=== PATIENT | male | born 1960 | race Caucasian/White ===

== ENCOUNTER → 2021-07-24 | Outpatient (CLI) | payer MEDICARE ==
[2021-07-24 14:17] LABS: African American GFR (CKD) >90 (>60 ml/min/1.73 sqM); Blood Urea Nitrogen 12 mg/dL (9-20); Non-African American GFR(CKD) 90 (>60 ml/min/1.73 sqM)
--- NOTE | 2021-07-24 16:40 | CT ---
EXAMINATION TYPE: CT ChestAbdPelvis w con DATE OF EXAM: 07/24/2021 INDICATION: weight loss COMPARISON: None CT DLP: 1661.7 mGycm CONTRAST: Performed with Oral Contrast and with IV Contrast, patient injected with 100 mL of Isovue 300. TECHNIQUE: Axial images at 5 mm thick sections. Reconstructed images in the coronal plane. Delayed images through the kidneys. FINDINGS: CT CHEST: Portion of the thyroid visualized is normal. No suspicious lung nodules or focal infiltrates are present. No enlarged mediastinal or hilar adenopathy is evident. The ascending aorta diameter at the level of the main pulmonary artery is 3.0 cm. The main pulmonary artery diameter at the bifurcation is 2.8 cm. Coronary artery calcifications present. CT ABDOMEN: Liver: Normal Spleen: Normal Pancreas: Normal Adrenal glands: The adrenal glands are normal. Gallbladder: Normal Kidneys: No masses are evident. No hydronephrosis is present. No cysts are present. Delayed images were obtained through the kidneys, which remain unremarkable. Aorta: Vascular calcification is within the aorta. Inferior vena cava: Normal. Lymphadenopathy: There are multiple enlarged periaortic and retrocaval lymph nodes which are enlarged by CT criteria. This extends from the level of the renal veins to the bifurcation. Greater canal adenopathy is enlarged. There is marked enlarged adenopathy through the left iliac brandy n to the inguinal region. Multiple scattered enlarged left inguinal lymph nodes are present. CT PELVIS: Loops of bowel within the abdomen and pelvis are normal. There are loops of bowel which are incom pletely distended or lack oral contrast limiting their evaluation. Appendix: Normal as visualized. Urinary bladder: Normal. Genitourinary structures: Osseous structures: No suspicious lytic or sclerotic lesions. Degenerative changes at the lumbar spin e. IMPRESSIONS: 1. Multiple enlarged lymph nodes within the abdomen and pelvis especially on the left side within the left hemipelvis suspicious for lymphoma. Additional workup is recommended.
== END | disposition home or self-care (01) ==
LOC: RADCTMAIN 13:04
PROVIDERS: ATTEND Internal Medicine Hematology & Oncology
DX: R59.0 Localized enlarged lymph nodes (principal)
CPT/HCPCS: 82565; 84520; 71260; 74177; 36415; Q9967

== ENCOUNTER → 2021-08-07 | Outpatient (CLI) | payer MEDICARE ==
--- NOTE | 2021-08-08 05:24 | ECHOF ---
Referral Reason:Z01.818 [employer] exposure MEASUREMENTS -------- HEIGHT: 182.9 cm WEIGHT: 99.3 kg BP: RVIDd: 2.7 cm (< 3.3) IVSd: 1.3 cm (0.6 - 1.1) LVIDd: 4.8 cm (3.9 - 5.3) LVPWd: 1.3 cm (0.6 - 1.1) IVSs: 1.6 cm LVIDs: 3.7 cm LVPWs: 1.4 cm LA Diam: 3.9 cm (2.7 - 3.8) LAESV Index (A-L): 24.01 ml/m Ao Diam: 4.0 cm (2.0 - 3.7) AV Cusp: 1.0 cm (1.5 - 2.6) MV EXCURSION: 21.866 mm (> 18.000) MV EF SLOPE: 85 mm/s (70 - 150) EPSS: 1.2 cm MV E Dave: 0.53 m/s MV DecT: 263 ms MV A Dave: 0.85 m/s MV E/A Ratio: 0.62 AV maxP.47 mmHg AV meanP.91 mmHg RAP: 5.00 mmHg RVSP: 29.19 mmHg FINDINGS -------- Sinus rhythm. This was a technically good study. The left ventricular size is normal. Left ventricular wall thickness is normal. Overall left vent ricular systolic function is low-normal with, an EF between 50 - 55 %. The right ventricle is normal in size. The left atrial size is normal. The right atrial size is normal. 5.0mg OF Lumason UTLIZED: 2 OR MORE WALL SEGMENTS NOT VISUALIZED. Peak/mean gradient across the Aortic Valve is 25.47mmHg / 14.91mmHg. Mild to Moderate Aortic stenos is. Mild mitral annular calcification present. Mild mitral regurgitation is present. Mild tricuspid regurgitation present. Right ventricular systolic pressure is normal at < 35 mmHg. There is no pulmonic regurgitation present. There is no pericardial effusion. CONCLUSIONS -------- 1. The left ventricular size is normal. 2. Left ventricular wall thickness is normal. 3. Overall left ventricular systolic function is low-normal with, an EF between 50 - 55 %. 4. The right ventricle is normal in size. 5. The left atrial size is normal. 6. The right atrial size is normal. 7. 5.0mg OF Lumason UTLIZED: 2 OR MORE WALL SEGMENTS NOT VISUALIZED. 8. Peak/mean gradient across the Aortic Valve is 25.47mmHg / 14.91mmHg. 9. Mild to Moderate Aortic stenosis. 10. Mild mitral annular calcification present. 11. Mild mitral regurgitation is present. 12. Mild tricuspid regurgitation present. 13. There is no pericardial effusion. SOCIAL SCIENCES RESEARCH SCIENTIST: Dai Orteag RDCS
== END | disposition home or self-care (01) ==
LOC: RADECHMAIN 14:42
PROVIDERS: ATTEND Internal Medicine Hematology & Oncology
DX: Z01.818 Encounter for other preprocedural examination (principal); I08.3 Combined rheumatic disorders of mitral, aortic and tricuspid valves
CPT/HCPCS: 93306

== ENCOUNTER 2021-08-24 09:38 | Inpatient (IN) | payer MEDICARE ==
[2021-08-24] MEDS ORDERED: ACETAMINOPHEN TAB 500 MG TAB PO STA (11:09)
[2021-08-24] MEDS ORDERED: PIPERACILLIN-TAZOBACTAM 3.375 GM in SODIUM CHLORIDE 0.9% 100 ML IVPB STA (11:10)
[2021-08-24] MEDS ORDERED: VANCOMYCIN IV PER PHARMACY 1 EACH MISC MISCELLANE PRN (11:10)
[2021-08-24] MEDS ORDERED: VANCOMYCIN 1,500 MG in SODIUM CHLORIDE 0.9% 250 ML IVPB STA (11:13)
[2021-08-24] MEDS: SODIUM CHLORIDE 0.9% 500 ML 500 ML IV SCH ×5 (11:15→13:35)
--- NOTE | 2021-08-24 11:16 | ED ---
General Adult HPI - General Chief complaint: Weakness Stated complaint: low white blood cells, Fever, CA Pt, Weakness Time Seen by Provider: 08/24/21 10:55 Source: patient Mode of arrival: wheelchair Limitations: no limitations - History of Present Illness Initial comments: Dictation was produced using [place] dictation software. please excuse any g rammatical, word or spelling errors. Chief Complaint: Patient is 60-year-old male with recently diagnosed Hodgkin's lymphoma presents to emergency department for pyrexia History of Present Illness: Patient is 60-year-old male who presents to the emergency department for one day of fever. Patient was diagnosed with Hodgkin's lymphoma approximately one month ago. 2 weeks ago he had his first round of chemotherapy. He presents emergency Department with provides history of present illness. She reports that they were instructed to bring patient to the emergency department if he started having elevated temperatures. This morning patient had elevated temperatures and showing signs of weakness. Did appear to be at his somewhat baseline yesterday. Patient is a poor historian at this time. reports that he seems significantly weak. His oncologist is Dr. Crawley. Patient unable to provide history of localizing symptoms. he has past medical history of diabetes and also arthritis. The ROS documented in this emergency department record has been reviewed and confirmed by me. Those systems with pertinent positive or negative responses have been documented in the HPI. All other systems are other negative and/or noncontributory. PHYSICAL EXAM: General Impression: Alert and oriented x2/4, lethargic, pale HEENT: Normocephalic atraumatic, extra-ocular movements intact, pupils equal and reactive to light bilaterally, dry mucous membranes Cardiovascular: Heart regular rate and rhythm Chest: Able to complete full sentences, no retractions, no tachypnea Abdomen: abdomen soft, non-tender, non-distended, no organomegaly Musculoskeletal: Pulses present and equal in all extremities, no peripheral edema Motor: no focal deficits noted Neurological: CN II-XII grossly intact Skin: Intact with no visualized rashes Psych: Normal affect and mood ED course: 60-year-old male with recently diagnosed Hodgkin's lymphoma presents emergency department for one day of fevers. Patient was brought to the ER by his . All signs upon arrival shows temperature 102, heart rate 137, blood pressure 99/48. 95% on room air. has labs recently from oncologist office and his white blood cell count was 0.4. Clinical presentation concerning for neutropenic fever. Given low blood pressure tachycardia is concern for sepsis. Patient given 30 mL per KG bolus based on ideal body weight. Patient still hypotensive. Patient central venous catheter line was placed. Patient started on pressors. Laboratory evaluation obtained. Leukopenia of 0.1. Hemoglobin 7.5. Coag panel is negative. Metabolic panel shows an 1:30. Lactic acidosis of 4.3. 4 panel by PCR is negative. Computed tomography scan of the brain is negative. Chest x-ray shows tiny hyperdensity within the archie . Radiology recommends MRI. Chest x-ray shows chronic disease process. Patient went to CT for further evaluation of infectious process. On the way back patient had what telephone technician and at the bedside reported was tonic-clonic activity. Patient is given 4 mg of Ativan. And started on Keppra. Neurology be consulted for possible seizure evaluation. Patient also was given acyclovir every 8 hours 10 mg/kg IV. Patient started becoming more hypotensive and bradycardic. [id number] bedside ultrasound was performed showing cardiomyopathy with very weak ejection fraction. Patient is intubated. Patient was started on epinephrine, given sodium bicarbonate and placed on vasopressin infusion. Computed tomography scan was concerning for acute cholecystitis. Case is discussed with general surgeon who will be on consult. There are significant ICU holes in the waiting room and throughout the hospital. Patient will be boarding in the emergency room for considerable amount of time. X-ray from central venous catheter line was reviewed. It appears that the catheter tip is malpositioned and traces into the left subclavian, brachial vein. Second central venous catheter line was placed in the right groin. Patient reevaluated 5:07 PM: Patient continues to be hypotensive. We are titrating his infusions. Discussed with that patient is to remain full code for the time being. 6:23 PM: Patient evaluated at bedside by substation operator apprentice. Apparently patient is having a cutaneous IR guided drainage to be performed by our interventional radiologist. Patient is being administered platelets. Patient is thrombocytopenic with platelet counts of 23. Interventional radiologists request the administration before performing percutaneous drain. Patient returned from CT suite. Percutaneous gallbladder drain was placed by interventional radiology. ICU bed available at approximately 8:50 PM patient was moved to intensive care unit. - Related Data Home Medications Medication Instructions Recorded Confirmed Atorvastatin [Lipitor] 10 mg PO DAILY 06/06/21 08/24/21 Levothyroxine Sodium [Synthroid] 175 mcg PO DAILY 06/06/21 08/24/21 metFORMIN HCL [Glucophage] 500 mg PO DAILY 06/06/21 08/24/21 Allopurinol [Zyloprim] 300 mg PO DAILY 08/24/21 08/24/21 Folic Acid 1 mg PO DAILY 08/24/21 08/24/21 Lidocaine-Prilocaine Cream [Emla 1 applic TOPICAL DAILY PRN 08/24/21 08/24/21 Cream 2.5%/2.5%] Omeprazole [PriLOSEC] 40 mg PO BID 08/24/21 08/24/21 Ondansetron Odt [Zofran Odt] 4 mg PO Q4H PRN 08/24/21 08/24/21 oxyCODONE HCL [oxyCODONE HCL (IR)] 20 mg PO Q6H 08/24/21 08/24/21 Allergies Allergy/AdvReac Type Severity Reaction Status Date / Time No Known Allergies Allergy Verified 08/24/21 13:31 Review of Systems ROS Statement: Those systems with pertinent positive or pertinent negative responses have been documented in the HPI. ROS Other: All systems not noted in ROS Statement are negative. Past Medical History Past Medical History: Diabetes Mellitus, Osteoarthritis (OA) Additional Past Medical History / Comment(s): recent constipation, anemia since 12/2020, gout, weak and dizzy, diff urinating. thyroid tx with radioactive iodine, hx of severe injury to left shoulder after mirror dropped on him hemorrhoids, Hodgkins Lymphoma History of Any Multi-Drug Resistant Organisms: None Reported Additional Past Surgical History / Comment(s): surgery on rt index finger from injury, orbital surgery rt eye, Past Anesthesia/Blood Transfusion Reactions: Previous Problems w/ Anesthesia Additional Past Anesthesia/Blood Transfusion Reaction / Comment(s): "oxygen went low after eye surgery and had to stay overnight" Past Psychological History: No Psychological Hx Reported Smoking Status: Current every day smoker Past Alcohol Use History: None Reported Past Drug Use History: None Reported - Past Family History Mother Family Medical History: Cancer Father Family Medical History: Cancer General Exam Limitations: no limitations Course Vital Signs 08/24/21 08/24/21 08/24/21 09:56 11:00 12:00 Temperature 102 F H Pulse Rate 137 H 142 H 138 H Respiratory 20 22 26 H Rate Blood Pressure 99/48 89/45 92/48 O2 Sat by Pulse 95 95 95 Oximetry 08/24/21 08/24/21 08/24/21 13:00 13:17 14:00 Temperature 99.5 F Pulse Rate 130 H 129 H 122 H Respiratory 35 H 22 16 Rate Blood Pressure 66/33 70/36 63/31 O2 Sat by Pulse 92 L 98 98 Oximetry 08/24/21 08/24/21 08/24/21 14:45 15:40 15:54 Temperature Pulse Rate 132 H 38 L 120 H Respiratory 26 H 14 20 Rate Blood Pressure 73/35 48/28 57/27 O2 Sat by Pulse 92 L 91 L 100 Oximetry 08/24/21 08/24/21 08/24/21 16:00 17:00 18:00 Temperature Pulse Rate 123 H 126 H 122 H Respiratory 20 18 20 Rate Blood Pressure 57/32 70/36 76/46 O2 Sat by Pulse 99 99 100 Oximetry 08/24/21 08/24/21 08/24/21 18:31 18:52 19:01 Temperature Pulse Rate 120 H 127 H 132 H Respiratory 18 20 20 Rate Blood Pressure 88/51 84/45 87/46 O2 Sat by Pulse 100 100 100 Oximetry 08/24/21 08/24/21 08/24/21 19:02 19:07 19:23 Temperature Pulse Rate 122 H 120 H 129 H Respiratory 16 16 Rate Blood Pressure 87/46 93/44 87/41 O2 Sat by Pulse 100 100 99 Oximetry 08/24/21 19:33 Temperature Pulse Rate 130 H Respiratory 16 Rate Blood Pressure 91/46 O2 Sat by Pulse 98 Oximetry Procedures - Central Line Placement Left IJ Consent Obtained: verbal consent, emergent situation Patient Placed on Monitor/Pulse Ox: Yes Prep: mask, gown, gloves Central Line Prep: Chlorhexidine scrub Local Anesthesia Used: Lidocaine 1%, with Epi Ultrasound Used for Placement: Yes Central Line Lumen Inserted: triple Central Line Position: good blood return, all ports aspirated, flushed, capped, sutured in place with 3-0 nylon Dressing Applied: Tegaderm Post Procedure X-Ray: other (malpositioned to left upper extremity) Patient Tolerated Procedure: other (see above) Complications: catheter malposition Right Femoral Consent Obtained: verbal consent, emergent situation Patient Placed on Monitor/Pulse Ox: Yes MD Prep: mask, gown, gloves Central Line Prep: Chlorhexidine scrub Ultrasound Used for Placement: Yes Central Line Lumen Inserted: triple Central Line Position: good blood return, all ports aspirated, flushed, capped, sutured in place with 3-0 nylon Dressing Applied: Tegaderm Patient Tolerated Procedure: well Complications: none - Intubation Laryngoscope: Sheldon Size: 3 ET Tube Size: 8 ET Tube Uncuffed: Yes Tube Secured Depth (cm): 24 Tube Secured Location: lips Tube Placement Confirmation: visualized tube passing through cords, equal breath sounds bilaterally, no breath sounds over epigastrium, confirmation by capnometry Patient Tolerated Procedure: well Intubation Complications: none - Sepsis Sepsis Focused Exam #1 Time Sepsis Criteria Met: 12:00 Sepsis Focused Exam Date: 08/24/21 Sepsis Focused Exam Time: 01:00 Sepsis Focused Exam Complete: Yes Vital Signs & RN Notes Reviewed: Yes Capillary Refill: > 2 Seconds: Fingers, Toes Peripheral Pulses: Normal: Radial (R), Radial (L), Posterior Tibialis (R), Posterior Tibialis (L), Dorsalis Pedis (R), Dorsalis Pedis (L) Skin Color: Ashen Respiratory Exam: normal lung sounds Cardiovascular Exam: tachycardia Medical Decision Making - Lab Data Result diagrams: 08/24/21 11:51 08/24/21 11:51 Lab Results 08/24/21 08/24/21 08/24/21 Range/Units 11:51 11:51 11:51 WBC 0.1 L* (3.8-10.6) k/uL RBC 2.35 L (4.30-5.90) m/uL Hgb 7.5 L (13.0-17.5) gm/dL Hct 22.4 L (39.0-53.0) % MCV 95.5 (80.0-100.0) fL MCH 31.9 (25.0-35.0) pg MCHC 33.4 (31.0-37.0) g/dL RDW 15.4 (11.5-15.5) % Plt Count 23 L (150-450) k/uL MPV 9.3 Differential Comment Manual Slide Review Performed RBC Morphology Normal PT 11.3 (9.0-12.0) sec INR 1.1 (<1.2) APTT 27.0 (22.0-30.0) sec Sodium 130 L (137-145) mmol/L Potassium 3.7 (3.5-5.1) mmol/L Chloride 99 (98-107) mmol/L Carbon Dioxide 24 (22-30) mmol/L Anion Gap 7 mmol/L BUN 11 (9-20) mg/dL Creatinine 0.93 (0.66-1.25) mg/dL Est GFR (CKD-EPI)AfAm >90 (>60 ml/min/1.73 sqM) Est GFR (CKD-EPI)NonAf 89 (>60 ml/min/1.73 sqM) Glucose 137 H (74-99) mg/dL Lactic Ac Sepsis Rflx Plasma Lactic Acid Abelardo (0.7-2.0) mmol/L Calcium 9.6 (8.4-10.2) mg/dL Total Bilirubin 1.0 (0.2-1.3) mg/dL AST 39 (17-59) U/L ALT 26 (4-49) U/L Alkaline Phosphatase 358 H (38-126) U/L Total Protein 7.4 (6.3-8.2) g/dL Albumin 2.4 L (3.5-5.0) g/dL Influenza Type A (PCR) (Not Detectd) Influenza Type B (PCR) (Not Detectd) RSV (PCR) (Not Detectd) SARS-CoV-2 (PCR) (Not Detectd) 08/24/21 08/24/21 08/24/21 Range/Units 11:51 12:31 13:03 WBC (3.8-10.6) k/uL RBC (4.30-5.90) m/uL Hgb (13.0-17.5) gm/dL Hct (39.0-53.0) % MCV (80.0-100.0) fL MCH (25.0-35.0) pg MCHC (31.0-37.0) g/dL RDW (11.5-15.5) % Plt Count (150-450) k/uL MPV Differential Comment Manual Slide Review RBC Morphology PT (9.0-12.0) sec INR (<1.2) APTT (22.0-30.0) sec Sodium (137-145) mmol/L Potassium (3.5-5.1) mmol/L Chloride (98-107) mmol/L Carbon Dioxide (22-30) mmol/L Anion Gap mmol/L BUN (9-20) mg/dL Creatinine (0.66-1.25) mg/dL Est GFR (CKD-EPI)AfAm (>60 ml/min/1.73 sqM) Est GFR (CKD-EPI)NonAf (>60 ml/min/1.73 sqM) Glucose (74-99) mg/dL Lactic Ac Sepsis Rflx Y Plasma Lactic Acid Abelardo 4.3 H* (0.7-2.0) mmol/L Calcium (8.4-10.2) mg/dL Total Bilirubin (0.2-1.3) mg/dL AST (17-59) U/L ALT (4-49) U/L Alkaline Phosphatase (38-126) U/L Total Protein (6.3-8.2) g/dL Albumin (3.5-5.0) g/dL Influenza Type A (PCR) Not Detected (Not Detectd) Influenza Type B (PCR) Not Detected (Not Detectd) RSV (PCR) Not Detected (Not Detectd) SARS-CoV-2 (PCR) Not Detected (Not Detectd) Critical Care Time Critical Care Time: Yes Total Critical Care Time: 72 Disposition Clinical Impression: Neutropenic sepsis, Septic shock Disposition: ADMITTED IP TO THIS [facility] Condition: Critical
--- NOTE | 2021-08-24 12:29 | XR ---
EXAMINATION TYPE: XR chest 1V portable DATE OF EXAM: 08/24/2021 COMPARISON: NONE HISTORY: Fever TECHNIQUE: Single frontal view of the chest is obtained. FINDINGS: There is no focal air space opacity, pleural effusion, or pneumothorax seen. The cardiac silhouette size is within normal limits. The osseous structures are intact. Coarsened interstitium with diffuse osteopenia and arthropathy of the shoulders. Mediport catheter seen. Heart size normal. IMPRESSION: 1. COPD correlate for interstitial chronic lung disease such as pulmonary fibrosis. Interstitial pneu monitis not excluded correlate clinically.
--- NOTE | 2021-08-24 12:53 | CT ---
EXAMINATION TYPE: CT brain wo con DATE OF EXAM: 08/24/2021 COMPARISON: None HISTORY: confusion CT DLP: 1096.4 mGycm Automated exposure control for dose reduction was used. FINDINGS: Hyperostosis of the calvarium. Sinuses are clear. Orbits are symmetric. Mild generalized degenerative change. Faint low-attenuation the white matter are nonspecific but most typical remote white matter ischemia. Tiny hyperdensity within the sanya is nonspecific. Craniocervical junction maintained. Sella turcica has a normal appearance. There is no evidence of m ass effect or midline shift. Intracranial atherosclerotic changes noted. IMPRESSION: THERE IS A TINY HYPERDENSITY WITHIN THE SANYA BEST NOTED ON SAGITTAL IMAGE 44 TO SMALL TO CHARACTERIZE . ALTHOUGH THIS COULD BE A CALCIFICATION COULD NOT EXCLUDE A TINY PETECHIAL HEMORRHAGE. RECOMMEND FOL LOW-UP MRI.
[2021-08-24 13:00] LABS: ALT 26 U/L (4-49); AST 39 U/L (17-59); African American GFR (CKD) >90 (>60 ml/min/1.73 sqM); Albumin 2.4 g/dL (3.5-5.0); Alkaline Phosphatase 358 U/L (38-126); Anion Gap 7 mmol/L; Blood Urea Nitrogen 11 mg/dL (9-20); Calcium 9.6 mg/dL (8.4-10.2); Carbon Dioxide 24 mmol/L (22-30); Chloride 99 mmol/L (98-107); Glucose 137 mg/dL (74-99); Non-African American GFR(CKD) 89 (>60 ml/min/1.73 sqM); Potassium 3.7 mmol/L (3.5-5.1); Sodium 130 mmol/L (137-145); Total Protein 7.4 g/dL (6.3-8.2)
[2021-08-24 13:05] LABS: INR 1.1 (<1.2); Prothrombin Time 11.3 sec (9.0-12.0)
[2021-08-24 13:12] LABS: HCT 22.4 % (39.0-53.0); HGB 7.5 gm/dL (13.0-17.5); MCH 31.9 pg (25.0-35.0); MCHC 33.4 g/dL (31.0-37.0); MCV 95.5 fL (80.0-100.0); Mean Platelet Volume 9.3; RBC 2.35 m/uL (4.30-5.90); RDW 15.4 % (11.5-15.5)
[2021-08-24 13:20] LABS: WBC 0.1 k/uL (3.8-10.6)
[2021-08-24] MEDS ORDERED: SODIUM CHLORIDE 0.9% 1,000 ML IV STA (13:40)
[2021-08-24] MEDS ORDERED: SODIUM BICARB 8.4% 50 ML SYR (1 MEQ/ML) IV STA ×4 (13:45→15:45)
[2021-08-24] MEDS ORDERED: NALOXONE 0.4 MG/ML 1 ML VIAL IV PRN (13:54)
[2021-08-24] MEDS ORDERED: ACETAMINOPHEN TAB 325 MG TAB PO PRN (13:54)
[2021-08-24 13:56] LABS: Platelet Count 23 k/uL (150-450)
[2021-08-24] MEDS: NOREPINEPHRINE 32 MG in SODIUM CHLORIDE 0.9% 218 ML IV ONE (14:00)
[2021-08-24] MEDS ORDERED: LORazepam 2 MG/ML INJ IV STA (14:26)
[2021-08-24] MEDS ORDERED: levETIRAcetam IV 1,000 MG in SALINE 1 100ML.BAG IVPB STA (14:40)
--- NOTE | 2021-08-24 14:46 | CT ---
EXAMINATION TYPE: CT abdomen pelvis w con DATE OF EXAM: 08/24/2021 COMPARISON: CT 1 month earlier. HISTORY: weakness, sepsis, fever, lymphoma pt CT DLP: 2387.1 mGycm, Automated Exposure Control for Dose Reduction was Utilized. CONTRAST: CT scan of the abdomen and pelvis is performed without oral but with IV Contrast, patient injected wi th 100 mL of Isovue 300. FINDINGS: LUNG BASES: Tiny bilateral pleural effusions and associated bibasilar atelectasis. Coronary artery ca lcification is redemonstrated. New edematous change in the lateral inferior right breast and/or thora x. LIVER/GB: Gallbladder is dilated with a distended margins. There are intraluminal gallstones. There i s surrounding fluid and fat stranding. CT findings consistent with acute cholecystitis. PANCREAS: No significant abnormality is seen. SPLEEN: Stable splenomegaly of 16.4 cm coronal image 78. Prominent tortuous splenic artery in the inf erior hilum redemonstrated ADRENALS: No significant abnormality is seen. KIDNEYS: No visualized excretion but no visualized hydronephrosis bilaterally. BOWEL: Yyaz-rs-jeluyeue anterior wall thickening in the poorly distended bladder is redemonstrated. PROSTATE/SEMINAL VESICLES: No gross abnormality seen. LYMPH NODES: Persistent abnormal adenopathy. Confluent abnormal left pelvic adenopathy axial image 83 difficult to accurately measure is redemonstrated. Subcentimeter bilateral groin lymph nodes again s een. There are enlarged right-sided common iliac lymph nodes noted axial image 68 redemonstrated. The re are abnormal retroperitoneal lymph nodes along the course of the aorta redemonstrated. One of the largest measures 2.9 x 2.0 cm anterior aortocaval lymph node axial image 57 not significantly changed from prior study axial image 86. Stable left periaortic 2.6 x 2.1 cm lymph node axial image 35. OSSEOUS STRUCTURES: Osseous structures are demineralized moderate axial joint space loss both hips. M oderate multilevel anterior and lateral spurring in the spine. Multilevel facet arthropathy in the mi d to lower lumbar spine. OTHER: [id number] calcified plaque of the distal abdominal aorta extends into iliac branch vess els. IMPRESSION: 1. Stable splenomegaly and abnormal abdominal or pelvic adenopathy. 2. CT findings consistent with new acute cholecystitis now present. A [employer] level critical message alert has been initiated for Carli Garza MD via the [employer] Critical Results System on 08/24/2021 2:43 PM. This message alert has been sent to Carli Garza MD via the preferences provided by the clinician for the receipt of Radiology Critical Findin gs. Message ID [id number].
[2021-08-24 15:00] LABS: Appearance,Urine Cloudy (Clear); Bacteria,Urine Many /hpf; Bilirubin,Urine Negative (Negative); Blood,Urine Moderate (Negative); Color,Urine Yellow; Glucose,Urine (UA) Negative (Negative); Ketones,Urine Negative (Negative); Leukocyte Esterase,Urine Negative (Negative); Mucus,Urine Rare /hpf; Nitrite,Urine Negative (Negative); Protein,Urine 1+ (Negative); RBC,Urine 1 /hpf (0-5); Specific Gravity,Urine 1.016 (1.001-1.035); Squamous Epithelial Cell,Urine 1 /hpf (0-4); WBC,Urine 4 /hpf (0-5)
--- NOTE | 2021-08-24 15:52 | XR ---
EXAMINATION TYPE: XR chest 1V portable DATE OF EXAM: 08/24/2021 COMPARISON: 08/24/2021 HISTORY: Line placement TECHNIQUE: Single frontal view of the chest is obtained. FINDINGS: Right-sided Mediport catheter seen with the tip overlying the SVC. No sizable pneumothorax . Coarsened interstitium. Heart size normal. No pleural effusion. No consolidative pneumonia. Left-si ded central line seen with the tip extending into the left upper extremity. Report called to ER chelly fitzpatrick 3:50 PM 08/24/2021. IMPRESSION: 1. Correlate for chronic interstitial lung disease. 2. No evidence of pneumothorax. 3. There appears to be a catheter extending along the left upper lung extending into the left upper e xtremity. Correlate for malpositioning of left IJ line.
[2021-08-24] MEDS ORDERED: EPINEPHrine 4 MG in DEXTROSE 5% IN WATER 250 ML IV SCH ×2 (16:00)
[2021-08-24] MEDS: ACYCLOVIR SODIUM 950 MG in SODIUM CHLORIDE 0.9% 250 ML IV SCH (16:16)
[2021-08-24] MEDS: EPINEPHrine 4 MG in DEXTROSE 5% IN WATER 250 ML IV SCH ×4 (16:17→22:36)
[2021-08-24] MEDS: SODIUM CHLORIDE 0.9% 50 ML with VASOPRESSIN 20 UNIT IVPB SCH ×4 (16:20→22:37)
[2021-08-24 16:26] LABS: ABG Base Excess -9.2 mmol/L; ABG HCO3 18 mmol/L (21-25); ABG Oxygen Saturation 99.6 % (94-97); ABG PCO2 41 mmHg (35-45); ABG PH 7.26 (7.35-7.45); ABG PO2 190 mmHg (83-108); ABG TCO2 19 mmol/L (19-24); Allen Test Performed? Yes
[2021-08-24] MEDS: DEXTROSE 5% IN WATER 1,000 ML with SODIUM BICARB (1 MEQ/ML) 150 ML IV SCH (16:30)
--- NOTE | 2021-08-24 16:30 | XR ---
EXAMINATION TYPE: XR chest 1V DATE OF EXAM: 08/24/2021 CLINICAL HISTORY: Difficulty breathing had to be intubated. TECHNIQUE: Single AP portable supine view of the chest is obtained. COMPARISON: Chest x-ray from earlier today. FINDINGS: New Endotracheal tube terminates at aortic knob level approximately 4 cm above katlyn. New orogastric tube extends below diaphragm. Stable right subclavian Mediport catheter. Cardiac silhouette size stable and within normal limits. Reticular increased markings bilaterally on low lung volumes redemonstrated. Osseous structures are demineralized. Catheter overlying left upper thorax redemonstrated. Correlate clinically. IMPRESSION: New Satisfactory positioning of endotracheal and orogastric tubes. Other findings stable.
--- NOTE | 2021-08-24 16:51 | P.CNNES ---
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 Patient is at bedside who helps with a history. Knowledge is consulted for seizure. Per the patient's the patient was diagnosed with Hodgkin lymphoma about the a month ago and on 08/15/2021 patient received that chemotherapy. The patient has been the check and his temperature on a regular basis and today he had a temperature of 101.2 early in the morning. Patient has a generalized weakness for months and has been getting worse. Per the patient's the patient does not have any history of seizures or strokes. Per the ED team patient had a CT of the head in the ED and the on the way back patient had a reported tonic-clonic seizure activity as a result the patient was given Ativan 4 mg and was given the loading dose of Keppra 1gm. He is not on any anticoagulation and not any antiplatelet. Some of the workup in the hospital consisted of: Initial vital signs his blood pressure of 99/48, heart rate of 137, respiratory of 20, temperature of 102 Fahrenheit oral and pulse ox of 95% room air. His blood pressure got as low as 48/28. And the heart rate got as high as a 130s. White blood cell is 0.1 thousand which is significantly low. Hemoglobin is 7.5 Sodium is 1:30, creatinine is 0.93, serum glucose 137, plasma lactic acid vein is 4.3, calcium is 9.6, AST of 39 and ALT of 26. Urine analysis is negative for urinary tract infection. SARS2 Covid to PCR was not detected. Influenza A/B PCR was not detected. Give the head is reported as there is a tiny hyper density within the archie best noted on sagittal image 44 to small to characterize. Although this could be a calcification could not do exclude a tiny petechial hemorrhage. Recommend follow-up MRI. I personally reviewed the CT of the head my suspicion of bleed is less likely. Review of Systems Review of system is limited but penitent positive and negative as per HPI. Past Medical History Past Medical History: Diabetes Mellitus, Osteoarthritis (OA) Additional Past Medical History / Comment(s): recent constipation, anemia since 12/2020, gout, weak and dizzy, diff urinating. thyroid tx with radioactive iodine, hx of severe injury to left shoulder after mirror dropped on him hemorrhoids, Hodgkins Lymphoma History of Any Multi-Drug Resistant Organisms: None Reported Additional Past Surgical History / Comment(s): surgery on rt index finger from injury, orbital surgery rt eye, Past Anesthesia/Blood Transfusion Reactions: Previous Problems w/ Anesthesia Additional Past Anesthesia/Blood Transfusion Reaction / Comment(s): "oxygen went low after eye surgery and had to stay overnight" Past Psychological History: No Psychological Hx Reported Smoking Status: Current every day smoker Past Alcohol Use History: None Reported Past Drug Use History: None Reported - Past Family History Mother Family Medical History: Cancer Father Family Medical History: Cancer Medications and Allergies Home Medications Medication Instructions Recorded Confirmed Type Atorvastatin [Lipitor] 10 mg PO DAILY 06/06/21 08/24/21 History Levothyroxine Sodium [Synthroid] 175 mcg PO DAILY 06/06/21 08/24/21 History metFORMIN HCL [Glucophage] 500 mg PO DAILY 06/06/21 08/24/21 History Allopurinol [Zyloprim] 300 mg PO DAILY 08/24/21 08/24/21 History Folic Acid 1 mg PO DAILY 08/24/21 08/24/21 History Lidocaine-Prilocaine Cream [Emla 1 applic TOPICAL DAILY PRN 08/24/21 08/24/21 History Cream 2.5%/2.5%] Omeprazole [PriLOSEC] 40 mg PO BID 08/24/21 08/24/21 History Ondansetron Odt [Zofran Odt] 4 mg PO Q4H PRN 08/24/21 08/24/21 History oxyCODONE HCL [oxyCODONE HCL (IR)] 20 mg PO Q6H 08/24/21 08/24/21 History Allergies Allergy/AdvReac Type Severity Reaction Status Date / Time No Known Allergies Allergy Verified 08/24/21 13:31 Physical Examination - Vital Signs Vital Signs: Vital Signs Temp Pulse Resp BP Pulse Ox 08/24/21 15:54 120 H 20 57/27 100 08/24/21 15:40 38 L 14 48/28 91 L 08/24/21 14:45 132 H 26 H 73/35 92 L 08/24/21 14:00 122 H 16 63/31 98 08/24/21 13:17 99.5 F 129 H 22 70/36 98 08/24/21 13:00 130 H 35 H 66/33 92 L 08/24/21 12:00 138 H 26 H 92/48 95 08/24/21 11:00 142 H 22 89/45 95 08/24/21 09:56 102 F H 137 H 20 99/48 95 Intake and Output 08/24/21 08/24/21 08/24/21 06:59 14:59 22:59 Intake Total 1.671 4.621 Balance 1.671 4.621 Intake: Intake, IV Titration 1.671 4.621 Amount Norepinephrine 32 mg In 1.671 4.621 Sodium Chloride 0.9% 218 ml @ 0.05 MCG/KG/MIN 2. 179 mls/hr IV .Q24H ONE Rx#:[id number] Other: Weight 92.986 kg Exam is limited since patient blood pressure was dropping to systolic of 30-40's and ED and nurse came to evaluate patient. GENERAL: The patient is lying looking diffusely pale. CHEST: Could not asses. LUNG: Taking shallow breath. Not labored breathing. ABDOMEN/GI: Not assessed. NEUROLOGICAL: Limited Higher mental function: The patient is significant drowsy. Cranial nerves: Ptosis of right eye (old per ). Motor: Unable to asses. Cerebellum: Unable to asses. Sensation: Unable to asses. Results - Laboratory Findings CBC and BMP: 08/24/21 11:51 08/24/21 11:51 Abnormal Lab Findings: Abnormal Labs 08/24/21 08/24/21 08/24/21 11:51 11:51 11:51 WBC 0.1 L* RBC 2.35 L Hgb 7.5 L Hct 22.4 L Plt Count 23 L Sodium 130 L Glucose 137 H Plasma Lactic Acid Abelardo 4.3 H* Alkaline Phosphatase 358 H Albumin 2.4 L Urine Protein Urine Blood Urine Bacteria Urine Mucus 08/24/21 14:45 WBC RBC Hgb Hct Plt Count Sodium Glucose Plasma Lactic Acid Abelardo Alkaline Phosphatase Albumin Urine Protein 1+ H Urine Blood Moderate H Urine Bacteria Many H Urine Mucus Rare H Assessment and Plan Assessment: New onset seizure (Per ED team had GTC). Likely provoke due to underlying infection (fever, leukopenia) Altered mental status due to likely septic encephalopathy Hyperintesity small in Archie on CT and could not do exclude a tiny petechial hemorrhage . I feel unlikely bleed Newly diagnosed high to his lymphoma (1 month ago) and is on hemotherapy (08/15/2021), History of Graves' disease status post thyroid surgery with radioactive iodine Chronic anemia History of head concussion Diabetes mellitus Osteoarthritis Plan: I ordered the an urgent EEG. I started the patient on Keppra 500 mg every 12 hours. And if the patient the EEG doesn't show any evidence of seizure or epileptiform discharges and the patient is continues to be doing well we'll titrate the patient antiepileptic and consider stopping it down the line. Ordered MRI of the brain with and without a stat Ordered the every hour neuro checks Ice on seizure precaution and pads. Infection disease specialist is on board Patient oncologist is consulted We'll defer the rest of the medical management to the patient's the primary team as well as ICU team Thank you for the consultation. Williams Drake MD Neuro-Hospitalist Time with Patient: Greater than 30
--- NOTE | 2021-08-24 17:03 | P.GSCN ---
History of Present Illness Consult date: 08/24/21 Reason for Consult: Acute cholecystitis History of present illness: 60-year-old male presents to the ER with weakness. Patient is currently on the ventilator. History obtained from the chart and also his . Patient was diagnosed with Hodgkin's lymphoma earlier this month. Patient had a fever this morning of 101.2. He had increased weakness. Came to the hospital for evaluation. In the ER he was not able to provide a significant history. His blood pressure was low. He was resuscitated. He had a CAT scan abdomen and pelvis demonstrating gallbladder wall thickening with stones and surrounding inflammatory changes consistent with acute cholecystitis. White blood cell count is 0.1, hemoglobin 7.5, platelets 23. Lactic acid is elevated. Remains on high-dose pressors currently. He was intubated after he came back from CAT scan had an episode of seizure-like activity. He was given Ativan and became more somnolent. Apparently he has had some vague complaints of pain. Per the she thinks she has had issues with his gallbladder for years. No significant prior workup. Review of Systems ROS unobtainable: due to endotracheal tube Past Medical History Past Medical History: Diabetes Mellitus, Osteoarthritis (OA) Additional Past Medical History / Comment(s): recent constipation, anemia since 12/2020, gout, weak and dizzy, diff urinating. thyroid tx with radioactive iodine, hx of severe injury to left shoulder after mirror dropped on him hemorrhoids, Hodgkins Lymphoma History of Any Multi-Drug Resistant Organisms: None Reported Additional Past Surgical History / Comment(s): surgery on rt index finger from injury, orbital surgery rt eye, Past Anesthesia/Blood Transfusion Reactions: Previous Problems w/ Anesthesia Additional Past Anesthesia/Blood Transfusion Reaction / Comm: "oxygen went low after eye surgery and had to stay overnight" Past Psychological History: No Psychological Hx Reported Smoking Status: Current every day smoker Past Alcohol Use History: None Reported Past Drug Use History: None Reported - Past Family History Mother Family Medical History: Cancer Father Family Medical History: Cancer Medications and Allergies Home Medications Medication Instructions Recorded Confirmed Type Atorvastatin [Lipitor] 10 mg PO DAILY 06/06/21 08/24/21 History Levothyroxine Sodium [Synthroid] 175 mcg PO DAILY 06/06/21 08/24/21 History metFORMIN HCL [Glucophage] 500 mg PO DAILY 06/06/21 08/24/21 History Allopurinol [Zyloprim] 300 mg PO DAILY 08/24/21 08/24/21 History Folic Acid 1 mg PO DAILY 08/24/21 08/24/21 History Lidocaine-Prilocaine Cream [Emla 1 applic TOPICAL DAILY PRN 08/24/21 08/24/21 History Cream 2.5%/2.5%] Omeprazole [PriLOSEC] 40 mg PO BID 08/24/21 08/24/21 History Ondansetron Odt [Zofran Odt] 4 mg PO Q4H PRN 08/24/21 08/24/21 History oxyCODONE HCL [oxyCODONE HCL (IR)] 20 mg PO Q6H 08/24/21 08/24/21 History Allergies Allergy/AdvReac Type Severity Reaction Status Date / Time No Known Allergies Allergy Verified 08/24/21 13:31 Surgical - Exam Vital Signs Temp Pulse Resp BP Pulse Ox 102 F H 137 H 20 99/48 95 08/24/21 09:56 08/24/21 09:56 08/24/21 09:56 08/24/21 09:56 08/24/21 09:56 Physical exam: General: Intubated on ventilator, appears somewhat malnourished HEENT: Normocephalic, sclerae nonicteric Abdomen: Nontender, nondistended Extremities: Mild bilateral lower extremity edema Neuro: On ventilator Results - Labs 08/24/21 11:51 08/24/21 11:51 Abnormal Lab Results - Last 24 Hours (Table) 08/24/21 08/24/21 08/24/21 Range/Units 11:51 11:51 11:51 WBC 0.1 L* (3.8-10.6) k/uL RBC 2.35 L (4.30-5.90) m/uL Hgb 7.5 L (13.0-17.5) gm/dL Hct 22.4 L (39.0-53.0) % Plt Count 23 L (150-450) k/uL ABG pH (7.35-7.45) ABG pO2 (83-108) mmHg ABG HCO3 (21-25) mmol/L ABG O2 Saturation (94-97) % Sodium 130 L (137-145) mmol/L Glucose 137 H (74-99) mg/dL Plasma Lactic Acid Abelardo 4.3 H* (0.7-2.0) mmol/L Alkaline Phosphatase 358 H (38-126) U/L Albumin 2.4 L (3.5-5.0) g/dL Urine Protein (Negative) Urine Blood (Negative) Urine Bacteria (None) /hpf Urine Mucus (None) /hpf 08/24/21 08/24/21 Range/Units 14:45 16:23 WBC (3.8-10.6) k/uL RBC (4.30-5.90) m/uL Hgb (13.0-17.5) gm/dL Hct (39.0-53.0) % Plt Count (150-450) k/uL ABG pH 7.26 L (7.35-7.45) ABG pO2 190 H (83-108) mmHg ABG HCO3 18 L (21-25) mmol/L ABG O2 Saturation 99.6 H (94-97) % Sodium (137-145) mmol/L Glucose (74-99) mg/dL Plasma Lactic Acid Abelardo (0.7-2.0) mmol/L Alkaline Phosphatase (38-126) U/L Albumin (3.5-5.0) g/dL Urine Protein 1+ H (Negative) Urine Blood Moderate H (Negative) Urine Bacteria Many H (None) /hpf Urine Mucus Rare H (None) /hpf Diabetes panel 08/24/21 Range/Units 11:51 Sodium 130 L (137-145) mmol/L Potassium 3.7 (3.5-5.1) mmol/L Chloride 99 (98-107) mmol/L Carbon Dioxide 24 (22-30) mmol/L BUN 11 (9-20) mg/dL Creatinine 0.93 (0.66-1.25) mg/dL Glucose 137 H (74-99) mg/dL Calcium 9.6 (8.4-10.2) mg/dL AST 39 (17-59) U/L ALT 26 (4-49) U/L Alkaline Phosphatase 358 H (38-126) U/L Total Protein 7.4 (6.3-8.2) g/dL Albumin 2.4 L (3.5-5.0) g/dL Calcium panel 08/24/21 Range/Units 11:51 Calcium 9.6 (8.4-10.2) mg/dL Albumin 2.4 L (3.5-5.0) g/dL Pituitary panel 08/24/21 Range/Units 11:51 Sodium 130 L (137-145) mmol/L Potassium 3.7 (3.5-5.1) mmol/L Chloride 99 (98-107) mmol/L Carbon Dioxide 24 (22-30) mmol/L BUN 11 (9-20) mg/dL Creatinine 0.93 (0.66-1.25) mg/dL Glucose 137 H (74-99) mg/dL Calcium 9.6 (8.4-10.2) mg/dL Adrenal panel 08/24/21 Range/Units 11:51 Sodium 130 L (137-145) mmol/L Potassium 3.7 (3.5-5.1) mmol/L Chloride 99 (98-107) mmol/L Carbon Dioxide 24 (22-30) mmol/L BUN 11 (9-20) mg/dL Creatinine 0.93 (0.66-1.25) mg/dL Glucose 137 H (74-99) mg/dL Calcium 9.6 (8.4-10.2) mg/dL Total Bilirubin 1.0 (0.2-1.3) mg/dL AST 39 (17-59) U/L ALT 26 (4-49) U/L Alkaline Phosphatase 358 H (38-126) U/L Total Protein 7.4 (6.3-8.2) g/dL Albumin 2.4 L (3.5-5.0) g/dL Assessment and Plan (1) Acute cholecystitis Narrative/Plan: 60-year-old male with pancytopenia and neutropenic sepsis. Patient with CAT scan suggesting acute cholecystitis contributing to his septic shock. Continue broad-spectrum antibiotics. Agree with infectious disease and oncology evaluation. If patient is stable and platelet levels are improved we'll consult radiology for percutaneous cholecystostomy tube placement. We'll follow closely with you. Case was reviewed and discussed with the patient's . The severity of the patient's illness was described. All questions answered. Current Visit: Yes Status: Acute Code(s): K81.0 - ACUTE CHOLECYSTITIS SNOMED Code(s): 05703139
[2021-08-24] MEDS ORDERED: SODIUM CHLORIDE 0.9% 1,000 ML IV ONE ×3 (18:02→23:44)
--- NOTE | 2021-08-24 18:54 | P.CNPUL ---
History of Present Illness Consult date: 08/24/21 Chief complaint: neutropenic fever, septic shock, History of present illness: 60-year-old male patient with known history of Hodgkin's lymphoma with received chemotherapy on 08/15/2021. The patient has been diagnosed having Hodgkin's lymphoma approximately a month ago and he was started on systemic chemotherapy and he received his first cycle. The patient was at home and the patient was found to have a temperature of 11.2 early in the morning. He was also having generalized weakness for several months and recently got worse. The was concerned and for that reason he was brought into the hospital for an ongoing fever and generalized weakness. The patient was found to be quite lethargic in the emergency department. The course in the ED included that showed a temperature of 102F with a heart rate of 137. His blood pressure was soft with a systolic blood pressure of 99 and pulse ox was 95% on room air oxygen. His blood work showed evidence of leukopenia with a white cell, 0.1 and as such the patient was diagnosed having a neutropenic fever. Pancytopenic with a hemoglobin of 7.5 and a platelet count of 23. The electrolytes and renal functions were essentially within normal limits. AST and ALP were normal. Alkaline phosphatase was slightly elevated at 358. The patient had undergone further testing including a lactic acid level that came back at 4.3, influenza A and B were negative, RSV was negative,: COVID 19 by PCR was also negative. Chest x- ray showed no focal airspace disease. Cardiac silhouette was within normal limits. The patient had a Mediport catheter in place. The computed tomography scan of the abdomen and pelvis also also done as part of further workup of an elevated alkaline phosphatase. The patient was found to have stable splenomegaly, abnormal abdominal and pelvic lymphadenopathy and the CAT scan was also consistent with an acute cholecystitis. The CAT scan also showed tiny smiley ateral pleural effusions associated with some bibasilar pulmonary atelectatic change. Gallbladder was dilated and Distended margins and there was intraluminal gallstones. There was also surrounding fluid and fat stranding and the CAT scan was consistent with acute cholecystitis. Based on this, surgical consultation was requested. The patient was seen by Dr. Mauricio, and based on the patient's condition, which involve pancytopenia and sepsis, percutaneous drainage with a cholecystostomy tube was recommended. The time of my evaluation, the patient was noted and evaluated in the emergency department. The patient was completely unresponsive. The patient could have been also post ictal knowing that he had about the generalized tonic-clonic seizure activity. The patient was intubated on a mechanical ventilator. Apparently as the patient was being transported for further imaging, the patient had tonic-clonic seizure activity as the patient was being taken to her the CAT scan of the head by the emergency department team. For that reason the patient was given 4 mg of Ativan and he was loaded with 1 g of Keppra. Neurology was consulted. Note that the patient had completed a CAT scan of the brain and a CAT scan showed tiny hyperdensity within the archie and this was too small to characterize. Possibility of a tiny petechial hemorrhage cannot be completely excluded an MRI of the brain was recommended. In any rate, the patient is currently intubated on mechanical ventilator. He is hemodynamically stable. He is in septic shock. He is in severe lactic acidosis. His assist-control mode at the rate of 24, tidal volume of 500, FiO2 of 100% with PEEP of 5. He was on a combination of facet and the patient was taken a combination of norepinephrine infusion is 0 0.35 mg/kg/m, epinephrine at 0.1 mcg/kg per minute and vasopressin infusion at physiologic dose. The abdomen was relatively soft and nondistended. Pulses in the large family were quite diminished. His most recent systolic blood pressures the mid 80s. is at the bedside. Patient is clinically unresponsive. Review of Systems ROS unobtainable: due to endotracheal tube, due to mental status Past Medical History Past Medical History: Diabetes Mellitus, Osteoarthritis (OA) Additional Past Medical History / Comment(s): History of Hodgkin's lymphoma post systemic chemotherapy, history of hyperthyroidism treated with a reactive iodine, diabetes mellitus, osteoarthritis, gout, chronic constipation, history of hemorrhoids, history of left shoulder injury. History of Any Multi-Drug Resistant Organisms: None Reported Additional Past Surgical History / Comment(s): surgery on rt index finger from injury, orbital surgery rt eye, Past Anesthesia/Blood Transfusion Reactions: Previous Problems w/ Anesthesia Additional Past Anesthesia/Blood Transfusion Reaction / Comment(s): "oxygen went low after eye surgery and had to stay overnight" Past Psychological History: No Psychological Hx Reported Smoking Status: Current every day smoker Past Alcohol Use History: None Reported Past Drug Use History: None Reported - Past Family History Mother Family Medical History: Cancer Father Family Medical History: Cancer Medications and Allergies Home Medications Medication Instructions Recorded Confirmed Type Atorvastatin [Lipitor] 10 mg PO DAILY 06/06/21 08/24/21 History Levothyroxine Sodium [Synthroid] 175 mcg PO DAILY 06/06/21 08/24/21 History metFORMIN HCL [Glucophage] 500 mg PO DAILY 06/06/21 08/24/21 History Allopurinol [Zyloprim] 300 mg PO DAILY 08/24/21 08/24/21 History Folic Acid 1 mg PO DAILY 08/24/21 08/24/21 History Lidocaine-Prilocaine Cream [Emla 1 applic TOPICAL DAILY PRN 08/24/21 08/24/21 History Cream 2.5%/2.5%] Omeprazole [PriLOSEC] 40 mg PO BID 08/24/21 08/24/21 History Ondansetron Odt [Zofran Odt] 4 mg PO Q4H PRN 08/24/21 08/24/21 History oxyCODONE HCL [oxyCODONE HCL (IR)] 20 mg PO Q6H 08/24/21 08/24/21 History Allergies Allergy/AdvReac Type Severity Reaction Status Date / Time No Known Allergies Allergy Verified 08/24/21 13:31 Physical Exam Vitals: Vital Signs Temp Pulse Resp BP Pulse Ox 08/24/21 17:00 126 H 18 70/36 99 08/24/21 16:00 123 H 20 57/32 99 08/24/21 15:54 120 H 20 57/27 100 08/24/21 15:40 38 L 14 48/28 91 L 08/24/21 14:45 132 H 26 H 73/35 92 L 08/24/21 14:00 122 H 16 63/31 98 08/24/21 13:17 99.5 F 129 H 22 70/36 98 08/24/21 13:00 130 H 35 H 66/33 92 L 08/24/21 12:00 138 H 26 H 92/48 95 08/24/21 11:00 142 H 22 89/45 95 08/24/21 09:56 102 F H 137 H 20 99/48 95 Intake and Output 08/24/21 08/24/21 08/24/21 06:59 14:59 22:59 Intake Total 1.671 22.260 Balance Intake: Intake, IV Titration Amount Norepinephrine 32 mg In . Sodium Chloride 0.9% 218 ml @ 0.05 MCG/KG/MIN 2. 179 mls/hr IV .Q24H ONE Rx#:[id number] Other: Weight 92.986 kg Unresponsive, intubated, on mechanical ventilator, tachypneic, orogastric and orotracheal tube are both in place. Patient looks quite pale, looks cachectic and emaciated. Head exam was generally normal. There was no scleral icterus or corneal arcus. Mucous membranes were moist. Neck was supple and without jugular venous distension, thyromegaly, or carotid bruits. Carotids were easily palpable bilaterally. There was no adenopathy. Lungs were clear to auscultation and percussion, and with normal diaphragmatic excursion. No wheezes or rales were noted. Cardiac exam revealed the PMI to be normally situated and sized. The rhythm was regular and no extrasystoles were noted during several minutes of auscultation. The first and second heart sounds were normal and physiologic splitting of the second heart sound was noted. There were no murmurs, rubs, clicks, or gallops. Abdominal exam revealed normal bowel sounds. The abdomen was soft, non-tender, and without masses, organomegaly, or appreciable enlargement of the abdominal aorta. No ascites. No direct tenderness. No rebound tenderness. No guarding. Bowel sounds are hypoactive nearly absent. Extremities are cold and clammy and cyanotic and marked diminished pulses in all 4 extremities. Neurologic the patient is unresponsive. No facial asymmetry. No response to any painful stimulation. The patient has not received any sedation. The patient has received Ativan post seizure activity. No jerky body movements. Pupils around 3 mm in size and sluggishly reactive to light. Examination of the skin revealed no evidence of significant rashes, suspicious appearing nevi or other concerning lesions. Results - Laboratory Findings CBC and BMP: 08/24/21 11:51 08/24/21 11:51 ABG ABG pH 7.26 (7.35-7.45) L 08/24/21 16:23 ABG pCO2 41 mmHg (35-45) 08/24/21 16:23 ABG pO2 190 mmHg (83-108) H 08/24/21 16:23 ABG O2 Saturation 99.6 % (94-97) H 08/24/21 16:23 PT/INR, D-dimer PT 11.3 sec (9.0-12.0) 08/24/21 11:51 INR 1.1 (<1.2) 08/24/21 11:51 Abnormal lab findings: Abnormal Labs 08/24/21 08/24/21 08/24/21 11:51 11:51 11:51 WBC 0.1 L* RBC 2.35 L Hgb 7.5 L Hct 22.4 L Plt Count 23 L ABG pH ABG pO2 ABG HCO3 ABG O2 Saturation Sodium 130 L Glucose 137 H Plasma Lactic Acid Abelardo 4.3 H* Alkaline Phosphatase 358 H Albumin 2.4 L Urine Protein Urine Blood Urine Bacteria Urine Mucus 08/24/21 08/24/21 08/24/21 14:45 16:23 16:56 WBC RBC Hgb Hct Plt Count ABG pH 7.26 L ABG pO2 190 H ABG HCO3 18 L ABG O2 Saturation 99.6 H Sodium Glucose Plasma Lactic Acid Abelardo 11.6 H* Alkaline Phosphatase Albumin Urine Protein 1+ H Urine Blood Moderate H Urine Bacteria Many H Urine Mucus Rare H - Diagnostic Findings Chest x-ray: image reviewed Assessment and Plan Plan: 1 septic shock with evidence of multisystem organ failure. Sources most likely being an acute cholecystitis. The patient has typical radiographic findings of an acute cholecystitis on a CAT scan of the abdomen. Alkaline phosphatase is mildly elevated. 2 profound hypotension secondary to septic shock, currently on combination of pressors including epinephrine, norepinephrine and vasopressin 3 pancytopenia. The patient is neutropenic with a white cell count of 0.1. This probably propagated and contributed to his septic shock and multisystem organ failure. Also, the patient is an immigrant normocytic panic 4 neutropenic fever secondary to above 5 history of Hodgkin's lymphoma was supposed systemic chemotherapy 6 severe lactic acidosis, lactic acid level currently is at 11.6 secondary to above 7 severe metabolic acidosis, essentially secondary to lactic acidosis. 8 acute hypoxic respiratory failure with development of limited bibasilar pulmonary infiltrates, consider early ARDS. Currently intubated on mechanical ventilator 9 history of hyperthyroidism treated with radioactive iodine 10 seizures of a new onset, tonic-clonic with questionable hemorrhagic focus in the brain, neurologist on the case 11 diabetes mellitus 12 poor baseline performance and functional status secondary to above-mentioned comorbidities Plan Keep the patient ventilated for now. Blood gases was noted in the chest there was also noted in the necessity ventilator changes were done The patient has see the total of 2 L of IV fluids. The third liter of normal saline was also given and the patient was started on a bicarbonate infusion Continue combination of pressors including epinephrine, norepinephrine and Vasopressin monitor lactic acid level Antibiotic coverage includes IV Zosyn and vancomycin Check baseline serum cortisol level Check baseline TSH level I contacted the general surgeon and also contacted interventional radiology. I will make a later that the patient will receive platelet transfusion and the patient will be proceeding following that with a percutaneous drainage of the gallbladder. Discussed the case with interventional radiology. Obviously the patient is not a surgical case and he may potentially benefit from percutaneous drainage of the gallbladder. Accordingly, platelet transfusion has been arran ged for this patient. The patient also has normal coagulation profile. We'll give the patient dose of Neupogen regarding his leukopenia and we will arrange packed RBC transfusion if needed. The patient will receive Neupogen 480 g 1 Blood cultures Slight scale insulin coverage IV Protonix No sedation for now as the patient is completely unresponsive probably related to his metabolic acidosis. Could be potentially in a postictal stage. Neurology consultation has been appreciated and the patient would ultimately need an MRI of his brain Continue Keppra for now Condition is extremely critical. This patient carries a very high mortality risk based on above-mentioned comorbidities. We'll continue to follow and make further recommendations based on his progress. Case was discussed with em ergency physician, neurosurgery and interventional radiology. Following his percutaneous drainage, and if the patient survives, the patient will be arriving to the ICU. He is currently profoundly hypotensive and there is a chance that he may not even tolerate the percutaneous intervention of the gallbladder drainage. We'll continue to follow. is aware. I had a very long discussion with her at the bedside. She is aware of the sickness and a high mortality risk in this patient. Time with Patient: Greater than 30
[2021-08-24] MEDS: SODIUM CHLORIDE 0.9% 1,000 ML IV SCH (21:00)
[2021-08-24 21:01] LABS: Glucose,Whole Blood 224 mg/dL (75-99)
[2021-08-24] MEDS: PIPERACILLIN-TAZOBACTAM 3.375 GM in SODIUM CHLORIDE 0.9% 100 ML IVPB SCH (21:22)
--- NOTE | 2021-08-24 22:02 | HP ---
HISTORY AND PHYSICAL DATE OF SERVICE: 08/24/2021 CHIEF COMPLAINTS: Weakness and possible neutropenic sepsis. HISTORY OF PRESENT ILLNESS: This 60-year-old gentleman with a past medical history of multiple medical problems, including diabetes mellitus, DJD, history of constipation, history of gout, history of radioactive iodine, history of Hodgkin's lymphoma, being followed by Dr. Boykin in the outpatient setting, was started on systemic chemotherapy by Dr. Crawley. The patient finished the first cycle and the patient was complaining of some weakness and the patient came to the emergency room. The patient had some fever. The patient came back from the CT and collapsed with bradycardia, hypotension. Patient was mechanically intubated and ventilated, and the patient was admitted for further evaluation and treatment. The patient also had a CT scan of the abdomen and pelvis showing gallbladder wall thickening and stone with possible acute cholecystitis that possibly contributed to the septic shock. Patient is being admitted for further evaluation. Patient was started on broad-spectrum IV antibiotics as well as pressors. The patient is unresponsive even despite pain . A detailed history cannot be taken from the patient. Most of the history was taken from my discussion with staff and the ER physician as well as review of the chart at this time. PAST MEDICAL HISTORY: History of diabetes mellitus, history of DJD, history of Hodgkin's lymphoma. MEDICATIONS PRIOR TO ADMISSION: These include Zofran 4 mg q.4 p.r.n., EMLA cream, oxycodone, Prilosec, Glucophage, Synthroid, chemotherapy, Lipitor. Doses are reviewed. ALLERGIES: NONE. Family history, social history and review of systems could not be taken because of the change in mental status. There is family history of cancer per chart. PHYSICAL EXAMINATION: Patient is mechanically ventilated and sedated. Vent settings are noted. Pulse 130, tachycardic, respirations 16, temperature normal, pulse ox 98% on mechanical ventilation. Blood pressure 91/46. HEENT: Conjunctivae normal. Oral mucosa moist. NECK: No jugular venous distention. No carotid bruit. No lymph node enlargement. CARDIOVASCULAR: S1, S2 muffled. No S3. No S4. RESPIRATION: Breath sounds diminished at the bases. No rhonchi. No crackles. ABDOMEN: Soft, obese. LEGS: No edema. No swelling. NERVOUS SYSTEM: Higher functions as mentioned earlier. Otherwise, the patient is mechanically ventilated and sedated. SKIN: No ulcer, rash, bleeding. JOINTS: No active deforming arthropathy. LABS: The pH is 7.26. Lactic acid 11.6. WBC 0.1, hemoglobin 7.5. ASSESSMENT: 1. Acute neutropenic sepsis with hypotension, severe, with sepsis and septic shock. 2. Possible acute cholecystitis. 3. Acute hypoxic respiratory failure, on mechanical ventilation. 4. Acute metabolic acidosis. 5. Hyponatremia. 6. Hodgkin's lymphoma, on chemotherapy. 7. Elevated alkaline phosphatase. 8. Diabetes mellitus, type 2. 9. History of degenerative joint disease. 10.History of constipation. 11.History of gout. 12.History of radiated iodine treatment. 13.Degenerative joint disease. 14.History of nicotine dependence. 15.FULL CODE. RECOMMENDATIONS AND DISCUSSION: In this 60-year-old gentleman who presented with multiple complex medical issues, we will monitor the patient closely, continue the current medications, continue symptomatic treatment. Will initiate broad-spectrum IV antibiotics, including acyclovir and Zosyn. I recommend infectious disease evaluation as well. Dr. Headley is following the patient from the surgical point of view. Neurology and Critical Care are also being consulted as well as Hematology/Oncology. Overall prognosis is guarded because of the multiple complex medical issues. Further recommendations to follow. DVT prophylaxis. Repeat labs. A copy of this dictation is being forwarded to Dr. Boykin, who is the primary physician. BRUNA / SADE: [id number] / MTDD
--- NOTE | 2021-08-24 23:16 | P.CONS ---
History of Present Illness - Reason for Consult Consult date: 08/24/21 sepsis Requesting physician: Malvin Laurent - Chief Complaint weakness and fever x few days - History of Present Illness History of present illness : Patient is 60-year-old male with a past medical history significant for Hodgkin lymphoma for the patient is currently on chemotherapy with last chemo on 08/15/2021 patient has been brought to the ER for evaluation of fever and generalized weakness in this patient symptom has been going on for the last day or 2 patient on presentation to the ER did have a fever of 122.9 the patient was tachypneic and tachycardic patient did have a elevated lactic acid of 11.6 white count of 0.1 kidney function was normal liver enzymes are normal urine was negative pressley PCR was negative patient did have a chest x-ray COPD correlate for interstitial lung disease with pulmonary fibrosis patient did have a CT of abdominal pelvis which showed stable splenomegaly and abnormal abdominal pelvic adenopathy and there was concern for acute cholecystitis patient ended up getting intubated because of worsening respiratory status is hypotensive requiring pressor support patient was started on Zosyn infectious disease was consulted for further management of antibiotic therapy most information has been obtained from review the chart talking nursing staff as the patient is currently intubated on the vent is unable to provide any history Review of system: Positive point has been mentioned in HPI complete review could not be obtained because of underlying mental status Past medical history : Reviewed, documented below Past surgical history : Reviewed, documented below Social history: Reviewed, documented below Medications: Reviewed, as documented below EXAMINATION: Vital sigans= Reviewed and documented below GENERAL DESCRIPTION: Middle-aged male intubated on the vent HEENT: Shows Pallor , no scleral icterus. Oral mucous membrane is dry. NECK: Trachea central, no thyromegaly. LUNGS: Unlabored breathing. Decreased breath sound at the base. No wheeze or crackle. HEART: S1, S2, regular rate and rhythm. ABDOMEN: Soft, no tenderness , guarding or rigidity EXTREMITIES: No edema of feet. SKIN: No rash, no masses palpable. NEUROLOGICAL: The patient is sedated on the vent LABS AND RADIOLOGY: Reviewed results see below Assessment : Patient presented to hospital with sepsis/septic shock in this patient who did have a fever elevated white count significant neutropenia this patient noticed to have abnormal CT abdominal pelvis with evidence of cholecystitis and will need to call for the enteric gram-negative with a likely pathogen, patient is currently considered high risk for any surgical procedure because of significant pancytopenia and low platelet count as per discussion with surgical team Plan: 1-Zosyn 3.375 g every 8 hours will provide adequate antibiotic coverage 2-IV fluids and pressor support We will follow on clinical condition and cultures to further adjust medication if needed Thank you for this consultation we will follow the patient along with you Past Medical History Past Medical History: Diabetes Mellitus, Osteoarthritis (OA) Additional Past Medical History / Comment(s): recent constipation, anemia since 12/2020, gout, weak and dizzy, diff urinating. thyroid tx with radioactive iodine, hx of severe injury to left shoulder after mirror dropped on him hemorrhoids, Hodgkins Lymphoma History of Any Multi-Drug Resistant Organisms: None Reported Additional Past Surgical History / Comment(s): surgery on rt index finger from injury, orbital surgery rt eye, Past Anesthesia/Blood Transfusion Reactions: Previous Problems w/ Anesthesia Additional Past Anesthesia/Blood Transfusion Reaction / Comm: "oxygen went low after eye surgery and had to stay overnight" Past Psychological History: No Psychological Hx Reported Smoking Status: Current every day smoker Past Alcohol Use History: None Reported Past Drug Use History: None Reported - Past Family History Mother Family Medical History: Cancer Father Family Medical History: Cancer Medications and Allergies Home Medications Medication Instructions Recorded Confirmed Type Atorvastatin [Lipitor] 10 mg PO DAILY 06/06/21 08/24/21 History Levothyroxine Sodium [Synthroid] 175 mcg PO DAILY 06/06/21 08/24/21 History metFORMIN HCL [Glucophage] 500 mg PO DAILY 06/06/21 08/24/21 History Allopurinol [Zyloprim] 300 mg PO DAILY 08/24/21 08/24/21 History Folic Acid 1 mg PO DAILY 08/24/21 08/24/21 History Lidocaine-Prilocaine Cream [Emla 1 applic TOPICAL DAILY PRN 08/24/21 08/24/21 History Cream 2.5%/2.5%] Omeprazole [PriLOSEC] 40 mg PO BID 08/24/21 08/24/21 History Ondansetron Odt [Zofran Odt] 4 mg PO Q4H PRN 08/24/21 08/24/21 History oxyCODONE HCL [oxyCODONE HCL (IR)] 20 mg PO Q6H 08/24/21 08/24/21 History Allergies Allergy/AdvReac Type Severity Reaction Status Date / Time No Known Allergies Allergy Verified 08/24/21 13:31 Physical Exam Vitals: Vital Signs Temp Pulse Resp BP Pulse Ox 08/24/21 19:33 130 H 16 91/46 98 08/24/21 19:23 129 H 87/41 99 08/24/21 19:07 120 H 16 93/44 100 08/24/21 19:02 122 H 16 87/46 100 08/24/21 19:01 132 H 20 87/46 100 08/24/21 18:52 127 H 20 84/45 100 08/24/21 18:31 120 H 18 88/51 100 08/24/21 18:00 122 H 20 76/46 100 08/24/21 17:00 126 H 18 70/36 99 08/24/21 16:00 123 H 20 57/32 99 08/24/21 15:54 120 H 20 57/27 100 08/24/21 15:40 38 L 14 48/28 91 L 08/24/21 14:45 132 H 26 H 73/35 92 L 08/24/21 14:00 122 H 16 63/31 98 08/24/21 13:17 99.5 F 129 H 22 70/36 98 08/24/21 13:00 130 H 35 H 66/33 92 L 08/24/21 12:00 138 H 26 H 92/48 95 08/24/21 11:00 142 H 22 89/45 95 08/24/21 09:56 102 F H 137 H 20 99/48 95 Intake and Output 08/24/21 08/24/21 08/24/21 06:59 14:59 22:59 Intake Total 1.671 552.012 Balance 1.671 552.012 Intake: Intake, IV Titration 1.671 172.012 Amount EPINEPHrine 4 mg In 127.914 Dextrose 5% in Water 250 ml @ 0.01 MCG/KG/MIN 3. 487 mls/hr IV .Q24H [facility] Rx#:[id number] Norepinephrine 32 mg In 1.671 44.098 Sodium Chloride 0.9% 218 ml @ 0.05 MCG/KG/MIN 2. 179 mls/hr IV .Q24H [facility] Rx#:[id number] Blood Product 380 Platelet Pheresis Pas 380 Psoralen Unit [id number] Other: Weight 92.986 kg Results CBC & Chem 7: 08/24/21 11:51 08/24/21 11:51 Labs: Abnormal Lab Results - Last 24 Hours (Table) 08/24/21 08/24/21 08/24/21 Range/Units 11:51 11:51 11:51 WBC 0.1 L* (3.8-10.6) k/uL RBC 2.35 L (4.30-5.90) m/uL Hgb 7.5 L (13.0-17.5) gm/dL Hct 22.4 L (39.0-53.0) % Plt Count 23 L (150-450) k/uL ABG pH (7.35-7.45) ABG pO2 (83-108) mmHg ABG HCO3 (21-25) mmol/L ABG O2 Saturation (94-97) % Sodium 130 L (137-145) mmol/L Glucose 137 H (74-99) mg/dL POC Glucose (mg/dL) (75-99) mg/dL Plasma Lactic Acid Abelardo 4.3 H* (0.7-2.0) mmol/L Alkaline Phosphatase 358 H (38-126) U/L Albumin 2.4 L (3.5-5.0) g/dL Urine Protein (Negative) Urine Blood (Negative) Urine Bacteria (None) /hpf Urine Mucus (None) /hpf 08/24/21 08/24/21 08/24/21 Range/Units 14:45 16:23 16:56 WBC (3.8-10.6) k/uL RBC (4.30-5.90) m/uL Hgb (13.0-17.5) gm/dL Hct (39.0-53.0) % Plt Count (150-450) k/uL ABG pH 7.26 L (7.35-7.45) ABG pO2 190 H (83-108) mmHg ABG HCO3 18 L (21-25) mmol/L ABG O2 Saturation 99.6 H (94-97) % Sodium (137-145) mmol/L Glucose (74-99) mg/dL POC Glucose (mg/dL) (75-99) mg/dL Plasma Lactic Acid Abelardo 11.6 H* (0.7-2.0) mmol/L Alkaline Phosphatase (38-126) U/L Albumin (3.5-5.0) g/dL Urine Protein 1+ H (Negative) Urine Blood Moderate H (Negative) Urine Bacteria Many H (None) /hpf Urine Mucus Rare H (None) /hpf 08/24/21 Range/Units 21:00 WBC (3.8-10.6) k/uL RBC (4.30-5.90) m/uL Hgb (13.0-17.5) gm/dL Hct (39.0-53.0) % Plt Count (150-450) k/uL ABG pH (7.35-7.45) ABG pO2 (83-108) mmHg ABG HCO3 (21-25) mmol/L ABG O2 Saturation (94-97) % Sodium (137-145) mmol/L Glucose (74-99) mg/dL POC Glucose (mg/dL) 224 H (75-99) mg/dL Plasma Lactic Acid Abelardo (0.7-2.0) mmol/L Alkaline Phosphatase (38-126) U/L Albumin (3.5-5.0) g/dL Urine Protein (Negative) Urine Blood (Negative) Urine Bacteria (None) /hpf Urine Mucus (None) /hpf
[2021-08-25] MEDS ORDERED: VANCOMYCIN 1,500 MG in SODIUM CHLORIDE 0.9% 250 ML IVPB SCH ×2
[2021-08-25 00:26] LABS: Glucose,Whole Blood 292 mg/dL (75-99)
[2021-08-25] MEDS: ACYCLOVIR SODIUM 950 MG in SODIUM CHLORIDE 0.9% 250 ML IV SCH ×3 (00:41→16:35)
[2021-08-25] MEDS: DEXTROSE 5% IN WATER 1,000 ML with SODIUM BICARB (1 MEQ/ML) 150 ML IV SCH ×3 (00:53→20:53)
[2021-08-25] MEDS ORDERED: SODIUM CHLORIDE 0.9% 1,000 ML IV ONE ×2 (01:00)
[2021-08-25] MEDS ORDERED: INSULIN REGULAR BOLUS (FROM DRIP BAG) IV PRN (01:08)
[2021-08-25] MEDS: levETIRAcetam IV 500 MG in SODIUM CHLORIDE 0.9% 100 ML IVPB SCH ×3 (01:18→20:55)
[2021-08-25] MEDS: NOREPINEPHRINE 32 MG in SODIUM CHLORIDE 0.9% 218 ML IV ONE ×2 (01:22→09:26)
[2021-08-25] MEDS: EPINEPHrine 4 MG in DEXTROSE 5% IN WATER 250 ML IV SCH ×16 (01:24→20:55)
[2021-08-25 01:36] LABS: Glucose,Whole Blood 292 mg/dL (75-99)
[2021-08-25] MEDS: INSULIN REGULAR 100 UNIT in SODIUM CHLORIDE 0.9% 100 ML IV SCH ×3 (01:41→15:01)
[2021-08-25 02:40] LABS: Glucose,Whole Blood 307 mg/dL (75-99)
[2021-08-25 03:12] LABS: Glucose,Whole Blood 321 mg/dL (75-99)
[2021-08-25] MEDS: PIPERACILLIN-TAZOBACTAM 3.375 GM in SODIUM CHLORIDE 0.9% 100 ML IVPB SCH ×3 (03:55→21:03)
[2021-08-25 04:09] LABS: Glucose,Whole Blood 326 mg/dL (75-99)
[2021-08-25] MEDS: SODIUM CHLORIDE 0.9% 1,000 ML IV SCH ×3 (04:45→21:06)
[2021-08-25 05:02] LABS: Glucose,Whole Blood 303 mg/dL (75-99)
[2021-08-25 05:06] LABS: ABG Base Excess -8.9 mmol/L; ABG HCO3 17 mmol/L (21-25); ABG Oxygen Saturation 99.4 % (94-97); ABG PCO2 30 mmHg (35-45); ABG PH 7.35 (7.35-7.45); ABG PO2 147 mmHg (83-108); ABG TCO2 18 mmol/L (19-24); Allen Test Performed? Yes
[2021-08-25 05:10] LABS: Calcium 7.2 mg/dL (8.4-10.2); Total Bilirubin 1.7 mg/dL (0.2-1.3); Total Protein 6.4 g/dL (6.3-8.2)
[2021-08-25] MEDS: SODIUM CHLORIDE 0.9% 50 ML with VASOPRESSIN 20 UNIT IVPB SCH ×6 (05:28→22:04)
[2021-08-25] MEDS ORDERED: Potassium Replacement Protocol 1 EACH MISC MISCELLANE PRN ×2 (05:51→18:04)
[2021-08-25 06:14] LABS: Glucose,Whole Blood 301 mg/dL (75-99)
[2021-08-25 06:50] LABS: INR 1.4 (<1.2); Partial Thromboplastin Time 31.9 sec (22.0-30.0)
[2021-08-25 06:51] LABS: Anisocytosis Slight; HCT 23.2 % (39.0-53.0); HGB 7.3 gm/dL (13.0-17.5); MCH 31.3 pg (25.0-35.0); MCHC 31.4 g/dL (31.0-37.0); MCV 99.6 fL (80.0-100.0); Macrocytosis Slight; Mean Platelet Volume 8.1; RBC 2.33 m/uL (4.30-5.90)
[2021-08-25] MEDS: POTASSIUM BICARBONATE/CIT AC 20 MEQ TABLET.EFF NG-TUBE SCH ×4 (06:55→20:54)
[2021-08-25 06:56] LABS: WBC 0.5 k/uL (3.8-10.6)
[2021-08-25 06:57] LABS: Platelet Count 48 k/uL (150-450)
[2021-08-25 07:06] LABS: Glucose,Whole Blood 319 mg/dL (75-99)
--- NOTE | 2021-08-25 08:48 | P.PN ---
Subjective Progress Note Date: 08/25/21 60-year-old male patient with known history of Hodgkin's lymphoma with received chemotherapy on 08/15/2021. The patient has been diagnosed having Hodgkin's lymphoma approximately a month ago and he was started on systemic chemotherapy and he received his first cycle. The patient was at home and the patient was found to have a temperature of 11.2 early in the morning. He was also having generalized weakness for several months and recently got worse. The was concerned and for that reason he was brought into the hospital for an ongoing fever and generalized weakness. The patient was found to be quite lethargic in the emergency department. The course in the ED included that showed a temperature of 102F with a heart rate of 137. His blood pressure was soft with a systolic blood pressure of 99 and pulse ox was 95% on room air oxygen. His blood work showed evidence of leukopenia with a white cell, 0.1 and as such the patient was diagnosed having a neutropenic fever. Pancytopenic with a hemoglobin of 7.5 and a platelet count of 23. The electrolytes and renal functions were essentially within normal limits. AST and ALP were normal. Alkaline phosphatas e was slightly elevated at 358. The patient had undergone further testing including a lactic acid level that came back at 4.3, influenza A and B were negative, RSV was negative,: COVID 19 by PCR was also negative. Chest x-ray showed no focal airspace disease. Cardiac silhouette was within normal limits. The patient had a Mediport catheter in place. The computed tomography scan of the abdomen and pelvis also also done as part of further workup of an elevated alkaline phosphatase. The patient was found to have stable splenomegaly, abnormal abdominal and pelvic lymphadenopathy and the CAT scan was also consistent with an acute cholecystitis. The CAT scan also showed tiny bilateral pleural effusions associated with some bibasilar pulmonary atelectatic change. Gallbladder was dilated and Distended margins and there was intraluminal gallstones. There was also surrounding fluid and fat stranding and the CAT scan was consistent with acute cholecystitis. Based on this, surgical consultation was requested. The patient was seen by Dr. Mauricio, and based on the patient's condition, which involve pancytopenia and sepsis, percutaneous drainage with a cholecystostomy tube was recommended. The time of my evaluation, the patient was noted and evaluated in the emergency department. The patient was completely unresponsive. The patient could have been also post ictal knowing that he had about the generalized tonic-clonic seizure activity. The patient was intubated on a mechanical ventilator. Apparently as the patient was being transported for further imaging, the patient had tonic-clonic seizure activity as the patient was being taken to her the CAT scan of the head by the emergency department team. For that reason the patient was given 4 mg of Ativan and he was loaded with 1 g of Keppra. Neurology was consulted. Note that the patient had completed a CAT scan of the brain and a CAT scan showed tiny hyperdensity within the archie and this was too small to characterize. Possibility of a tiny petechial hemorrhage cannot be completely excluded an MRI of the brain was recom mended. In any rate, the patient is currently intubated on mechanical ventilator. He is hemodynamically stable. He is in septic shock. He is in severe lactic acidosis. His assist-control mode at the rate of 24, tidal volume of 500, FiO2 of 100% with PEEP of 5. He was on a combination of facet and the patient was taken a combination of norepinephrine infusion is 0 0.35 mg/kg/m, epinephrine at 0.1 mcg/kg per minute and vasopressin infusion at physiologic dose. The abdomen was relatively soft and nondistended. Pulses in the large family were quite diminished. His most recent systolic blood pressures the mid 80s. is at the bedside. Patient is clinically unresponsive. On today's evaluation of 08/25/2021, the patient is being seen in follow-up in the intensive care unit. The patient was seen in emergency department and he was critically ill, neutropenic fever with septic shock post systemic chemotherapy for Hodgkin's lymphoma and the patient has completed systemic chemotherapy. By pancytopenia. The patient had an acute cholecystitis. I was able to interventional radiology percutaneous the drain the gallbladder. Since the drainage tube present, the output has been the order of 100 mL and it is mainly bilious drainage. Nevertheless, the patient's blood culture came back positive for Klebsiella and the patient remains in septic shock with multisystem organ failure. At this point in time, the patient is still intubated on a mechanical ventilator and he remains completely unresponsive. We have not used any sedation overnight. Note that, overnight the patient received a total of 8 L of IV fluid in his urine output is in order of 30-40 mL an hour. He has also developed an acute kidney injury on top. He is on a combination of pressors and this morning, he is on norepinephrine running at the rate of 0.75 mcg/kg per minute and he is also on epinephrine running at 0.28 mcg/kg per minute and the patient is also on vasopressin physiologic dose. His most recent blood pressures 114/40 and the patient has an arterial line in his right radial artery. We also managed to insert 2 lines, the left IJ is ending up in the subclavian vein and he also has a right femoral triple catheter in place. He is on a mechanical ventilator. This morning, he is an assist-control mode at the rate of 26 with a tidal volume of 500 and FiO2 of 40% with a PEEP of 5. His c urrent respiratory rate is in the low 30s. His blood gases from today showed a pH of 7.35 with a pCO2 of 30 and pO2 of 147. His chest x-ray from today is showing adequate positioning of the orotracheal tube. Orotracheal tube is in a good location. The patient also has a G-tube in place. At the same time, the patient has adequate expansion of both lungs. No evidence of any pneumothorax. The patient has bilateral pulmonary infiltrates more so on the right along with some small effusions. Note that the left IJ triple-lumen catheter is ending up in his left brachial subclavian vein. His white cell count is pending. Note that the patient was profoundly neutropenic and the patient was a, 0.1 and the patient received a dose of zarxio yesterday. The hemoglobin remains stable at 7.3 and the patient received platelet transfusion yesterday and the platelet count is up to 48. D-dimer is at 7.8 related to septic shock and multisystem organ failure. He has developed an acute kidney injury with a creatinine of 1.58. He has an anion gap metabolic acidosis Related to his lactic acidosis. Lactic acid level is at 11.5 on today's evaluation. Blood cultures positive for klebsiella pneumonia. Meanwhile, the patient is on bicarb infusion running at the rate of 150 mL an hour, there is also on IV Zosyn. He was also given Keppra regarding tonic-clonic seizure that occurred yesterday and the patient has not had any further episodes of seizures since. Neurologically however, he remains unresponsive. Objective - Vital Signs Vital signs: Vital Signs Temp 100.2 F H 08/25/21 04:00 Pulse 134 H 08/25/21 06:15 Resp 26 H 08/25/21 06:15 BP 110/55 08/25/21 06:15 Pulse Ox 96 08/25/21 06:15 Intake & Output 08/24/21 08/25/21 08/25/21 18:59 06:59 18:59 Intake Total 66.981 4694.961 292.524 Output Total 400 30 Balance 66.981 4294.961 262.524 Weight 92.986 kg 110.9 kg Intake: IV 3080 280 Dextrose 5% in Water 1, 1650 150 000 ml @ 150 mls/hr IV . Q7H40M TERELL with Sodium Bicarb (1 Meq/ml) 150 ml Rx#:[id number] Sodium Chloride 0.9% 1, 1430 130 000 ml @ 130 mls/hr IV . Q7H42M STA Rx#:[id number] Intake, IV Titration 66.981 1234.961 12.524 Amount EPINEPHrine 4 mg In 33.068 845.224 Dextrose 5% in Water 250 ml @ 0.01 MCG/KG/MIN 3. 487 mls/hr IV .Q24H TERELL Rx#:[id number] Insulin Regular 100 unit 50.466 12.524 In Sodium Chloride 0.9% 100 ml @ Per Protocol IV .Q0M TERELL Rx#:[id number] Norepinephrine 32 mg In 33.913 339.271 Sodium Chloride 0.9% 218 ml @ 0.05 MCG/KG/MIN 2. 179 mls/hr IV .Q24H ONE Rx#:[id number] Blood Product 0 380 Platelet Pheresis Pas 0 380 Psoralen Unit [id number] Output: Urine 400 30 Other: Voiding Method Indwelling Catheter ABP, PAP, CO, CI - Last Documented Arterial Blood Pressure 115/36 - Exam Unresponsive, intubated, on mechanical ventilator, tachypneic, orogastric and orotracheal tube are both in place. Patient looks quite pale, looks cachectic and emaciated. No seizure activity. No tonic-clonic seizure activity. The patient is completely unresponsive. Head exam was generally normal. There was no scleral icterus or corneal arcus. Mucous membranes were moist. Neck was supple and without jugular venous distension, thyromegaly, or carotid bruits. Carotids were easily palpable bilaterally. There was no adenopathy. Lungs were clear to auscultation and percussion, and with normal diaphragmatic e xcursion. No wheezes or rales were noted. Cardiac exam revealed the PMI to be normally situated and sized. The rhythm was regular and no extrasystoles were noted during several minutes of auscultation. The first and second heart sounds were normal and physiologic splitting of the second heart sound was noted. There were no murmurs, rubs, clicks, or gallops. Abdominal exam revealed normal bowel sounds. The abdomen was soft, non-tender, and without masses, organomegaly, or appreciable enlargement of the abdominal aorta. No ascites. No direct tenderness. No rebound tenderness. No guarding. Bowel sounds are hypoactive nearly absent. She has a the patient has a percutaneous drain in his right upper quadrant for drainage of the gallbladder. Extremities are cold and clammy and cyanotic and marked diminished pulses in all 4 extremities. Neurologic the patient is unresponsive. No facial asymmetry. No response to any painful stimulation. The patient has not received any sedation. The patient has received Ativan post seizure activity. No jerky body movements. Pupils around 3 mm in size and sluggishly reactive to light. Examination of the skin revealed no evidence of significant rashes, suspicious appearing nevi or other concerning lesions. - Labs CBC & Chem 7: 08/25/21 04:36 08/25/21 04:36 Labs: Abnormal Lab Results - Last 24 Hours (Table) 08/24/21 08/24/21 08/24/21 Range/Units 11:51 11:51 11:51 WBC 0.1 L* (3.8-10.6) k/uL RBC 2.35 L (4.30-5.90) m/uL Hgb 7.5 L (13.0-17.5) gm/dL Hct 22.4 L (39.0-53.0) % RDW (11.5-15.5) % Plt Count 23 L (150-450) k/uL PT (9.0-12.0) sec INR (<1.2) APTT (22.0-30.0) sec D-Dimer (<0.60) mg/L FEU ABG pH (7.35-7.45) ABG pCO2 (35-45) mmHg ABG pO2 (83-108) mmHg ABG HCO3 (21-25) mmol/L ABG Total CO2 (19-24) mmol/L ABG O2 Saturation (94-97) % Sodium 130 L (137-145) mmol/L Potassium (3.5-5.1) mmol/L Carbon Dioxide (22-30) mmol/L Creatinine (0.66-1.25) mg/dL Glucose 137 H (74-99) mg/dL POC Glucose (mg/dL) (75-99) mg/dL Plasma Lactic Acid Abelardo 4.3 H* (0.7-2.0) mmol/L Calcium (8.4-10.2) mg/dL Magnesium (1.6-2.3) mg/dL Total Bilirubin (0.2-1.3) mg/dL Alkaline Phosphatase 358 H (38-126) U/L Albumin 2.4 L (3.5-5.0) g/dL Urine Protein (Negative) Urine Blood (Negative) Urine Bacteria (None) /hpf Urine Mucus (None) /hpf 08/24/21 08/24/21 08/24/21 Range/Units 14:45 16:23 16:56 WBC (3.8-10.6) k/uL RBC (4.30-5.90) m/uL Hgb (13.0-17.5) gm/dL Hct (39.0-53.0) % RDW (11.5-15.5) % Plt Count (150-450) k/uL PT (9.0-12.0) sec INR (<1.2) APTT (22.0-30.0) sec D-Dimer (<0.60) mg/L FEU ABG pH 7.26 L (7.35-7.45) ABG pCO2 (35-45) mmHg ABG pO2 190 H (83-108) mmHg ABG HCO3 18 L (21-25) mmol/L ABG Total CO2 (19-24) mmol/L ABG O2 Saturation 99.6 H (94-97) % Sodium (137-145) mmol/L Potassium (3.5-5.1) mmol/L Carbon Dioxide (22-30) mmol/L Creatinine (0.66-1.25) mg/dL Glucose (74-99) mg/dL POC Glucose (mg/dL) (75-99) mg/dL Plasma Lactic Acid Abeladro 11.6 H* (0.7-2.0) mmol/L Calcium (8.4-10.2) mg/dL Magnesium (1.6-2.3) mg/dL Total Bilirubin (0.2-1.3) mg/dL Alkaline Phosphatase (38-126) U/L Albumin (3.5-5.0) g/dL Urine Protein 1+ H (Negative) Urine Blood Moderate H (Negative) Urine Bacteria Many H (None) /hpf Urine Mucus Rare H (None) /hpf 08/24/21 08/24/21 08/24/21 Range/Units 21:00 22:30 22:39 WBC (3.8-10.6) k/uL RBC (4.30-5.90) m/uL Hgb (13.0-17.5) gm/dL Hct (39.0-53.0) % RDW (11.5-15.5) % Plt Count (150-450) k/uL PT (9.0-12.0) sec INR (<1.2) APTT (22.0-30.0) sec D-Dimer 4.13 H (<0.60) mg/L FEU ABG pH (7.35-7.45) ABG pCO2 (35-45) mmHg ABG pO2 (83-108) mmHg ABG HCO3 (21-25) mmol/L ABG Total CO2 (19-24) mmol/L ABG O2 Saturation (94-97) % Sodium (137-145) mmol/L Potassium (3.5-5.1) mmol/L Carbon Dioxide (22-30) mmol/L Creatinine (0.66-1.25) mg/dL Glucose (74-99) mg/dL POC Glucose (mg/dL) 224 H (75-99) mg/dL Plasma Lactic Acid Abelardo 13.1 H* (0.7-2.0) mmol/L Calcium (8.4-10.2) mg/dL Magnesium (1.6-2.3) mg/dL Total Bilirubin (0.2-1.3) mg/dL Alkaline Phosphatase (38-126) U/L Albumin (3.5-5.0) g/dL Urine Protein (Negative) Urine Blood (Negative) Urine Bacteria (None) /hpf Urine Mucus (None) /hpf 08/25/21 08/25/21 08/25/21 Range/Units 00:24 01:24 01:34 WBC (3.8-10.6) k/uL RBC (4.30-5.90) m/uL Hgb (13.0-17.5) gm/dL Hct (39.0-53.0) % RDW (11.5-15.5) % Plt Count (150-450) k/uL PT (9.0-12.0) sec INR (<1.2) APTT (22.0-30.0) sec D-Dimer (<0.60) mg/L FEU ABG pH (7.35-7.45) ABG pCO2 (35-45) mmHg ABG pO2 (83-108) mmHg ABG HCO3 (21-25) mmol/L ABG Total CO2 (19-24) mmol/L ABG O2 Saturation (94-97) % Sodium (137-145) mmol/L Potassium (3.5-5.1) mmol/L Carbon Dioxide (22-30) mmol/L Creatinine (0.66-1.25) mg/dL Glucose (74-99) mg/dL POC Glucose (mg/dL) 292 H 292 H (75-99) mg/dL Plasma Lactic Acid Abelardo 11.8 H* (0.7-2.0) mmol/L Calcium (8.4-10.2) mg/dL Magnesium (1.6-2.3) mg/dL Total Bilirubin (0.2-1.3) mg/dL Alkaline Phosphatase (38-126) U/L Albumin (3.5-5.0) g/dL Urine Protein (Negative) Urine Blood (Negative) Urine Bacteria (None) /hpf Urine Mucus (None) /hpf 08/25/21 08/25/21 08/25/21 Range/Units 02:39 03:08 04:05 WBC (3.8-10.6) k/uL RBC (4.30-5.90) m/uL Hgb (13.0-17.5) gm/dL Hct (39.0-53.0) % RDW (11.5-15.5) % Plt Count (150-450) k/uL PT (9.0-12.0) sec INR (<1.2) APTT (22.0-30.0) sec D-Dimer (<0.60) mg/L FEU ABG pH (7.35-7.45) ABG pCO2 (35-45) mmHg ABG pO2 (83-108) mmHg ABG HCO3 (21-25) mmol/L ABG Total CO2 (19-24) mmol/L ABG O2 Saturation (94-97) % Sodium (137-145) mmol/L Potassium (3.5-5.1) mmol/L Carbon Dioxide (22-30) mmol/L Creatinine (0.66-1.25) mg/dL Glucose (74-99) mg/dL POC Glucose (mg/dL) 307 H 321 H 326 H (75-99) mg/dL Plasma Lactic Acid Abelardo (0.7-2.0) mmol/L Calcium (8.4-10.2) mg/dL Magnesium (1.6-2.3) mg/dL Total Bilirubin (0.2-1.3) mg/dL Alkaline Phosphatase (38-126) U/L Albumin (3.5-5.0) g/dL Urine Protein (Negative) Urine Blood (Negative) Urine Bacteria (None) /hpf Urine Mucus (None) /hpf 08/25/21 08/25/21 08/25/21 Range/Units 04:08 04:36 04:36 WBC (3.8-10.6) k/uL RBC 2.33 L (4.30-5.90) m/uL Hgb 7.3 L (13.0-17.5) gm/dL Hct 23.2 L (39.0-53.0) % RDW 16.0 H (11.5-15.5) % Plt Count 48 L D (150-450) k/uL PT (9.0-12.0) sec INR (<1.2) APTT (22.0-30.0) sec D-Dimer (<0.60) mg/L FEU ABG pH (7.35-7.45) ABG pCO2 (35-45) mmHg ABG pO2 (83-108) mmHg ABG HCO3 (21-25) mmol/L ABG Total CO2 (19-24) mmol/L ABG O2 Saturation (94-97) % Sodium 132 L (137-145) mmol/L Potassium 3.0 L (3.5-5.1) mmol/L Carbon Dioxide 14 L (22-30) mmol/L Creatinine 1.58 H (0.66-1.25) mg/dL Glucose 293 H (74-99) mg/dL POC Glucose (mg/dL) (75-99) mg/dL Plasma Lactic Acid Abelardo 11.5 H* (0.7-2.0) mmol/L Calcium 7.2 L (8.4-10.2) mg/dL Magnesium (1.6-2.3) mg/dL Total Bilirubin 1.7 H (0.2-1.3) mg/dL Alkaline Phosphatase 150 H (38-126) U/L Albumin 2.0 L (3.5-5.0) g/dL Urine Protein (Negative) Urine Blood (Negative) Urine Bacteria (None) /hpf Urine Mucus (None) /hpf 08/25/21 08/25/21 08/25/21 Range/Units 04:36 04:36 04:59 WBC (3.8-10.6) k/uL RBC (4.30-5.90) m/uL Hgb (13.0-17.5) gm/dL Hct (39.0-53.0) % RDW (11.5-15.5) % Plt Count (150-450) k/uL PT 14.0 H (9.0-12.0) sec INR 1.4 H (<1.2) APTT 31.9 H (22.0-30.0) sec D-Dimer 7.81 H (<0.60) mg/L FEU ABG pH (7.35-7.45) ABG pCO2 30 L (35-45) mmHg ABG pO2 147 H (83-108) mmHg ABG HCO3 17 L (21-25) mmol/L ABG Total CO2 18 L (19-24) mmol/L ABG O2 Saturation 99.4 H (94-97) % Sodium (137-145) mmol/L Potassium (3.5-5.1) mmol/L Carbon Dioxide (22-30) mmol/L Creatinine (0.66-1.25) mg/dL Glucose (74-99) mg/dL POC Glucose (mg/dL) (75-99) mg/dL Plasma Lactic Acid Abelardo (0.7-2.0) mmol/L Calcium (8.4-10.2) mg/dL Magnesium 1.0 L (1.6-2.3) mg/dL Total Bilirubin (0.2-1.3) mg/dL Alkaline Phosphatase (38-126) U/L Albumin (3.5-5.0) g/dL Urine Protein (Negative) Urine Blood (Negative) Urine Bacteria (None) /hpf Urine Mucus (None) /hpf 08/25/21 08/25/21 08/25/21 Range/Units 05:01 06:11 07:05 WBC (3.8-10.6) k/uL RBC (4.30-5.90) m/uL Hgb (13.0-17.5) gm/dL Hct (39.0-53.0) % RDW (11.5-15.5) % Plt Count (150-450) k/uL PT (9.0-12.0) sec INR (<1.2) APTT (22.0-30.0) sec D-Dimer (<0.60) mg/L FEU ABG pH (7.35-7.45) ABG pCO2 (35-45) mmHg ABG pO2 (83-108) mmHg ABG HCO3 (21-25) mmol/L ABG Total CO2 (19-24) mmol/L ABG O2 Saturation (94-97) % Sodium (137-145) mmol/L Potassium (3.5-5.1) mmol/L Carbon Dioxide (22-30) mmol/L Creatinine (0.66-1.25) mg/dL Glucose (74-99) mg/dL POC Glucose (mg/dL) 303 H 301 H 319 H (75-99) mg/dL Plasma Lactic Acid Abelardo (0.7-2.0) mmol/L Calcium (8.4-10.2) mg/dL Magnesium (1.6-2.3) mg/dL Total Bilirubin (0.2-1.3) mg/dL Alkaline Phosphatase (38-126) U/L Albumin (3.5-5.0) g/dL Urine Protein (Negative) Urine Blood (Negative) Urine Bacteria (None) /hpf Urine Mucus (None) /hpf Microbiology - Last 24 Hours (Table) 08/24/21 11:35 Blood Culture - Final Blood 08/24/21 11:20 Blood Culture Gram Stain - Preliminary Blood Blood Culture - Preliminary Klebsiella pneumoniae 08/24/21 20:33 Body Fluid Culture - Preliminary Aspirate 08/24/21 11:20 Blood Culture - Final Blood 08/24/21 11:35 Blood Culture Gram Stain - Preliminary Blood Assessment and Plan Plan: 1 septic shock with evidence of multisystem organ failure. Sources most likely being an acute cholecystitis. The patient has typical radiographic findings of an acute cholecystitis on a CAT scan of the abdomen. Alkaline phosphatase is mildly elevated. Since yesterday, the patient has a percutaneous drainage of the gallbladder performed and the patient is covered with a combination of fluids, antibiotics and the blood cultures positive for Pneumonia and the Patient Is Gram-Negative Sepsis Such. He Has Septic Shock with Multisystem Organ Failure. 2 profound hypotension secondary to septic shock, currently on combination of pressors including epinephrine, norepinephrine and vasopressin, overnight, the patient received a total of 8 L of IV fluids. The patient continues to be on pressors. Blood pressure remains soft. Urine output is quite diminished and this is related to septic shock. 3 pancytopenia. The patient is neutropenic with a white cell count of 0.1. This probably propagated and contributed to his septic shock and multisystem o rgan failure. Also, the patient has pancytopenia 4 acute kidney injury in the creatinine is up to 1.5 with oligoria 5 history of Hodgkin's lymphoma was supposed systemic chemotherapy 6 severe lactic acidosis, lactic acid level currently is at 11.6 secondary to above, lactic acid level remains elevated and her most recent lactic acid level is at 11 7 severe metabolic acidosis, essentially secondary to lactic acidosis. 8 acute hypoxic respiratory failure with development of limited bibasilar pulmonary infiltrates, consider early ARDS. Currently intubated on mechanical ventilator 9 history of hyperthyroidism treated with radioactive iodine 10 seizures of a new onset, tonic-clonic with questionable hemorrhagic focus in the brain, neurologist on the case, with questionable hemorrhagic spot at the level of the archie and the patient has kept off sedation for the past 12 hours. Neurologist on the case. 11 diabetes mellitus, started on insulin drip for tighter blood sugar control and insulin drip is running at 17 units an hour. 12 poor baseline performance and functional status secondary to above-mentioned comorbidities Plan I am very much concerned about this patient's underlying neurologic status. The patient is completely unresponsive since yesterday. He is not responding to any painful stimulation. There is an upward gaze on today's examination. He is breathing above the vent and as such he is not brain . However, his cough and gag are weak and he has a sluggish corneal reflex. No seizure activity has been noted. EEG was performed this morning. Neurology evaluation is to be done. Ideally I would like to see a follow-up CAT scan of the brain neverthele ss atelectatic patient is quite and stable to be transferred to a CAT scan imaging at this point in time. I'm going to consult with neurology at this point. I'm going to continue the Keppra. Meanwhile, in terms of his septic shock, with continued resuscitation. I'll continue vent support. I will suggest active tidal volume up to 580 which obviously give the patient better minute ventilation a lower respiratory rates. I noted the blood gases and the patient is demonstrating adequate oxygenation at this point in time. Keep the patient on bicarbonate infusion Continue combination of pressors including epinephrine, norepinephrine and vaso Antibiotic coverage includes IV Zosyn and DC vancomycin Check baseline serum cortisol level are high Check baseline TSH level monitor cell count and continue the filgrastim for now Keep the patient nothing by mouth Keep the patient on insulin drip for blood sugar control IV Protonix No sedation for now as the patient is completely unresponsive neurology will be asked to reevaluate the patient Neurology consultation has been appreciated and the patient would ultimately need an MRI of his brain, meanwhile, we'll repeat a CAT scan once the patient is seen today more stable Continue Keppra for now High risk patient with an increased mortality baseline above-mentioned comorbidities. Family is aware. I had an extensive discussion with the yesterday. We'll continue to support the patient will make further recommendations based on his progress. Critically care evaluation was done and morning 30 minutes. Time with Patient: Greater than 30
--- NOTE | 2021-08-25 08:56 | XR ---
EXAMINATION TYPE: XR chest 1V portable DATE OF EXAM: 08/25/2021 COMPARISON: 08/24/2021 HISTORY: Post intubation TECHNIQUE: Single frontal view of the chest is obtained. FINDINGS: ET and NG tube stable. There is a right-sided Mediport catheter. Left-sided central line a ppears malpositioned with the tip overlying the left axillary region. Diffuse interstitial pattern wi th by basilar consolidation and small effusions. Hypertrophic and degenerative change of the spine. IMPRESSION: 1. Bilateral infiltrate with diffuse interstitial pattern correlate for interstitial pneumonitis or v enous congestion. 2. Malpositioned left-sided IJ line.
--- NOTE | 2021-08-25 09:06 | CT ---
EXAMINATION TYPE: CT guided percutaneous cholecystostomy tube insertion DATE OF EXAM: 08/24/2021 COMPARISON: 08/24/2021 HISTORY: for percutaneous gall bladder drainage CT DLP: 1929 mGycm The procedure is discussed with the patient's , the risks, complications (including life-threaten ing bleeding), benefits and alternatives, were discussed and any questions were answered. Informed c onsent was obtained. The patient is placed supine on the CT table, prepped and draped in the usual s terile fashion. Preprocedural platelets were administered by the emergency room. Utilizing a 22-gauge Chiba needle access into the gallbladder is achieved and there is conversion to know 0.035 system. Placement of an 035 guidewire. Dilation to 8 Salvadorean and placement of an 8 Salvadorean d rainage catheter within the gallbladder. The gallbladder with fluid was immediately aspirated and a s ample sent to pathology for analysis. Pathology pending. All elements of maximal barrier and sterile technique were utilized. The patient remained stable thr oughout the procedure with no immediate postprocedural complication. IMPRESSION: 1. Successful CT guided percutaneous cholecystostomy tube insertion.
[2021-08-25 09:23] LABS: Glucose,Whole Blood 237 mg/dL (75-99)
[2021-08-25] MEDS ORDERED: ACETAMINOPHEN IV (For NPO) 1,000 MG in EMPTY BAG 1 BAG IVPB PRN (09:34)
[2021-08-25 10:08] LABS: Glucose,Whole Blood 235 mg/dL (75-99)
--- NOTE | 2021-08-25 10:18 | ECHOF ---
Referral Reason:Ejection Fraction MEASUREMENTS -------- HEIGHT: 188.0 cm WEIGHT: 110.7 kg BP: 115/36 FINDINGS -------- Sinus rhythm. Resting tachycardia (HR>100bpm). This was a technically difficult study with suboptimal views. Pt. on a vent. Overall left ventricular systolic function is normal with, an EF between 55 - 60 %. 5.0mg of Lumason was utilized for enhancement of images There is no pericardial effusion. CONCLUSIONS -------- 1. This was a technically difficult study with suboptimal views. 2. Overall left ventricular systolic function is normal with, an EF between 55 - 60 %. [employer] CONSULTANT: Sharonda Sorensen RDCS
--- NOTE | 2021-08-25 11:00 | EEG ---
ELECTROENCEPHALOGRAM REPORT DATE OF SERVICE: 08/25/2021. CLINICAL HISTORY: This is a 60-year-old gentleman who had a reported tonic-clonic seizure activity in the emergency department, and as a result he was given Ativan 4 mg. The video EEG is obtained to evaluate for seizure epileptiform activity. Relevant medication: Ativan and Keppra. EEG TYPE: A routine 21-channel EEG is performed with video using the 10/20 electrode placement system. DESCRIPTION: The patient is intubated on a ventilator. The background consists of diffuse low to moderate voltage of 0.5 to 1 hertz nonrhythmic delta activity. There is no physiological stage II sleep architecture. There is no focal slowing. There is moderate to significant myogenic artifact over the right hemisphere. Interictal and ictal is none. Activation procedure: Photic stimulation did not evoke a posterior driving response. There is no abnormality during the photic stimulation. Hyperventilation is not performed. CLINICAL INTERPRETATION: This is an abnormal routine EEG. The background slowing is suggestive of severe encephalopathy. There are no focal slowing, epileptiform discharges or seizure on the EEG. Clinical correlation is recommended. BIL / IJN: [id number] / OSEAS
[2021-08-25 11:09] LABS: Glucose,Whole Blood 230 mg/dL (75-99)
[2021-08-25 12:16] LABS: Glucose,Whole Blood 196 mg/dL (75-99)
--- NOTE | 2021-08-25 13:20 | P.CONS ---
History of Present Illness - Reason for Consult Consult date: 08/25/21 NHL Requesting physician: Jerry Card - Chief Complaint febrile neutropenia - History of Present Illness Mr. Marley is a very pleasant pt of Dr. Crawley, referred in May 2021 for anemia, Hgb 9.7, serum iron 20, TIBC 185, iron saturation 10.8%, ferritin 417, normal B12 and TSH. 06/12/21 colonoscopy and EGD revealed diffuse gastritis and internal hemorrhoids. 07/24/21 CT CAP revealed multiple enlarged abdominal and pelvic nodes. 07/26/21 excisional biopsy of left cervical node was positive for classic Hodgkins Lymphoma, nodular sclerosis, stage III. Pt had symptoms of fatigue, significant weight loss over the last 3 years (about 200 pounds!) with an additional 15 pounds over previous 2 months, had no other B symptoms. Prognosis and treatment options were discussed and pt decided to start BV-AVD, C1D1 08/15. He was in office on 08/23/21 for f/u, pt had some MS c/o, woke up dry mucus membranes and throat irritation that were decreasing as the day went on, he had no had fever, sweats or chills, oral irritation, N, V, D or constipation to report. His CBC was reviewed Hgb 7.7, WBC 0.4 and plt 33,000. Request was sent for GCSF, insurance approval was pending. Pt was eating and drinking and physical exam was benign. Was sent home with neutropenic precautions, no ASAn NSAIDs, temp monitoring and told not to treat any "low grade" temps. Significant other called ofc next morning reporting 101.2F temp, she was directed to get pt to ER. She brought him to [facility]. On admit lactic acid significantly elevated-continues to be, pancultures ordered-kleb pneu + blood cultures, CT AP suggestive of acute choleycystitis, drain tube placed since pt too unstable for procedure, WBC 0.1, GCSF started, CT brain, small area suspicious, reviewed by Neurology, bleed felt less likely, suspected seizure, pt started on keppra, there are plans for MRI. Pt is intubated and mechanically ventilated, significant other at bedside Review of Systems at bedside ROS unobtainable: due to endotracheal tube Past Medical History Past Medical History: Cancer, Diabetes Mellitus, Osteoarthritis (OA) Additional Past Medical History / Comment(s): recent constipation, anemia since 12/2020, gout, weak and dizzy, diff urinating. thyroid tx with radioactive iodine, hx of severe injury to left shoulder after mirror dropped on him hemorrhoids, Hodgkins Lymphoma History of Any Multi-Drug Resistant Organisms: None Reported Additional Past Surgical History / Comment(s): surgery on rt index finger from injury, orbital surgery rt eye, Past Anesthesia/Blood Transfusion Reactions: Previous Problems w/ Anesthesia Additional Past Anesthesia/Blood Transfusion Reaction / Comm: "oxygen went low after eye surgery and had to stay overnight" Past Psychological History: No Psychological Hx Reported Smoking Status: Current every day smoker Past Alcohol Use History: None Reported Past Drug Use History: None Reported - Past Family History Mother Family Medical History: Cancer Father Family Medical History: Cancer Medications and Allergies Home Medications Medication Instructions Recorded Confirmed Type Atorvastatin [Lipitor] 10 mg PO DAILY 06/06/21 08/24/21 History Levothyroxine Sodium [Synthroid] 175 mcg PO DAILY 06/06/21 08/24/21 History metFORMIN HCL [Glucophage] 500 mg PO DAILY 06/06/21 08/24/21 History Allopurinol [Zyloprim] 300 mg PO DAILY 08/24/21 08/24/21 History Folic Acid 1 mg PO DAILY 08/24/21 08/24/21 History Lidocaine-Prilocaine Cream [Emla 1 applic TOPICAL DAILY PRN 08/24/21 08/24/21 History Cream 2.5%/2.5%] Omeprazole [PriLOSEC] 40 mg PO BID 08/24/21 08/24/21 History Ondansetron Odt [Zofran Odt] 4 mg PO Q4H PRN 08/24/21 08/24/21 History oxyCODONE HCL [oxyCODONE HCL (IR)] 20 mg PO Q6H 08/24/21 08/24/21 History Allergies Allergy/AdvReac Type Severity Reaction Status Date / Time No Known Allergies Allergy Verified 08/24/21 13:31 Physical Exam Vitals: Vital Signs Temp Pulse Pulse Resp BP BP Pulse Ox 08/25/21 06:15 134 H 26 H 110/55 96 08/25/21 06:00 134 H 26 H 111/57 96 08/25/21 05:45 134 H 26 H 111/57 96 08/25/21 05:30 134 H 26 H 106/53 96 08/25/21 05:15 134 H 26 H 106/53 97 08/25/21 05:00 134 H 26 H 110/51 98 08/25/21 04:45 134 H 26 H 110/51 98 08/25/21 04:30 134 H 26 H 102/47 98 08/25/21 04:15 134 H 26 H 102/47 98 08/25/21 04:00 100.2 F H 135 H 26 H 110/51 97 08/25/21 03:45 135 H 26 H 110/51 98 08/25/21 03:30 134 H 26 H 113/54 98 08/25/21 03:15 134 H 26 H 113/54 98 08/25/21 03:00 134 H 26 H 111/51 98 08/25/21 02:45 134 H 26 H 111/51 98 08/25/21 02:30 134 H 26 H 110/55 98 08/25/21 02:15 134 H 26 H 110/55 98 08/25/21 02:00 135 H 26 H 111/55 98 08/25/21 01:45 134 H 26 H 111/55 98 08/25/21 01:30 134 H 26 H 109/53 98 08/25/21 01:15 135 H 26 H 109/53 98 08/25/21 01:00 133 H 26 H 109/51 98 08/25/21 00:45 131 H 26 H 109/51 99 08/25/21 00:30 131 H 26 H 112/53 98 08/25/21 00:15 133 H 26 H 112/53 98 08/25/21 00:00 135 H 130 H 26 H 111/48 97 08/24/21 23:45 134 H 26 H 111/48 97 08/24/21 23:30 133 H 26 H 103/50 97 08/24/21 23:15 131 H 26 H 103/50 97 08/24/21 23:00 129 H 26 H 99/45 97 08/24/21 22:50 128 H 30 H 99/45 97 08/24/21 22:40 128 H 30 H 99/45 97 08/24/21 22:30 128 H 30 H 90/42 97 08/24/21 22:20 126 H 29 H 90/42 97 08/24/21 22:10 128 H 32 H 90/42 97 08/24/21 22:00 128 H 32 H 91/39 96 08/24/21 21:50 126 H 26 H 91/42 97 08/24/21 21:40 125 H 26 H 90/42 98 08/24/21 21:30 125 H 26 H 84/39 98 08/24/21 21:20 128 H 26 H 82/37 90 L 08/24/21 21:10 128 H 26 H 98/51 97 08/24/21 21:04 98.5 F 125 H 26 H 98/51 99 08/24/21 21:00 98.5 F 120 H 125 H 16 98/42 90/42 98 08/24/21 19:33 130 H 16 91/46 98 08/24/21 19:23 129 H 87/41 99 08/24/21 19:07 120 H 16 93/44 100 08/24/21 19:02 122 H 16 87/46 100 08/24/21 19:01 132 H 20 87/46 100 08/24/21 18:52 127 H 20 84/45 100 08/24/21 18:31 120 H 18 88/51 100 08/24/21 18:00 122 H 20 76/46 100 08/24/21 17:00 126 H 18 70/36 99 08/24/21 16:00 123 H 20 57/32 99 08/24/21 15:54 120 H 20 57/27 100 08/24/21 15:40 38 L 14 48/28 91 L 08/24/21 14:45 132 H 26 H 73/35 92 L 08/24/21 14:00 122 H 16 63/31 98 08/24/21 13:17 99.5 F 129 H 22 70/36 98 08/24/21 13:00 130 H 35 H 66/33 92 L 08/24/21 12:00 138 H 26 H 92/48 95 08/24/21 11:00 142 H 22 89/45 95 08/24/21 09:56 102 F H 137 H 20 99/48 95 Intake and Output 08/24/21 08/25/21 08/25/21 22:59 06:59 14:59 Intake Total 0967.775 8201.120 1202.259 Output Total 75 325 80 Balance 3539.575 8918.120 1122.259 Intake: IV 560 2520 840 Dextrose 5% in Water 1, 300 1350 450 000 ml @ 150 mls/hr IV . Q7H40M TERELL with Sodium Bicarb (1 Meq/ml) 150 ml Rx#:[id number] Sodium Chloride 0.9% 1, 260 1170 390 000 ml @ 130 mls/hr IV . Q7H42M STA Rx#:[id number] Intake, IV Titration 365.151 935.120 362.259 Amount EPINEPHrine 4 mg In 250.000 628.292 238.377 Dextrose 5% in Water 250 ml @ 0.01 MCG/KG/MIN 3. 487 mls/hr IV .Q24H TERELL Rx#:[id number] Insulin Regular 100 unit 50.466 52.587 In Sodium Chloride 0.9% 100 ml @ Per Protocol IV .Q0M TERELL Rx#:[id number] Norepinephrine 32 mg In 115.151 256.362 71.295 Sodium Chloride 0.9% 218 ml @ 0.05 MCG/KG/MIN 2. 179 mls/hr IV .Q24H ONE Rx#:[id number] Blood Product 380 Platelet Pheresis Pas 380 Psoralen Unit [id number] Output: Urine 75 325 80 Other: Voiding Method Indwelling Catheter Weight 92.986 kg 110.9 kg ABP, PAP, CO, CI - Last 8 Hours Arterial Blood Pressure 115/36 Arterial Blood Pressure 115/35 Arterial Blood Pressure 114/35 Arterial Blood Pressure 114/35 Arterial Blood Pressure 123/45 Arterial Blood Pressure 124/44 Arterial Blood Pressure 122/45 Arterial Blood Pressure 124/44 Arterial Blood Pressure 125/43 Arterial Blood Pressure 127/38 Arterial Blood Pressure 125/43 Arterial Blood Pressure 124/43 Arterial Blood Pressure 128/40 Arterial Blood Pressure 130/39 Arterial Blood Pressure 129/38 Arterial Blood Pressure 128/37 Arterial Blood Pressure 128/37 Arterial Blood Pressure 124/36 Arterial Blood Pressure 119/36 Arterial Blood Pressure 125/38 skin is warm and dry to touch - Constitutional General appearance: no acute distress - Neck Neck: no lymphadenopathy - Respiratory Respiratory: bilateral: diminished - Cardiovascular tachycardia - Gastrointestinal choely drain - Musculoskeletal Musculoskeletal: no gait normal, no generalized weakness, no strength equal bilaterally, no right sided weakness, no left sided weakness - Psychiatric Psychiatric: no A&O x's 3, no appropriate affect, no intact judgment & insight Results CBC & Chem 7: 08/25/21 04:36 08/25/21 04:36 Labs: Abnormal Lab Results - Last 24 Hours (Table) 08/24/21 08/24/21 08/24/21 Range/Units 11:51 11:51 11:51 WBC 0.1 L* (3.8-10.6) k/uL RBC 2.35 L (4.30-5.90) m/uL Hgb 7.5 L (13.0-17.5) gm/dL Hct 22.4 L (39.0-53.0) % RDW (11.5-15.5) % Plt Count 23 L (150-450) k/uL PT (9.0-12.0) sec INR (<1.2) APTT (22.0-30.0) sec D-Dimer (<0.60) mg/L FEU ABG pH (7.35-7.45) ABG pCO2 (35-45) mmHg ABG pO2 (83-108) mmHg ABG HCO3 (21-25) mmol/L ABG Total CO2 (19-24) mmol/L ABG O2 Saturation (94-97) % Sodium 130 L (137-145) mmol/L Potassium (3.5-5.1) mmol/L Carbon Dioxide (22-30) mmol/L Creatinine (0.66-1.25) mg/dL Glucose 137 H (74-99) mg/dL POC Glucose (mg/dL) (75-99) mg/dL Plasma Lactic Acid Abelardo 4.3 H* (0.7-2.0) mmol/L Calcium (8.4-10.2) mg/dL Magnesium (1.6-2.3) mg/dL Total Bilirubin (0.2-1.3) mg/dL Alkaline Phosphatase 358 H (38-126) U/L Albumin 2.4 L (3.5-5.0) g/dL Urine Protein (Negative) Urine Blood (Negative) Urine Bacteria (None) /hpf Urine Mucus (None) /hpf 08/24/21 08/24/21 08/24/21 Range/Units 14:45 16:23 16:56 WBC (3.8-10.6) k/uL RBC (4.30-5.90) m/uL Hgb (13.0-17.5) gm/dL Hct (39.0-53.0) % RDW (11.5-15.5) % Plt Count (150-450) k/uL PT (9.0-12.0) sec INR (<1.2) APTT (22.0-30.0) sec D-Dimer (<0.60) mg/L FEU ABG pH 7.26 L (7.35-7.45) ABG pCO2 (35-45) mmHg ABG pO2 190 H (83-108) mmHg ABG HCO3 18 L (21-25) mmol/L ABG Total CO2 (19-24) mmol/L ABG O2 Saturation 99.6 H (94-97) % Sodium (137-145) mmol/L Potassium (3.5-5.1) mmol/L Carbon Dioxide (22-30) mmol/L Creatinine (0.66-1.25) mg/dL Glucose (74-99) mg/dL POC Glucose (mg/dL) (75-99) mg/dL Plasma Lactic Acid Abelardo 11.6 H* (0.7-2.0) mmol/L Calcium (8.4-10.2) mg/dL Magnesium (1.6-2.3) mg/dL Total Bilirubin (0.2-1.3) mg/dL Alkaline Phosphatase (38-126) U/L Albumin (3.5-5.0) g/dL Urine Protein 1+ H (Negative) Urine Blood Moderate H (Negative) Urine Bacteria Many H (None) /hpf Urine Mucus Rare H (None) /hpf 08/24/21 08/24/21 08/24/21 Range/Units 21:00 22:30 22:39 WBC (3.8-10.6) k/uL RBC (4.30-5.90) m/uL Hgb (13.0-17.5) gm/dL Hct (39.0-53.0) % RDW (11.5-15.5) % Plt Count (150-450) k/uL PT (9.0-12.0) sec INR (<1.2) APTT (22.0-30.0) sec D-Dimer 4.13 H (<0.60) mg/L FEU ABG pH (7.35-7.45) ABG pCO2 (35-45) mmHg ABG pO2 (83-108) mmHg ABG HCO3 (21-25) mmol/L ABG Total CO2 (19-24) mmol/L ABG O2 Saturation (94-97) % Sodium (137-145) mmol/L Potassium (3.5-5.1) mmol/L Carbon Dioxide (22-30) mmol/L Creatinine (0.66-1.25) mg/dL Glucose (74-99) mg/dL POC Glucose (mg/dL) 224 H (75-99) mg/dL Plasma Lactic Acid Abelardo 13.1 H* (0.7-2.0) mmol/L Calcium (8.4-10.2) mg/dL Magnesium (1.6-2.3) mg/dL Total Bilirubin (0.2-1.3) mg/dL Alkaline Phosphatase (38-126) U/L Albumin (3.5-5.0) g/dL Urine Protein (Negative) Urine Blood (Negative) Urine Bacteria (None) /hpf Urine Mucus (None) /hpf 08/25/21 08/25/21 08/25/21 Range/Units 00:24 01:24 01:34 WBC (3.8-10.6) k/uL RBC (4.30-5.90) m/uL Hgb (13.0-17.5) gm/dL Hct (39.0-53.0) % RDW (11.5-15.5) % Plt Count (150-450) k/uL PT (9.0-12.0) sec INR (<1.2) APTT (22.0-30.0) sec D-Dimer (<0.60) mg/L FEU ABG pH (7.35-7.45) ABG pCO2 (35-45) mmHg ABG pO2 (83-108) mmHg ABG HCO3 (21-25) mmol/L ABG Total CO2 (19-24) mmol/L ABG O2 Saturation (94-97) % Sodium (137-145) mmol/L Potassium (3.5-5.1) mmol/L Carbon Dioxide (22-30) mmol/L Creatinine (0.66-1.25) mg/dL Glucose (74-99) mg/dL POC Glucose (mg/dL) 292 H 292 H (75-99) mg/dL Plasma Lactic Acid Abelardo 11.8 H* (0.7-2.0) mmol/L Calcium (8.4-10.2) mg/dL Magnesium (1.6-2.3) mg/dL Total Bilirubin (0.2-1.3) mg/dL Alkaline Phosphatase (38-126) U/L Albumin (3.5-5.0) g/dL Urine Protein (Negative) Urine Blood (Negative) Urine Bacteria (None) /hpf Urine Mucus (None) /hpf 08/25/21 08/25/21 08/25/21 Range/Units 02:39 03:08 04:05 WBC (3.8-10.6) k/uL RBC (4.30-5.90) m/uL Hgb (13.0-17.5) gm/dL Hct (39.0-53.0) % RDW (11.5-15.5) % Plt Count (150-450) k/uL PT (9.0-12.0) sec INR (<1.2) APTT (22.0-30.0) sec D-Dimer (<0.60) mg/L FEU ABG pH (7.35-7.45) ABG pCO2 (35-45) mmHg ABG pO2 (83-108) mmHg ABG HCO3 (21-25) mmol/L ABG Total CO2 (19-24) mmol/L ABG O2 Saturation (94-97) % Sodium (137-145) mmol/L Potassium (3.5-5.1) mmol/L Carbon Dioxide (22-30) mmol/L Creatinine (0.66-1.25) mg/dL Glucose (74-99) mg/dL POC Glucose (mg/dL) 307 H 321 H 326 H (75-99) mg/dL Plasma Lactic Acid Abelardo (0.7-2.0) mmol/L Calcium (8.4-10.2) mg/dL Magnesium (1.6-2.3) mg/dL Total Bilirubin (0.2-1.3) mg/dL Alkaline Phosphatase (38-126) U/L Albumin (3.5-5.0) g/dL Urine Protein (Negative) Urine Blood (Negative) Urine Bacteria (None) /hpf Urine Mucus (None) /hpf 08/25/21 08/25/21 08/25/21 Range/Units 04:08 04:36 04:36 WBC (3.8-10.6) k/uL RBC 2.33 L (4.30-5.90) m/uL Hgb 7.3 L (13.0-17.5) gm/dL Hct 23.2 L (39.0-53.0) % RDW 16.0 H (11.5-15.5) % Plt Count 48 L D (150-450) k/uL PT (9.0-12.0) sec INR (<1.2) APTT (22.0-30.0) sec D-Dimer (<0.60) mg/L FEU ABG pH (7.35-7.45) ABG pCO2 (35-45) mmHg ABG pO2 (83-108) mmHg ABG HCO3 (21-25) mmol/L ABG Total CO2 (19-24) mmol/L ABG O2 Saturation (94-97) % Sodium 132 L (137-145) mmol/L Potassium 3.0 L (3.5-5.1) mmol/L Carbon Dioxide 14 L (22-30) mmol/L Creatinine 1.58 H (0.66-1.25) mg/dL Glucose 293 H (74-99) mg/dL POC Glucose (mg/dL) (75-99) mg/dL Plasma Lactic Acid Abelardo 11.5 H* (0.7-2.0) mmol/L Calcium 7.2 L (8.4-10.2) mg/dL Magnesium (1.6-2.3) mg/dL Total Bilirubin 1.7 H (0.2-1.3) mg/dL Alkaline Phosphatase 150 H (38-126) U/L Albumin 2.0 L (3.5-5.0) g/dL Urine Protein (Negative) Urine Blood (Negative) Urine Bacteria (None) /hpf Urine Mucus (None) /hpf 08/25/21 08/25/21 08/25/21 Range/Units 04:36 04:36 04:59 WBC (3.8-10.6) k/uL RBC (4.30-5.90) m/uL Hgb (13.0-17.5) gm/dL Hct (39.0-53.0) % RDW (11.5-15.5) % Plt Count (150-450) k/uL PT 14.0 H (9.0-12.0) sec INR 1.4 H (<1.2) APTT 31.9 H (22.0-30.0) sec D-Dimer 7.81 H (<0.60) mg/L FEU ABG pH (7.35-7.45) ABG pCO2 30 L (35-45) mmHg ABG pO2 147 H (83-108) mmHg ABG HCO3 17 L (21-25) mmol/L ABG Total CO2 18 L (19-24) mmol/L ABG O2 Saturation 99.4 H (94-97) % Sodium (137-145) mmol/L Potassium (3.5-5.1) mmol/L Carbon Dioxide (22-30) mmol/L Creatinine (0.66-1.25) mg/dL Glucose (74-99) mg/dL POC Glucose (mg/dL) (75-99) mg/dL Plasma Lactic Acid Abelardo (0.7-2.0) mmol/L Calcium (8.4-10.2) mg/dL Magnesium 1.0 L (1.6-2.3) mg/dL Total Bilirubin (0.2-1.3) mg/dL Alkaline Phosphatase (38-126) U/L Albumin (3.5-5.0) g/dL Urine Protein (Negative) Urine Blood (Negative) Urine Bacteria (None) /hpf Urine Mucus (None) /hpf 08/25/21 08/25/21 08/25/21 Range/Units 05:01 06:11 07:05 WBC (3.8-10.6) k/uL RBC (4.30-5.90) m/uL Hgb (13.0-17.5) gm/dL Hct (39.0-53.0) % RDW (11.5-15.5) % Plt Count (150-450) k/uL PT (9.0-12.0) sec INR (<1.2) APTT (22.0-30.0) sec D-Dimer (<0.60) mg/L FEU ABG pH (7.35-7.45) ABG pCO2 (35-45) mmHg ABG pO2 (83-108) mmHg ABG HCO3 (21-25) mmol/L ABG Total CO2 (19-24) mmol/L ABG O2 Saturation (94-97) % Sodium (137-145) mmol/L Potassium (3.5-5.1) mmol/L Carbon Dioxide (22-30) mmol/L Creatinine (0.66-1.25) mg/dL Glucose (74-99) mg/dL POC Glucose (mg/dL) 303 H 301 H 319 H (75-99) mg/dL Plasma Lactic Acid Abelardo (0.7-2.0) mmol/L Calcium (8.4-10.2) mg/dL Magnesium (1.6-2.3) mg/dL Total Bilirubin (0.2-1.3) mg/dL Alkaline Phosphatase (38-126) U/L Albumin (3.5-5.0) g/dL Urine Protein (Negative) Urine Blood (Negative) Urine Bacteria (None) /hpf Urine Mucus (None) /hpf 08/25/21 Range/Units 09:21 WBC (3.8-10.6) k/uL RBC (4.30-5.90) m/uL Hgb (13.0-17.5) gm/dL Hct (39.0-53.0) % RDW (11.5-15.5) % Plt Count (150-450) k/uL PT (9.0-12.0) sec INR (<1.2) APTT (22.0-30.0) sec D-Dimer (<0.60) mg/L FEU ABG pH (7.35-7.45) ABG pCO2 (35-45) mmHg ABG pO2 (83-108) mmHg ABG HCO3 (21-25) mmol/L ABG Total CO2 (19-24) mmol/L ABG O2 Saturation (94-97) % Sodium (137-145) mmol/L Potassium (3.5-5.1) mmol/L Carbon Dioxide (22-30) mmol/L Creatinine (0.66-1.25) mg/dL Glucose (74-99) mg/dL POC Glucose (mg/dL) 237 H (75-99) mg/dL Plasma Lactic Acid Abelardo (0.7-2.0) mmol/L Calcium (8.4-10.2) mg/dL Magnesium (1.6-2.3) mg/dL Total Bilirubin (0.2-1.3) mg/dL Alkaline Phosphatase (38-126) U/L Albumin (3.5-5.0) g/dL Urine Protein (Negative) Urine Blood (Negative) Urine Bacteria (None) /hpf Urine Mucus (None) /hpf Microbiology - Last 24 Hours (Table) 08/24/21 11:35 Blood Culture - Final Blood 08/24/21 11:20 Blood Culture Gram Stain - Preliminary Blood Blood Culture - Preliminary Klebsiella pneumoniae 08/24/21 20:33 Body Fluid Culture - Preliminary Aspirate 08/24/21 11:20 Blood Culture - Final Blood 08/24/21 11:35 Blood Culture Gram Stain - Preliminary Blood Chest x-ray: report reviewed CT scan - abdomen: report reviewed CT Scan - head: report reviewed CT scan - pelvis: report reviewed Assessment and Plan (1) Hodgkin lymphoma Narrative/Plan: Pt is s/p C1 D1 of BV AVD treatment on 08/15. He only received adriamycin, vincristine and adcetris (DTIC is on backorder). Treatment hold. Further discussions pending pt recovery Current Visit: Yes Status: Acute Priority: High Code(s): C81.90 - HODGKIN LYMPHOMA, UNSPECIFIED, UNSPECIFIED SITE SNOMED Code(s): 899570631 (2) Neutropenic fever Narrative/Plan: GCSF initiated for chemo induced neutropenia. Cont until ANC>10 CXR and UA not suggestive of acute infection. BC + for Kl pneu. ID following Current Visit: Yes Status: Acute Priority: High Code(s): D70.9 - NEUTROPENIA, UNSPECIFIED; R50.81 - FEVER PRESENTING WITH CONDITIONS CLASSIFIED ELSEWHERE SNOMED Code(s): 140144976 (3) Acute cholecystitis Narrative/Plan: PCT placed for drainage as pt not stable enough for procedure. Surgery following Current Visit: Yes Status: Acute Priority: High Code(s): K81.0 - ACUTE CHOLECYSTITIS SNOMED Code(s): 33843924 (4) Antineoplastic chemotherapy induced pancytopenia Narrative/Plan: Transfuse to keep Hgb above 7, platelets above 40K, cont GCSF until ANC at least 10. Current Visit: Yes Status: Acute Priority: High Code(s): D61.810 - ANTINEOPLASTIC CHEMOTHERAPY INDUCED PANCYTOPENIA; T45.1X5A - ADVERSE EFFECT OF ANTINEOPLASTIC AND IMMUNOSUP DRUGS, INIT SNOMED Code(s): 240096876706000 Time with Patient: Greater than 30
--- NOTE | 2021-08-25 13:29 | P.PN ---
<Jennifer,Renee - Last Filed: 08/25/21 13:13> Subjective Progress Note Date: 08/25/21 CHIEF COMPLAINT: Acute cholecystitis HISTORY OF PRESENT ILLNESS: This is a 60-year-old male who presented to the ER with weakness. The patient was admitted to the ICU and is currently on the ventilator. Patient was diagnosed with Hodgkin's lymphoma earlier this month. Patient had a fever this morning of 101.2 on admission. He had increased weakness. Came to the hospital for evaluation. In the ER he was not able to provide a significant history. His blood pressure was low. He was resuscit ated. He had a CAT scan abdomen and pelvis demonstrating gallbladder wall thickening with stones and surrounding inflammatory changes consistent with acute cholecystitis. This morning he underwent placement of percutaneous cholecystostomy tube insertion. He had approximately 200 mL out of a brown tinged fluid. He has still been febrile this morning max temperature 102.1. WBC 0.5 hemoglobin 7.3 platelet count 48,000 total bilirubin 1.7 AST 47 ALT 37 alkaline phosphatase 150 PHYSICAL EXAM: VITAL SIGNS: Reviewed. GENERAL: Sedated and sedated. HEENT: No sclera icterus. Extraocular movements grossly intact. Moist buccal mucosa. Head is atraumatic, normocephalic. ABDOMEN: Soft. Nondistended. Nontender. Cholecystectomy catheter in place with approximately 200 ml output of brown fluid. NEUROLOGIC: Intubated and sedated. ASSESSMENT: 1. Acute cholecystitis status post percutaneous cholecystotomy tube insertion PLAN: 1. Continue current IV antibiotics per recommendations from infectious disease 2. Continue symptomatic and supportive care per ICU management 3. Agree with oncology consultation, appreciate their recommendations 4. We will continue to follow closely. The impression and plan of care has been dictated as directed. Dr. Virgilio Headley I performed a history and examination of this patient, discussed the same with the dictator. I agree with the dictator's note ,documented as a scribe. Any additional findings or plans will be noted. Objective - Vital Signs Vital signs: Vital Signs Temp 102.1 F H 08/25/21 09:15 Pulse 129 H 08/25/21 10:00 Resp 30 H 08/25/21 10:00 BP 110/55 08/25/21 06:15 Pulse Ox 97 08/25/21 10:00 Intake & Output 08/24/21 08/25/21 08/25/21 18:59 06:59 18:59 Intake Total 66.981 4694.961 1341.888 Output Total 400 110 Balance 66.981 4294.961 1231.888 Weight 92.986 kg 110.9 kg Intake: IV 3080 970 Dextrose 5% in Water 1, 1650 450 000 ml @ 150 mls/hr IV . Q7H40M TERELL with Sodium Bicarb (1 Meq/ml) 150 ml Rx#:[id number] Sodium Chloride 0.9% 1, 1430 520 000 ml @ 130 mls/hr IV . Q7H42M STA Rx#:[id number] Intake, IV Titration 66.981 1234.961 371.888 Amount EPINEPHrine 4 mg In 33.068 845.224 238.377 Dextrose 5% in Water 250 ml @ 0.01 MCG/KG/MIN 3. 487 mls/hr IV .Q24H TERELL Rx#:[id number] Insulin Regular 100 unit 50.466 62.216 In Sodium Chloride 0.9% 100 ml @ Per Protocol IV .Q0M TERELL Rx#:[id number] Norepinephrine 32 mg In 33.913 339.271 71.295 Sodium Chloride 0.9% 218 ml @ 0.05 MCG/KG/MIN 2. 179 mls/hr IV .Q24H ONE Rx#:[id number] Blood Product 0 380 Platelet Pheresis Pas 0 380 Psoralen Unit [id number] Output: Urine 400 110 Other: Voiding Method Indwelling Catheter ABP, PAP, CO, CI - Last Documented Arterial Blood Pressure 118/43 - Labs CBC & Chem 7: 08/25/21 04:36 08/25/21 04:36 Labs: Abnormal Lab Results - Last 24 Hours (Table) 08/24/21 08/24/21 08/24/21 Range/Units 11:51 11:51 11:51 WBC 0.1 L* (3.8-10.6) k/uL RBC 2.35 L (4.30-5.90) m/uL Hgb 7.5 L (13.0-17.5) gm/dL Hct 22.4 L (39.0-53.0) % RDW (11.5-15.5) % Plt Count 23 L (150-450) k/uL PT (9.0-12.0) sec INR (<1.2) APTT (22.0-30.0) sec D-Dimer (<0.60) mg/L FEU ABG pH (7.35-7.45) ABG pCO2 (35-45) mmHg ABG pO2 (83-108) mmHg ABG HCO3 (21-25) mmol/L ABG Total CO2 (19-24) mmol/L ABG O2 Saturation (94-97) % Sodium 130 L (137-145) mmol/L Potassium (3.5-5.1) mmol/L Carbon Dioxide (22-30) mmol/L Creatinine (0.66-1.25) mg/dL Glucose 137 H (74-99) mg/dL POC Glucose (mg/dL) (75-99) mg/dL Plasma Lactic Acid Abelardo 4.3 H* (0.7-2.0) mmol/L Calcium (8.4-10.2) mg/dL Magnesium (1.6-2.3) mg/dL Total Bilirubin (0.2-1.3) mg/dL Alkaline Phosphatase 358 H (38-126) U/L Albumin 2.4 L (3.5-5.0) g/dL Urine Protein (Negative) Urine Blood (Negative) Urine Bacteria (None) /hpf Urine Mucus (None) /hpf 08/24/21 08/24/21 08/24/21 Range/Units 14:45 16:23 16:56 WBC (3.8-10.6) k/uL RBC (4.30-5.90) m/uL Hgb (13.0-17.5) gm/dL Hct (39.0-53.0) % RDW (11.5-15.5) % Plt Count (150-450) k/uL PT (9.0-12.0) sec INR (<1.2) APTT (22.0-30.0) sec D-Dimer (<0.60) mg/L FEU ABG pH 7.26 L (7.35-7.45) ABG pCO2 (35-45) mmHg ABG pO2 190 H (83-108) mmHg ABG HCO3 18 L (21-25) mmol/L ABG Total CO2 (19-24) mmol/L ABG O2 Saturation 99.6 H (94-97) % Sodium (137-145) mmol/L Potassium (3.5-5.1) mmol/L Carbon Dioxide (22-30) mmol/L Creatinine (0.66-1.25) mg/dL Glucose (74-99) mg/dL POC Glucose (mg/dL) (75-99) mg/dL Plasma Lactic Acid Abelardo 11.6 H* (0.7-2.0) mmol/L Calcium (8.4-10.2) mg/dL Magnesium (1.6-2.3) mg/dL Total Bilirubin (0.2-1.3) mg/dL Alkaline Phosphatase (38-126) U/L Albumin (3.5-5.0) g/dL Urine Protein 1+ H (Negative) Urine Blood Moderate H (Negative) Urine Bacteria Many H (None) /hpf Urine Mucus Rare H (None) /hpf 08/24/21 08/24/21 08/24/21 Range/Units 21:00 22:30 22:39 WBC (3.8-10.6) k/uL RBC (4.30-5.90) m/uL Hgb (13.0-17.5) gm/dL Hct (39.0-53.0) % RDW (11.5-15.5) % Plt Count (150-450) k/uL PT (9.0-12.0) sec INR (<1.2) APTT (22.0-30.0) sec D-Dimer 4.13 H (<0.60) mg/L FEU ABG pH (7.35-7.45) ABG pCO2 (35-45) mmHg ABG pO2 (83-108) mmHg ABG HCO3 (21-25) mmol/L ABG Total CO2 (19-24) mmol/L ABG O2 Saturation (94-97) % Sodium (137-145) mmol/L Potassium (3.5-5.1) mmol/L Carbon Dioxide (22-30) mmol/L Creatinine (0.66-1.25) mg/dL Glucose (74-99) mg/dL POC Glucose (mg/dL) 224 H (75-99) mg/dL Plasma Lactic Acid Abelardo 13.1 H* (0.7-2.0) mmol/L Calcium (8.4-10.2) mg/dL Magnesium (1.6-2.3) mg/dL Total Bilirubin (0.2-1.3) mg/dL Alkaline Phosphatase (38-126) U/L Albumin (3.5-5.0) g/dL Urine Protein (Negative) Urine Blood (Negative) Urine Bacteria (None) /hpf Urine Mucus (None) /hpf 08/25/21 08/25/21 08/25/21 Range/Units 00:24 01:24 01:34 WBC (3.8-10.6) k/uL RBC (4.30-5.90) m/uL Hgb (13.0-17.5) gm/dL Hct (39.0-53.0) % RDW (11.5-15.5) % Plt Count (150-450) k/uL PT (9.0-12.0) sec INR (<1.2) APTT (22.0-30.0) sec D-Dimer (<0.60) mg/L FEU ABG pH (7.35-7.45) ABG pCO2 (35-45) mmHg ABG pO2 (83-108) mmHg ABG HCO3 (21-25) mmol/L ABG Total CO2 (19-24) mmol/L ABG O2 Saturation (94-97) % Sodium (137-145) mmol/L Potassium (3.5-5.1) mmol/L Carbon Dioxide (22-30) mmol/L Creatinine (0.66-1.25) mg/dL Glucose (74-99) mg/dL POC Glucose (mg/dL) 292 H 292 H (75-99) mg/dL Plasma Lactic Acid Abelardo 11.8 H* (0.7-2.0) mmol/L Calcium (8.4-10.2) mg/dL Magnesium (1.6-2.3) mg/dL Total Bilirubin (0.2-1.3) mg/dL Alkaline Phosphatase (38-126) U/L Albumin (3.5-5.0) g/dL Urine Protein (Negative) Urine Blood (Negative) Urine Bacteria (None) /hpf Urine Mucus (None) /hpf 08/25/21 08/25/21 08/25/21 Range/Units 02:39 03:08 04:05 WBC (3.8-10.6) k/uL RBC (4.30-5.90) m/uL Hgb (13.0-17.5) gm/dL Hct (39.0-53.0) % RDW (11.5-15.5) % Plt Count (150-450) k/uL PT (9.0-12.0) sec INR (<1.2) APTT (22.0-30.0) sec D-Dimer (<0.60) mg/L FEU ABG pH (7.35-7.45) ABG pCO2 (35-45) mmHg ABG pO2 (83-108) mmHg ABG HCO3 (21-25) mmol/L ABG Total CO2 (19-24) mmol/L ABG O2 Saturation (94-97) % Sodium (137-145) mmol/L Potassium (3.5-5.1) mmol/L Carbon Dioxide (22-30) mmol/L Creatinine (0.66-1.25) mg/dL Glucose (74-99) mg/dL POC Glucose (mg/dL) 307 H 321 H 326 H (75-99) mg/dL Plasma Lactic Acid Abelardo (0.7-2.0) mmol/L Calcium (8.4-10.2) mg/dL Magnesium (1.6-2.3) mg/dL Total Bilirubin (0.2-1.3) mg/dL Alkaline Phosphatase (38-126) U/L Albumin (3.5-5.0) g/dL Urine Protein (Negative) Urine Blood (Negative) Urine Bacteria (None) /hpf Urine Mucus (None) /hpf 08/25/21 08/25/21 08/25/21 Range/Units 04:08 04:36 04:36 WBC (3.8-10.6) k/uL RBC 2.33 L (4.30-5.90) m/uL Hgb 7.3 L (13.0-17.5) gm/dL Hct 23.2 L (39.0-53.0) % RDW 16.0 H (11.5-15.5) % Plt Count 48 L D (150-450) k/uL PT (9.0-12.0) sec INR (<1.2) APTT (22.0-30.0) sec D-Dimer (<0.60) mg/L FEU ABG pH (7.35-7.45) ABG pCO2 (35-45) mmHg ABG pO2 (83-108) mmHg ABG HCO3 (21-25) mmol/L ABG Total CO2 (19-24) mmol/L ABG O2 Saturation (94-97) % Sodium 132 L (137-145) mmol/L Potassium 3.0 L (3.5-5.1) mmol/L Carbon Dioxide 14 L (22-30) mmol/L Creatinine 1.58 H (0.66-1.25) mg/dL Glucose 293 H (74-99) mg/dL POC Glucose (mg/dL) (75-99) mg/dL Plasma Lactic Acid Abelardo 11.5 H* (0.7-2.0) mmol/L Calcium 7.2 L (8.4-10.2) mg/dL Magnesium (1.6-2.3) mg/dL Total Bilirubin 1.7 H (0.2-1.3) mg/dL Alkaline Phosphatase 150 H (38-126) U/L Albumin 2.0 L (3.5-5.0) g/dL Urine Protein (Negative) Urine Blood (Negative) Urine Bacteria (None) /hpf Urine Mucus (None) /hpf 08/25/21 08/25/21 08/25/21 Range/Units 04:36 04:36 04:59 WBC (3.8-10.6) k/uL RBC (4.30-5.90) m/uL Hgb (13.0-17.5) gm/dL Hct (39.0-53.0) % RDW (11.5-15.5) % Plt Count (150-450) k/uL PT 14.0 H (9.0-12.0) sec INR 1.4 H (<1.2) APTT 31.9 H (22.0-30.0) sec D-Dimer 7.81 H (<0.60) mg/L FEU ABG pH (7.35-7.45) ABG pCO2 30 L (35-45) mmHg ABG pO2 147 H (83-108) mmHg ABG HCO3 17 L (21-25) mmol/L ABG Total CO2 18 L (19-24) mmol/L ABG O2 Saturation 99.4 H (94-97) % Sodium (137-145) mmol/L Potassium (3.5-5.1) mmol/L Carbon Dioxide (22-30) mmol/L Creatinine (0.66-1.25) mg/dL Glucose (74-99) mg/dL POC Glucose (mg/dL) (75-99) mg/dL Plasma Lactic Acid Abelardo (0.7-2.0) mmol/L Calcium (8.4-10.2) mg/dL Magnesium 1.0 L (1.6-2.3) mg/dL Total Bilirubin (0.2-1.3) mg/dL Alkaline Phosphatase (38-126) U/L Albumin (3.5-5.0) g/dL Urine Protein (Negative) Urine Blood (Negative) Urine Bacteria (None) /hpf Urine Mucus (None) /hpf 08/25/21 08/25/21 08/25/21 Range/Units 05:01 06:11 07:05 WBC (3.8-10.6) k/uL RBC (4.30-5.90) m/uL Hgb (13.0-17.5) gm/dL Hct (39.0-53.0) % RDW (11.5-15.5) % Plt Count (150-450) k/uL PT (9.0-12.0) sec INR (<1.2) APTT (22.0-30.0) sec D-Dimer (<0.60) mg/L FEU ABG pH (7.35-7.45) ABG pCO2 (35-45) mmHg ABG pO2 (83-108) mmHg ABG HCO3 (21-25) mmol/L ABG Total CO2 (19-24) mmol/L ABG O2 Saturation (94-97) % Sodium (137-145) mmol/L Potassium (3.5-5.1) mmol/L Carbon Dioxide (22-30) mmol/L Creatinine (0.66-1.25) mg/dL Glucose (74-99) mg/dL POC Glucose (mg/dL) 303 H 301 H 319 H (75-99) mg/dL Plasma Lactic Acid Abelardo (0.7-2.0) mmol/L Calcium (8.4-10.2) mg/dL Magnesium (1.6-2.3) mg/dL Total Bilirubin (0.2-1.3) mg/dL Alkaline Phosphatase (38-126) U/L Albumin (3.5-5.0) g/dL Urine Protein (Negative) Urine Blood (Negative) Urine Bacteria (None) /hpf Urine Mucus (None) /hpf 08/25/21 08/25/21 Range/Units 09:21 10:06 WBC (3.8-10.6) k/uL RBC (4.30-5.90) m/uL Hgb (13.0-17.5) gm/dL Hct (39.0-53.0) % RDW (11.5-15.5) % Plt Count (150-450) k/uL PT (9.0-12.0) sec INR (<1.2) APTT (22.0-30.0) sec D-Dimer (<0.60) mg/L FEU ABG pH (7.35-7.45) ABG pCO2 (35-45) mmHg ABG pO2 (83-108) mmHg ABG HCO3 (21-25) mmol/L ABG Total CO2 (19-24) mmol/L ABG O2 Saturation (94-97) % Sodium (137-145) mmol/L Potassium (3.5-5.1) mmol/L Carbon Dioxide (22-30) mmol/L Creatinine (0.66-1.25) mg/dL Glucose (74-99) mg/dL POC Glucose (mg/dL) 237 H 235 H (75-99) mg/dL Plasma Lactic Acid Abelardo (0.7-2.0) mmol/L Calcium (8.4-10.2) mg/dL Magnesium (1.6-2.3) mg/dL Total Bilirubin (0.2-1.3) mg/dL Alkaline Phosphatase (38-126) U/L Albumin (3.5-5.0) g/dL Urine Protein (Negative) Urine Blood (Negative) Urine Bacteria (None) /hpf Urine Mucus (None) /hpf Microbiology - Last 24 Hours (Table) 08/24/21 11:35 Blood Culture - Final Blood 08/24/21 11:20 Blood Culture Gram Stain - Preliminary Blood Blood Culture - Preliminary Klebsiella pneumoniae 08/24/21 20:33 Body Fluid Culture - Preliminary Aspirate 08/24/21 11:20 Blood Culture - Final Blood 08/24/21 11:35 Blood Culture Gram Stain - Preliminary Blood <Elton Headley - Last Filed: 08/25/21 14:17> Subjective As above. Patient remains hypotensive on high dose pressors. Cholecystostomy tube was placed yesterday evening. Apparently the initial output had a cloudiness to it suggestive of infection. Currently the bilious fluid in the bag is fairly clear. Patient is not receiving any sedation. Nontender on exam. Continue aggressive supportive measures. Will follow. Objective - Vital Signs Vital signs: Vital Signs Temp 99.7 F H 08/25/21 12:00 Pulse 126 H 08/25/21 13:30 Resp 26 H 08/25/21 13:30 BP 110/55 08/25/21 06:15 Pulse Ox 98 08/25/21 13:30 Intake & Output 08/24/21 08/25/21 08/25/21 18:59 06:59 18:59 Intake Total 66.981 4694.961 2267.342 Output Total 400 175 Balance 66.981 4294.961 2092.342 Weight 92.986 kg 110.9 kg Intake: IV 3080 1530 Dextrose 5% in Water 1, 1650 750 000 ml @ 150 mls/hr IV . Q7H40M TERELL with Sodium Bicarb (1 Meq/ml) 150 ml Rx#:[id number] Sodium Chloride 0.9% 1, 1430 780 000 ml @ 130 mls/hr IV . Q7H42M STA Rx#:[id number] Intake, IV Titration 66.981 1234.961 737.342 Amount EPINEPHrine 4 mg In 33.068 845.224 488.377 Dextrose 5% in Water 250 ml @ 0.01 MCG/KG/MIN 3. 487 mls/hr IV .Q24H TERELL Rx#:[id number] Insulin Regular 100 unit 50.466 113.524 In Sodium Chloride 0.9% 100 ml @ Per Protocol IV .Q0M TERELL Rx#:[id number] Norepinephrine 32 mg In 33.913 339.271 135.441 Sodium Chloride 0.9% 218 ml @ 0.05 MCG/KG/MIN 2. 179 mls/hr IV .Q24H ONE Rx#:[id number] Blood Product 0 380 Platelet Pheresis Pas 0 380 Psoralen Unit [id number] Output: Urine 400 175 Other: Voiding Method Indwelling Catheter Indwelling Catheter ABP, PAP, CO, CI - Last Documented Arterial Blood Pressure 111/42 - Labs CBC & Chem 7: 08/25/21 04:36 08/25/21 04:36 Labs: Abnormal Lab Results - Last 24 Hours (Table) 08/24/21 08/24/21 08/24/21 Range/Units 14:45 16:23 16:56 WBC (3.8-10.6) k/uL RBC (4.30-5.90) m/uL Hgb (13.0-17.5) gm/dL Hct (39.0-53.0) % RDW (11.5-15.5) % Plt Count (150-450) k/uL PT (9.0-12.0) sec INR (<1.2) APTT (22.0-30.0) sec D-Dimer (<0.60) mg/L FEU ABG pH 7.26 L (7.35-7.45) ABG pCO2 (35-45) mmHg ABG pO2 190 H (83-108) mmHg ABG HCO3 18 L (21-25) mmol/L ABG Total CO2 (19-24) mmol/L ABG O2 Saturation 99.6 H (94-97) % Sodium (137-145) mmol/L Potassium (3.5-5.1) mmol/L Carbon Dioxide (22-30) mmol/L Creatinine (0.66-1.25) mg/dL Glucose (74-99) mg/dL POC Glucose (mg/dL) (75-99) mg/dL Plasma Lactic Acid Abelardo 11.6 H* (0.7-2.0) mmol/L Calcium (8.4-10.2) mg/dL Magnesium (1.6-2.3) mg/dL Total Bilirubin (0.2-1.3) mg/dL Alkaline Phosphatase (38-126) U/L Albumin (3.5-5.0) g/dL Urine Protein 1+ H (Negative) Urine Blood Moderate H (Negative) Urine Bacteria Many H (None) /hpf Urine Mucus Rare H (None) /hpf 08/24/21 08/24/21 08/24/21 Range/Units 21:00 22:30 22:39 WBC (3.8-10.6) k/uL RBC (4.30-5.90) m/uL Hgb (13.0-17.5) gm/dL Hct (39.0-53.0) % RDW (11.5-15.5) % Plt Count (150-450) k/uL PT (9.0-12.0) sec INR (<1.2) APTT (22.0-30.0) sec D-Dimer 4.13 H (<0.60) mg/L FEU ABG pH (7.35-7.45) ABG pCO2 (35-45) mmHg ABG pO2 (83-108) mmHg ABG HCO3 (21-25) mmol/L ABG Total CO2 (19-24) mmol/L ABG O2 Saturation (94-97) % Sodium (137-145) mmol/L Potassium (3.5-5.1) mmol/L Carbon Dioxide (22-30) mmol/L Creatinine (0.66-1.25) mg/dL Glucose (74-99) mg/dL POC Glucose (mg/dL) 224 H (75-99) mg/dL Plasma Lactic Acid Abelardo 13.1 H* (0.7-2.0) mmol/L Calcium (8.4-10.2) mg/dL Magnesium (1.6-2.3) mg/dL Total Bilirubin (0.2-1.3) mg/dL Alkaline Phosphatase (38-126) U/L Albumin (3.5-5.0) g/dL Urine Protein (Negative) Urine Blood (Negative) Urine Bacteria (None) /hpf Urine Mucus (None) /hpf 08/25/21 08/25/21 08/25/21 Range/Units 00:24 01:24 01:34 WBC (3.8-10.6) k/uL RBC (4.30-5.90) m/uL Hgb (13.0-17.5) gm/dL Hct (39.0-53.0) % RDW (11.5-15.5) % Plt Count (150-450) k/uL PT (9.0-12.0) sec INR (<1.2) APTT (22.0-30.0) sec D-Dimer (<0.60) mg/L FEU ABG pH (7.35-7.45) ABG pCO2 (35-45) mmHg ABG pO2 (83-108) mmHg ABG HCO3 (21-25) mmol/L ABG Total CO2 (19-24) mmol/L ABG O2 Saturation (94-97) % Sodium (137-145) mmol/L Potassium (3.5-5.1) mmol/L Carbon Dioxide (22-30) mmol/L Creatinine (0.66-1.25) mg/dL Glucose (74-99) mg/dL POC Glucose (mg/dL) 292 H 292 H (75-99) mg/dL Plasma Lactic Acid Abelardo 11.8 H* (0.7-2.0) mmol/L Calcium (8.4-10.2) mg/dL Magnesium (1.6-2.3) mg/dL Total Bilirubin (0.2-1.3) mg/dL Alkaline Phosphatase (38-126) U/L Albumin (3.5-5.0) g/dL Urine Protein (Negative) Urine Blood (Negative) Urine Bacteria (None) /hpf Urine Mucus (None) /hpf 08/25/21 08/25/21 08/25/21 Range/Units 02:39 03:08 04:05 WBC (3.8-10.6) k/uL RBC (4.30-5.90) m/uL Hgb (13.0-17.5) gm/dL Hct (39.0-53.0) % RDW (11.5-15.5) % Plt Count (150-450) k/uL PT (9.0-12.0) sec INR (<1.2) APTT (22.0-30.0) sec D-Dimer (<0.60) mg/L FEU ABG pH (7.35-7.45) ABG pCO2 (35-45) mmHg ABG pO2 (83-108) mmHg ABG HCO3 (21-25) mmol/L ABG Total CO2 (19-24) mmol/L ABG O2 Saturation (94-97) % Sodium (137-145) mmol/L Potassium (3.5-5.1) mmol/L Carbon Dioxide (22-30) mmol/L Creatinine (0.66-1.25) mg/dL Glucose (74-99) mg/dL POC Glucose (mg/dL) 307 H 321 H 326 H (75-99) mg/dL Plasma Lactic Acid Abelardo (0.7-2.0) mmol/L Calcium (8.4-10.2) mg/dL Magnesium (1.6-2.3) mg/dL Total Bilirubin (0.2-1.3) mg/dL Alkaline Phosphatase (38-126) U/L Albumin (3.5-5.0) g/dL Urine Protein (Negative) Urine Blood (Negative) Urine Bacteria (None) /hpf Urine Mucus (None) /hpf 08/25/21 08/25/21 08/25/21 Range/Units 04:08 04:36 04:36 WBC 0.5 L* (3.8-10.6) k/uL RBC 2.33 L (4.30-5.90) m/uL Hgb 7.3 L (13.0-17.5) gm/dL Hct 23.2 L (39.0-53.0) % RDW 16.0 H (11.5-15.5) % Plt Count 48 L D (150-450) k/uL PT (9.0-12.0) sec INR (<1.2) APTT (22.0-30.0) sec D-Dimer (<0.60) mg/L FEU ABG pH (7.35-7.45) ABG pCO2 (35-45) mmHg ABG pO2 (83-108) mmHg ABG HCO3 (21-25) mmol/L ABG Total CO2 (19-24) mmol/L ABG O2 Saturation (94-97) % Sodium 132 L (137-145) mmol/L Potassium 3.0 L (3.5-5.1) mmol/L Carbon Dioxide 14 L (22-30) mmol/L Creatinine 1.58 H (0.66-1.25) mg/dL Glucose 293 H (74-99) mg/dL POC Glucose (mg/dL) (75-99) mg/dL Plasma Lactic Acid Abelardo 11.5 H* (0.7-2.0) mmol/L Calcium 7.2 L (8.4-10.2) mg/dL Magnesium (1.6-2.3) mg/dL Total Bilirubin 1.7 H (0.2-1.3) mg/dL Alkaline Phosphatase 150 H (38-126) U/L Albumin 2.0 L (3.5-5.0) g/dL Urine Protein (Negative) Urine Blood (Negative) Urine Bacteria (None) /hpf Urine Mucus (None) /hpf 08/25/21 08/25/21 08/25/21 Range/Units 04:36 04:36 04:59 WBC (3.8-10.6) k/uL RBC (4.30-5.90) m/uL Hgb (13.0-17.5) gm/dL Hct (39.0-53.0) % RDW (11.5-15.5) % Plt Count (150-450) k/uL PT 14.0 H (9.0-12.0) sec INR 1.4 H (<1.2) APTT 31.9 H (22.0-30.0) sec D-Dimer 7.81 H (<0.60) mg/L FEU ABG pH (7.35-7.45) ABG pCO2 30 L (35-45) mmHg ABG pO2 147 H (83-108) mmHg ABG HCO3 17 L (21-25) mmol/L ABG Total CO2 18 L (19-24) mmol/L ABG O2 Saturation 99.4 H (94-97) % Sodium (137-145) mmol/L Potassium (3.5-5.1) mmol/L Carbon Dioxide (22-30) mmol/L Creatinine (0.66-1.25) mg/dL Glucose (74-99) mg/dL POC Glucose (mg/dL) (75-99) mg/dL Plasma Lactic Acid Abelardo (0.7-2.0) mmol/L Calcium (8.4-10.2) mg/dL Magnesium 1.0 L (1.6-2.3) mg/dL Total Bilirubin (0.2-1.3) mg/dL Alkaline Phosphatase (38-126) U/L Albumin (3.5-5.0) g/dL Urine Protein (Negative) Urine Blood (Negative) Urine Bacteria (None) /hpf Urine Mucus (None) /hpf 08/25/21 08/25/21 08/25/21 Range/Units 05:01 06:11 07:05 WBC (3.8-10.6) k/uL RBC (4.30-5.90) m/uL Hgb (13.0-17.5) gm/dL Hct (39.0-53.0) % RDW (11.5-15.5) % Plt Count (150-450) k/uL PT (9.0-12.0) sec INR (<1.2) APTT (22.0-30.0) sec D-Dimer (<0.60) mg/L FEU ABG pH (7.35-7.45) ABG pCO2 (35-45) mmHg ABG pO2 (83-108) mmHg ABG HCO3 (21-25) mmol/L ABG Total CO2 (19-24) mmol/L ABG O2 Saturation (94-97) % Sodium (137-145) mmol/L Potassium (3.5-5.1) mmol/L Carbon Dioxide (22-30) mmol/L Creatinine (0.66-1.25) mg/dL Glucose (74-99) mg/dL POC Glucose (mg/dL) 303 H 301 H 319 H (75-99) mg/dL Plasma Lactic Acid Abelardo (0.7-2.0) mmol/L Calcium (8.4-10.2) mg/dL Magnesium (1.6-2.3) mg/dL Total Bilirubin (0.2-1.3) mg/dL Alkaline Phosphatase (38-126) U/L Albumin (3.5-5.0) g/dL Urine Protein (Negative) Urine Blood (Negative) Urine Bacteria (None) /hpf Urine Mucus (None) /hpf 08/25/21 08/25/21 08/25/21 Range/Units 09:21 10:06 11:08 WBC (3.8-10.6) k/uL RBC (4.30-5.90) m/uL Hgb (13.0-17.5) gm/dL Hct (39.0-53.0) % RDW (11.5-15.5) % Plt Count (150-450) k/uL PT (9.0-12.0) sec INR (<1.2) APTT (22.0-30.0) sec D-Dimer (<0.60) mg/L FEU ABG pH (7.35-7.45) ABG pCO2 (35-45) mmHg ABG pO2 (83-108) mmHg ABG HCO3 (21-25) mmol/L ABG Total CO2 (19-24) mmol/L ABG O2 Saturation (94-97) % Sodium (137-145) mmol/L Potassium (3.5-5.1) mmol/L Carbon Dioxide (22-30) mmol/L Creatinine (0.66-1.25) mg/dL Glucose (74-99) mg/dL POC Glucose (mg/dL) 237 H 235 H 230 H (75-99) mg/dL Plasma Lactic Acid Abelardo (0.7-2.0) mmol/L Calcium (8.4-10.2) mg/dL Magnesium (1.6-2.3) mg/dL Total Bilirubin (0.2-1.3) mg/dL Alkaline Phosphatase (38-126) U/L Albumin (3.5-5.0) g/dL Urine Protein (Negative) Urine Blood (Negative) Urine Bacteria (None) /hpf Urine Mucus (None) /hpf 08/25/21 08/25/21 Range/Units 12:14 13:29 WBC (3.8-10.6) k/uL RBC (4.30-5.90) m/uL Hgb (13.0-17.5) gm/dL Hct (39.0-53.0) % RDW (11.5-15.5) % Plt Count (150-450) k/uL PT (9.0-12.0) sec INR (<1.2) APTT (22.0-30.0) sec D-Dimer (<0.60) mg/L FEU ABG pH (7.35-7.45) ABG pCO2 (35-45) mmHg ABG pO2 (83-108) mmHg ABG HCO3 (21-25) mmol/L ABG Total CO2 (19-24) mmol/L ABG O2 Saturation (94-97) % Sodium (137-145) mmol/L Potassium (3.5-5.1) mmol/L Carbon Dioxide (22-30) mmol/L Creatinine (0.66-1.25) mg/dL Glucose (74-99) mg/dL POC Glucose (mg/dL) 196 H 177 H (75-99) mg/dL Plasma Lactic Acid Abelardo (0.7-2.0) mmol/L Calcium (8.4-10.2) mg/dL Magnesium (1.6-2.3) mg/dL Total Bilirubin (0.2-1.3) mg/dL Alkaline Phosphatase (38-126) U/L Albumin (3.5-5.0) g/dL Urine Protein (Negative) Urine Blood (Negative) Urine Bacteria (None) /hpf Urine Mucus (None) /hpf Microbiology - Last 24 Hours (Table) 08/24/21 11:35 Blood Culture Gram Stain - Preliminary Blood 08/24/21 11:35 Blood Culture - Final Blood 08/24/21 11:20 Blood Culture Gram Stain - Preliminary Blood Blood Culture - Preliminary Klebsiella pneumoniae 08/24/21 20:33 Body Fluid Culture - Preliminary Aspirate 08/24/21 11:20 Blood Culture - Final Blood Assessment and Plan (1) Acute cholecystitis Current Visit: Yes Status: Acute Priority: High Code(s): K81.0 - ACUTE CHOLECYSTITIS SNOMED Code(s): 77276955
[2021-08-25 13:31] LABS: Glucose,Whole Blood 177 mg/dL (75-99)
[2021-08-25] MEDS: NOREPINEPHRINE 32 MG in SODIUM CHLORIDE 0.9% 218 ML IV SCH (15:01)
--- NOTE | 2021-08-25 15:26 | P.PN ---
Subjective Progress Note Date: 08/25/21 Principal diagnosis: Septic shock with multisystem organ failure possibly related to acute cholecystitis Profound hypotension secondary to septic shock Acute renal injury Severe metabolic acidosis Acute hypoxemic respiratory failure 60-year-old male with a past medical history significant for Hodgkin lymphoma for the patient is currently on chemotherapy with last chemo on 08/15/2021 patient has been brought to the ER for evaluation of fever and generalized weakness in this patient symptom has been going on for the last day or 2 patient on presentation to the ER did have a fever of 122.9 the patient was tachypneic and tachycardic patient did have a elevated lactic acid of 11.6 white count of 0.1 kidney function was normal liver enzymes are normal urine was negative pressley PCR was negative patient did have a chest x-ray COPD correlate for interstitial lung disease with pulmonary fibrosis patient did have a CT of abdominal pelvis which showed stable splenomegaly and abnormal abdominal pelvic adenopathy and there was concern for acute cholecystitis patient ended up getting intubated because of worsening respiratory status is hypotensive requiring pressor support patient was started on Zosyn infectious disease was consulted for further management of antibiotic therapy most information has been obtained from review the chart talking nursing staff as the patient is currently intubated on the vent is unable to provide any history Objective - Vital Signs Vital signs: Vital Signs Temp 102.1 F H 08/25/21 09:15 Pulse 129 H 08/25/21 10:00 Resp 30 H 08/25/21 10:00 BP 110/55 08/25/21 06:15 Pulse Ox 97 08/25/21 10:00 Intake & Output 08/24/21 08/25/21 08/25/21 18:59 06:59 18:59 Intake Total 66.981 4694.961 1341.888 Output Total 400 110 Balance 66.981 4294.961 1231.888 Weight 92.986 kg 110.9 kg Intake: IV 3080 970 Dextrose 5% in Water 1, 1650 450 000 ml @ 150 mls/hr IV . Q7H40M TERELL with Sodium Bicarb (1 Meq/ml) 150 ml Rx#:[id number] Sodium Chloride 0.9% 1, 1430 520 000 ml @ 130 mls/hr IV . Q7H42M STA Rx#:[id number] Intake, IV Titration 66.981 1234.961 371.888 Amount EPINEPHrine 4 mg In 33.068 845.224 238.377 Dextrose 5% in Water 250 ml @ 0.01 MCG/KG/MIN 3. 487 mls/hr IV .Q24H [facility] Rx#:[id number] Insulin Regular 100 unit 50.466 62.216 In Sodium Chloride 0.9% 100 ml @ Per Protocol IV .Q0M [facility] Rx#:[id number] Norepinephrine 32 mg In 33.913 339.271 71.295 Sodium Chloride 0.9% 218 ml @ 0.05 MCG/KG/MIN 2. 179 mls/hr IV .Q24H [facility] Rx#:[id number] Blood Product 0 380 Platelet Pheresis Pas 0 380 Psoralen Unit [id number] Output: Urine 400 110 Other: Voiding Method Indwelling Catheter ABP, PAP, CO, CI - Last Documented Arterial Blood Pressure 118/43 - Exam GENERAL DESCRIPTION: Middle-aged male intubated on the vent HEENT: Shows Pallor , no scleral icterus. Oral mucous membrane is dry. NECK: Trachea central, no thyromegaly. LUNGS: Unlabored breathing. Decreased breath sound at the base. No wheeze or crackle. HEART: S1, S2, regular rate and rhythm. ABDOMEN: Soft, no tenderness , guarding or rigidity EXTREMITIES: No edema of feet. SKIN: No rash, no masses palpable. NEUROLOGICAL: The patient is sedated on the vent - Labs CBC & Chem 7: 08/25/21 04:36 08/25/21 04:36 Labs: Abnormal Lab Results - Last 24 Hours (Table) 08/24/21 08/24/21 08/24/21 Range/Units 11:51 11:51 11:51 WBC 0.1 L* (3.8-10.6) k/uL RBC 2.35 L (4.30-5.90) m/uL Hgb 7.5 L (13.0-17.5) gm/dL Hct 22.4 L (39.0-53.0) % RDW (11.5-15.5) % Plt Count 23 L (150-450) k/uL PT (9.0-12.0) sec INR (<1.2) APTT (22.0-30.0) sec D-Dimer (<0.60) mg/L FEU ABG pH (7.35-7.45) ABG pCO2 (35-45) mmHg ABG pO2 (83-108) mmHg ABG HCO3 (21-25) mmol/L ABG Total CO2 (19-24) mmol/L ABG O2 Saturation (94-97) % Sodium 130 L (137-145) mmol/L Potassium (3.5-5.1) mmol/L Carbon Dioxide (22-30) mmol/L Creatinine (0.66-1.25) mg/dL Glucose 137 H (74-99) mg/dL POC Glucose (mg/dL) (75-99) mg/dL Plasma Lactic Acid Abelardo 4.3 H* (0.7-2.0) mmol/L Calcium (8.4-10.2) mg/dL Magnesium (1.6-2.3) mg/dL Total Bilirubin (0.2-1.3) mg/dL Alkaline Phosphatase 358 H (38-126) U/L Albumin 2.4 L (3.5-5.0) g/dL Urine Protein (Negative) Urine Blood (Negative) Urine Bacteria (None) /hpf Urine Mucus (None) /hpf 08/24/21 08/24/21 08/24/21 Range/Units 14:45 16:23 16:56 WBC (3.8-10.6) k/uL RBC (4.30-5.90) m/uL Hgb (13.0-17.5) gm/dL Hct (39.0-53.0) % RDW (11.5-15.5) % Plt Count (150-450) k/uL PT (9.0-12.0) sec INR (<1.2) APTT (22.0-30.0) sec D-Dimer (<0.60) mg/L FEU ABG pH 7.26 L (7.35-7.45) ABG pCO2 (35-45) mmHg ABG pO2 190 H (83-108) mmHg ABG HCO3 18 L (21-25) mmol/L ABG Total CO2 (19-24) mmol/L ABG O2 Saturation 99.6 H (94-97) % Sodium (137-145) mmol/L Potassium (3.5-5.1) mmol/L Carbon Dioxide (22-30) mmol/L Creatinine (0.66-1.25) mg/dL Glucose (74-99) mg/dL POC Glucose (mg/dL) (75-99) mg/dL Plasma Lactic Acid Abelardo 11.6 H* (0.7-2.0) mmol/L Calcium (8.4-10.2) mg/dL Magnesium (1.6-2.3) mg/dL Total Bilirubin (0.2-1.3) mg/dL Alkaline Phosphatase (38-126) U/L Albumin (3.5-5.0) g/dL Urine Protein 1+ H (Negative) Urine Blood Moderate H (Negative) Urine Bacteria Many H (None) /hpf Urine Mucus Rare H (None) /hpf 08/24/21 08/24/21 08/24/21 Range/Units 21:00 22:30 22:39 WBC (3.8-10.6) k/uL RBC (4.30-5.90) m/uL Hgb (13.0-17.5) gm/dL Hct (39.0-53.0) % RDW (11.5-15.5) % Plt Count (150-450) k/uL PT (9.0-12.0) sec INR (<1.2) APTT (22.0-30.0) sec D-Dimer 4.13 H (<0.60) mg/L FEU ABG pH (7.35-7.45) ABG pCO2 (35-45) mmHg ABG pO2 (83-108) mmHg ABG HCO3 (21-25) mmol/L ABG Total CO2 (19-24) mmol/L ABG O2 Saturation (94-97) % Sodium (137-145) mmol/L Potassium (3.5-5.1) mmol/L Carbon Dioxide (22-30) mmol/L Creatinine (0.66-1.25) mg/dL Glucose (74-99) mg/dL POC Glucose (mg/dL) 224 H (75-99) mg/dL Plasma Lactic Acid Abelardo 13.1 H* (0.7-2.0) mmol/L Calcium (8.4-10.2) mg/dL Magnesium (1.6-2.3) mg/dL Total Bilirubin (0.2-1.3) mg/dL Alkaline Phosphatase (38-126) U/L Albumin (3.5-5.0) g/dL Urine Protein (Negative) Urine Blood (Negative) Urine Bacteria (None) /hpf Urine Mucus (None) /hpf 08/25/21 08/25/21 08/25/21 Range/Units 00:24 01:24 01:34 WBC (3.8-10.6) k/uL RBC (4.30-5.90) m/uL Hgb (13.0-17.5) gm/dL Hct (39.0-53.0) % RDW (11.5-15.5) % Plt Count (150-450) k/uL PT (9.0-12.0) sec INR (<1.2) APTT (22.0-30.0) sec D-Dimer (<0.60) mg/L FEU ABG pH (7.35-7.45) ABG pCO2 (35-45) mmHg ABG pO2 (83-108) mmHg ABG HCO3 (21-25) mmol/L ABG Total CO2 (19-24) mmol/L ABG O2 Saturation (94-97) % Sodium (137-145) mmol/L Potassium (3.5-5.1) mmol/L Carbon Dioxide (22-30) mmol/L Creatinine (0.66-1.25) mg/dL Glucose (74-99) mg/dL POC Glucose (mg/dL) 292 H 292 H (75-99) mg/dL Plasma Lactic Acid Abelardo 11.8 H* (0.7-2.0) mmol/L Calcium (8.4-10.2) mg/dL Magnesium (1.6-2.3) mg/dL Total Bilirubin (0.2-1.3) mg/dL Alkaline Phosphatase (38-126) U/L Albumin (3.5-5.0) g/dL Urine Protein (Negative) Urine Blood (Negative) Urine Bacteria (None) /hpf Urine Mucus (None) /hpf 08/25/21 08/25/21 08/25/21 Range/Units 02:39 03:08 04:05 WBC (3.8-10.6) k/uL RBC (4.30-5.90) m/uL Hgb (13.0-17.5) gm/dL Hct (39.0-53.0) % RDW (11.5-15.5) % Plt Count (150-450) k/uL PT (9.0-12.0) sec INR (<1.2) APTT (22.0-30.0) sec D-Dimer (<0.60) mg/L FEU ABG pH (7.35-7.45) ABG pCO2 (35-45) mmHg ABG pO2 (83-108) mmHg ABG HCO3 (21-25) mmol/L ABG Total CO2 (19-24) mmol/L ABG O2 Saturation (94-97) % Sodium (137-145) mmol/L Potassium (3.5-5.1) mmol/L Carbon Dioxide (22-30) mmol/L Creatinine (0.66-1.25) mg/dL Glucose (74-99) mg/dL POC Glucose (mg/dL) 307 H 321 H 326 H (75-99) mg/dL Plasma Lactic Acid Abelardo (0.7-2.0) mmol/L Calcium (8.4-10.2) mg/dL Magnesium (1.6-2.3) mg/dL Total Bilirubin (0.2-1.3) mg/dL Alkaline Phosphatase (38-126) U/L Albumin (3.5-5.0) g/dL Urine Protein (Negative) Urine Blood (Negative) Urine Bacteria (None) /hpf Urine Mucus (None) /hpf 08/25/21 08/25/21 08/25/21 Range/Units 04:08 04:36 04:36 WBC 0.5 L* (3.8-10.6) k/uL RBC 2.33 L (4.30-5.90) m/uL Hgb 7.3 L (13.0-17.5) gm/dL Hct 23.2 L (39.0-53.0) % RDW 16.0 H (11.5-15.5) % Plt Count 48 L D (150-450) k/uL PT (9.0-12.0) sec INR (<1.2) APTT (22.0-30.0) sec D-Dimer (<0.60) mg/L FEU ABG pH (7.35-7.45) ABG pCO2 (35-45) mmHg ABG pO2 (83-108) mmHg ABG HCO3 (21-25) mmol/L ABG Total CO2 (19-24) mmol/L ABG O2 Saturation (94-97) % Sodium 132 L (137-145) mmol/L Potassium 3.0 L (3.5-5.1) mmol/L Carbon Dioxide 14 L (22-30) mmol/L Creatinine 1.58 H (0.66-1.25) mg/dL Glucose 293 H (74-99) mg/dL POC Glucose (mg/dL) (75-99) mg/dL Plasma Lactic Acid Abelardo 11.5 H* (0.7-2.0) mmol/L Calcium 7.2 L (8.4-10.2) mg/dL Magnesium (1.6-2.3) mg/dL Total Bilirubin 1.7 H (0.2-1.3) mg/dL Alkaline Phosphatase 150 H (38-126) U/L Albumin 2.0 L (3.5-5.0) g/dL Urine Protein (Negative) Urine Blood (Negative) Urine Bacteria (None) /hpf Urine Mucus (None) /hpf 08/25/21 08/25/21 08/25/21 Range/Units 04:36 04:36 04:59 WBC (3.8-10.6) k/uL RBC (4.30-5.90) m/uL Hgb (13.0-17.5) gm/dL Hct (39.0-53.0) % RDW (11.5-15.5) % Plt Count (150-450) k/uL PT 14.0 H (9.0-12.0) sec INR 1.4 H (<1.2) APTT 31.9 H (22.0-30.0) sec D-Dimer 7.81 H (<0.60) mg/L FEU ABG pH (7.35-7.45) ABG pCO2 30 L (35-45) mmHg ABG pO2 147 H (83-108) mmHg ABG HCO3 17 L (21-25) mmol/L ABG Total CO2 18 L (19-24) mmol/L ABG O2 Saturation 99.4 H (94-97) % Sodium (137-145) mmol/L Potassium (3.5-5.1) mmol/L Carbon Dioxide (22-30) mmol/L Creatinine (0.66-1.25) mg/dL Glucose (74-99) mg/dL POC Glucose (mg/dL) (75-99) mg/dL Plasma Lactic Acid Abelardo (0.7-2.0) mmol/L Calcium (8.4-10.2) mg/dL Magnesium 1.0 L (1.6-2.3) mg/dL Total Bilirubin (0.2-1.3) mg/dL Alkaline Phosphatase (38-126) U/L Albumin (3.5-5.0) g/dL Urine Protein (Negative) Urine Blood (Negative) Urine Bacteria (None) /hpf Urine Mucus (None) /hpf 08/25/21 08/25/21 08/25/21 Range/Units 05:01 06:11 07:05 WBC (3.8-10.6) k/uL RBC (4.30-5.90) m/uL Hgb (13.0-17.5) gm/dL Hct (39.0-53.0) % RDW (11.5-15.5) % Plt Count (150-450) k/uL PT (9.0-12.0) sec INR (<1.2) APTT (22.0-30.0) sec D-Dimer (<0.60) mg/L FEU ABG pH (7.35-7.45) ABG pCO2 (35-45) mmHg ABG pO2 (83-108) mmHg ABG HCO3 (21-25) mmol/L ABG Total CO2 (19-24) mmol/L ABG O2 Saturation (94-97) % Sodium (137-145) mmol/L Potassium (3.5-5.1) mmol/L Carbon Dioxide (22-30) mmol/L Creatinine (0.66-1.25) mg/dL Glucose (74-99) mg/dL POC Glucose (mg/dL) 303 H 301 H 319 H (75-99) mg/dL Plasma Lactic Acid Abelardo (0.7-2.0) mmol/L Calcium (8.4-10.2) mg/dL Magnesium (1.6-2.3) mg/dL Total Bilirubin (0.2-1.3) mg/dL Alkaline Phosphatase (38-126) U/L Albumin (3.5-5.0) g/dL Urine Protein (Negative) Urine Blood (Negative) Urine Bacteria (None) /hpf Urine Mucus (None) /hpf 08/25/21 08/25/21 Range/Units 09:21 10:06 WBC (3.8-10.6) k/uL RBC (4.30-5.90) m/uL Hgb (13.0-17.5) gm/dL Hct (39.0-53.0) % RDW (11.5-15.5) % Plt Count (150-450) k/uL PT (9.0-12.0) sec INR (<1.2) APTT (22.0-30.0) sec D-Dimer (<0.60) mg/L FEU ABG pH (7.35-7.45) ABG pCO2 (35-45) mmHg ABG pO2 (83-108) mmHg ABG HCO3 (21-25) mmol/L ABG Total CO2 (19-24) mmol/L ABG O2 Saturation (94-97) % Sodium (137-145) mmol/L Potassium (3.5-5.1) mmol/L Carbon Dioxide (22-30) mmol/L Creatinine (0.66-1.25) mg/dL Glucose (74-99) mg/dL POC Glucose (mg/dL) 237 H 235 H (75-99) mg/dL Plasma Lactic Acid Abelardo (0.7-2.0) mmol/L Calcium (8.4-10.2) mg/dL Magnesium (1.6-2.3) mg/dL Total Bilirubin (0.2-1.3) mg/dL Alkaline Phosphatase (38-126) U/L Albumin (3.5-5.0) g/dL Urine Protein (Negative) Urine Blood (Negative) Urine Bacteria (None) /hpf Urine Mucus (None) /hpf Microbiology - Last 24 Hours (Table) 08/24/21 11:35 Blood Culture - Final Blood 08/24/21 11:20 Blood Culture Gram Stain - Preliminary Blood Blood Culture - Preliminary Klebsiella pneumoniae 08/24/21 20:33 Body Fluid Culture - Preliminary Aspirate 08/24/21 11:20 Blood Culture - Final Blood 08/24/21 11:35 Blood Culture Gram Stain - Preliminary Blood Assessment and Plan Assessment: 1. Septic shock related to acute cholecystitis/pneumonia/gram-negative bacteremia--Klebsiella - Evidence of multisystem organ failure - Patient remains on IV antibiotics in form of Zosyn; IDs on board and will make further recommendations pending final culture and sensitivity results from blood cultures - Surgery on board for acute cholecystitis and patient is status post percutaneous cholecystostomy tube insertion 2. Profound hypotension related to septic shock; patient continues to be on pressor agents 3. Acute renal injury/metabolic acidosis; creatinine at 1.58 this morning patient continues to remain on IV fluids and has received a total of 8 L; continue with bicarb infusion urine output remains diminished; continue to monitor strict DALTON's and daily weights 4. Acute hypoxic respiratory failure possibly related to early ARDS; patient remains intubated and mechanically ventilated 5. New onset seizures/ tonic-clonic; questionable hemorrhagic focus in brain; neurology on board 6. Diabetes mellitus; patient remains on IV insulin infusion with straight adjustments according to clinical needs Patient remains unresponsive without any response to painful stimuli; according to intensive care patient is breathing above the vent; weak cough and gag refle; x and sluggish corneal reflex; EEG has been completed and further recommendations from neurology is pending
[2021-08-25 15:48] LABS: Glucose,Whole Blood 169 mg/dL (75-99)
[2021-08-25] MEDS: FILGRASTIM-SNDZ 480 MCG/0.8 ML SYRINGE SQ SCH (16:35)
[2021-08-25 17:11] LABS: Glucose,Whole Blood 158 mg/dL (75-99)
--- NOTE | 2021-08-25 17:31 | PN ---
PROGRESS NOTE DATE OF SERVICE: 08/25/2021 REASON FOR FOLLOWUP: Sepsis, likely cholecystitis. INTERVAL HISTORY: The patient is afebrile this afternoon. However, he did spike a fever of 102 this morning. The patient is currently on a maximum dose of pressor support to maintain his blood pressure. No significant purulent secretions in the ET, diarrhea or any other changes reported by the nursing staff. PHYSICAL EXAMINATION: Blood pressure 118/43, pulse of 124, temperature 99.7. He is 98% on 40% FiO2. General description is a middle-aged male intubated on the vent. Respiratory system: Unlabored breathing, decreased breath sounds at the base. No wheeze. Heart S1, S2. Regular rate and rhythm. Abdomen soft, no distention or guarding or rigidity. Did have dark fluid in his drainage catheter. Extremities no edema of the feet. LABS: Hemoglobin is 7.3, white count 0.5, BUN of 14, creatinine 1.58. Blood culture with Klebsiella pneumoniae. Abdominal cultures are currently pending. DIAGNOSTIC IMPRESSION AND PLAN: Patient with sepsis/septic shock, possibly acute cholecystitis, status post cholecystostomy tube placement with blood culture positive for Klebsiella pneumoniae. Patient is covered with Zosyn; to be continued for now in view of his overall critical condition, and continue with supportive care. MMODL / IJN: [id number] /
--- NOTE | 2021-08-25 17:38 | P.PN ---
Subjective Progress Note Date: 08/25/21 She was seen at bedside and he is accompanied with his . The patient is on 3 pressors. Per patient's nurse patient is not on any sedation. He has an order for IV propofol but was not started that. Was felt the patient has acute cholecystitis and had that percutaneous drainage of the gallbladder performed yesterday. He was also intubated and on ventilator. No further seizure-like activity per the patient's nurse. Objective - Vital Signs Vital signs: Vital Signs Temp 99.0 F 08/25/21 16:00 Pulse 121 H 08/25/21 16:00 Resp 32 H 08/25/21 16:00 BP 130/60 08/25/21 16:00 Pulse Ox 97 08/25/21 16:00 Intake & Output 08/24/21 08/25/21 08/25/21 18:59 06:59 18:59 Intake Total 66.981 4694.961 3773.321 Output Total 400 450 Balance 66.981 4294.961 3323.321 Weight 92.986 kg 110.9 kg Intake: IV 3080 2650 Dextrose 5% in Water 1, 1650 1350 000 ml @ 150 mls/hr IV . Q7H40M TERELL with Sodium Bicarb (1 Meq/ml) 150 ml Rx#:[id number] Sodium Chloride 0.9% 1, 1430 1300 000 ml @ 130 mls/hr IV . Q7H42M STA Rx#:[id number] Intake, IV Titration 66.981 3299.815 6755.321 Amount EPINEPHrine 4 mg In 33.068 845.224 845.907 Dextrose 5% in Water 250 ml @ 0.01 MCG/KG/MIN 3. 487 mls/hr IV .Q24H TERELL Rx#:[id number] Insulin Regular 100 unit 50.466 141.973 In Sodium Chloride 0.9% 100 ml @ Per Protocol IV .Q0M TERELL Rx#:[id number] Norepinephrine 32 mg In 33.913 339.271 135.441 Sodium Chloride 0.9% 218 ml @ 0.05 MCG/KG/MIN 2. 179 mls/hr IV .Q24H ONE Rx#:[id number] Blood Product 0 380 Platelet Pheresis Pas 0 380 Psoralen Unit [id number] Output: Drainage 120 Right Abdomen 120 Urine 400 330 Other: Voiding Method Indwelling Catheter Indwelling Catheter ABP, PAP, CO, CI - Last Documented Arterial Blood Pressure 135/50 - Exam GENERAL: The patient is lying and does not seem in acute distress. LUNG: Intubated and on ventilator. NEUROLOGICAL: Higher mental function: The patient is comatose. GCS: 6 (E3, VT1, M2). Patient is not verbalizing or following commands or attempted to communicate. Cranial nerves: The pupils are round, equal about 2-3mm and sluggishly reactive to light. Primary gaze is upward. Has right ptosis (chronic). Could not appreciate corneal reflex bilaterally. No facial weakness. Positive gag reflex. Is breathing over the vent. Could not assess rest of cranial nerves because of his condition. Motor: Gait is deferred. The strength is hard to assess but to painful stimuli had extensor posture. With painful stimuli in lower he grimaces. Normal bulk but decrease tone throughout. Cerebellum: Could not assess. Sensation: Could not assess. Reflexes (right/left): 1+ throughout. Plantars are mute bilaterally. WORK-UP: CT head is reported as there is a tiny hyper density within the archie best noted on sagittal image 44 to small to characterize. Although this could be a calcification could not do exclude a tiny petechial hemorrhage. Recommend follow-up MRI. I personally reviewed the CT of the head my suspicion of bleed is less likely. Routine EEG on 08/25/2021: Is abnormal study. The background slowing is suggestive of severe encephalopathy. There are no focal slowing, epileptiform discharges or seizure on the EEG. Limited 2-D echo is reported as technically difficult study with suboptimal views. Ejection fraction of 55-60%. TSH is 1.350. Hodges virus PCR is not detected. - Labs CBC & Chem 7: 08/25/21 04:36 08/25/21 16:30 Labs: Abnormal Lab Results - Last 24 Hours (Table) 08/24/21 08/24/21 08/24/21 Range/Units 16:56 21:00 22:30 WBC (3.8-10.6) k/uL RBC (4.30-5.90) m/uL Hgb (13.0-17.5) gm/dL Hct (39.0-53.0) % RDW (11.5-15.5) % Plt Count (150-450) k/uL PT (9.0-12.0) sec INR (<1.2) APTT (22.0-30.0) sec D-Dimer 4.13 H (<0.60) mg/L FEU ABG pCO2 (35-45) mmHg ABG pO2 (83-108) mmHg ABG HCO3 (21-25) mmol/L ABG Total CO2 (19-24) mmol/L ABG O2 Saturation (94-97) % Sodium (137-145) mmol/L Potassium (3.5-5.1) mmol/L Carbon Dioxide (22-30) mmol/L Creatinine (0.66-1.25) mg/dL Glucose (74-99) mg/dL POC Glucose (mg/dL) 224 H (75-99) mg/dL Plasma Lactic Acid Abelardo 11.6 H* (0.7-2.0) mmol/L Calcium (8.4-10.2) mg/dL Magnesium (1.6-2.3) mg/dL Total Bilirubin (0.2-1.3) mg/dL Alkaline Phosphatase (38-126) U/L Albumin (3.5-5.0) g/dL 08/24/21 08/25/21 08/25/21 Range/Units 22:39 00:24 01:24 WBC (3.8-10.6) k/uL RBC (4.30-5.90) m/uL Hgb (13.0-17.5) gm/dL Hct (39.0-53.0) % RDW (11.5-15.5) % Plt Count (150-450) k/uL PT (9.0-12.0) sec INR (<1.2) APTT (22.0-30.0) sec D-Dimer (<0.60) mg/L FEU ABG pCO2 (35-45) mmHg ABG pO2 (83-108) mmHg ABG HCO3 (21-25) mmol/L ABG Total CO2 (19-24) mmol/L ABG O2 Saturation (94-97) % Sodium (137-145) mmol/L Potassium (3.5-5.1) mmol/L Carbon Dioxide (22-30) mmol/L Creatinine (0.66-1.25) mg/dL Glucose (74-99) mg/dL POC Glucose (mg/dL) 292 H (75-99) mg/dL Plasma Lactic Acid Abelardo 13.1 H* 11.8 H* (0.7-2.0) mmol/L Calcium (8.4-10.2) mg/dL Magnesium (1.6-2.3) mg/dL Total Bilirubin (0.2-1.3) mg/dL Alkaline Phosphatase (38-126) U/L Albumin (3.5-5.0) g/dL 08/25/21 08/25/21 08/25/21 Range/Units 01:34 02:39 03:08 WBC (3.8-10.6) k/uL RBC (4.30-5.90) m/uL Hgb (13.0-17.5) gm/dL Hct (39.0-53.0) % RDW (11.5-15.5) % Plt Count (150-450) k/uL PT (9.0-12.0) sec INR (<1.2) APTT (22.0-30.0) sec D-Dimer (<0.60) mg/L FEU ABG pCO2 (35-45) mmHg ABG pO2 (83-108) mmHg ABG HCO3 (21-25) mmol/L ABG Total CO2 (19-24) mmol/L ABG O2 Saturation (94-97) % Sodium (137-145) mmol/L Potassium (3.5-5.1) mmol/L Carbon Dioxide (22-30) mmol/L Creatinine (0.66-1.25) mg/dL Glucose (74-99) mg/dL POC Glucose (mg/dL) 292 H 307 H 321 H (75-99) mg/dL Plasma Lactic Acid Abelardo (0.7-2.0) mmol/L Calcium (8.4-10.2) mg/dL Magnesium (1.6-2.3) mg/dL Total Bilirubin (0.2-1.3) mg/dL Alkaline Phosphatase (38-126) U/L Albumin (3.5-5.0) g/dL 08/25/21 08/25/21 08/25/21 Range/Units 04:05 04:08 04:36 WBC 0.5 L* (3.8-10.6) k/uL RBC 2.33 L (4.30-5.90) m/uL Hgb 7.3 L (13.0-17.5) gm/dL Hct 23.2 L (39.0-53.0) % RDW 16.0 H (11.5-15.5) % Plt Count 48 L D (150-450) k/uL PT (9.0-12.0) sec INR (<1.2) APTT (22.0-30.0) sec D-Dimer (<0.60) mg/L FEU ABG pCO2 (35-45) mmHg ABG pO2 (83-108) mmHg ABG HCO3 (21-25) mmol/L ABG Total CO2 (19-24) mmol/L ABG O2 Saturation (94-97) % Sodium (137-145) mmol/L Potassium (3.5-5.1) mmol/L Carbon Dioxide (22-30) mmol/L Creatinine (0.66-1.25) mg/dL Glucose (74-99) mg/dL POC Glucose (mg/dL) 326 H (75-99) mg/dL Plasma Lactic Acid Abelardo 11.5 H* (0.7-2.0) mmol/L Calcium (8.4-10.2) mg/dL Magnesium (1.6-2.3) mg/dL Total Bilirubin (0.2-1.3) mg/dL Alkaline Phosphatase (38-126) U/L Albumin (3.5-5.0) g/dL 08/25/21 08/25/21 08/25/21 Range/Units 04:36 04:36 04:36 WBC (3.8-10.6) k/uL RBC (4.30-5.90) m/uL Hgb (13.0-17.5) gm/dL Hct (39.0-53.0) % RDW (11.5-15.5) % Plt Count (150-450) k/uL PT 14.0 H (9.0-12.0) sec INR 1.4 H (<1.2) APTT 31.9 H (22.0-30.0) sec D-Dimer 7.81 H (<0.60) mg/L FEU ABG pCO2 (35-45) mmHg ABG pO2 (83-108) mmHg ABG HCO3 (21-25) mmol/L ABG Total CO2 (19-24) mmol/L ABG O2 Saturation (94-97) % Sodium 132 L (137-145) mmol/L Potassium 3.0 L (3.5-5.1) mmol/L Carbon Dioxide 14 L (22-30) mmol/L Creatinine 1.58 H (0.66-1.25) mg/dL Glucose 293 H (74-99) mg/dL POC Glucose (mg/dL) (75-99) mg/dL Plasma Lactic Acid Abelardo (0.7-2.0) mmol/L Calcium 7.2 L (8.4-10.2) mg/dL Magnesium 1.0 L (1.6-2.3) mg/dL Total Bilirubin 1.7 H (0.2-1.3) mg/dL Alkaline Phosphatase 150 H (38-126) U/L Albumin 2.0 L (3.5-5.0) g/dL 08/25/21 08/25/21 08/25/21 Range/Units 04:59 05:01 06:11 WBC (3.8-10.6) k/uL RBC (4.30-5.90) m/uL Hgb (13.0-17.5) gm/dL Hct (39.0-53.0) % RDW (11.5-15.5) % Plt Count (150-450) k/uL PT (9.0-12.0) sec INR (<1.2) APTT (22.0-30.0) sec D-Dimer (<0.60) mg/L FEU ABG pCO2 30 L (35-45) mmHg ABG pO2 147 H (83-108) mmHg ABG HCO3 17 L (21-25) mmol/L ABG Total CO2 18 L (19-24) mmol/L ABG O2 Saturation 99.4 H (94-97) % Sodium (137-145) mmol/L Potassium (3.5-5.1) mmol/L Carbon Dioxide (22-30) mmol/L Creatinine (0.66-1.25) mg/dL Glucose (74-99) mg/dL POC Glucose (mg/dL) 303 H 301 H (75-99) mg/dL Plasma Lactic Acid Abelardo (0.7-2.0) mmol/L Calcium (8.4-10.2) mg/dL Magnesium (1.6-2.3) mg/dL Total Bilirubin (0.2-1.3) mg/dL Alkaline Phosphatase (38-126) U/L Albumin (3.5-5.0) g/dL 08/25/21 08/25/21 08/25/21 Range/Units 07:05 09:21 10:06 WBC (3.8-10.6) k/uL RBC (4.30-5.90) m/uL Hgb (13.0-17.5) gm/dL Hct (39.0-53.0) % RDW (11.5-15.5) % Plt Count (150-450) k/uL PT (9.0-12.0) sec INR (<1.2) APTT (22.0-30.0) sec D-Dimer (<0.60) mg/L FEU ABG pCO2 (35-45) mmHg ABG pO2 (83-108) mmHg ABG HCO3 (21-25) mmol/L ABG Total CO2 (19-24) mmol/L ABG O2 Saturation (94-97) % Sodium (137-145) mmol/L Potassium (3.5-5.1) mmol/L Carbon Dioxide (22-30) mmol/L Creatinine (0.66-1.25) mg/dL Glucose (74-99) mg/dL POC Glucose (mg/dL) 319 H 237 H 235 H (75-99) mg/dL Plasma Lactic Acid Abelardo (0.7-2.0) mmol/L Calcium (8.4-10.2) mg/dL Magnesium (1.6-2.3) mg/dL Total Bilirubin (0.2-1.3) mg/dL Alkaline Phosphatase (38-126) U/L Albumin (3.5-5.0) g/dL 08/25/21 08/25/21 08/25/21 Range/Units 11:08 12:14 13:29 WBC (3.8-10.6) k/uL RBC (4.30-5.90) m/uL Hgb (13.0-17.5) gm/dL Hct (39.0-53.0) % RDW (11.5-15.5) % Plt Count (150-450) k/uL PT (9.0-12.0) sec INR (<1.2) APTT (22.0-30.0) sec D-Dimer (<0.60) mg/L FEU ABG pCO2 (35-45) mmHg ABG pO2 (83-108) mmHg ABG HCO3 (21-25) mmol/L ABG Total CO2 (19-24) mmol/L ABG O2 Saturation (94-97) % Sodium (137-145) mmol/L Potassium (3.5-5.1) mmol/L Carbon Dioxide (22-30) mmol/L Creatinine (0.66-1.25) mg/dL Glucose (74-99) mg/dL POC Glucose (mg/dL) 230 H 196 H 177 H (75-99) mg/dL Plasma Lactic Acid Abelardo (0.7-2.0) mmol/L Calcium (8.4-10.2) mg/dL Magnesium (1.6-2.3) mg/dL Total Bilirubin (0.2-1.3) mg/dL Alkaline Phosphatase (38-126) U/L Albumin (3.5-5.0) g/dL 08/25/21 08/25/21 08/25/21 Range/Units 13:45 15:46 16:30 WBC (3.8-10.6) k/uL RBC (4.30-5.90) m/uL Hgb (13.0-17.5) gm/dL Hct (39.0-53.0) % RDW (11.5-15.5) % Plt Count (150-450) k/uL PT (9.0-12.0) sec INR (<1.2) APTT (22.0-30.0) sec D-Dimer (<0.60) mg/L FEU ABG pCO2 (35-45) mmHg ABG pO2 (83-108) mmHg ABG HCO3 (21-25) mmol/L ABG Total CO2 (19-24) mmol/L ABG O2 Saturation (94-97) % Sodium (137-145) mmol/L Potassium 3.0 L (3.5-5.1) mmol/L Carbon Dioxide (22-30) mmol/L Creatinine (0.66-1.25) mg/dL Glucose (74-99) mg/dL POC Glucose (mg/dL) 169 H (75-99) mg/dL Plasma Lactic Acid Abelardo 4.7 H* (0.7-2.0) mmol/L Calcium (8.4-10.2) mg/dL Magnesium (1.6-2.3) mg/dL Total Bilirubin (0.2-1.3) mg/dL Alkaline Phosphatase (38-126) U/L Albumin (3.5-5.0) g/dL 08/25/21 Range/Units 17:10 WBC (3.8-10.6) k/uL RBC (4.30-5.90) m/uL Hgb (13.0-17.5) gm/dL Hct (39.0-53.0) % RDW (11.5-15.5) % Plt Count (150-450) k/uL PT (9.0-12.0) sec INR (<1.2) APTT (22.0-30.0) sec D-Dimer (<0.60) mg/L FEU ABG pCO2 (35-45) mmHg ABG pO2 (83-108) mmHg ABG HCO3 (21-25) mmol/L ABG Total CO2 (19-24) mmol/L ABG O2 Saturation (94-97) % Sodium (137-145) mmol/L Potassium (3.5-5.1) mmol/L Carbon Dioxide (22-30) mmol/L Creatinine (0.66-1.25) mg/dL Glucose (74-99) mg/dL POC Glucose (mg/dL) 158 H (75-99) mg/dL Plasma Lactic Acid Abelardo (0.7-2.0) mmol/L Calcium (8.4-10.2) mg/dL Magnesium (1.6-2.3) mg/dL Total Bilirubin (0.2-1.3) mg/dL Alkaline Phosphatase (38-126) U/L Albumin (3.5-5.0) g/dL Microbiology - Last 24 Hours (Table) 08/24/21 20:33 Gram Stain - Preliminary Aspirate Body Fluid Culture - Preliminary 08/24/21 11:35 Blood Culture Gram Stain - Preliminary Blood 08/24/21 11:35 Blood Culture - Final Blood 08/24/21 11:20 Blood Culture Gram Stain - Preliminary Blood Blood Culture - Preliminary Klebsiella pneumoniae 08/24/21 11:20 Blood Culture - Final Blood Assessment and Plan Assessment: New onset seizure (Per ED team had GTC). Likely provoke due to underlying infection Altered mental status due septic encephalopathy Reported "Hyperintesity small in Archie on CT and could not do exclude a tiny petechial hemorrhage" . I feel unlikely bleed Septic shock with multisystem organ failure and blood culture positive for Klebsiella pnemonia and is on 3 pressors. 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 Ordered MRI of the brain with and without a stat (but cannot get it since intubated and is on ventilator). Cannot get a repeat CT of the head since per the patient's the nurse as well as the ICU attending patient is unstable to get CAT scan (in on 3 pressors). Continue every hour neuro checks On seizure precaution and pads. Infection disease specialist is on board Patient oncologist is consulted We'll defer the rest of the medical management to the patient's the primary team as well as ICU team. Condition is very guarded. Plan was discussed with the patient's was at bedside, patient's ICU attending and the patient's ICU nurse. Williams Drake MD Neuro-Hospitalist Time with Patient: Less than 30
--- NOTE | 2021-08-25 18:36 | XR ---
EXAMINATION TYPE: XR chest 1V confirm line [facility] DATE OF EXAM: 08/25/2021 COMPARISON: Today HISTORY: Line placement TECHNIQUE: Single view FINDINGS: Endotracheal tube is 4 cm from the [place]. There is right subclavian catheter with tip in t he superior vena cava. There is nasogastric tube in the stomach. There is some mild increased pulmona ry interstitial density. There are chest leads. IMPRESSION: There is improvement in the pulmonary interstitial edema compared to exam this morning. N ormal heart.
[2021-08-25 18:43] LABS: Glucose,Whole Blood 155 mg/dL (75-99)
[2021-08-25 20:04] LABS: Glucose,Whole Blood 145 mg/dL (75-99)
[2021-08-25 21:04] LABS: Immunoglobulin M 76.8 mg/dL (40.0-280.0)
[2021-08-25] MEDS: CHLORHEXIDINE GLUCONATE 15 ML CUP MUCOUS MEM SCH (21:04)
[2021-08-25 21:10] LABS: Glucose,Whole Blood 139 mg/dL (75-99)
[2021-08-25 21:57] LABS: Glucose,Whole Blood 154 mg/dL (75-99)
[2021-08-25 22:59] LABS: Glucose,Whole Blood 129 mg/dL (75-99)
[2021-08-26 00:01] LABS: Glucose,Whole Blood 163 mg/dL (75-99)
[2021-08-26] MEDS: ACYCLOVIR SODIUM 950 MG in SODIUM CHLORIDE 0.9% 250 ML IV SCH ×3 (00:01→18:05)
[2021-08-26] MEDS: INSULIN REGULAR 100 UNIT in SODIUM CHLORIDE 0.9% 100 ML IV SCH (00:16)
[2021-08-26] MEDS: EPINEPHrine 4 MG in DEXTROSE 5% IN WATER 250 ML IV SCH ×4 (00:20→04:20)
[2021-08-26 01:00] LABS: Glucose,Whole Blood 195 mg/dL (75-99)
[2021-08-26] MEDS: SODIUM CHLORIDE 0.9% 1,000 ML IV SCH ×3 (01:40→22:48)
[2021-08-26 01:59] LABS: Glucose,Whole Blood 187 mg/dL (75-99)
[2021-08-26 02:59] LABS: HCT 21.8 % (39.0-53.0); HGB 7.4 gm/dL (13.0-17.5); MCH 32.4 pg (25.0-35.0); MCHC 33.8 g/dL (31.0-37.0); MCV 95.8 fL (80.0-100.0); Mean Platelet Volume 8.9; RBC 2.28 m/uL (4.30-5.90); RDW 15.6 % (11.5-15.5)
[2021-08-26 03:08] LABS: Glucose,Whole Blood 181 mg/dL (75-99)
[2021-08-26 03:11] LABS: WBC 0.5 k/uL (3.8-10.6)
[2021-08-26 03:30] LABS: Platelet Count 14 k/uL (150-450)
[2021-08-26 03:31] LABS: Albumin 1.9 g/dL (3.5-5.0); Calcium 6.7 mg/dL (8.4-10.2); Total Bilirubin 2.4 mg/dL (0.2-1.3); Total Protein 6.1 g/dL (6.3-8.2)
[2021-08-26 03:57] LABS: Potassium 2.7 mmol/L (3.5-5.1)
[2021-08-26 04:15] LABS: Glucose,Whole Blood 177 mg/dL (75-99)
[2021-08-26] MEDS: NOREPINEPHRINE 32 MG in SODIUM CHLORIDE 0.9% 218 ML IV SCH ×3 (04:17→21:00)
[2021-08-26] MEDS: PIPERACILLIN-TAZOBACTAM 3.375 GM in SODIUM CHLORIDE 0.9% 100 ML IVPB SCH ×3 (04:25→20:30)
[2021-08-26] MEDS: POTASSIUM CHLORIDE 20 MEQ in WATER FOR INJECTION 1 100ML.BAG IVPB SCH ×4 (04:26→22:51)
[2021-08-26] MEDS: DEXTROSE 5% IN WATER 1,000 ML with SODIUM BICARB (1 MEQ/ML) 150 ML IV SCH ×2 (04:58→08:22)
[2021-08-26 05:06] LABS: Glucose,Whole Blood 156 mg/dL (75-99)
[2021-08-26] MEDS: SODIUM CHLORIDE 0.9% 50 ML with VASOPRESSIN 20 UNIT IVPB SCH ×2 (05:23)
[2021-08-26 06:03] LABS: Glucose,Whole Blood 164 mg/dL (75-99)
[2021-08-26 06:20] LABS: ABG Base Excess 5.5 mmol/L; ABG HCO3 28 mmol/L (21-25); ABG Oxygen Saturation 95.6 % (94-97); ABG PCO2 34 mmHg (35-45); ABG PH 7.53 (7.35-7.45); ABG PO2 67 mmHg (83-108); ABG TCO2 29 mmol/L (19-24)
[2021-08-26 06:32] LABS: Allen Test Performed? No
[2021-08-26 07:11] LABS: Glucose,Whole Blood 160 mg/dL (75-99)
--- NOTE | 2021-08-26 08:02 | P.PN ---
Subjective Progress Note Date: 08/26/21 60-year-old male patient with known history of Hodgkin's lymphoma with received chemotherapy on 08/15/2021. The patient has been diagnosed having Hodgkin's lymphoma approximately a month ago and he was started on systemic chemotherapy and he received his first cycle. The patient was at home and the patient was found to have a temperature of 11.2 early in the morning. He was also having generalized weakness for several months and recently got worse. The was concerned and for that reason he was brought into the hospital for an ongoing fever and generalized weakness. The patient was found to be quite lethargic in the emergency department. The course in the ED included that showed a temperature of 102F with a heart rate of 137. His blood pressure was soft with a systolic blood pressure of 99 and pulse ox was 95% on room air oxygen. His blood work showed evidence of leukopenia with a white cell, 0.1 and as such the patient was diagnosed having a neutropenic fever. Pancytopenic with a hemoglobin of 7.5 and a platelet count of 23. The electrolytes and renal functions were essentially within normal limits. AST and ALP were normal. Alkaline phosphatas e was slightly elevated at 358. The patient had undergone further testing including a lactic acid level that came back at 4.3, influenza A and B were negative, RSV was negative,: COVID 19 by PCR was also negative. Chest x-ray showed no focal airspace disease. Cardiac silhouette was within normal limits. The patient had a Mediport catheter in place. The computed tomography scan of the abdomen and pelvis also also done as part of further workup of an elevated alkaline phosphatase. The patient was found to have stable splenomegaly, abnormal abdominal and pelvic lymphadenopathy and the CAT scan was also consistent with an acute cholecystitis. The CAT scan also showed tiny bilateral pleural effusions associated with some bibasilar pulmonary atelectatic change. Gallbladder was dilated and Distended margins and there was intraluminal gallstones. There was also surrounding fluid and fat stranding and the CAT scan was consistent with acute cholecystitis. Based on this, surgical consultation was requested. The patient was seen by Dr. Mauricio, and based on the patient's condition, which involve pancytopenia and sepsis, percutaneous drainage with a cholecystostomy tube was recommended. The time of my evaluation, the patient was noted and evaluated in the emergency department. The patient was completely unresponsive. The patient could have been also post ictal knowing that he had about the generalized tonic-clonic seizure activity. The patient was intubated on a mechanical ventilator. Apparently as the patient was being transported for further imaging, the patient had tonic-clonic seizure activity as the patient was being taken to her the CAT scan of the head by the emergency department team. For that reason the patient was given 4 mg of Ativan and he was loaded with 1 g of Keppra. Neurology was consulted. Note that the patient had completed a CAT scan of the brain and a CAT scan showed tiny hyperdensity within the archie and this was too small to characterize. Possibility of a tiny petechial hemorrhage cannot be completely excluded an MRI of the brain was recom mended. In any rate, the patient is currently intubated on mechanical ventilator. He is hemodynamically stable. He is in septic shock. He is in severe lactic acidosis. His assist-control mode at the rate of 24, tidal volume of 500, FiO2 of 100% with PEEP of 5. He was on a combination of facet and the patient was taken a combination of norepinephrine infusion is 0 0.35 mg/kg/m, epinephrine at 0.1 mcg/kg per minute and vasopressin infusion at physiologic dose. The abdomen was relatively soft and nondistended. Pulses in the large family were quite diminished. His most recent systolic blood pressures the mid 80s. is at the bedside. Patient is clinically unresponsive. On today's evaluation of 08/25/2021, the patient is being seen in follow-up in the intensive care unit. The patient was seen in emergency department and he was critically ill, neutropenic fever with septic shock post systemic chemotherapy for Hodgkin's lymphoma and the patient has completed systemic chemotherapy. By pancytopenia. The patient had an acute cholecystitis. I was able to interventional radiology percutaneous the drain the gallbladder. Since the drainage tube present, the output has been the order of 100 mL and it is mainly bilious drainage. Nevertheless, the patient's blood culture came back positive for Klebsiella and the patient remains in septic shock with multisystem organ failure. At this point in time, the patient is still intubated on a mechanical ventilator and he remains completely unresponsive. We have not used any sedation overnight. Note that, overnight the patient received a total of 8 L of IV fluid in his urine output is in order of 30-40 mL an hour. He has also developed an acute kidney injury on top. He is on a combination of pressors and this morning, he is on norepinephrine running at the rate of 0.75 mcg/kg per minute and he is also on epinephrine running at 0.28 mcg/kg per minute and the patient is also on vasopressin physiologic dose. His most recent blood pressures 114/40 and the patient has an arterial line in his right radial artery. We also managed to insert 2 lines, the left IJ is ending up in the subclavian vein and he also has a right femoral triple catheter in place. He is on a mechanical ventilator. This morning, he is an assist-control mode at the rate of 26 with a tidal volume of 500 and FiO2 of 40% with a PEEP of 5. His c urrent respiratory rate is in the low 30s. His blood gases from today showed a pH of 7.35 with a pCO2 of 30 and pO2 of 147. His chest x-ray from today is showing adequate positioning of the orotracheal tube. Orotracheal tube is in a good location. The patient also has a G-tube in place. At the same time, the patient has adequate expansion of both lungs. No evidence of any pneumothorax. The patient has bilateral pulmonary infiltrates more so on the right along with some small effusions. Note that the left IJ triple-lumen catheter is ending up in his left brachial subclavian vein. His white cell count is pending. Note that the patient was profoundly neutropenic and the patient was a, 0.1 and the patient received a dose of zarxio yesterday. The hemoglobin remains stable at 7.3 and the patient received platelet transfusion yesterday and the platelet count is up to 48. D-dimer is at 7.8 related to septic shock and multisystem organ failure. He has developed an acute kidney injury with a creatinine of 1.58. He has an anion gap metabolic acidosis Related to his lactic acidosis. Lactic acid level is at 11.5 on today's evaluation. Blood cultures positive for klebsiella pneumonia. Meanwhile, the patient is on bicarb infusion running at the rate of 150 mL an hour, there is also on IV Zosyn. He was also given Keppra regarding tonic-clonic seizure that occurred yesterday and the patient has not had any further episodes of seizures since. Neurologically however, he remains unresponsive. 04/25/2021, the patient is being seen for a follow-up. He is a critically ill 60-year-old male patient with Hodgkin's lymphoma with septic shock and multisystem organ failure. He did turner machine to have Klebsiella in his blood. In any rate, the patient remains on a mechanical ventilator. Yesterday, he became slightly more asynchronous with a mechanical ventilator and he was started on propofol which is currently running at 20 mcg/kg per minute. This was introduced to help him with a synchrony with the respirator. Things have improved since. Note that the patient does not show any signs of neurological recovery. His EEG showed diffuse encephalopathy without ongoing seizure activity. There is a punctate hemorrhagic area in his archie and for that reason a repeat CAT scan will need be will be needed at a later stage. Yesterday, the patient was very unstable to be taken down to CAT scan. On today's evaluation, he remains on a mechanical ventilator. His assist-control at the rate of 26 with a tidal volume of 580 with an FiO2 of 40% and PEEP of 5. His chest x-ray from today was noted and there is no major interval change. Tube is in a good location. The blood gas showed a pH of 7.53 with a pCO2 of 34 and pO2 of 67 and this was done and FiO2 of 40%. No significant orotracheal secretions. Hemodynamically, the patient continues to be on higher doses of pressors. The patient is on vasopressin physiologic dose, norepinephrine is running at a dose of 0.9 mg/kg per minute. His epinephrine infusion is running at 0.08 mcg/kg per minute. Also, the patient is on IV fluids and he is receiving 0.9 saline at the rate of 130s uses an hour. His overall fluid balance over the past 24 hours has been +7.1 L. Urine output is in order of 30-40 mL an hour. His creatinine is improved compared to yesterday and the patient's creatinine is down to 1.1. Potassium level is at 2.7 and this is to be replaced. His blood culture was positive for gram-negative bacillus. Subsequently this turner machine to be positive for Klebsiella pneumonia. He has 2 sets of blood cultures are positive. He remains on IV Zosyn. Hematologically, his white cell count is still low at 0.5 and hemoglobin is at 7.4. Platelet count dropped down to 14. The patient remains on insulin drip for blood sugar control and currently is on 11 units an hour. The cholecystostomy tube is still in place and output is minimal at this point in time. The output is non-purulence. Abdomen is nondistended. Positive the lower extremities are diminished yet barely palpable. He is afebrile for to day, still tachycardic and the patient remains in sinus tachycardia. A limited echo cardiogram showed a preserved LV function with an ejection fraction of 50- 55%. Remains on Keppra. No seizure activity has been noted. Objective - Vital Signs Vital signs: Vital Signs Temp 97.9 F 08/26/21 04:00 Pulse 120 H 08/26/21 07:00 Resp 48 H 08/26/21 07:00 BP 154/93 08/26/21 05:00 Pulse Ox 96 08/26/21 07:00 Intake & Output 08/25/21 08/26/21 08/26/21 18:59 06:59 18:59 Intake Total 4333.765 4665.039 312.044 Output Total 560 1285 200 Balance 3773.765 3380.039 112.044 Weight 118.9 kg Intake: IV 3210 1930 150 Dextrose 5% in Water 1, 1650 1650 150 000 ml @ 150 mls/hr IV . Q7H40M TERELL with Sodium Bicarb (1 Meq/ml) 150 ml Rx#:[id number] Sodium Chloride 0.9% 1, 1560 280 000 ml @ 130 mls/hr IV . Q7H42M STA Rx#:[id number] Intake, IV Titration 2730.233 1711.039 162.044 Amount EPINEPHrine 4 mg In 845.907 839.401 13.367 Dextrose 5% in Water 250 ml @ 0.01 MCG/KG/MIN 3. 487 mls/hr IV .Q24H TERELL Rx#:[id number] Insulin Regular 100 unit 141.973 134.542 12.97 In Sodium Chloride 0.9% 100 ml @ Per Protocol IV .Q0M TERELL Rx#:[id number] Norepinephrine 32 mg In 135.441 Sodium Chloride 0.9% 218 ml @ 0.05 MCG/KG/MIN 2. 179 mls/hr IV .Q24H ONE Rx#:[id number] Norepinephrine 32 mg In 250.78 Sodium Chloride 0.9% 218 ml @ 0.05 MCG/KG/MIN 2. 599 mls/hr IV .Q24H TERELL Rx#:[id number] Piperacillin-Tazobactam 3 100 .375 gm In Sodium Chloride 0.9% 100 ml @ 25 mls/hr IVPB Q8H TERELL Rx#: [id number] Sodium Chloride 0.9% 1, 1170 130 000 ml @ 130 mls/hr IV . Q7H42M TERELL Rx#:[id number] levETIRAcetam IV 500 mg 100 In Sodium Chloride 0.9% 100 ml @ 400 mls/hr IVPB Q12HR TERELL Rx#:[id number] propofoL 1,000 mg In 0.444 80.316 5.707 Empty Bag 1 bag @ Titrate IV .Q0M TERELL Rx#: [id number] Other 60 Output: Drainage 120 Right Abdomen 120 Urine 440 1105 200 Other 180 Other: Voiding Method Indwelling Catheter Indwelling Catheter ABP, PAP, CO, CI - Last Documented Arterial Blood Pressure 125/48 - Exam Unresponsive, intubated, on mechanical ventilator, tachypneic, orogastric and orotracheal tube are both in place. Patient looks quite pale, looks cachectic and emaciated. No seizure activity. No tonic-clonic seizure activity. The patient is completely unresponsive. Patient is currently on propofol running at 20 mg/kg/m. Head exam was generally normal. There was no scleral icterus or corneal arcus. Mucous membranes were moist. Neck was supple and without jugular venous distension, thyromegaly, or carotid bruits. Carotids were easily palpable bilaterally. There was no adenopathy. Lungs were clear to auscultation and percussion, and with normal diaphragmatic excursion. No wheezes or rales were noted. Cardiac exam revealed the PMI to be normally situated and sized. The rhythm was regular and no extrasystoles were noted during several minutes of auscultation. The first and second heart sounds were normal and physiologic splitting of the second heart sound was noted. There were no murmurs, rubs, clicks, or gallops. Abdominal exam revealed normal bowel sounds. The abdomen was soft, non-tender, and without masses, organomegaly, or appreciable enlargement of the abdominal aorta. No ascites. No direct tenderness. No rebound tenderness. No guarding. Bowel sounds are hypoactive nearly absent. She has a the patient has a percutaneous drain in his right upper quadrant for drainage of the gallbladder. Extremities are cold and clammy and cyanotic and marked diminished pulses in all 4 extremities. Neurologic the patient is unresponsive. No facial asymmetry. No response to any painful stimulation. The patient on sedation. The patient has received Ativan post seizure activity. No jerky body movements. Pupils around 3 mm in size and sluggishly reactive to light. Examination of the skin revealed no evidence of significant rashes, suspicious appearing nevi or other concerning lesions. - Labs CBC & Chem 7: 08/26/21 02:40 08/26/21 02:40 Labs: Abnormal Lab Results - Last 24 Hours (Table) 08/25/21 08/25/21 08/25/21 Range/Units 04:36 04:36 09:21 WBC 0.5 L* (3.8-10.6) k/uL RBC (4.30-5.90) m/uL Hgb (13.0-17.5) gm/dL Hct (39.0-53.0) % RDW (11.5-15.5) % Plt Count (150-450) k/uL ABG pH (7.35-7.45) ABG pCO2 (35-45) mmHg ABG pO2 (83-108) mmHg ABG HCO3 (21-25) mmol/L ABG Total CO2 (19-24) mmol/L Sodium (137-145) mmol/L Potassium (3.5-5.1) mmol/L Glucose (74-99) mg/dL POC Glucose (mg/dL) 237 H (75-99) mg/dL Plasma Lactic Acid Abelardo (0.7-2.0) mmol/L Calcium (8.4-10.2) mg/dL Total Bilirubin (0.2-1.3) mg/dL Total Protein (6.3-8.2) g/dL Albumin (3.5-5.0) g/dL IgG 3043.0 H (700.0-1600.0) mg/dL IgA 556.0 H (60.0-350.0) mg/dL 08/25/21 08/25/21 08/25/21 Range/Units 10:06 11:08 12:14 WBC (3.8-10.6) k/uL RBC (4.30-5.90) m/uL Hgb (13.0-17.5) gm/dL Hct (39.0-53.0) % RDW (11.5-15.5) % Plt Count (150-450) k/uL ABG pH (7.35-7.45) ABG pCO2 (35-45) mmHg ABG pO2 (83-108) mmHg ABG HCO3 (21-25) mmol/L ABG Total CO2 (19-24) mmol/L Sodium (137-145) mmol/L Potassium (3.5-5.1) mmol/L Glucose (74-99) mg/dL POC Glucose (mg/dL) 235 H 230 H 196 H (75-99) mg/dL Plasma Lactic Acid Abelardo (0.7-2.0) mmol/L Calcium (8.4-10.2) mg/dL Total Bilirubin (0.2-1.3) mg/dL Total Protein (6.3-8.2) g/dL Albumin (3.5-5.0) g/dL IgG (700.0-1600.0) mg/dL IgA (60.0-350.0) mg/dL 08/25/21 08/25/21 08/25/21 Range/Units 13:29 13:45 15:46 WBC (3.8-10.6) k/uL RBC (4.30-5.90) m/uL Hgb (13.0-17.5) gm/dL Hct (39.0-53.0) % RDW (11.5-15.5) % Plt Count (150-450) k/uL ABG pH (7.35-7.45) ABG pCO2 (35-45) mmHg ABG pO2 (83-108) mmHg ABG HCO3 (21-25) mmol/L ABG Total CO2 (19-24) mmol/L Sodium (137-145) mmol/L Potassium (3.5-5.1) mmol/L Glucose (74-99) mg/dL POC Glucose (mg/dL) 177 H 169 H (75-99) mg/dL Plasma Lactic Acid Abelardo 4.7 H* (0.7-2.0) mmol/L Calcium (8.4-10.2) mg/dL Total Bilirubin (0.2-1.3) mg/dL Total Protein (6.3-8.2) g/dL Albumin (3.5-5.0) g/dL IgG (700.0-1600.0) mg/dL IgA (60.0-350.0) mg/dL 08/25/21 08/25/21 08/25/21 Range/Units 16:30 17:10 17:26 WBC (3.8-10.6) k/uL RBC (4.30-5.90) m/uL Hgb (13.0-17.5) gm/dL Hct (39.0-53.0) % RDW (11.5-15.5) % Plt Count (150-450) k/uL ABG pH (7.35-7.45) ABG pCO2 (35-45) mmHg ABG pO2 (83-108) mmHg ABG HCO3 (21-25) mmol/L ABG Total CO2 (19-24) mmol/L Sodium (137-145) mmol/L Potassium 3.0 L (3.5-5.1) mmol/L Glucose (74-99) mg/dL POC Glucose (mg/dL) 158 H (75-99) mg/dL Plasma Lactic Acid Abelardo 4.2 H* (0.7-2.0) mmol/L Calcium (8.4-10.2) mg/dL Total Bilirubin (0.2-1.3) mg/dL Total Protein (6.3-8.2) g/dL Albumin (3.5-5.0) g/dL IgG (700.0-1600.0) mg/dL IgA (60.0-350.0) mg/dL 08/25/21 08/25/21 08/25/21 Range/Units 18:41 20:02 20:32 WBC (3.8-10.6) k/uL RBC (4.30-5.90) m/uL Hgb (13.0-17.5) gm/dL Hct (39.0-53.0) % RDW (11.5-15.5) % Plt Count (150-450) k/uL ABG pH (7.35-7.45) ABG pCO2 (35-45) mmHg ABG pO2 (83-108) mmHg ABG HCO3 (21-25) mmol/L ABG Total CO2 (19-24) mmol/L Sodium (137-145) mmol/L Potassium (3.5-5.1) mmol/L Glucose (74-99) mg/dL POC Glucose (mg/dL) 155 H 145 H (75-99) mg/dL Plasma Lactic Acid Abelardo 3.6 H* (0.7-2.0) mmol/L Calcium (8.4-10.2) mg/dL Total Bilirubin (0.2-1.3) mg/dL Total Protein (6.3-8.2) g/dL Albumin (3.5-5.0) g/dL IgG (700.0-1600.0) mg/dL IgA (60.0-350.0) mg/dL 08/25/21 08/25/21 08/25/21 Range/Units 21:08 21:55 22:57 WBC (3.8-10.6) k/uL RBC (4.30-5.90) m/uL Hgb (13.0-17.5) gm/dL Hct (39.0-53.0) % RDW (11.5-15.5) % Plt Count (150-450) k/uL ABG pH (7.35-7.45) ABG pCO2 (35-45) mmHg ABG pO2 (83-108) mmHg ABG HCO3 (21-25) mmol/L ABG Total CO2 (19-24) mmol/L Sodium (137-145) mmol/L Potassium (3.5-5.1) mmol/L Glucose (74-99) mg/dL POC Glucose (mg/dL) 139 H 154 H 129 H (75-99) mg/dL Plasma Lactic Acid Abelardo (0.7-2.0) mmol/L Calcium (8.4-10.2) mg/dL Total Bilirubin (0.2-1.3) mg/dL Total Protein (6.3-8.2) g/dL Albumin (3.5-5.0) g/dL IgG (700.0-1600.0) mg/dL IgA (60.0-350.0) mg/dL 08/25/21 08/26/21 08/26/21 Range/Units 23:59 00:59 01:58 WBC (3.8-10.6) k/uL RBC (4.30-5.90) m/uL Hgb (13.0-17.5) gm/dL Hct (39.0-53.0) % RDW (11.5-15.5) % Plt Count (150-450) k/uL ABG pH (7.35-7.45) ABG pCO2 (35-45) mmHg ABG pO2 (83-108) mmHg ABG HCO3 (21-25) mmol/L ABG Total CO2 (19-24) mmol/L Sodium (137-145) mmol/L Potassium (3.5-5.1) mmol/L Glucose (74-99) mg/dL POC Glucose (mg/dL) 163 H 195 H 187 H (75-99) mg/dL Plasma Lactic Acid Abelardo (0.7-2.0) mmol/L Calcium (8.4-10.2) mg/dL Total Bilirubin (0.2-1.3) mg/dL Total Protein (6.3-8.2) g/dL Albumin (3.5-5.0) g/dL IgG (700.0-1600.0) mg/dL IgA (60.0-350.0) mg/dL 08/26/21 08/26/21 08/26/21 Range/Units 02:40 02:40 03:06 WBC 0.5 L* (3.8-10.6) k/uL RBC 2.28 L (4.30-5.90) m/uL Hgb 7.4 L (13.0-17.5) gm/dL Hct 21.8 L (39.0-53.0) % RDW 15.6 H (11.5-15.5) % Plt Count 14 L* D (150-450) k/uL ABG pH (7.35-7.45) ABG pCO2 (35-45) mmHg ABG pO2 (83-108) mmHg ABG HCO3 (21-25) mmol/L ABG Total CO2 (19-24) mmol/L Sodium 131 L (137-145) mmol/L Potassium 2.7 L* (3.5-5.1) mmol/L Glucose 172 H (74-99) mg/dL POC Glucose (mg/dL) 181 H (75-99) mg/dL Plasma Lactic Acid Abelardo (0.7-2.0) mmol/L Calcium 6.7 L (8.4-10.2) mg/dL Total Bilirubin 2.4 H (0.2-1.3) mg/dL Total Protein 6.1 L (6.3-8.2) g/dL Albumin 1.9 L (3.5-5.0) g/dL IgG (700.0-1600.0) mg/dL IgA (60.0-350.0) mg/dL 08/26/21 08/26/21 08/26/21 Range/Units 03:45 04:13 05:04 WBC (3.8-10.6) k/uL RBC (4.30-5.90) m/uL Hgb (13.0-17.5) gm/dL Hct (39.0-53.0) % RDW (11.5-15.5) % Plt Count (150-450) k/uL ABG pH (7.35-7.45) ABG pCO2 (35-45) mmHg ABG pO2 (83-108) mmHg ABG HCO3 (21-25) mmol/L ABG Total CO2 (19-24) mmol/L Sodium (137-145) mmol/L Potassium (3.5-5.1) mmol/L Glucose (74-99) mg/dL POC Glucose (mg/dL) 177 H 156 H (75-99) mg/dL Plasma Lactic Acid Abelardo 3.5 H* (0.7-2.0) mmol/L Calcium (8.4-10.2) mg/dL Total Bilirubin (0.2-1.3) mg/dL Total Protein (6.3-8.2) g/dL Albumin (3.5-5.0) g/dL IgG (700.0-1600.0) mg/dL IgA (60.0-350.0) mg/dL 08/26/21 08/26/21 08/26/21 Range/Units 05:53 06:01 07:10 WBC (3.8-10.6) k/uL RBC (4.30-5.90) m/uL Hgb (13.0-17.5) gm/dL Hct (39.0-53.0) % RDW (11.5-15.5) % Plt Count (150-450) k/uL ABG pH 7.53 H (7.35-7.45) ABG pCO2 34 L (35-45) mmHg ABG pO2 67 L (83-108) mmHg ABG HCO3 28 H (21-25) mmol/L ABG Total CO2 29 H (19-24) mmol/L Sodium (137-145) mmol/L Potassium (3.5-5.1) mmol/L Glucose (74-99) mg/dL POC Glucose (mg/dL) 164 H 160 H (75-99) mg/dL Plasma Lactic Acid Abelardo (0.7-2.0) mmol/L Calcium (8.4-10.2) mg/dL Total Bilirubin (0.2-1.3) mg/dL Total Protein (6.3-8.2) g/dL Albumin (3.5-5.0) g/dL IgG (700.0-1600.0) mg/dL IgA (60.0-350.0) mg/dL Microbiology - Last 24 Hours (Table) 08/24/21 20:33 Gram Stain - Preliminary Aspirate Body Fluid Culture - Preliminary 08/24/21 11:35 Blood Culture Gram Stain - Preliminary Blood 08/24/21 11:35 Blood Culture - Final Blood 08/24/21 11:20 Blood Culture Gram Stain - Preliminary Blood Blood Culture - Preliminary Klebsiella pneumoniae Assessment and Plan Plan: 1 septic shock with evidence of multisystem organ failure. Sources most likely being an acute cholecystitis. The patient gram-negative sepsis with Klebsiella pneumoniae with possible culture and the patient remains on IV Zosyn. Sources likely acute cholecystitis and the patient had a percutaneous drainage of the gallbladder. Hemodynamically, remains hypotensive and shocky with multisystem organ failure. He is being resuscitated with a combination of fluids, pressors and antibiotics. 2 profound hypotension secondary to septic shock, currently on combination of pressors including epinephrine, norepinephrine and vasopressin, overnight, the patient received significant amounts of fluids and continues to be on pressors 3 pancytopenia. The patient is neutropenic with a white cell count of 0.5. This probably propagated and contributed to his septic shock and multisystem organ failure. Also, the patient has pancytopenia 4 acute kidney injury , improving 5 history of Hodgkin's lymphoma was supposed systemic chemotherapy 6 severe lactic acidosis, lactic acid level improvement in the most recent lactic acid level is down to 3.4 7 severe metabolic acidosis, essentially secondary to lactic acidosis, improved and the acidosis recovered 8 acute hypoxic respiratory failure with development of limited bibasilar pu lmonary infiltrates, consider early ARDS. Currently intubated on mechanical ventilator 9 history of hyperthyroidism treated with radioactive iodine 10 seizures of a new onset, tonic-clonic with questionable hemorrhagic focus in the brain, neurologist on the case, with questionable hemorrhagic spot at the level of the archie and the patient has kept off sedation for the past 12 hours. Neurologist on the case. 11 diabetes mellitus, started on insulin drip for tighter blood sugar control and insulin drip is running at 11( units an hour. 12 poor baseline performance and functional status secondary to above-mentioned comorbidities Plan I would like to obtain a noncontrast CAT scan of the brain today to follow-up on his neurologic status and the questionable pontine hemorrhage. I noted that this may not be an ideal image for his brainstem. Nevertheless, would like to rule out any significant bleeding special with his underlying thrombocytopenia. Plated count of under 20,000. The patient will be given platelet transfusion. Continue with pressors and eliminate epinephrine if possible. Continue vasopressin and norepinephrine. Discontinue the bicarb infusion Antibiotic coverage includes IV Zosyn Check baseline serum cortisol level are high monitor cell count and continue the filgrastim for now May start some trickle feeding through his OG Keep the patient on insulin drip for blood sugar control IV Protonix Neurology consultation has been appreciated and the patient would ultimately need an MRI of his brain, meanwhile, we'll repeat a CAT scan once the patient is seen today more stable Continue Keppra for now High risk patient with an increased mortality baseline above-mentioned comorbidities. Family is aware. I had an extensive discussion with the yesterday. We'll continue to support the patient will make further recommendations based on his progress. Critically care evaluation was done and morning 30 minutes. Time with Patient: Greater than 30
[2021-08-26 08:57] LABS: Glucose,Whole Blood 117 mg/dL (75-99)
--- NOTE | 2021-08-26 09:27 | P.PN ---
Subjective Progress Note Date: 08/26/21 Principal diagnosis: Acute cholecystitis Patient remains on the ventilator. Patient remains unresponsive with no sedation. Pressure requirements have improved. Making urine. Creatinine level is improved as well. Lactic acid is stable and certainly significantly improved from admission. Bile is present in the cholecystostomy tube. Objective - Vital Signs Vital signs: Vital Signs Temp 97.9 F 08/26/21 04:00 Pulse 116 H 08/26/21 08:00 Resp 48 H 08/26/21 08:00 BP 154/93 08/26/21 05:00 Pulse Ox 96 08/26/21 08:00 Intake & Output 08/25/21 08/26/21 08/26/21 18:59 06:59 18:59 Intake Total 4333.765 4665.039 381.679 Output Total 560 1285 320 Balance 3773.765 3380.039 61.679 Weight 118.9 kg Intake: IV 3210 1930 150 Dextrose 5% in Water 1, 1650 1650 150 000 ml @ 150 mls/hr IV . Q7H40M [facility] with Sodium Bicarb (1 Meq/ml) 150 ml Rx#:[id number] Sodium Chloride 0.9% 1, 1560 280 000 ml @ 130 mls/hr IV . Q7H42M [facility] Rx#:[id number] Intake, IV Titration 4009.466 4275.039 231.679 Amount EPINEPHrine 4 mg In 845.907 839.401 65.033 Dextrose 5% in Water 250 ml @ 0.01 MCG/KG/MIN 3. 487 mls/hr IV .Q24H [facility] Rx#:[id number] Insulin Regular 100 unit 141.973 134.542 30.939 In Sodium Chloride 0.9% 100 ml @ Per Protocol IV .Q0M [facility] Rx#:[id number] Norepinephrine 32 mg In 135.441 Sodium Chloride 0.9% 218 ml @ 0.05 MCG/KG/MIN 2. 179 mls/hr IV .Q24H [facility] Rx#:[id number] Norepinephrine 32 mg In 250.78 Sodium Chloride 0.9% 218 ml @ 0.05 MCG/KG/MIN 2. 599 mls/hr IV .Q24H [facility] Rx#:[id number] Piperacillin-Tazobactam 3 100 .375 gm In Sodium Chloride 0.9% 100 ml @ 25 mls/hr IVPB Q8H [facility] Rx#: [id number] Sodium Chloride 0.9% 1, 1170 130 000 ml @ 130 mls/hr IV . Q7H42M [facility] Rx#:[id number] levETIRAcetam IV 500 mg 100 In Sodium Chloride 0.9% 100 ml @ 400 mls/hr IVPB Q12HR [facility] Rx#:[id number] propofoL 1,000 mg In 0.444 80.316 5.707 Empty Bag 1 bag @ Titrate IV .Q0M [facility] Rx#: [id number] Other 60 Output: Drainage 120 120 Right Abdomen 120 120 Urine 440 1105 200 Other 180 Other: Voiding Method Indwelling Catheter Indwelling Catheter ABP, PAP, CO, CI - Last Documented Arterial Blood Pressure 122/50 - Exam Abdomen: Soft, no appreciable tenderness, cholecystostomy tube in place, nondistended - Labs CBC & Chem 7: 08/26/21 02:40 08/26/21 02:40 Labs: Abnormal Lab Results - Last 24 Hours (Table) 08/25/21 08/25/21 08/25/21 Range/Units 04:36 04:36 10:06 WBC 0.5 L* (3.8-10.6) k/uL RBC (4.30-5.90) m/uL Hgb (13.0-17.5) gm/dL Hct (39.0-53.0) % RDW (11.5-15.5) % Plt Count (150-450) k/uL ABG pH (7.35-7.45) ABG pCO2 (35-45) mmHg ABG pO2 (83-108) mmHg ABG HCO3 (21-25) mmol/L ABG Total CO2 (19-24) mmol/L Sodium (137-145) mmol/L Potassium (3.5-5.1) mmol/L Glucose (74-99) mg/dL POC Glucose (mg/dL) 235 H (75-99) mg/dL Plasma Lactic Acid Abelardo (0.7-2.0) mmol/L Calcium (8.4-10.2) mg/dL Total Bilirubin (0.2-1.3) mg/dL Total Protein (6.3-8.2) g/dL Albumin (3.5-5.0) g/dL IgG 3043.0 H (700.0-1600.0) mg/dL IgA 556.0 H (60.0-350.0) mg/dL 08/25/21 08/25/21 08/25/21 Range/Units 11:08 12:14 13:29 WBC (3.8-10.6) k/uL RBC (4.30-5.90) m/uL Hgb (13.0-17.5) gm/dL Hct (39.0-53.0) % RDW (11.5-15.5) % Plt Count (150-450) k/uL ABG pH (7.35-7.45) ABG pCO2 (35-45) mmHg ABG pO2 (83-108) mmHg ABG HCO3 (21-25) mmol/L ABG Total CO2 (19-24) mmol/L Sodium (137-145) mmol/L Potassium (3.5-5.1) mmol/L Glucose (74-99) mg/dL POC Glucose (mg/dL) 230 H 196 H 177 H (75-99) mg/dL Plasma Lactic Acid Abelardo (0.7-2.0) mmol/L Calcium (8.4-10.2) mg/dL Total Bilirubin (0.2-1.3) mg/dL Total Protein (6.3-8.2) g/dL Albumin (3.5-5.0) g/dL IgG (700.0-1600.0) mg/dL IgA (60.0-350.0) mg/dL 08/25/21 08/25/21 08/25/21 Range/Units 13:45 15:46 16:30 WBC (3.8-10.6) k/uL RBC (4.30-5.90) m/uL Hgb (13.0-17.5) gm/dL Hct (39.0-53.0) % RDW (11.5-15.5) % Plt Count (150-450) k/uL ABG pH (7.35-7.45) ABG pCO2 (35-45) mmHg ABG pO2 (83-108) mmHg ABG HCO3 (21-25) mmol/L ABG Total CO2 (19-24) mmol/L Sodium (137-145) mmol/L Potassium 3.0 L (3.5-5.1) mmol/L Glucose (74-99) mg/dL POC Glucose (mg/dL) 169 H (75-99) mg/dL Plasma Lactic Acid Abelardo 4.7 H* (0.7-2.0) mmol/L Calcium (8.4-10.2) mg/dL Total Bilirubin (0.2-1.3) mg/dL Total Protein (6.3-8.2) g/dL Albumin (3.5-5.0) g/dL IgG (700.0-1600.0) mg/dL IgA (60.0-350.0) mg/dL 08/25/21 08/25/21 08/25/21 Range/Units 17:10 17:26 18:41 WBC (3.8-10.6) k/uL RBC (4.30-5.90) m/uL Hgb (13.0-17.5) gm/dL Hct (39.0-53.0) % RDW (11.5-15.5) % Plt Count (150-450) k/uL ABG pH (7.35-7.45) ABG pCO2 (35-45) mmHg ABG pO2 (83-108) mmHg ABG HCO3 (21-25) mmol/L ABG Total CO2 (19-24) mmol/L Sodium (137-145) mmol/L Potassium (3.5-5.1) mmol/L Glucose (74-99) mg/dL POC Glucose (mg/dL) 158 H 155 H (75-99) mg/dL Plasma Lactic Acid Abelardo 4.2 H* (0.7-2.0) mmol/L Calcium (8.4-10.2) mg/dL Total Bilirubin (0.2-1.3) mg/dL Total Protein (6.3-8.2) g/dL Albumin (3.5-5.0) g/dL IgG (700.0-1600.0) mg/dL IgA (60.0-350.0) mg/dL 08/25/21 08/25/21 08/25/21 Range/Units 20:02 20:32 21:08 WBC (3.8-10.6) k/uL RBC (4.30-5.90) m/uL Hgb (13.0-17.5) gm/dL Hct (39.0-53.0) % RDW (11.5-15.5) % Plt Count (150-450) k/uL ABG pH (7.35-7.45) ABG pCO2 (35-45) mmHg ABG pO2 (83-108) mmHg ABG HCO3 (21-25) mmol/L ABG Total CO2 (19-24) mmol/L Sodium (137-145) mmol/L Potassium (3.5-5.1) mmol/L Glucose (74-99) mg/dL POC Glucose (mg/dL) 145 H 139 H (75-99) mg/dL Plasma Lactic Acid Abelardo 3.6 H* (0.7-2.0) mmol/L Calcium (8.4-10.2) mg/dL Total Bilirubin (0.2-1.3) mg/dL Total Protein (6.3-8.2) g/dL Albumin (3.5-5.0) g/dL IgG (700.0-1600.0) mg/dL IgA (60.0-350.0) mg/dL 08/25/21 08/25/21 08/25/21 Range/Units 21:55 22:57 23:59 WBC (3.8-10.6) k/uL RBC (4.30-5.90) m/uL Hgb (13.0-17.5) gm/dL Hct (39.0-53.0) % RDW (11.5-15.5) % Plt Count (150-450) k/uL ABG pH (7.35-7.45) ABG pCO2 (35-45) mmHg ABG pO2 (83-108) mmHg ABG HCO3 (21-25) mmol/L ABG Total CO2 (19-24) mmol/L Sodium (137-145) mmol/L Potassium (3.5-5.1) mmol/L Glucose (74-99) mg/dL POC Glucose (mg/dL) 154 H 129 H 163 H (75-99) mg/dL Plasma Lactic Acid Abelardo (0.7-2.0) mmol/L Calcium (8.4-10.2) mg/dL Total Bilirubin (0.2-1.3) mg/dL Total Protein (6.3-8.2) g/dL Albumin (3.5-5.0) g/dL IgG (700.0-1600.0) mg/dL IgA (60.0-350.0) mg/dL 08/26/21 08/26/21 08/26/21 Range/Units 00:59 01:58 02:40 WBC 0.5 L* (3.8-10.6) k/uL RBC 2.28 L (4.30-5.90) m/uL Hgb 7.4 L (13.0-17.5) gm/dL Hct 21.8 L (39.0-53.0) % RDW 15.6 H (11.5-15.5) % Plt Count 14 L* D (150-450) k/uL ABG pH (7.35-7.45) ABG pCO2 (35-45) mmHg ABG pO2 (83-108) mmHg ABG HCO3 (21-25) mmol/L ABG Total CO2 (19-24) mmol/L Sodium (137-145) mmol/L Potassium (3.5-5.1) mmol/L Glucose (74-99) mg/dL POC Glucose (mg/dL) 195 H 187 H (75-99) mg/dL Plasma Lactic Acid Abelardo (0.7-2.0) mmol/L Calcium (8.4-10.2) mg/dL Total Bilirubin (0.2-1.3) mg/dL Total Protein (6.3-8.2) g/dL Albumin (3.5-5.0) g/dL IgG (700.0-1600.0) mg/dL IgA (60.0-350.0) mg/dL 08/26/21 08/26/21 08/26/21 Range/Units 02:40 03:06 03:45 WBC (3.8-10.6) k/uL RBC (4.30-5.90) m/uL Hgb (13.0-17.5) gm/dL Hct (39.0-53.0) % RDW (11.5-15.5) % Plt Count (150-450) k/uL ABG pH (7.35-7.45) ABG pCO2 (35-45) mmHg ABG pO2 (83-108) mmHg ABG HCO3 (21-25) mmol/L ABG Total CO2 (19-24) mmol/L Sodium 131 L (137-145) mmol/L Potassium 2.7 L* (3.5-5.1) mmol/L Glucose 172 H (74-99) mg/dL POC Glucose (mg/dL) 181 H (75-99) mg/dL Plasma Lactic Acid Abelardo 3.5 H* (0.7-2.0) mmol/L Calcium 6.7 L (8.4-10.2) mg/dL Total Bilirubin 2.4 H (0.2-1.3) mg/dL Total Protein 6.1 L (6.3-8.2) g/dL Albumin 1.9 L (3.5-5.0) g/dL IgG (700.0-1600.0) mg/dL IgA (60.0-350.0) mg/dL 08/26/21 08/26/21 08/26/21 Range/Units 04:13 05:04 05:53 WBC (3.8-10.6) k/uL RBC (4.30-5.90) m/uL Hgb (13.0-17.5) gm/dL Hct (39.0-53.0) % RDW (11.5-15.5) % Plt Count (150-450) k/uL ABG pH 7.53 H (7.35-7.45) ABG pCO2 34 L (35-45) mmHg ABG pO2 67 L (83-108) mmHg ABG HCO3 28 H (21-25) mmol/L ABG Total CO2 29 H (19-24) mmol/L Sodium (137-145) mmol/L Potassium (3.5-5.1) mmol/L Glucose (74-99) mg/dL POC Glucose (mg/dL) 177 H 156 H (75-99) mg/dL Plasma Lactic Acid Abelardo (0.7-2.0) mmol/L Calcium (8.4-10.2) mg/dL Total Bilirubin (0.2-1.3) mg/dL Total Protein (6.3-8.2) g/dL Albumin (3.5-5.0) g/dL IgG (700.0-1600.0) mg/dL IgA (60.0-350.0) mg/dL 08/26/21 08/26/21 08/26/21 Range/Units 06:01 07:10 08:55 WBC (3.8-10.6) k/uL RBC (4.30-5.90) m/uL Hgb (13.0-17.5) gm/dL Hct (39.0-53.0) % RDW (11.5-15.5) % Plt Count (150-450) k/uL ABG pH (7.35-7.45) ABG pCO2 (35-45) mmHg ABG pO2 (83-108) mmHg ABG HCO3 (21-25) mmol/L ABG Total CO2 (19-24) mmol/L Sodium (137-145) mmol/L Potassium (3.5-5.1) mmol/L Glucose (74-99) mg/dL POC Glucose (mg/dL) 164 H 160 H 117 H (75-99) mg/dL Plasma Lactic Acid Abelardo (0.7-2.0) mmol/L Calcium (8.4-10.2) mg/dL Total Bilirubin (0.2-1.3) mg/dL Total Protein (6.3-8.2) g/dL Albumin (3.5-5.0) g/dL IgG (700.0-1600.0) mg/dL IgA (60.0-350.0) mg/dL Microbiology - Last 24 Hours (Table) 08/24/21 20:33 Gram Stain - Preliminary Aspirate Body Fluid Culture - Preliminary 08/24/21 11:35 Blood Culture Gram Stain - Preliminary Blood 08/24/21 11:35 Blood Culture - Final Blood 08/24/21 11:20 Blood Culture Gram Stain - Preliminary Blood Blood Culture - Preliminary Klebsiella pneumoniae Assessment and Plan (1) Acute cholecystitis Narrative/Plan: Patient seems to be gradually improving. Continue broad-spectrum antibiotics. Continue weaning pressors. Keep cholecystostomy tube in place and draining. Will follow. Current Visit: Yes Status: Acute Priority: High Code(s): K81.0 - ACUTE CHOLECYSTITIS SNOMED Code(s): 33752046
--- NOTE | 2021-08-26 09:37 | XR ---
EXAMINATION TYPE: XR chest 1V portable DATE OF EXAM: 08/26/2021 COMPARISON: 08/25/2021 INDICATION: Dyspnea TECHNIQUE: Single frontal view of the chest is obtained. FINDINGS: The heart size is normal. The pulmonary vasculature is normal. Mild infiltrates at the right lower lobe. Findings are increasing from comparison. Endotracheal tube tip is above the [place]. Nasogastric tube transverses the thorax. Right side port tip is in the super ior vena cava region. IMPRESSION: 1. Increasing right lower lobe infiltrate. Correlate for pneumonia.
[2021-08-26] MEDS: PANTOPRAZOLE 40 MG/10 ML VIAL IVP SCH (09:56)
[2021-08-26] MEDS: CHLORHEXIDINE GLUCONATE 15 ML CUP MUCOUS MEM SCH ×2 (09:56→22:49)
[2021-08-26 10:05] LABS: Glucose,Whole Blood 89 mg/dL (75-99)
--- NOTE | 2021-08-26 12:16 | P.PN ---
Subjective Progress Note Date: 08/26/21 Principal diagnosis: Neutropenic sepsis Patient remains sedated and mechanically ventilated, it does appear that some of his vasopressors are decreasing, significant other and her sister at the bedside. Objective - Vital Signs Vital signs: Vital Signs Temp 97.9 F 08/26/21 04:00 Pulse 110 H 08/26/21 10:00 Resp 28 H 08/26/21 10:00 BP 154/93 08/26/21 05:00 Pulse Ox 98 08/26/21 10:00 Intake & Output 08/25/21 08/26/21 08/26/21 18:59 06:59 18:59 Intake Total 4333.765 4665.039 891.679 Output Total 560 1285 595 Balance 3773.765 3380.039 296.679 Weight 118.9 kg 118.9 kg Intake: IV 3210 1930 410 Dextrose 5% in Water 1, 1650 1650 150 000 ml @ 150 mls/hr IV . Q7H40M [facility] with Sodium Bicarb (1 Meq/ml) 150 ml Rx#:[id number] Sodium Chloride 0.9% 1, 1560 280 260 000 ml @ 130 mls/hr IV . Q7H42M [facility] Rx#:[id number] Intake, IV Titration 6135.177 1333.039 481.679 Amount EPINEPHrine 4 mg In 845.907 839.401 65.033 Dextrose 5% in Water 250 ml @ 0.01 MCG/KG/MIN 3. 487 mls/hr IV .Q24H [facility] Rx#:[id number] Insulin Regular 100 unit 141.973 134.542 30.939 In Sodium Chloride 0.9% 100 ml @ Per Protocol IV .Q0M [facility] Rx#:[id number] Norepinephrine 32 mg In 135.441 Sodium Chloride 0.9% 218 ml @ 0.05 MCG/KG/MIN 2. 179 mls/hr IV .Q24H [facility] Rx#:[id number] Norepinephrine 32 mg In 250.78 250 Sodium Chloride 0.9% 218 ml @ 0.05 MCG/KG/MIN 2. 599 mls/hr IV .Q24H [facility] Rx#:[id number] Piperacillin-Tazobactam 3 100 .375 gm In Sodium Chloride 0.9% 100 ml @ 25 mls/hr IVPB Q8H [facility] Rx#: [id number] Sodium Chloride 0.9% 1, 1170 130 000 ml @ 130 mls/hr IV . Q7H42M [facility] Rx#:[id number] levETIRAcetam IV 500 mg 100 In Sodium Chloride 0.9% 100 ml @ 400 mls/hr IVPB Q12HR [facility] Rx#:[id number] propofoL 1,000 mg In 0.444 80.316 5.707 Empty Bag 1 bag @ Titrate IV .Q0M [facility] Rx#: [id number] Other 60 Output: Drainage 120 120 Right Abdomen 120 120 Urine 440 1105 475 Other 180 Other: Voiding Method Indwelling Catheter Indwelling Catheter Indwelling Catheter ABP, PAP, CO, CI - Last Documented Arterial Blood Pressure 121/54 - Exam Gen. anasarca noted, not pending, skin is warm and dry to the touch, stroke in the bottom of the patient's foot he does withdraw his leg. - Labs CBC & Chem 7: 08/26/21 02:40 08/26/21 02:40 Labs: Abnormal Lab Results - Last 24 Hours (Table) 08/25/21 08/25/21 08/25/21 Range/Units 04:36 12:14 13:29 WBC (3.8-10.6) k/uL RBC (4.30-5.90) m/uL Hgb (13.0-17.5) gm/dL Hct (39.0-53.0) % RDW (11.5-15.5) % Plt Count (150-450) k/uL ABG pH (7.35-7.45) ABG pCO2 (35-45) mmHg ABG pO2 (83-108) mmHg ABG HCO3 (21-25) mmol/L ABG Total CO2 (19-24) mmol/L Sodium (137-145) mmol/L Potassium (3.5-5.1) mmol/L Glucose (74-99) mg/dL POC Glucose (mg/dL) 196 H 177 H (75-99) mg/dL Plasma Lactic Acid Abelardo (0.7-2.0) mmol/L Calcium (8.4-10.2) mg/dL Total Bilirubin (0.2-1.3) mg/dL Total Protein (6.3-8.2) g/dL Albumin (3.5-5.0) g/dL IgG 3043.0 H (700.0-1600.0) mg/dL IgA 556.0 H (60.0-350.0) mg/dL 08/25/21 08/25/21 08/25/21 Range/Units 13:45 15:46 16:30 WBC (3.8-10.6) k/uL RBC (4.30-5.90) m/uL Hgb (13.0-17.5) gm/dL Hct (39.0-53.0) % RDW (11.5-15.5) % Plt Count (150-450) k/uL ABG pH (7.35-7.45) ABG pCO2 (35-45) mmHg ABG pO2 (83-108) mmHg ABG HCO3 (21-25) mmol/L ABG Total CO2 (19-24) mmol/L Sodium (137-145) mmol/L Potassium 3.0 L (3.5-5.1) mmol/L Glucose (74-99) mg/dL POC Glucose (mg/dL) 169 H (75-99) mg/dL Plasma Lactic Acid Abelardo 4.7 H* (0.7-2.0) mmol/L Calcium (8.4-10.2) mg/dL Total Bilirubin (0.2-1.3) mg/dL Total Protein (6.3-8.2) g/dL Albumin (3.5-5.0) g/dL IgG (700.0-1600.0) mg/dL IgA (60.0-350.0) mg/dL 08/25/21 08/25/21 08/25/21 Range/Units 17:10 17:26 18:41 WBC (3.8-10.6) k/uL RBC (4.30-5.90) m/uL Hgb (13.0-17.5) gm/dL Hct (39.0-53.0) % RDW (11.5-15.5) % Plt Count (150-450) k/uL ABG pH (7.35-7.45) ABG pCO2 (35-45) mmHg ABG pO2 (83-108) mmHg ABG HCO3 (21-25) mmol/L ABG Total CO2 (19-24) mmol/L Sodium (137-145) mmol/L Potassium (3.5-5.1) mmol/L Glucose (74-99) mg/dL POC Glucose (mg/dL) 158 H 155 H (75-99) mg/dL Plasma Lactic Acid Abelardo 4.2 H* (0.7-2.0) mmol/L Calcium (8.4-10.2) mg/dL Total Bilirubin (0.2-1.3) mg/dL Total Protein (6.3-8.2) g/dL Albumin (3.5-5.0) g/dL IgG (700.0-1600.0) mg/dL IgA (60.0-350.0) mg/dL 08/25/21 08/25/21 08/25/21 Range/Units 20:02 20:32 21:08 WBC (3.8-10.6) k/uL RBC (4.30-5.90) m/uL Hgb (13.0-17.5) gm/dL Hct (39.0-53.0) % RDW (11.5-15.5) % Plt Count (150-450) k/uL ABG pH (7.35-7.45) ABG pCO2 (35-45) mmHg ABG pO2 (83-108) mmHg ABG HCO3 (21-25) mmol/L ABG Total CO2 (19-24) mmol/L Sodium (137-145) mmol/L Potassium (3.5-5.1) mmol/L Glucose (74-99) mg/dL POC Glucose (mg/dL) 145 H 139 H (75-99) mg/dL Plasma Lactic Acid Abelardo 3.6 H* (0.7-2.0) mmol/L Calcium (8.4-10.2) mg/dL Total Bilirubin (0.2-1.3) mg/dL Total Protein (6.3-8.2) g/dL Albumin (3.5-5.0) g/dL IgG (700.0-1600.0) mg/dL IgA (60.0-350.0) mg/dL 08/25/21 08/25/21 08/25/21 Range/Units 21:55 22:57 23:59 WBC (3.8-10.6) k/uL RBC (4.30-5.90) m/uL Hgb (13.0-17.5) gm/dL Hct (39.0-53.0) % RDW (11.5-15.5) % Plt Count (150-450) k/uL ABG pH (7.35-7.45) ABG pCO2 (35-45) mmHg ABG pO2 (83-108) mmHg ABG HCO3 (21-25) mmol/L ABG Total CO2 (19-24) mmol/L Sodium (137-145) mmol/L Potassium (3.5-5.1) mmol/L Glucose (74-99) mg/dL POC Glucose (mg/dL) 154 H 129 H 163 H (75-99) mg/dL Plasma Lactic Acid Abelardo (0.7-2.0) mmol/L Calcium (8.4-10.2) mg/dL Total Bilirubin (0.2-1.3) mg/dL Total Protein (6.3-8.2) g/dL Albumin (3.5-5.0) g/dL IgG (700.0-1600.0) mg/dL IgA (60.0-350.0) mg/dL 08/26/21 08/26/21 08/26/21 Range/Units 00:59 01:58 02:40 WBC 0.5 L* (3.8-10.6) k/uL RBC 2.28 L (4.30-5.90) m/uL Hgb 7.4 L (13.0-17.5) gm/dL Hct 21.8 L (39.0-53.0) % RDW 15.6 H (11.5-15.5) % Plt Count 14 L* D (150-450) k/uL ABG pH (7.35-7.45) ABG pCO2 (35-45) mmHg ABG pO2 (83-108) mmHg ABG HCO3 (21-25) mmol/L ABG Total CO2 (19-24) mmol/L Sodium (137-145) mmol/L Potassium (3.5-5.1) mmol/L Glucose (74-99) mg/dL POC Glucose (mg/dL) 195 H 187 H (75-99) mg/dL Plasma Lactic Acid Abelardo (0.7-2.0) mmol/L Calcium (8.4-10.2) mg/dL Total Bilirubin (0.2-1.3) mg/dL Total Protein (6.3-8.2) g/dL Albumin (3.5-5.0) g/dL IgG (700.0-1600.0) mg/dL IgA (60.0-350.0) mg/dL 08/26/21 08/26/21 08/26/21 Range/Units 02:40 03:06 03:45 WBC (3.8-10.6) k/uL RBC (4.30-5.90) m/uL Hgb (13.0-17.5) gm/dL Hct (39.0-53.0) % RDW (11.5-15.5) % Plt Count (150-450) k/uL ABG pH (7.35-7.45) ABG pCO2 (35-45) mmHg ABG pO2 (83-108) mmHg ABG HCO3 (21-25) mmol/L ABG Total CO2 (19-24) mmol/L Sodium 131 L (137-145) mmol/L Potassium 2.7 L* (3.5-5.1) mmol/L Glucose 172 H (74-99) mg/dL POC Glucose (mg/dL) 181 H (75-99) mg/dL Plasma Lactic Acid Abelardo 3.5 H* (0.7-2.0) mmol/L Calcium 6.7 L (8.4-10.2) mg/dL Total Bilirubin 2.4 H (0.2-1.3) mg/dL Total Protein 6.1 L (6.3-8.2) g/dL Albumin 1.9 L (3.5-5.0) g/dL IgG (700.0-1600.0) mg/dL IgA (60.0-350.0) mg/dL 08/26/21 08/26/21 08/26/21 Range/Units 04:13 05:04 05:53 WBC (3.8-10.6) k/uL RBC (4.30-5.90) m/uL Hgb (13.0-17.5) gm/dL Hct (39.0-53.0) % RDW (11.5-15.5) % Plt Count (150-450) k/uL ABG pH 7.53 H (7.35-7.45) ABG pCO2 34 L (35-45) mmHg ABG pO2 67 L (83-108) mmHg ABG HCO3 28 H (21-25) mmol/L ABG Total CO2 29 H (19-24) mmol/L Sodium (137-145) mmol/L Potassium (3.5-5.1) mmol/L Glucose (74-99) mg/dL POC Glucose (mg/dL) 177 H 156 H (75-99) mg/dL Plasma Lactic Acid Abelardo (0.7-2.0) mmol/L Calcium (8.4-10.2) mg/dL Total Bilirubin (0.2-1.3) mg/dL Total Protein (6.3-8.2) g/dL Albumin (3.5-5.0) g/dL IgG (700.0-1600.0) mg/dL IgA (60.0-350.0) mg/dL 08/26/21 08/26/21 08/26/21 Range/Units 06:01 07:10 08:55 WBC (3.8-10.6) k/uL RBC (4.30-5.90) m/uL Hgb (13.0-17.5) gm/dL Hct (39.0-53.0) % RDW (11.5-15.5) % Plt Count (150-450) k/uL ABG pH (7.35-7.45) ABG pCO2 (35-45) mmHg ABG pO2 (83-108) mmHg ABG HCO3 (21-25) mmol/L ABG Total CO2 (19-24) mmol/L Sodium (137-145) mmol/L Potassium (3.5-5.1) mmol/L Glucose (74-99) mg/dL POC Glucose (mg/dL) 164 H 160 H 117 H (75-99) mg/dL Plasma Lactic Acid Abelardo (0.7-2.0) mmol/L Calcium (8.4-10.2) mg/dL Total Bilirubin (0.2-1.3) mg/dL Total Protein (6.3-8.2) g/dL Albumin (3.5-5.0) g/dL IgG (700.0-1600.0) mg/dL IgA (60.0-350.0) mg/dL Microbiology - Last 24 Hours (Table) 08/24/21 20:33 Gram Stain - Preliminary Aspirate Body Fluid Culture - Preliminary 08/24/21 11:35 Blood Culture Gram Stain - Preliminary Blood 08/24/21 11:35 Blood Culture - Final Blood 08/24/21 11:20 Blood Culture Gram Stain - Preliminary Blood Blood Culture - Preliminary Klebsiella pneumoniae Assessment and Plan (1) Hodgkin lymphoma Narrative/Plan: Pt is s/p C1 D1 of BV AVD treatment on 08/15. He only received adriamycin, vincristine and adcetris (DTIC is on backorder). Treatment hold. Further discussions pending pt recovery Current Visit: Yes Status: Acute Priority: High Code(s): C81.90 - HODGKIN LYMPHOMA, UNSPECIFIED, UNSPECIFIED SITE SNOMED Code(s): 864933498 (2) Neutropenic fever Narrative/Plan: GCSF initiated for chemo induced neutropenia. Cont until ANC>10 CXR showing a RLL infiltrate. BC + for Kl pneu. ID following Past documented fever 08/25/21 at around 0900. Current Visit: Yes Status: Acute Priority: High Code(s): D70.9 - NEUTROPENIA, UNSPECIFIED; R50.81 - FEVER PRESENTING WITH CONDITIONS CLASSIFIED ELSEWHERE SNOMED Code(s): 320524706 (3) Acute cholecystitis Narrative/Plan: PCT placed for drainage as pt not stable enough for procedure. Surgery following. Current Visit: Yes Status: Acute Priority: High Code(s): K81.0 - ACUTE CHOLECYSTITIS SNOMED Code(s): 51874582 (4) Antineoplastic chemotherapy induced pancytopenia Narrative/Plan: Transfuse to keep Hgb above 7, hemoglobin 7.4 today. Platelets 14,000 today, 1 unit single donor platelets ordered. Plan is to keep platelets above 30-40,000 with sepsis. Cont GCSF until ANC at least 10. Labs are ordered daily Current Visit: Yes Status: Acute Priority: High Code(s): D61.810 - ANTINEOPLASTIC CHEMOTHERAPY INDUCED PANCYTOPENIA; T45.1X5A - ADVERSE EFFECT OF ANTINEOPLASTIC AND IMMUNOSUP DRUGS, INIT SNOMED Code(s): 173868526215604 Plan: Neurology ongoing evaluation and recommendations appreciated Time with Patient: Greater than 30
--- NOTE | 2021-08-26 13:35 | P.PN ---
Subjective Progress Note Date: 08/26/21 Patient is seen at bedside and is accompanied with his and [id number]. Per the patient's nurse no further seizure like activity. He continues to be intubated on ventilator. He is currently on two pressors (improved compared to yesterday of three). He is on Propofol 20mcgk/kg/min. Objective - Vital Signs Vital signs: Vital Signs Temp 97.9 F 08/26/21 04:00 Pulse 110 H 08/26/21 10:00 Resp 28 H 08/26/21 10:00 BP 154/93 08/26/21 05:00 Pulse Ox 98 08/26/21 10:00 Intake & Output 08/25/21 08/26/21 08/26/21 18:59 06:59 18:59 Intake Total 4333.765 4665.039 891.679 Output Total 560 1285 595 Balance 3773.765 3380.039 296.679 Weight 118.9 kg 118.9 kg Intake: IV 3210 1930 410 Dextrose 5% in Water 1, 1650 1650 150 000 ml @ 150 mls/hr IV . Q7H40M TERELL with Sodium Bicarb (1 Meq/ml) 150 ml Rx#:[id number] Sodium Chloride 0.9% 1, 1560 280 260 000 ml @ 130 mls/hr IV . Q7H42M STA Rx#:[id number] Intake, IV Titration 4268.995 3373.039 481.679 Amount EPINEPHrine 4 mg In 845.907 839.401 65.033 Dextrose 5% in Water 250 ml @ 0.01 MCG/KG/MIN 3. 487 mls/hr IV .Q24H TERELL Rx#:[id number] Insulin Regular 100 unit 141.973 134.542 30.939 In Sodium Chloride 0.9% 100 ml @ Per Protocol IV .Q0M TERELL Rx#:[id number] Norepinephrine 32 mg In 135.441 Sodium Chloride 0.9% 218 ml @ 0.05 MCG/KG/MIN 2. 179 mls/hr IV .Q24H ONE Rx#:[id number] Norepinephrine 32 mg In 250.78 250 Sodium Chloride 0.9% 218 ml @ 0.05 MCG/KG/MIN 2. 599 mls/hr IV .Q24H TERELL Rx#:[id number] Piperacillin-Tazobactam 3 100 .375 gm In Sodium Chloride 0.9% 100 ml @ 25 mls/hr IVPB Q8H TERELL Rx#: [id number] Sodium Chloride 0.9% 1, 1170 130 000 ml @ 130 mls/hr IV . Q7H42M TERELL Rx#:[id number] levETIRAcetam IV 500 mg 100 In Sodium Chloride 0.9% 100 ml @ 400 mls/hr IVPB Q12HR TERELL Rx#:[id number] propofoL 1,000 mg In 0.444 80.316 5.707 Empty Bag 1 bag @ Titrate IV .Q0M TERELL Rx#: [id number] Other 60 Output: Drainage 120 120 Right Abdomen 120 120 Urine 440 1105 475 Other 180 Other: Voiding Method Indwelling Catheter Indwelling Catheter Indwelling Catheter ABP, PAP, CO, CI - Last Documented Arterial Blood Pressure 121/54 - Exam GENERAL: The patient is lying and does not seem in acute distress. LUNG: Intubated and on ventilator. NEUROLOGICAL: On IV Propofol 20mcg/kg/min. Higher mental function: The patient is comatose. GCS: 4 (E1, VT1, M2). Patient is not verbalizing or following commands or attempted to communicate. Cranial nerves: The pupils are round, equal about 2 mm and sluggishly reactive to light. Primary gaze is upward. Has right ptosis (chronic). Could not appreciate corneal reflex bilaterally. No facial weakness. Positive gag reflex. Is breathing over the vent. Could not assess rest of cranial nerves because of his condition. Motor: Gait is deferred. The strength is hard to assess but to painful stimuli had extensor posture. No movement in lower extremities to painful stimuli.. Normal bulk but decrease tone throughout. Cerebellum: Could not assess. Sensation: Could not assess. Plantars are mute bilaterally. WORK-UP: CT head is reported as there is a tiny hyper density within the archie best noted on sagittal image 44 to small to characterize. Although this could be a calcification could not do exclude a tiny petechial hemorrhage. Recommend follow-up MRI. I personally reviewed the CT of the head my suspicion of bleed is less likely. Routine EEG on 08/25/2021: Is abnormal study. The background slowing is suggestive of severe encephalopathy. There are no focal slowing, epileptiform discharges or seizure on the EEG. Limited 2-D echo is reported as technically difficult study with suboptimal views. Ejection fraction of 55-60%. TSH is 1.350. Hodges virus PCR is not detected. - Labs CBC & Chem 7: 08/26/21 02:40 08/26/21 02:40 Labs: Abnormal Lab Results - Last 24 Hours (Table) 08/25/21 08/25/21 08/25/21 Range/Units 04:36 13:29 13:45 WBC (3.8-10.6) k/uL RBC (4.30-5.90) m/uL Hgb (13.0-17.5) gm/dL Hct (39.0-53.0) % RDW (11.5-15.5) % Plt Count (150-450) k/uL ABG pH (7.35-7.45) ABG pCO2 (35-45) mmHg ABG pO2 (83-108) mmHg ABG HCO3 (21-25) mmol/L ABG Total CO2 (19-24) mmol/L Sodium (137-145) mmol/L Potassium (3.5-5.1) mmol/L Glucose (74-99) mg/dL POC Glucose (mg/dL) 177 H (75-99) mg/dL Plasma Lactic Acid Abelardo 4.7 H* (0.7-2.0) mmol/L Calcium (8.4-10.2) mg/dL Total Bilirubin (0.2-1.3) mg/dL Total Protein (6.3-8.2) g/dL Albumin (3.5-5.0) g/dL IgG 3043.0 H (700.0-1600.0) mg/dL IgA 556.0 H (60.0-350.0) mg/dL 08/25/21 08/25/21 08/25/21 Range/Units 15:46 16:30 17:10 WBC (3.8-10.6) k/uL RBC (4.30-5.90) m/uL Hgb (13.0-17.5) gm/dL Hct (39.0-53.0) % RDW (11.5-15.5) % Plt Count (150-450) k/uL ABG pH (7.35-7.45) ABG pCO2 (35-45) mmHg ABG pO2 (83-108) mmHg ABG HCO3 (21-25) mmol/L ABG Total CO2 (19-24) mmol/L Sodium (137-145) mmol/L Potassium 3.0 L (3.5-5.1) mmol/L Glucose (74-99) mg/dL POC Glucose (mg/dL) 169 H 158 H (75-99) mg/dL Plasma Lactic Acid Abelardo (0.7-2.0) mmol/L Calcium (8.4-10.2) mg/dL Total Bilirubin (0.2-1.3) mg/dL Total Protein (6.3-8.2) g/dL Albumin (3.5-5.0) g/dL IgG (700.0-1600.0) mg/dL IgA (60.0-350.0) mg/dL 08/25/21 08/25/21 08/25/21 Range/Units 17:26 18:41 20:02 WBC (3.8-10.6) k/uL RBC (4.30-5.90) m/uL Hgb (13.0-17.5) gm/dL Hct (39.0-53.0) % RDW (11.5-15.5) % Plt Count (150-450) k/uL ABG pH (7.35-7.45) ABG pCO2 (35-45) mmHg ABG pO2 (83-108) mmHg ABG HCO3 (21-25) mmol/L ABG Total CO2 (19-24) mmol/L Sodium (137-145) mmol/L Potassium (3.5-5.1) mmol/L Glucose (74-99) mg/dL POC Glucose (mg/dL) 155 H 145 H (75-99) mg/dL Plasma Lactic Acid Abelardo 4.2 H* (0.7-2.0) mmol/L Calcium (8.4-10.2) mg/dL Total Bilirubin (0.2-1.3) mg/dL Total Protein (6.3-8.2) g/dL Albumin (3.5-5.0) g/dL IgG (700.0-1600.0) mg/dL IgA (60.0-350.0) mg/dL 08/25/21 08/25/21 08/25/21 Range/Units 20:32 21:08 21:55 WBC (3.8-10.6) k/uL RBC (4.30-5.90) m/uL Hgb (13.0-17.5) gm/dL Hct (39.0-53.0) % RDW (11.5-15.5) % Plt Count (150-450) k/uL ABG pH (7.35-7.45) ABG pCO2 (35-45) mmHg ABG pO2 (83-108) mmHg ABG HCO3 (21-25) mmol/L ABG Total CO2 (19-24) mmol/L Sodium (137-145) mmol/L Potassium (3.5-5.1) mmol/L Glucose (74-99) mg/dL POC Glucose (mg/dL) 139 H 154 H (75-99) mg/dL Plasma Lactic Acid Abelardo 3.6 H* (0.7-2.0) mmol/L Calcium (8.4-10.2) mg/dL Total Bilirubin (0.2-1.3) mg/dL Total Protein (6.3-8.2) g/dL Albumin (3.5-5.0) g/dL IgG (700.0-1600.0) mg/dL IgA (60.0-350.0) mg/dL 08/25/21 08/25/21 08/26/21 Range/Units 22:57 23:59 00:59 WBC (3.8-10.6) k/uL RBC (4.30-5.90) m/uL Hgb (13.0-17.5) gm/dL Hct (39.0-53.0) % RDW (11.5-15.5) % Plt Count (150-450) k/uL ABG pH (7.35-7.45) ABG pCO2 (35-45) mmHg ABG pO2 (83-108) mmHg ABG HCO3 (21-25) mmol/L ABG Total CO2 (19-24) mmol/L Sodium (137-145) mmol/L Potassium (3.5-5.1) mmol/L Glucose (74-99) mg/dL POC Glucose (mg/dL) 129 H 163 H 195 H (75-99) mg/dL Plasma Lactic Acid Abelardo (0.7-2.0) mmol/L Calcium (8.4-10.2) mg/dL Total Bilirubin (0.2-1.3) mg/dL Total Protein (6.3-8.2) g/dL Albumin (3.5-5.0) g/dL IgG (700.0-1600.0) mg/dL IgA (60.0-350.0) mg/dL 08/26/21 08/26/21 08/26/21 Range/Units 01:58 02:40 02:40 WBC 0.5 L* (3.8-10.6) k/uL RBC 2.28 L (4.30-5.90) m/uL Hgb 7.4 L (13.0-17.5) gm/dL Hct 21.8 L (39.0-53.0) % RDW 15.6 H (11.5-15.5) % Plt Count 14 L* D (150-450) k/uL ABG pH (7.35-7.45) ABG pCO2 (35-45) mmHg ABG pO2 (83-108) mmHg ABG HCO3 (21-25) mmol/L ABG Total CO2 (19-24) mmol/L Sodium 131 L (137-145) mmol/L Potassium 2.7 L* (3.5-5.1) mmol/L Glucose 172 H (74-99) mg/dL POC Glucose (mg/dL) 187 H (75-99) mg/dL Plasma Lactic Acid Abelardo (0.7-2.0) mmol/L Calcium 6.7 L (8.4-10.2) mg/dL Total Bilirubin 2.4 H (0.2-1.3) mg/dL Total Protein 6.1 L (6.3-8.2) g/dL Albumin 1.9 L (3.5-5.0) g/dL IgG (700.0-1600.0) mg/dL IgA (60.0-350.0) mg/dL 08/26/21 08/26/21 08/26/21 Range/Units 03:06 03:45 04:13 WBC (3.8-10.6) k/uL RBC (4.30-5.90) m/uL Hgb (13.0-17.5) gm/dL Hct (39.0-53.0) % RDW (11.5-15.5) % Plt Count (150-450) k/uL ABG pH (7.35-7.45) ABG pCO2 (35-45) mmHg ABG pO2 (83-108) mmHg ABG HCO3 (21-25) mmol/L ABG Total CO2 (19-24) mmol/L Sodium (137-145) mmol/L Potassium (3.5-5.1) mmol/L Glucose (74-99) mg/dL POC Glucose (mg/dL) 181 H 177 H (75-99) mg/dL Plasma Lactic Acid Abelardo 3.5 H* (0.7-2.0) mmol/L Calcium (8.4-10.2) mg/dL Total Bilirubin (0.2-1.3) mg/dL Total Protein (6.3-8.2) g/dL Albumin (3.5-5.0) g/dL IgG (700.0-1600.0) mg/dL IgA (60.0-350.0) mg/dL 08/26/21 08/26/21 08/26/21 Range/Units 05:04 05:53 06:01 WBC (3.8-10.6) k/uL RBC (4.30-5.90) m/uL Hgb (13.0-17.5) gm/dL Hct (39.0-53.0) % RDW (11.5-15.5) % Plt Count (150-450) k/uL ABG pH 7.53 H (7.35-7.45) ABG pCO2 34 L (35-45) mmHg ABG pO2 67 L (83-108) mmHg ABG HCO3 28 H (21-25) mmol/L ABG Total CO2 29 H (19-24) mmol/L Sodium (137-145) mmol/L Potassium (3.5-5.1) mmol/L Glucose (74-99) mg/dL POC Glucose (mg/dL) 156 H 164 H (75-99) mg/dL Plasma Lactic Acid Abelardo (0.7-2.0) mmol/L Calcium (8.4-10.2) mg/dL Total Bilirubin (0.2-1.3) mg/dL Total Protein (6.3-8.2) g/dL Albumin (3.5-5.0) g/dL IgG (700.0-1600.0) mg/dL IgA (60.0-350.0) mg/dL 08/26/21 08/26/21 Range/Units 07:10 08:55 WBC (3.8-10.6) k/uL RBC (4.30-5.90) m/uL Hgb (13.0-17.5) gm/dL Hct (39.0-53.0) % RDW (11.5-15.5) % Plt Count (150-450) k/uL ABG pH (7.35-7.45) ABG pCO2 (35-45) mmHg ABG pO2 (83-108) mmHg ABG HCO3 (21-25) mmol/L ABG Total CO2 (19-24) mmol/L Sodium (137-145) mmol/L Potassium (3.5-5.1) mmol/L Glucose (74-99) mg/dL POC Glucose (mg/dL) 160 H 117 H (75-99) mg/dL Plasma Lactic Acid Abelardo (0.7-2.0) mmol/L Calcium (8.4-10.2) mg/dL Total Bilirubin (0.2-1.3) mg/dL Total Protein (6.3-8.2) g/dL Albumin (3.5-5.0) g/dL IgG (700.0-1600.0) mg/dL IgA (60.0-350.0) mg/dL Microbiology - Last 24 Hours (Table) 08/24/21 20:33 Gram Stain - Preliminary Aspirate Body Fluid Culture - Preliminary 08/24/21 11:35 Blood Culture Gram Stain - Preliminary Blood Assessment and Plan Assessment: New onset seizure (Per ED team had GTC). Likely provoke due to underlying infection--no further seizure-like activity. Altered mental status due septic encephalopathy Reported "Hyperintesity small in Archie on CT and could not do exclude a tiny petechial hemorrhage" . I feel unlikely bleed Septic shock with multisystem organ failure and blood culture positive for Klebsiella pnemonia and is on 2 pressors. 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 Ordered MRI of the brain with and without a stat (but cannot get it since intubated and is on ventilator). Repeat CT brain is ordered to assess if truly any bleeding in archie or any worsening (is on 2 pressors). They will attempt to take him down if he is stable for exam. Continue every hour neuro checks On seizure precaution and pads. Infection disease specialist is on board Patient oncologist team is on board. We'll defer the rest of the medical management to the patient's the primary team as well as ICU team. Condition is very guarded. Plan was discussed with the patient's was at bedside and patient's ICU nurse. Williams Drake MD Neuro-Hospitalist Time with Patient: Less than 30
[2021-08-26] MEDS: levETIRAcetam IV 500 MG in SODIUM CHLORIDE 0.9% 100 ML IVPB SCH ×2 (17:04→21:30)
[2021-08-26] MEDS: FILGRASTIM-SNDZ 480 MCG/0.8 ML SYRINGE SQ SCH (18:08)
[2021-08-26 18:11] LABS: Glucose,Whole Blood 116 mg/dL (75-99)
[2021-08-26 19:57] LABS: Glucose,Whole Blood 119 mg/dL (75-99)
--- NOTE | 2021-08-26 21:54 | PN ---
PROGRESS NOTE DATE OF SERVICE: 08/26/2021 REASON FOR FOLLOWUP: Sepsis secondary to acute cholecystitis from Klebsiella. INTERVAL HISTORY: Patient is afebrile. The patient is slightly hemodynamically stable, requiring less pressor support. FiO2 is currently at 40%. No significant purulent secretions through the ET or diarrhea or any other changes reported by the nursing staff. PHYSICAL EXAMINATION: Blood pressure 95/44, pulse of 105, temperature 98. He is 98% on 40% FiO2. General description is a middle-aged male lying in bed in no distress. Respiratory system: Unlabored breathing, decreased intensity of breath sounds. No wheeze. Heart S1, S2. Regular rate and rhythm. Abdomen soft, no tenderness. LABS: Hemoglobin 7.4, white count 0.5, BUN of 18, creatinine 1.8. DIAGNOSTIC IMPRESSION AND PLAN: Patient with sepsis, septic shock secondary to acute cholecystitis in this patient with blood culture positive for Klebsiella. The gallbladder fluid culture showing a Gram- negative bacilli as well. Patient is covered with Zosyn. Prognosis remains to be guarded. Continue supportive care. MMODL / IJN: [id number] /
--- NOTE | 2021-08-26 22:03 | CT ---
EXAMINATION TYPE: CT brain wo con DATE OF EXAM: 08/26/2021 COMPARISON: 08/24/2021 HISTORY: Altered mental status. CT DLP: 1319.4 mGycm Automated exposure control for dose reduction was used. Ventricles have normal size. There is no mass effect nor midline shift. There is no sign of intracran ial hemorrhage. The calvarium is intact. Skull base is intact. IMPRESSION: Negative unenhanced head CT scan. No change.
[2021-08-26 22:34] LABS: Glucose,Whole Blood 122 mg/dL (75-99)
[2021-08-27] MEDS: SODIUM CHLORIDE 0.9% 50 ML with VASOPRESSIN 20 UNIT IVPB SCH ×2 (00:30)
[2021-08-27] MEDS: ACYCLOVIR SODIUM 950 MG in SODIUM CHLORIDE 0.9% 250 ML IV SCH ×3 (00:30→16:23)
[2021-08-27] MEDS: POTASSIUM CHLORIDE 20 MEQ in WATER FOR INJECTION 1 100ML.BAG IVPB SCH (00:31)
[2021-08-27 00:35] LABS: Glucose,Whole Blood 130 mg/dL (75-99)
[2021-08-27 02:43] LABS: Glucose,Whole Blood 132 mg/dL (75-99)
[2021-08-27] MEDS: NOREPINEPHRINE 32 MG in SODIUM CHLORIDE 0.9% 218 ML IV SCH ×2 (03:10→18:42)
[2021-08-27] MEDS: PIPERACILLIN-TAZOBACTAM 3.375 GM in SODIUM CHLORIDE 0.9% 100 ML IVPB SCH ×3 (05:00→20:44)
[2021-08-27 05:55] LABS: Glucose,Whole Blood 155 mg/dL (75-99)
[2021-08-27] MEDS: SODIUM CHLORIDE 0.9% 1,000 ML IV SCH ×3 (05:58→18:40)
[2021-08-27 06:00] LABS: ABG HCO3 26 mmol/L (21-25); ABG Oxygen Saturation 99.6 % (94-97); ABG PCO2 31 mmHg (35-45); ABG PH 7.53 (7.35-7.45); ABG PO2 141 mmHg (83-108); ABG TCO2 27 mmol/L (19-24); Allen Test Performed? Yes
[2021-08-27 06:21] LABS: HCT 21.9 % (39.0-53.0); HGB 7.3 gm/dL (13.0-17.5); MCH 32.1 pg (25.0-35.0); MCHC 33.6 g/dL (31.0-37.0); MCV 95.6 fL (80.0-100.0); Mean Platelet Volume 10.1; RBC 2.29 m/uL (4.30-5.90); RDW 15.6 % (11.5-15.5)
[2021-08-27 06:29] LABS: WBC 0.4 k/uL (3.8-10.6)
[2021-08-27 06:30] LABS: Platelet Count 11 k/uL (150-450)
[2021-08-27 06:52] LABS: ALT 25 U/L (4-49); AST 45 U/L (17-59); African American GFR (CKD) >90 (>60 ml/min/1.73 sqM); Albumin 1.8 g/dL (3.5-5.0); Alkaline Phosphatase 112 U/L (38-126); Anion Gap 8 mmol/L; Blood Urea Nitrogen 19 mg/dL (9-20); Carbon Dioxide 22 mmol/L (22-30); Chloride 102 mmol/L (98-107); Glucose 142 mg/dL (74-99); Non-African American GFR(CKD) >90 (>60 ml/min/1.73 sqM); Potassium 3.8 mmol/L (3.5-5.1); Sodium 132 mmol/L (137-145); Total Bilirubin 2.8 mg/dL (0.2-1.3); Total Protein 5.9 g/dL (6.3-8.2)
--- NOTE | 2021-08-27 06:54 | P.PN ---
Subjective Progress Note Date: 08/27/21 60-year-old male patient with known history of Hodgkin's lymphoma with received chemotherapy on 08/15/2021. The patient has been diagnosed having Hodgkin's lymphoma approximately a month ago and he was started on systemic chemotherapy and he received his first cycle. The patient was at home and the patient was found to have a temperature of 11.2 early in the morning. He was also having generalized weakness for several months and recently got worse. The was concerned and for that reason he was brought into the hospital for an ongoing fever and generalized weakness. The patient was found to be quite lethargic in the emergency department. The course in the ED included that showed a temperature of 102F with a heart rate of 137. His blood pressure was soft with a systolic blood pressure of 99 and pulse ox was 95% on room air oxygen. His blood work showed evidence of leukopenia with a white cell, 0.1 and as such the patient was diagnosed having a neutropenic fever. Pancytopenic with a hemoglobin of 7.5 and a platelet count of 23. The electrolytes and renal functions were essentially within normal limits. AST and ALP were normal. Alkaline phosphatas e was slightly elevated at 358. The patient had undergone further testing including a lactic acid level that came back at 4.3, influenza A and B were negative, RSV was negative,: COVID 19 by PCR was also negative. Chest x-ray showed no focal airspace disease. Cardiac silhouette was within normal limits. The patient had a Mediport catheter in place. The computed tomography scan of the abdomen and pelvis also also done as part of further workup of an elevated alkaline phosphatase. The patient was found to have stable splenomegaly, abnormal abdominal and pelvic lymphadenopathy and the CAT scan was also consistent with an acute cholecystitis. The CAT scan also showed tiny bilateral pleural effusions associated with some bibasilar pulmonary atelectatic change. Gallbladder was dilated and Distended margins and there was intraluminal gallstones. There was also surrounding fluid and fat stranding and the CAT scan was consistent with acute cholecystitis. Based on this, surgical consultation was requested. The patient was seen by Dr. Mauricio, and based on the patient's condition, which involve pancytopenia and sepsis, percutaneous drainage with a cholecystostomy tube was recommended. The time of my evaluation, the patient was noted and evaluated in the emergency department. The patient was completely unresponsive. The patient could have been also post ictal knowing that he had about the generalized tonic-clonic seizure activity. The patient was intubated on a mechanical ventilator. Apparently as the patient was being transported for further imaging, the patient had tonic-clonic seizure activity as the patient was being taken to her the CAT scan of the head by the emergency department team. For that reason the patient was given 4 mg of Ativan and he was loaded with 1 g of Keppra. Neurology was consulted. Note that the patient had completed a CAT scan of the brain and a CAT scan showed tiny hyperdensity within the archie and this was too small to characterize. Possibility of a tiny petechial hemorrhage cannot be completely excluded an MRI of the brain was recom mended. In any rate, the patient is currently intubated on mechanical ventilator. He is hemodynamically stable. He is in septic shock. He is in severe lactic acidosis. His assist-control mode at the rate of 24, tidal volume of 500, FiO2 of 100% with PEEP of 5. He was on a combination of facet and the patient was taken a combination of norepinephrine infusion is 0 0.35 mg/kg/m, epinephrine at 0.1 mcg/kg per minute and vasopressin infusion at physiologic dose. The abdomen was relatively soft and nondistended. Pulses in the large family were quite diminished. His most recent systolic blood pressures the mid 80s. is at the bedside. Patient is clinically unresponsive. On today's evaluation of 08/25/2021, the patient is being seen in follow-up in the intensive care unit. The patient was seen in emergency department and he was critically ill, neutropenic fever with septic shock post systemic chemotherapy for Hodgkin's lymphoma and the patient has completed systemic chemotherapy. By pancytopenia. The patient had an acute cholecystitis. I was able to interventional radiology percutaneous the drain the gallbladder. Since the drainage tube present, the output has been the order of 100 mL and it is mainly bilious drainage. Nevertheless, the patient's blood culture came back positive for Klebsiella and the patient remains in septic shock with multisystem organ failure. At this point in time, the patient is still intubated on a mechanical ventilator and he remains completely unresponsive. We have not used any sedation overnight. Note that, overnight the patient received a total of 8 L of IV fluid in his urine output is in order of 30-40 mL an hour. He has also developed an acute kidney injury on top. He is on a combination of pressors and this morning, he is on norepinephrine running at the rate of 0.75 mcg/kg per minute and he is also on epinephrine running at 0.28 mcg/kg per minute and the patient is also on vasopressin physiologic dose. His most recent blood pressures 114/40 and the patient has an arterial line in his right radial artery. We also managed to insert 2 lines, the left IJ is ending up in the subclavian vein and he also has a right femoral triple catheter in place. He is on a mechanical ventilator. This morning, he is an assist-control mode at the rate of 26 with a tidal volume of 500 and FiO2 of 40% with a PEEP of 5. His c urrent respiratory rate is in the low 30s. His blood gases from today showed a pH of 7.35 with a pCO2 of 30 and pO2 of 147. His chest x-ray from today is showing adequate positioning of the orotracheal tube. Orotracheal tube is in a good location. The patient also has a G-tube in place. At the same time, the patient has adequate expansion of both lungs. No evidence of any pneumothorax. The patient has bilateral pulmonary infiltrates more so on the right along with some small effusions. Note that the left IJ triple-lumen catheter is ending up in his left brachial subclavian vein. His white cell count is pending. Note that the patient was profoundly neutropenic and the patient was a, 0.1 and the patient received a dose of zarxio yesterday. The hemoglobin remains stable at 7.3 and the patient received platelet transfusion yesterday and the platelet count is up to 48. D-dimer is at 7.8 related to septic shock and multisystem organ failure. He has developed an acute kidney injury with a creatinine of 1.58. He has an anion gap metabolic acidosis Related to his lactic acidosis. Lactic acid level is at 11.5 on today's evaluation. Blood cultures positive for klebsiella pneumonia. Meanwhile, the patient is on bicarb infusion running at the rate of 150 mL an hour, there is also on IV Zosyn. He was also given Keppra regarding tonic-clonic seizure that occurred yesterday and the patient has not had any further episodes of seizures since. Neurologically however, he remains unresponsive. 04/25/2021, the patient is being seen for a follow-up. He is a critically ill 60-year-old male patient with Hodgkin's lymphoma with septic shock and multisystem organ failure. He did log turner to have Klebsiella in his blood. In any rate, the patient remains on a mechanical ventilator. Yesterday, he became slightly more asynchronous with a mechanical ventilator and he was started on propofol which is currently running at 20 mcg/kg per minute. This was introduced to help him with a synchrony with the respirator. Things have improved since. Note that the patient does not show any signs of neurological recovery. His EEG showed diffuse encephalopathy without ongoing seizure activity. There is a punctate hemorrhagic area in his archie and for that reason a repeat CAT scan will need be will be needed at a later stage. Yesterday, the patient was very unstable to be taken down to CAT scan. On today's evaluation, he remains on a mechanical ventilator. His assist-control at the rate of 26 with a tidal volume of 580 with an FiO2 of 40% and PEEP of 5. His chest x-ray from today was noted and there is no major interval change. Tube is in a good location. The blood gas showed a pH of 7.53 with a pCO2 of 34 and pO2 of 67 and this was done and FiO2 of 40%. No significant orotracheal secretions. Hemodynamically, the patient continues to be on higher doses of pressors. The patient is on vasopressin physiologic dose, norepinephrine is running at a dose of 0.9 mg/kg per minute. His epinephrine infusion is running at 0.08 mcg/kg per minute. Also, the patient is on IV fluids and he is receiving 0.9 saline at the rate of 130s uses an hour. His overall fluid balance over the past 24 hours has been +7.1 L. Urine output is in order of 30-40 mL an hour. His creatinine is improved compared to yesterday and the patient's creatinine is down to 1.1. Potassium level is at 2.7 and this is to be replaced. His blood culture was positive for gram-negative bacillus. Subsequently this log turner to be positive for Klebsiella pneumonia. He has 2 sets of blood cultures are positive. He remains on IV Zosyn. Hematologically, his white cell count is still low at 0.5 and hemoglobin is at 7.4. Platelet count dropped down to 14. The patient remains on insulin drip for blood sugar control and currently is on 11 units an hour. The cholecystostomy tube is still in place and output is minimal at this point in time. The output is non-purulence. Abdomen is nondistended. Positive the lower extremities are diminished yet barely palpable. He is afebrile for to day, still tachycardic and the patient remains in sinus tachycardia. A limited echo cardiogram showed a preserved LV function with an ejection fraction of 50- 55%. Remains on Keppra. No seizure activity has been noted. 08/27/2021, the patient is being seen for a follow-up. He is a case of septic shock with pancytopenia. Systemic chemotherapy given for Hodgkin's lymphoma. This was related to an acute cholecystitis with gram-negative bacteremia as gram-negative bacillus is growing in the biliary fluids and Klebsiella pneumoniae is and the blood. The patient remains on broad-spectrum antibiotics and the patient is currently on IV Zosyn. Hemodynamically, the patient is being still supported with pressors. Norepinephrine infusion is still running at 0.7 mcg/kg per minute. Epinephrine has been discontinued. He remains on vasopressin physiologic dose. Fluid balance is no order of +1.3 L over the past 24 hours. Bicarb drip has been discontinued. Urine output is in order of 40-50 mL an hour. He remains on a mechanical ventilator. He remains gently sedated with propofol which is running at 20 mcg/kg per minute. I reviewed the CAT scan of the brain yesterday and the CAT scan showed no acute abnormalities. Neurologist on the case. No seizure activity has been noted and the patient remains on Keppra. Meanwhile, the patient remains on a mechanical ventilator. On today's evaluation, he remains on assist control rate of 26 with a tidal volume of 580 and FiO2 of 40% with a PEEP of 5. Peak airway pressures 21. Blood gas showed a pH of 7.53 with a pCO2 of 30 and pO2 of 141. Chest x-ray shows some atelectatic changes in lung bases. ET tube is in a good location. No acute pulmonary infiltrates. Hematologic profile was reviewed. The patient's white cell count is at 0.4 with a platelet count of 11. Note that he did receive a unit of platelets yesterday and the plated count is still low at 11. Hemoglobin is stable. The patient has no evidence of any bleeding. Awaiting on the [facility]. Output from the cholecystostomy tube is in the order of 1 80 mL over the past 24 hours. Meanwhile, the patient was started on enteral feeding for nutritional support and currently is receiving vitamin AF at the rate of 20 20 mL an hour. He is afebrile. No other significant events otherwise for now. General surgeries on the case. Neurologist on the case. Hematology oncology is also on the case. Objective - Vital Signs Vital signs: Vital Signs Temp 98.7 F 08/27/21 04:00 Pulse 110 H 08/27/21 06:30 Resp 31 H 08/27/21 06:30 BP 154/93 08/27/21 06:30 Pulse Ox 97 08/27/21 06:30 Intake & Output 08/26/21 08/26/21 08/27/21 06:59 18:59 06:59 Intake Total 4665.039 2451.679 915 Output Total 1285 1205 765 Balance 3380.039 1246.679 150 Weight 118.9 kg 118.9 kg Intake: IV 1930 1580 665 Dextrose 5% in Water 1, 1650 150 000 ml @ 150 mls/hr IV . Q7H40M TERELL with Sodium Bicarb (1 Meq/ml) 150 ml Rx#:[id number] Piperacillin-Tazobactam 3 275 .375 gm In Sodium Chloride 0.9% 100 ml @ 25 mls/hr IVPB Q8H TERELL Rx#: [id number] Sodium Chloride 0.9% 1, 280 1430 390 000 ml @ 130 mls/hr IV . Q7H42M STA Rx#:[id number] Intake, IV Titration 2675.039 581.679 250 Amount EPINEPHrine 4 mg In 839.401 65.033 Dextrose 5% in Water 250 ml @ 0.01 MCG/KG/MIN 3. 487 mls/hr IV .Q24H TERELL Rx#:[id number] Insulin Regular 100 unit 134.542 30.939 In Sodium Chloride 0.9% 100 ml @ Per Protocol IV .Q0M TERELL Rx#:[id number] Norepinephrine 32 mg In 250.78 250 250 Sodium Chloride 0.9% 218 ml @ 0.05 MCG/KG/MIN 2. 599 mls/hr IV .Q24H TERELL Rx#:[id number] Piperacillin-Tazobactam 3 100 .375 gm In Sodium Chloride 0.9% 100 ml @ 25 mls/hr IVPB Q8H TERELL Rx#: [id number] Sodium Chloride 0.9% 1, 1170 130 000 ml @ 130 mls/hr IV . Q7H42M [facility] Rx#:[id number] levETIRAcetam IV 500 mg 100 In Sodium Chloride 0.9% 100 ml @ 400 mls/hr IVPB Q12HR TERELL Rx#:[id number] propofoL 1,000 mg In 80.316 105.707 Empty Bag 1 bag @ Titrate IV .Q0M TERELL Rx#: [id number] Blood Product 290 Platelet Pheresis Pas 290 Psoralen Unit [id number] Other 60 Output: Drainage 120 Right Abdomen 120 Urine 1105 1085 765 Other 180 Other: Voiding Method Indwelling Catheter Indwelling Catheter Indwelling Catheter ABP, PAP, CO, CI - Last Documented Arterial Blood Pressure 108/52 - Exam Unresponsive, intubated, on mechanical ventilator, tachypneic, orogastric and orotracheal tube are both in place. Patient looks quite pale, looks cachectic and emaciated. No seizure activity. No tonic-clonic seizure activity. The patient is completely unresponsive. Patient is currently on propofol running at 20 mg/kg/m. Head exam was generally normal. There was no scleral icterus or corneal arcus. Mucous membranes were moist. Neck was supple and without jugular venous distension, thyromegaly, or carotid bruits. Carotids were easily palpable bilaterally. There was no adenopathy. Lungs were clear to auscultation and percussion, and with normal diaphragmatic excursion. No wheezes or rales were noted. Cardiac exam revealed the PMI to be normally situated and sized. The rhythm was regular and no extrasystoles were noted during several minutes of auscultation. The first and second heart sounds were normal and physiologic splitting of the second heart sound was noted. There were no murmurs, rubs, clicks, or gallops. Abdominal exam revealed normal bowel sounds. The abdomen was soft, non-tender, and without masses, organomegaly, or appreciable enlargement of the abdominal aorta. No ascites. No direct tenderness. No rebound tenderness. No guarding. Bowel sounds are hypoactive nearly absent. She has a the patient has a percutaneous drain in his right upper quadrant for drainage of the gallbladder. Extremities are cold and clammy and cyanotic and marked diminished pulses in all 4 extremities. Neurologic the patient is unresponsive. No facial asymmetry. No response to any painful stimulation. The patient on sedation. The patient has received Ativan post seizure activity. No jerky body movements. Pupils around 3 mm in size and sluggishly reactive to light. Examination of the skin revealed no evidence of significant rashes, suspicious appearing nevi or other concerning lesions. - Labs CBC & Chem 7: 08/27/21 05:55 08/26/21 19:58 Labs: Abnormal Lab Results - Last 24 Hours (Table) 08/26/21 08/26/21 08/26/21 Range/Units 07:10 08:55 18:10 WBC (3.8-10.6) k/uL RBC (4.30-5.90) m/uL Hgb (13.0-17.5) gm/dL Hct (39.0-53.0) % RDW (11.5-15.5) % Plt Count (150-450) k/uL ABG pH (7.35-7.45) ABG pCO2 (35-45) mmHg ABG pO2 (83-108) mmHg ABG HCO3 (21-25) mmol/L ABG Total CO2 (19-24) mmol/L ABG O2 Saturation (94-97) % POC Glucose (mg/dL) 160 H 117 H 116 H (75-99) mg/dL 08/26/21 08/26/21 08/27/21 Range/Units 19:56 22:32 00:34 WBC (3.8-10.6) k/uL RBC (4.30-5.90) m/uL Hgb (13.0-17.5) gm/dL Hct (39.0-53.0) % RDW (11.5-15.5) % Plt Count (150-450) k/uL ABG pH (7.35-7.45) ABG pCO2 (35-45) mmHg ABG pO2 (83-108) mmHg ABG HCO3 (21-25) mmol/L ABG Total CO2 (19-24) mmol/L ABG O2 Saturation (94-97) % POC Glucose (mg/dL) 119 H 122 H 130 H (75-99) mg/dL 08/27/21 08/27/21 08/27/21 Range/Units 02:40 05:54 05:55 WBC 0.4 L* (3.8-10.6) k/uL RBC 2.29 L (4.30-5.90) m/uL Hgb 7.3 L (13.0-17.5) gm/dL Hct 21.9 L (39.0-53.0) % RDW 15.6 H (11.5-15.5) % Plt Count 11 L* (150-450) k/uL ABG pH (7.35-7.45) ABG pCO2 (35-45) mmHg ABG pO2 (83-108) mmHg ABG HCO3 (21-25) mmol/L ABG Total CO2 (19-24) mmol/L ABG O2 Saturation (94-97) % POC Glucose (mg/dL) 132 H 155 H (75-99) mg/dL 08/27/21 Range/Units 05:55 WBC (3.8-10.6) k/uL RBC (4.30-5.90) m/uL Hgb (13.0-17.5) gm/dL Hct (39.0-53.0) % RDW (11.5-15.5) % Plt Count (150-450) k/uL ABG pH 7.53 H (7.35-7.45) ABG pCO2 31 L (35-45) mmHg ABG pO2 141 H (83-108) mmHg ABG HCO3 26 H (21-25) mmol/L ABG Total CO2 27 H (19-24) mmol/L ABG O2 Saturation 99.6 H (94-97) % POC Glucose (mg/dL) (75-99) mg/dL Microbiology - Last 24 Hours (Table) 08/24/21 11:35 Blood Culture Gram Stain - Final Blood Blood Culture - Final Klebsiella pneumoniae 08/24/21 11:20 Blood Culture Gram Stain - Final Blood Blood Culture - Final Klebsiella pneumoniae 08/24/21 20:33 Gram Stain - Preliminary Aspirate Body Fluid Culture - Preliminary Gram Neg Bacilli Assessment and Plan Plan: 1 septic shock with evidence of multisystem organ failure. Sources most likely being an acute cholecystitis. The patient gram-negative sepsis with Klebsiella pneumoniae with possible culture and the patient remains on IV Zosyn. Sources is acute cholecystitis and the patient had a percutaneous drainage of the gallbladder. Hemodynamically, remains hypotensive and shocky with multisystem organ failure. The patient is still on IV Zosyn. Blood cultures were all positive. The drainage tube is still functional and output is noted of 1 80 mL over the past 24 hours. He is off epinephrine infusion. His been on norepinephrine at a dose of 0.7 mcg/kg per minute and addition to vasopressin physiologic dose. In terms of blood pressure support, the acidosis have been weaned since yesterday. He continues to be pancytopenic and leukopenic related to his chemotherapy induced pancytopenia. 2 profound hypotension secondary to septic shock, currently on combination of pressors including epinephrine, norepinephrine and vasopressin, overnight, the patient received significant amounts of fluids and continues to be on pressors. The patient is IV fluids are currently at KVO. The patient was taken off the epinephrine infusion and currently is on norepinephrine at 0.7 with low-grade per minute and vasopressin physiologic dose. 3 pancytopenia. The patient is neutropenic with a white cell count of 0.4. This probably propagated and contributed to his septic shock and multisystem organ failure. Also, the patient has pancytopenia. The patient is still on filgrastim and the patient is intubated yesterday 4 acute kidney injury , improving, awaiting electrodes from this morning 5 history of Hodgkin's lymphoma was supposed systemic chemotherapy 6 severe lactic acidosis, lactic acid level improvement in the most recent lactic acid level is down to 3.4 7 severe metabolic acidosis, essentially secondary to lactic acidosis, improved and the acidosis recovered 8 acute hypoxic respiratory failure with development of limited bibasilar pulmonary infiltrates, blood gases was noted and the patient has a component of respiratory alkalosis. Necessity ventilator changes will be done 9 history of hyperthyroidism treated with radioactive iodine 10 seizures of a new onset, tonic-clonic with questionable hemorrhagic focus in the brain, neurologist on the case, with questionable hemorrhagic spot at the level of the archie and the patient has kept off sedation for the past 12 hours. Neurologist on the case. repeat CAT scan of the brain showed no acute bleeding and the neurologist on the case 11 diabetes mellitus, started on insulin drip for tighter blood sugar control and insulin drip being utilized for blood sugar control. This morning, the insulin drip is off and the patient will be switched baseline insulin coverage. The patient was started on enteral feeding with vitamin AF for nutritional support 12 poor baseline performance and functional status secondary to above-mentioned comorbidities 13 acute Plan Continue ventilator support and drop the tidal volume down to 500 IV fluids at 75 mL of normal saline and the patient has been adequately resuscitated Wean off pressors if possible the patient is currently on norepinephrine infusion Given another platelet transfusion Continued IV Zosyn Follow-up CAT scan of the brain is negative and the patient will be given a sedation holiday and the patient will be taken off the propofol and the purpose of the sedation holiday just to assess his mental status and assess his responsiveness Continue vasopressin and norepinephrine. Check baseline serum cortisol level are high monitor cell count and continue the filgrastim for now Vital AF via OG Stop the insulin drip and utilize sliding scale coverage for blood sugar control IV Protonix Continue Keppra for now High risk patient with an increased mortality baseline above-mentioned comorbidities. Family is aware. I had an extensive discussion with the yesterday. We'll continue to support the patient will make further recommendations based on his progress. Critically care evaluation was done and morning 30 minutes. Time with Patient: Greater than 30
[2021-08-27 07:05] LABS: Calcium 6.3 mg/dL (8.4-10.2)
[2021-08-27 07:17] LABS: Anisocytosis (M) Present; Poikilocytosis (M) Present
[2021-08-27] MEDS ORDERED: CALCIUM GLUCONATE 1 GM in SODIUM CHLORIDE 0.9% 100 ML IVPB ONE (08:00)
--- NOTE | 2021-08-27 08:51 | XR ---
EXAMINATION TYPE: XR chest 1V portable DATE OF EXAM: 08/27/2021 COMPARISON: 08/26/2021 INDICATION: Dyspnea TECHNIQUE: Single frontal view of the chest is obtained. FINDINGS: The heart size is normal. The pulmonary vasculature is normal. Patchy infiltrates at the right base. This has slight improvement. Some milder infiltrate is present diffusely. The endotracheal tube tip is above the [place]. Nasogastric tube transverses the thorax. Right-sided p ort tip is in distal superior vena cava. IMPRESSION: 1. Improving patchy infiltrates greatest at the right lung base improved from comparison
[2021-08-27] MEDS: levETIRAcetam IV 500 MG in SODIUM CHLORIDE 0.9% 100 ML IVPB SCH ×2 (09:47→21:55)
[2021-08-27] MEDS: CHLORHEXIDINE GLUCONATE 15 ML CUP MUCOUS MEM SCH ×2 (09:48→20:42)
[2021-08-27] MEDS: PANTOPRAZOLE 40 MG/10 ML VIAL IVP SCH (09:48)
--- NOTE | 2021-08-27 09:49 | P.PN ---
Subjective Progress Note Date: 08/27/21 Patient was seen at bedside and per patient's nurse no further seizure activity. He continues to be intubated on vent, IV propofol 10mcg/kg/min and two pressors (but pressors are slightly being weaned down). Objective - Vital Signs Vital signs: Vital Signs Temp 98.7 F 08/27/21 04:00 Pulse 109 H 08/27/21 08:30 Resp 37 H 08/27/21 08:30 BP 154/93 08/27/21 06:30 Pulse Ox 97 08/27/21 08:30 Intake & Output 08/26/21 08/27/21 08/27/21 18:59 06:59 18:59 Intake Total 2451.679 1019.425 125 Output Total 1205 815 50 Balance 1246.679 204.425 75 Weight 118.9 kg Intake: IV 1580 690 75 Dextrose 5% in Water 1, 150 000 ml @ 150 mls/hr IV . Q7H40M TERELL with Sodium Bicarb (1 Meq/ml) 150 ml Rx#:[id number] Piperacillin-Tazobactam 3 300 .375 gm In Sodium Chloride 0.9% 100 ml @ 25 mls/hr IVPB Q8H TERELL Rx#: [id number] Sodium Chloride 0.9% 1, 1430 390 75 000 ml @ 130 mls/hr IV . Q7H42M STA Rx#:[id number] Intake, IV Titration 581.679 329.425 Amount EPINEPHrine 4 mg In 65.033 Dextrose 5% in Water 250 ml @ 0.01 MCG/KG/MIN 3. 487 mls/hr IV .Q24H TERELL Rx#:[id number] Insulin Regular 100 unit 30.939 In Sodium Chloride 0.9% 100 ml @ Per Protocol IV .Q0M TERELL Rx#:[id number] Norepinephrine 32 mg In 250 250 Sodium Chloride 0.9% 218 ml @ 0.05 MCG/KG/MIN 2. 599 mls/hr IV .Q24H TERELL Rx#:[id number] Sodium Chloride 0.9% 1, 130 000 ml @ 130 mls/hr IV . Q7H42M TERELL Rx#:[id number] propofoL 1,000 mg In 105.707 79.425 Empty Bag 1 bag @ Titrate IV .Q0M TERELL Rx#: [id number] Tube Feeding 20 Blood Product 290 Platelet Pheresis Pas 290 Psoralen Unit [id number] Other 30 Output: Drainage 120 Right Abdomen 120 Urine 1085 815 50 Other: Voiding Method Indwelling Catheter Indwelling Catheter Indwelling Catheter ABP, PAP, CO, CI - Last Documented Arterial Blood Pressure 117/57 - Exam GENERAL: The patient is lying and does not seem in acute distress. LUNG: Intubated and on ventilator. NEUROLOGICAL: On IV Propofol 20mcg/kg/min. Higher mental function: The patient is comatose. GCS: 4 (E1, VT1, M2). Patient is not verbalizing or following commands or attempted to communicate. Cranial nerves: The pupils are round, equal about 2 mm and sluggishly reactive to light. Primary gaze is upward and to right while left is upward. Has right ptosis (chronic). Could not appreciate corneal reflex bilaterally. No facial weakness. Positive gag reflex. Is breathing over the vent. Could not assess rest of cranial nerves because of his condition. Motor: Gait is deferred. The strength is hard to assess but to painful stimuli had extensor posture. No movement in lower extremities to painful stimuli.. Normal bulk but decrease tone throughout. Cerebellum: Could not assess. Sensation: Could not assess. Plantars are mute bilaterally. WORK-UP: CT head is reported as there is a tiny hyper density within the wilfredo best noted on sagittal image 44 to small to characterize. Although this could be a calcification could not do exclude a tiny petechial hemorrhage. Recommend follow-up MRI. I personally reviewed the CT of the head my suspicion of bleed is less likely. Repeat CT head on 08/26/2021: Negative unenhanced head CT scan. No change. I personally reviewed the CT of the head and the I don't feel there is any change compared the to the earlier one he had the during this admission. The tiny minimal spots on the left wilfredo it's unchanged and my suspicion of a bleeding is low Routine EEG on 08/25/2021: Is abnormal study. The background slowing is suggestive of severe encephalopathy. There are no focal slowing, epileptiform discharges or seizure on the EEG. Limited 2-D echo is reported as technically difficult study with suboptimal views. Ejection fraction of 55-60%. TSH is 1.350. Hodges virus PCR is not detected. - Labs CBC & Chem 7: 08/27/21 05:55 08/27/21 05:55 Labs: Abnormal Lab Results - Last 24 Hours (Table) 08/26/21 08/26/21 08/26/21 Range/Units 18:10 19:56 22:32 WBC (3.8-10.6) k/uL RBC (4.30-5.90) m/uL Hgb (13.0-17.5) gm/dL Hct (39.0-53.0) % RDW (11.5-15.5) % Plt Count (150-450) k/uL ABG pH (7.35-7.45) ABG pCO2 (35-45) mmHg ABG pO2 (83-108) mmHg ABG HCO3 (21-25) mmol/L ABG Total CO2 (19-24) mmol/L ABG O2 Saturation (94-97) % Sodium (137-145) mmol/L Glucose (74-99) mg/dL POC Glucose (mg/dL) 116 H 119 H 122 H (75-99) mg/dL Calcium (8.4-10.2) mg/dL Total Bilirubin (0.2-1.3) mg/dL Total Protein (6.3-8.2) g/dL Albumin (3.5-5.0) g/dL 08/27/21 08/27/21 08/27/21 Range/Units 00:34 02:40 05:54 WBC (3.8-10.6) k/uL RBC (4.30-5.90) m/uL Hgb (13.0-17.5) gm/dL Hct (39.0-53.0) % RDW (11.5-15.5) % Plt Count (150-450) k/uL ABG pH (7.35-7.45) ABG pCO2 (35-45) mmHg ABG pO2 (83-108) mmHg ABG HCO3 (21-25) mmol/L ABG Total CO2 (19-24) mmol/L ABG O2 Saturation (94-97) % Sodium (137-145) mmol/L Glucose (74-99) mg/dL POC Glucose (mg/dL) 130 H 132 H 155 H (75-99) mg/dL Calcium (8.4-10.2) mg/dL Total Bilirubin (0.2-1.3) mg/dL Total Protein (6.3-8.2) g/dL Albumin (3.5-5.0) g/dL 08/27/21 08/27/21 08/27/21 Range/Units 05:55 05:55 05:55 WBC 0.4 L* (3.8-10.6) k/uL RBC 2.29 L (4.30-5.90) m/uL Hgb 7.3 L (13.0-17.5) gm/dL Hct 21.9 L (39.0-53.0) % RDW 15.6 H (11.5-15.5) % Plt Count 11 L* (150-450) k/uL ABG pH 7.53 H (7.35-7.45) ABG pCO2 31 L (35-45) mmHg ABG pO2 141 H (83-108) mmHg ABG HCO3 26 H (21-25) mmol/L ABG Total CO2 27 H (19-24) mmol/L ABG O2 Saturation 99.6 H (94-97) % Sodium 132 L (137-145) mmol/L Glucose 142 H (74-99) mg/dL POC Glucose (mg/dL) (75-99) mg/dL Calcium 6.3 L* (8.4-10.2) mg/dL Total Bilirubin 2.8 H (0.2-1.3) mg/dL Total Protein 5.9 L (6.3-8.2) g/dL Albumin 1.8 L (3.5-5.0) g/dL Microbiology - Last 24 Hours (Table) 08/24/21 11:35 Blood Culture Gram Stain - Final Blood Blood Culture - Final Klebsiella pneumoniae 08/24/21 11:20 Blood Culture Gram Stain - Final Blood Blood Culture - Final Klebsiella pneumoniae 08/24/21 20:33 Gram Stain - Preliminary Aspirate Body Fluid Culture - Preliminary Gram Neg Bacilli Assessment and Plan Assessment: * New onset seizure (Per ED team had GTC). Likely provoke due to underlying infection--no further seizure-like activity. * Altered mental status due septic encephalopathy and medication effect (Propofol) * Reported "Hyperintesity small in Wilfredo on CT and could not do exclude a tiny petechial hemorrhage". Had repeat CT head on 08/26/21 and its unchanged I feel unlikely bleed * Septic shock with multisystem organ failure and blood culture positive for Klebsiella pnemonia and is on 2 pressors. 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 Ordered MRI of the brain with and without a stat (but cannot get it since intubated and is on ventilator). Continue every hour neuro checks On seizure precaution and pads. Infection disease specialist is on board Patient oncologist team is on board. We'll defer the rest of the medical management to the patient's the primary team as well as ICU team. Condition is very guarded. Plan was discussed with the patient's ICU nurse. Dr. Hyatt will start neurology service tomorrow AM. Williams Drake MD Neuro-Hospitalist Time with Patient: Less than 30
--- NOTE | 2021-08-27 10:16 | P.PN ---
Subjective Progress Note Date: 08/27/21 Principal diagnosis: Acute cholecystitis Patient doing better today. Some of his pressors have decreased. Good urine. Still lethargic without sedation. Cholecystostomy tube bilious in color . Cultures noted Objective - Vital Signs Vital signs: Vital Signs Temp 98.7 F 08/27/21 04:00 Pulse 109 H 08/27/21 08:30 Resp 37 H 08/27/21 08:30 BP 154/93 08/27/21 06:30 Pulse Ox 97 08/27/21 08:30 Intake & Output 08/26/21 08/27/21 08/27/21 18:59 06:59 18:59 Intake Total 2451.679 1019.425 125 Output Total 1205 815 50 Balance 1246.679 204.425 75 Weight 118.9 kg Intake: IV 1580 690 75 Dextrose 5% in Water 1, 150 000 ml @ 150 mls/hr IV . Q7H40M TERELL with Sodium Bicarb (1 Meq/ml) 150 ml Rx#:[id number] Piperacillin-Tazobactam 3 300 .375 gm In Sodium Chloride 0.9% 100 ml @ 25 mls/hr IVPB Q8H TERELL Rx#: [id number] Sodium Chloride 0.9% 1, 1430 390 75 000 ml @ 130 mls/hr IV . Q7H42M STA Rx#:[id number] Intake, IV Titration 581.679 329.425 Amount EPINEPHrine 4 mg In 65.033 Dextrose 5% in Water 250 ml @ 0.01 MCG/KG/MIN 3. 487 mls/hr IV .Q24H TERELL Rx#:[id number] Insulin Regular 100 unit 30.939 In Sodium Chloride 0.9% 100 ml @ Per Protocol IV .Q0M TERELL Rx#:[id number] Norepinephrine 32 mg In 250 250 Sodium Chloride 0.9% 218 ml @ 0.05 MCG/KG/MIN 2. 599 mls/hr IV .Q24H TERELL Rx#:[id number] Sodium Chloride 0.9% 1, 130 000 ml @ 130 mls/hr IV . Q7H42M TERELL Rx#:[id number] propofoL 1,000 mg In 105.707 79.425 Empty Bag 1 bag @ Titrate IV .Q0M TERELL Rx#: [id number] Tube Feeding 20 Blood Product 290 Platelet Pheresis Pas 290 Psoralen Unit [id number] Other 30 Output: Drainage 120 Right Abdomen 120 Urine 1085 815 50 Other: Voiding Method Indwelling Catheter Indwelling Catheter Indwelling Catheter ABP, PAP, CO, CI - Last Documented Arterial Blood Pressure 117/57 - Exam Abdomen: Soft, nontender, nondistended, cholecystostomy tube in place - Labs CBC & Chem 7: 08/27/21 05:55 08/27/21 05:55 Labs: Abnormal Lab Results - Last 24 Hours (Table) 08/26/21 08/26/21 08/26/21 Range/Units 18:10 19:56 22:32 WBC (3.8-10.6) k/uL RBC (4.30-5.90) m/uL Hgb (13.0-17.5) gm/dL Hct (39.0-53.0) % RDW (11.5-15.5) % Plt Count (150-450) k/uL ABG pH (7.35-7.45) ABG pCO2 (35-45) mmHg ABG pO2 (83-108) mmHg ABG HCO3 (21-25) mmol/L ABG Total CO2 (19-24) mmol/L ABG O2 Saturation (94-97) % Sodium (137-145) mmol/L Glucose (74-99) mg/dL POC Glucose (mg/dL) 116 H 119 H 122 H (75-99) mg/dL Calcium (8.4-10.2) mg/dL Total Bilirubin (0.2-1.3) mg/dL Total Protein (6.3-8.2) g/dL Albumin (3.5-5.0) g/dL 08/27/21 08/27/21 08/27/21 Range/Units 00:34 02:40 05:54 WBC (3.8-10.6) k/uL RBC (4.30-5.90) m/uL Hgb (13.0-17.5) gm/dL Hct (39.0-53.0) % RDW (11.5-15.5) % Plt Count (150-450) k/uL ABG pH (7.35-7.45) ABG pCO2 (35-45) mmHg ABG pO2 (83-108) mmHg ABG HCO3 (21-25) mmol/L ABG Total CO2 (19-24) mmol/L ABG O2 Saturation (94-97) % Sodium (137-145) mmol/L Glucose (74-99) mg/dL POC Glucose (mg/dL) 130 H 132 H 155 H (75-99) mg/dL Calcium (8.4-10.2) mg/dL Total Bilirubin (0.2-1.3) mg/dL Total Protein (6.3-8.2) g/dL Albumin (3.5-5.0) g/dL 08/27/21 08/27/21 08/27/21 Range/Units 05:55 05:55 05:55 WBC 0.4 L* (3.8-10.6) k/uL RBC 2.29 L (4.30-5.90) m/uL Hgb 7.3 L (13.0-17.5) gm/dL Hct 21.9 L (39.0-53.0) % RDW 15.6 H (11.5-15.5) % Plt Count 11 L* (150-450) k/uL ABG pH 7.53 H (7.35-7.45) ABG pCO2 31 L (35-45) mmHg ABG pO2 141 H (83-108) mmHg ABG HCO3 26 H (21-25) mmol/L ABG Total CO2 27 H (19-24) mmol/L ABG O2 Saturation 99.6 H (94-97) % Sodium 132 L (137-145) mmol/L Glucose 142 H (74-99) mg/dL POC Glucose (mg/dL) (75-99) mg/dL Calcium 6.3 L* (8.4-10.2) mg/dL Total Bilirubin 2.8 H (0.2-1.3) mg/dL Total Protein 5.9 L (6.3-8.2) g/dL Albumin 1.8 L (3.5-5.0) g/dL Microbiology - Last 24 Hours (Table) 08/24/21 11:35 Blood Culture Gram Stain - Final Blood Blood Culture - Final Klebsiella pneumoniae 08/24/21 11:20 Blood Culture Gram Stain - Final Blood Blood Culture - Final Klebsiella pneumoniae 08/24/21 20:33 Gram Stain - Preliminary Aspirate Body Fluid Culture - Preliminary Gram Neg Bacilli Assessment and Plan (1) Acute cholecystitis Narrative/Plan: Keep cholecystostomy tube in place. Continue broad-spectrum antibiotics. Continue supportive care. We'll follow. Current Visit: Yes Status: Acute Priority: High Code(s): K81.0 - ACUTE CHOLECYSTITIS SNOMED Code(s): 83624509
[2021-08-27 10:22] LABS: INR 1.5 (<1.2); Partial Thromboplastin Time 32.7 sec (22.0-30.0); Prothrombin Time 14.8 sec (9.0-12.0)
--- NOTE | 2021-08-27 12:12 | P.PN ---
Subjective Progress Note Date: 08/27/21 Principal diagnosis: Neutropenic sepsis Patient remains sedated and mechanically ventilated, vasopressors are decreasing, significant other at the bedside. Objective - Vital Signs Vital signs: Vital Signs Temp 98.7 F 08/27/21 04:00 Pulse 109 H 08/27/21 08:30 Resp 37 H 08/27/21 08:30 BP 154/93 08/27/21 06:30 Pulse Ox 97 08/27/21 08:30 Intake & Output 08/26/21 08/27/21 08/27/21 18:59 06:59 18:59 Intake Total 2451.679 1019.425 125 Output Total 1205 815 50 Balance 1246.679 204.425 75 Weight 118.9 kg Intake: IV 1580 690 75 Dextrose 5% in Water 1, 150 000 ml @ 150 mls/hr IV . Q7H40M TERELL with Sodium Bicarb (1 Meq/ml) 150 ml Rx#:[id number] Piperacillin-Tazobactam 3 300 .375 gm In Sodium Chloride 0.9% 100 ml @ 25 mls/hr IVPB Q8H TERELL Rx#: [id number] Sodium Chloride 0.9% 1, 1430 390 75 000 ml @ 130 mls/hr IV . Q7H42M STA Rx#:[id number] Intake, IV Titration 581.679 329.425 Amount EPINEPHrine 4 mg In 65.033 Dextrose 5% in Water 250 ml @ 0.01 MCG/KG/MIN 3. 487 mls/hr IV .Q24H TERELL Rx#:[id number] Insulin Regular 100 unit 30.939 In Sodium Chloride 0.9% 100 ml @ Per Protocol IV .Q0M TERELL Rx#:[id number] Norepinephrine 32 mg In 250 250 Sodium Chloride 0.9% 218 ml @ 0.05 MCG/KG/MIN 2. 599 mls/hr IV .Q24H TERELL Rx#:[id number] Sodium Chloride 0.9% 1, 130 000 ml @ 130 mls/hr IV . Q7H42M TERELL Rx#:[id number] propofoL 1,000 mg In 105.707 79.425 Empty Bag 1 bag @ Titrate IV .Q0M TERELL Rx#: [id number] Tube Feeding 20 Blood Product 290 Platelet Pheresis Pas 290 Psoralen Unit [id number] Other 30 Output: Drainage 120 Right Abdomen 120 Urine 1085 815 50 Other: Voiding Method Indwelling Catheter Indwelling Catheter Indwelling Catheter ABP, PAP, CO, CI - Last Documented Arterial Blood Pressure 117/57 - Exam Gen. anasarca noted, skin is warm and dry to the touch, no mottling, touching pt feet causes him to withdraw. - Gastrointestinal General gastrointestinal: Present: soft - Neurologic Neurologic: Absent: CNII-XII intact, focal deficits - Psychiatric Psychiatric: Absent: A&O x's 3, appropriate affect, intact judgment & insight - Labs CBC & Chem 7: 08/27/21 05:55 08/27/21 05:55 Labs: Abnormal Lab Results - Last 24 Hours (Table) 08/26/21 08/26/21 08/26/21 Range/Units 18:10 19:56 22:32 WBC (3.8-10.6) k/uL RBC (4.30-5.90) m/uL Hgb (13.0-17.5) gm/dL Hct (39.0-53.0) % RDW (11.5-15.5) % Plt Count (150-450) k/uL PT (9.0-12.0) sec INR (<1.2) APTT (22.0-30.0) sec Fibrinogen (200-500) mg/dL ABG pH (7.35-7.45) ABG pCO2 (35-45) mmHg ABG pO2 (83-108) mmHg ABG HCO3 (21-25) mmol/L ABG Total CO2 (19-24) mmol/L ABG O2 Saturation (94-97) % Sodium (137-145) mmol/L Glucose (74-99) mg/dL POC Glucose (mg/dL) 116 H 119 H 122 H (75-99) mg/dL Calcium (8.4-10.2) mg/dL Ionized Calcium Rajiv (4.5-5.3) mg/dL Total Bilirubin (0.2-1.3) mg/dL Total Protein (6.3-8.2) g/dL Albumin (3.5-5.0) g/dL 08/27/21 08/27/21 08/27/21 Range/Units 00:34 02:40 05:54 WBC (3.8-10.6) k/uL RBC (4.30-5.90) m/uL Hgb (13.0-17.5) gm/dL Hct (39.0-53.0) % RDW (11.5-15.5) % Plt Count (150-450) k/uL PT (9.0-12.0) sec INR (<1.2) APTT (22.0-30.0) sec Fibrinogen (200-500) mg/dL ABG pH (7.35-7.45) ABG pCO2 (35-45) mmHg ABG pO2 (83-108) mmHg ABG HCO3 (21-25) mmol/L ABG Total CO2 (19-24) mmol/L ABG O2 Saturation (94-97) % Sodium (137-145) mmol/L Glucose (74-99) mg/dL POC Glucose (mg/dL) 130 H 132 H 155 H (75-99) mg/dL Calcium (8.4-10.2) mg/dL Ionized Calcium Rajiv (4.5-5.3) mg/dL Total Bilirubin (0.2-1.3) mg/dL Total Protein (6.3-8.2) g/dL Albumin (3.5-5.0) g/dL 08/27/21 08/27/21 08/27/21 Range/Units 05:55 05:55 05:55 WBC 0.4 L* (3.8-10.6) k/uL RBC 2.29 L (4.30-5.90) m/uL Hgb 7.3 L (13.0-17.5) gm/dL Hct 21.9 L (39.0-53.0) % RDW 15.6 H (11.5-15.5) % Plt Count 11 L* (150-450) k/uL PT (9.0-12.0) sec INR (<1.2) APTT (22.0-30.0) sec Fibrinogen (200-500) mg/dL ABG pH 7.53 H (7.35-7.45) ABG pCO2 31 L (35-45) mmHg ABG pO2 141 H (83-108) mmHg ABG HCO3 26 H (21-25) mmol/L ABG Total CO2 27 H (19-24) mmol/L ABG O2 Saturation 99.6 H (94-97) % Sodium 132 L (137-145) mmol/L Glucose 142 H (74-99) mg/dL POC Glucose (mg/dL) (75-99) mg/dL Calcium 6.3 L* (8.4-10.2) mg/dL Ionized Calcium Rajiv (4.5-5.3) mg/dL Total Bilirubin 2.8 H (0.2-1.3) mg/dL Total Protein 5.9 L (6.3-8.2) g/dL Albumin 1.8 L (3.5-5.0) g/dL 08/27/21 08/27/21 Range/Units 09:55 09:55 WBC (3.8-10.6) k/uL RBC (4.30-5.90) m/uL Hgb (13.0-17.5) gm/dL Hct (39.0-53.0) % RDW (11.5-15.5) % Plt Count (150-450) k/uL PT 14.8 H (9.0-12.0) sec INR 1.5 H (<1.2) APTT 32.7 H (22.0-30.0) sec Fibrinogen 519 H (200-500) mg/dL ABG pH (7.35-7.45) ABG pCO2 (35-45) mmHg ABG pO2 (83-108) mmHg ABG HCO3 (21-25) mmol/L ABG Total CO2 (19-24) mmol/L ABG O2 Saturation (94-97) % Sodium (137-145) mmol/L Glucose (74-99) mg/dL POC Glucose (mg/dL) (75-99) mg/dL Calcium (8.4-10.2) mg/dL Ionized Calcium Rajiv 3.8 L (4.5-5.3) mg/dL Total Bilirubin (0.2-1.3) mg/dL Total Protein (6.3-8.2) g/dL Albumin (3.5-5.0) g/dL Microbiology - Last 24 Hours (Table) 08/24/21 11:35 Blood Culture Gram Stain - Final Blood Blood Culture - Final Klebsiella pneumoniae 08/24/21 11:20 Blood Culture Gram Stain - Final Blood Blood Culture - Final Klebsiella pneumoniae 08/24/21 20:33 Gram Stain - Preliminary Aspirate Body Fluid Culture - Preliminary Gram Neg Bacilli Assessment and Plan (1) Neutropenic fever Narrative/Plan: GCSF initiated for chemo induced neutropenia. Cont until ANC>10 CXR showing a RLL infiltrate, improved from todays report. BC + for Kl pneu. ID following Current Visit: Yes Status: Acute Priority: High Code(s): D70.9 - NEUTROPENIA, UNSPECIFIED; R50.81 - FEVER PRESENTING WITH CONDITIONS CLASSIFIED ELSEWHERE SNOMED Code(s): 300642340 (2) Hodgkin lymphoma Narrative/Plan: Pt is s/p C1 D1 of BV AVD treatment on 08/15. He only received adriamycin, vincristine and adcetris (DTIC is on backorder). Treatment hold. Further discussions pending pt recovery Current Visit: Yes Status: Acute Priority: High Code(s): C81.90 - HODGKIN LYMPHOMA, UNSPECIFIED, UNSPECIFIED SITE SNOMED Code(s): 908056763 (3) Acute cholecystitis Narrative/Plan: PCT placed for drainage as pt not stable enough for procedure. Surgery following. Current Visit: Yes Status: Acute Priority: High Code(s): K81.0 - ACUTE CHOLECYSTITIS SNOMED Code(s): 59737318 (4) Antineoplastic chemotherapy induced pancytopenia Narrative/Plan: Transfuse to keep Hgb above 7, hemoglobin 7.3 today. Platelets 11,000 today, 1 unit single donor platelets ordered. Plan is to keep platelets above 30-40,000 with sepsis. Cont GCSF until ANC at least 10. Labs are ordered daily Current Visit: Yes Status: Acute Priority: High Code(s): D61.810 - ANTINEOPLASTIC CHEMOTHERAPY INDUCED PANCYTOPENIA; T45.1X5A - ADVERSE EFFECT OF ANTINEOPLASTIC AND IMMUNOSUP DRUGS, INIT SNOMED Code(s): 481141353554581 Plan: Discussed case with Neurology, Reviewed Critical Care and Surgical notes. Plan is to cont treatment of sepsis and supportive care. Agree with plan. updated.
[2021-08-27 13:41] LABS: Glucose,Whole Blood 152 mg/dL (75-99)
[2021-08-27] MEDS: INSULIN ASPART (NovoLOG) 100 UNIT/ML VIAL SQ SCH ×2 (14:23→18:40)
[2021-08-27] MEDS: FILGRASTIM-SNDZ 480 MCG/0.8 ML SYRINGE SQ SCH (18:40)
[2021-08-27 18:41] LABS: Glucose,Whole Blood 158 mg/dL (75-99)
[2021-08-27] MEDS ORDERED: SODIUM CHLORIDE 0.9% 1,000 ML IV ONE (19:54)
[2021-08-27] MEDS ORDERED: VANCOMYCIN IV PER PHARMACY 1 EACH MISC MISCELLANE PRN (19:54)
[2021-08-27] MEDS: HYDROmorphone 1 MG/ML 1 ML SYRINGE IVP PRN ×2 (20:43→23:20)
--- NOTE | 2021-08-27 20:44 | P.PN ---
Subjective Progress Note Date: 08/26/21 Principal diagnosis: Septic shock with multisystem organ failure possibly related to acute cholecystitis Profound hypotension secondary to septic shock Acute renal injury Severe metabolic acidosis Acute hypoxemic respiratory failure 60-year-old male with a past medical history significant for Hodgkin lymphoma for the patient is currently on chemotherapy with last chemo on 08/15/2021 patient has been brought to the ER for evaluation of fever and generalized weakness in this patient symptom has been going on for the last day or 2 patient on presentation to the ER did have a fever of 122.9 the patient was tachypneic and tachycardic patient did have a elevated lactic acid of 11.6 white count of 0.1 kidney function was normal liver enzymes are normal urine was negative pressley PCR was negative patient did have a chest x-ray COPD correlate for interstitial lung disease with pulmonary fibrosis patient did have a CT of abdominal pelvis which showed stable splenomegaly and abnormal abdominal pelvic adenopathy and there was concern for acute cholecystitis patient ended up getting intubated because of worsening respiratory status is hypotensive requiring pressor support patient was started on Zosyn infectious disease was consulted for further management of antibiotic therapy most information has been obtained from review the chart talking nursing staff as the patient is currently intubated on the vent is unable to provide any history 08/26/2021 Patient remains in ICU; remains debilitated and mechanically ventilated; patient is in ICU with septic shock and multiorgan failure; patient continues to have no neurological recovery His EEG showed diffuse encephalopathy without ongoing seizure activity. There is a punctate hemorrhagic area in his archie and for that reason a repeat CAT scan will need be will be needed at a later stage. His chest x-ray from today was noted and there is no major interval change. Laboratory review reveals WBC 0.5, hemoglobin 7.4 and platelet count of 14, sodium 137, potassium 2.7, blood glucose of 172 The patient is on vasopressin physiologic dose, norepinephrine is running at a dose of 0.9 mg/kg per minute. His epinephrine infusion is running at 0.08 mcg/kg per minute. Also, the patient is on IV fluids and he is receiving 0.9 saline at the rate of 130s uses an hour. Objective - Vital Signs Vital signs: Vital Signs Temp 97.9 F 08/26/21 04:00 Pulse 110 H 08/26/21 10:00 Resp 28 H 08/26/21 10:00 BP 154/93 08/26/21 05:00 Pulse Ox 98 08/26/21 10:00 Intake & Output 08/25/21 08/26/21 08/26/21 18:59 06:59 18:59 Intake Total 4333.765 4665.039 891.679 Output Total 560 1285 595 Balance 3773.765 3380.039 296.679 Weight 118.9 kg 118.9 kg Intake: IV 3210 1930 410 Dextrose 5% in Water 1, 1650 1650 150 000 ml @ 150 mls/hr IV . Q7H40M [facility] with Sodium Bicarb (1 Meq/ml) 150 ml Rx#:[id number] Sodium Chloride 0.9% 1, 1560 280 260 000 ml @ 130 mls/hr IV . Q7H42M [facility] Rx#:[id number] Intake, IV Titration 0715.938 1498.039 481.679 Amount EPINEPHrine 4 mg In 845.907 839.401 65.033 Dextrose 5% in Water 250 ml @ 0.01 MCG/KG/MIN 3. 487 mls/hr IV .Q24H [facility] Rx#:[id number] Insulin Regular 100 unit 141.973 134.542 30.939 In Sodium Chloride 0.9% 100 ml @ Per Protocol IV .Q0M [facility] Rx#:[id number] Norepinephrine 32 mg In 135.441 Sodium Chloride 0.9% 218 ml @ 0.05 MCG/KG/MIN 2. 179 mls/hr IV .Q24H ONE Rx#:[id number] Norepinephrine 32 mg In 250.78 250 Sodium Chloride 0.9% 218 ml @ 0.05 MCG/KG/MIN 2. 599 mls/hr IV .Q24H [facility] Rx#:[id number] Piperacillin-Tazobactam 3 100 .375 gm In Sodium Chloride 0.9% 100 ml @ 25 mls/hr IVPB Q8H [facility] Rx#: [id number] Sodium Chloride 0.9% 1, 1170 130 000 ml @ 130 mls/hr IV . Q7H42M [facility] Rx#:[id number] levETIRAcetam IV 500 mg 100 In Sodium Chloride 0.9% 100 ml @ 400 mls/hr IVPB Q12HR [facility] Rx#:[id number] propofoL 1,000 mg In 0.444 80.316 5.707 Empty Bag 1 bag @ Titrate IV .Q0M [facility] Rx#: [id number] Other 60 Output: Drainage 120 120 Right Abdomen 120 120 Urine 440 1105 475 Other 180 Other: Voiding Method Indwelling Catheter Indwelling Catheter Indwelling Catheter ABP, PAP, CO, CI - Last Documented Arterial Blood Pressure 121/54 - Exam GENERAL DESCRIPTION: Middle-aged male intubated on the vent HEENT: Shows Pallor , no scleral icterus. Oral mucous membrane is dry. NECK: Trachea central, no thyromegaly. LUNGS: Unlabored breathing. Decreased breath sound at the base. No wheeze or crackle. HEART: S1, S2, regular rate and rhythm. ABDOMEN: Soft, no tenderness , guarding or rigidity EXTREMITIES: No edema of feet. SKIN: No rash, no masses palpable. NEUROLOGICAL: The patient is sedated on the vent - Labs CBC & Chem 7: 08/27/21 05:55 08/27/21 05:55 Labs: Abnormal Lab Results - Last 24 Hours (Table) 08/25/21 08/25/21 08/25/21 Range/Units 04:36 13:29 13:45 WBC (3.8-10.6) k/uL RBC (4.30-5.90) m/uL Hgb (13.0-17.5) gm/dL Hct (39.0-53.0) % RDW (11.5-15.5) % Plt Count (150-450) k/uL ABG pH (7.35-7.45) ABG pCO2 (35-45) mmHg ABG pO2 (83-108) mmHg ABG HCO3 (21-25) mmol/L ABG Total CO2 (19-24) mmol/L Sodium (137-145) mmol/L Potassium (3.5-5.1) mmol/L Glucose (74-99) mg/dL POC Glucose (mg/dL) 177 H (75-99) mg/dL Plasma Lactic Acid Abelardo 4.7 H* (0.7-2.0) mmol/L Calcium (8.4-10.2) mg/dL Total Bilirubin (0.2-1.3) mg/dL Total Protein (6.3-8.2) g/dL Albumin (3.5-5.0) g/dL IgG 3043.0 H (700.0-1600.0) mg/dL IgA 556.0 H (60.0-350.0) mg/dL 08/25/21 08/25/21 08/25/21 Range/Units 15:46 16:30 17:10 WBC (3.8-10.6) k/uL RBC (4.30-5.90) m/uL Hgb (13.0-17.5) gm/dL Hct (39.0-53.0) % RDW (11.5-15.5) % Plt Count (150-450) k/uL ABG pH (7.35-7.45) ABG pCO2 (35-45) mmHg ABG pO2 (83-108) mmHg ABG HCO3 (21-25) mmol/L ABG Total CO2 (19-24) mmol/L Sodium (137-145) mmol/L Potassium 3.0 L (3.5-5.1) mmol/L Glucose (74-99) mg/dL POC Glucose (mg/dL) 169 H 158 H (75-99) mg/dL Plasma Lactic Acid Abelardo (0.7-2.0) mmol/L Calcium (8.4-10.2) mg/dL Total Bilirubin (0.2-1.3) mg/dL Total Protein (6.3-8.2) g/dL Albumin (3.5-5.0) g/dL IgG (700.0-1600.0) mg/dL IgA (60.0-350.0) mg/dL 08/25/21 08/25/21 08/25/21 Range/Units 17:26 18:41 20:02 WBC (3.8-10.6) k/uL RBC (4.30-5.90) m/uL Hgb (13.0-17.5) gm/dL Hct (39.0-53.0) % RDW (11.5-15.5) % Plt Count (150-450) k/uL ABG pH (7.35-7.45) ABG pCO2 (35-45) mmHg ABG pO2 (83-108) mmHg ABG HCO3 (21-25) mmol/L ABG Total CO2 (19-24) mmol/L Sodium (137-145) mmol/L Potassium (3.5-5.1) mmol/L Glucose (74-99) mg/dL POC Glucose (mg/dL) 155 H 145 H (75-99) mg/dL Plasma Lactic Acid Abelardo 4.2 H* (0.7-2.0) mmol/L Calcium (8.4-10.2) mg/dL Total Bilirubin (0.2-1.3) mg/dL Total Protein (6.3-8.2) g/dL Albumin (3.5-5.0) g/dL IgG (700.0-1600.0) mg/dL IgA (60.0-350.0) mg/dL 08/25/21 08/25/21 08/25/21 Range/Units 20:32 21:08 21:55 WBC (3.8-10.6) k/uL RBC (4.30-5.90) m/uL Hgb (13.0-17.5) gm/dL Hct (39.0-53.0) % RDW (11.5-15.5) % Plt Count (150-450) k/uL ABG pH (7.35-7.45) ABG pCO2 (35-45) mmHg ABG pO2 (83-108) mmHg ABG HCO3 (21-25) mmol/L ABG Total CO2 (19-24) mmol/L Sodium (137-145) mmol/L Potassium (3.5-5.1) mmol/L Glucose (74-99) mg/dL POC Glucose (mg/dL) 139 H 154 H (75-99) mg/dL Plasma Lactic Acid Abelardo 3.6 H* (0.7-2.0) mmol/L Calcium (8.4-10.2) mg/dL Total Bilirubin (0.2-1.3) mg/dL Total Protein (6.3-8.2) g/dL Albumin (3.5-5.0) g/dL IgG (700.0-1600.0) mg/dL IgA (60.0-350.0) mg/dL 08/25/21 08/25/21 08/26/21 Range/Units 22:57 23:59 00:59 WBC (3.8-10.6) k/uL RBC (4.30-5.90) m/uL Hgb (13.0-17.5) gm/dL Hct (39.0-53.0) % RDW (11.5-15.5) % Plt Count (150-450) k/uL ABG pH (7.35-7.45) ABG pCO2 (35-45) mmHg ABG pO2 (83-108) mmHg ABG HCO3 (21-25) mmol/L ABG Total CO2 (19-24) mmol/L Sodium (137-145) mmol/L Potassium (3.5-5.1) mmol/L Glucose (74-99) mg/dL POC Glucose (mg/dL) 129 H 163 H 195 H (75-99) mg/dL Plasma Lactic Acid Abelardo (0.7-2.0) mmol/L Calcium (8.4-10.2) mg/dL Total Bilirubin (0.2-1.3) mg/dL Total Protein (6.3-8.2) g/dL Albumin (3.5-5.0) g/dL IgG (700.0-1600.0) mg/dL IgA (60.0-350.0) mg/dL 08/26/21 08/26/21 08/26/21 Range/Units 01:58 02:40 02:40 WBC 0.5 L* (3.8-10.6) k/uL RBC 2.28 L (4.30-5.90) m/uL Hgb 7.4 L (13.0-17.5) gm/dL Hct 21.8 L (39.0-53.0) % RDW 15.6 H (11.5-15.5) % Plt Count 14 L* D (150-450) k/uL ABG pH (7.35-7.45) ABG pCO2 (35-45) mmHg ABG pO2 (83-108) mmHg ABG HCO3 (21-25) mmol/L ABG Total CO2 (19-24) mmol/L Sodium 131 L (137-145) mmol/L Potassium 2.7 L* (3.5-5.1) mmol/L Glucose 172 H (74-99) mg/dL POC Glucose (mg/dL) 187 H (75-99) mg/dL Plasma Lactic Acid Abelardo (0.7-2.0) mmol/L Calcium 6.7 L (8.4-10.2) mg/dL Total Bilirubin 2.4 H (0.2-1.3) mg/dL Total Protein 6.1 L (6.3-8.2) g/dL Albumin 1.9 L (3.5-5.0) g/dL IgG (700.0-1600.0) mg/dL IgA (60.0-350.0) mg/dL 08/26/21 08/26/21 08/26/21 Range/Units 03:06 03:45 04:13 WBC (3.8-10.6) k/uL RBC (4.30-5.90) m/uL Hgb (13.0-17.5) gm/dL Hct (39.0-53.0) % RDW (11.5-15.5) % Plt Count (150-450) k/uL ABG pH (7.35-7.45) ABG pCO2 (35-45) mmHg ABG pO2 (83-108) mmHg ABG HCO3 (21-25) mmol/L ABG Total CO2 (19-24) mmol/L Sodium (137-145) mmol/L Potassium (3.5-5.1) mmol/L Glucose (74-99) mg/dL POC Glucose (mg/dL) 181 H 177 H (75-99) mg/dL Plasma Lactic Acid Abelardo 3.5 H* (0.7-2.0) mmol/L Calcium (8.4-10.2) mg/dL Total Bilirubin (0.2-1.3) mg/dL Total Protein (6.3-8.2) g/dL Albumin (3.5-5.0) g/dL IgG (700.0-1600.0) mg/dL IgA (60.0-350.0) mg/dL 08/26/21 08/26/21 08/26/21 Range/Units 05:04 05:53 06:01 WBC (3.8-10.6) k/uL RBC (4.30-5.90) m/uL Hgb (13.0-17.5) gm/dL Hct (39.0-53.0) % RDW (11.5-15.5) % Plt Count (150-450) k/uL ABG pH 7.53 H (7.35-7.45) ABG pCO2 34 L (35-45) mmHg ABG pO2 67 L (83-108) mmHg ABG HCO3 28 H (21-25) mmol/L ABG Total CO2 29 H (19-24) mmol/L Sodium (137-145) mmol/L Potassium (3.5-5.1) mmol/L Glucose (74-99) mg/dL POC Glucose (mg/dL) 156 H 164 H (75-99) mg/dL Plasma Lactic Acid Abelardo (0.7-2.0) mmol/L Calcium (8.4-10.2) mg/dL Total Bilirubin (0.2-1.3) mg/dL Total Protein (6.3-8.2) g/dL Albumin (3.5-5.0) g/dL IgG (700.0-1600.0) mg/dL IgA (60.0-350.0) mg/dL 08/26/21 08/26/21 Range/Units 07:10 08:55 WBC (3.8-10.6) k/uL RBC (4.30-5.90) m/uL Hgb (13.0-17.5) gm/dL Hct (39.0-53.0) % RDW (11.5-15.5) % Plt Count (150-450) k/uL ABG pH (7.35-7.45) ABG pCO2 (35-45) mmHg ABG pO2 (83-108) mmHg ABG HCO3 (21-25) mmol/L ABG Total CO2 (19-24) mmol/L Sodium (137-145) mmol/L Potassium (3.5-5.1) mmol/L Glucose (74-99) mg/dL POC Glucose (mg/dL) 160 H 117 H (75-99) mg/dL Plasma Lactic Acid Abelardo (0.7-2.0) mmol/L Calcium (8.4-10.2) mg/dL Total Bilirubin (0.2-1.3) mg/dL Total Protein (6.3-8.2) g/dL Albumin (3.5-5.0) g/dL IgG (700.0-1600.0) mg/dL IgA (60.0-350.0) mg/dL Microbiology - Last 24 Hours (Table) 08/24/21 20:33 Gram Stain - Preliminary Aspirate Body Fluid Culture - Preliminary 08/24/21 11:35 Blood Culture Gram Stain - Preliminary Blood 08/24/21 11:35 Blood Culture - Final Blood Assessment and Plan Assessment: 1. Septic shock related to acute cholecystitis/pneumonia/gram-negative bacteremia--Klebsiella - Evidence of multisystem organ failure - Patient remains on IV antibiotics in form of Zosyn; IDs on board and will make further recommendations pending final culture and sensitivity results from blood cultures - Surgery on board for acute cholecystitis and patient is status post percutaneous cholecystostomy tube insertion 2. Profound hypotension related to septic shock; patient continues to be on pr essor agents 3. Acute renal injury/metabolic acidosis; creatinine at 1.58 this morning patient continues to remain on IV fluids and has received a total of 8 L; continue with bicarb infusion urine output remains diminished; continue to monitor strict DALTON's and daily weights 4. Acute hypoxic respiratory failure possibly related to early ARDS; patient remains intubated and mechanically ventilated 5. New onset seizures/ tonic-clonic; questionable hemorrhagic focus in brain; neurology on board 6. Diabetes mellitus; patient remains on IV insulin infusion with straight adjustments according to clinical needs Patient remains unresponsive without any response to painful stimuli; according to intensive care patient is breathing above the vent; weak cough and gag refle; x and sluggish corneal reflex; EEG has been completed and further recommendations from neurology is pending
--- NOTE | 2021-08-27 20:49 | P.PN ---
Subjective Progress Note Date: 08/27/21 Principal diagnosis: Septic shock with multisystem organ failure possibly related to acute cholecystitis Profound hypotension secondary to septic shock Acute renal injury Severe metabolic acidosis Acute hypoxemic respiratory failure 60-year-old male with a past medical history significant for Hodgkin lymphoma for the patient is currently on chemotherapy with last chemo on 08/15/2021 patient has been brought to the ER for evaluation of fever and generalized weakness in this patient symptom has been going on for the last day or 2 patient on presentation to the ER did have a fever of 122.9 the patient was tachypneic and tachycardic patient did have a elevated lactic acid of 11.6 white count of 0.1 kidney function was normal liver enzymes are normal urine was negative pressley PCR was negative patient did have a chest x-ray COPD correlate for interstitial lung disease with pulmonary fibrosis patient did have a CT of abdominal pelvis which showed stable splenomegaly and abnormal abdominal pelvic adenopathy and there was concern for acute cholecystitis patient ended up getting intubated because of worsening respiratory status is hypotensive requiring pressor support patient was started on Zosyn infectious disease was consulted for further management of antibiotic therapy most information has been obtained from review the chart talking nursing staff as the patient is currently intubated on the vent is unable to provide any history 08/26/2021 Patient remains in ICU; remains debilitated and mechanically ventilated; patient is in ICU with septic shock and multiorgan failure; patient continues to have no neurological recovery His EEG showed diffuse encephalopathy without ongoing seizure activity. There is a punctate hemorrhagic area in his archie and for that reason a repeat CAT scan will need be will be needed at a later stage. His chest x-ray from today was noted and there is no major interval change. Laboratory review reveals WBC 0.5, hemoglobin 7.4 and platelet count of 14, sodium 137, potassium 2.7, blood glucose of 172 The patient is on vasopressin physiologic dose, norepinephrine is running at a dose of 0.9 mg/kg per minute. His epinephrine infusion is running at 0.08 mcg/kg per minute. Also, the patient is on IV fluids and he is receiving 0.9 saline at the rate of 130s uses an hour. 08/27/2021 Patient remains in ICU and intubated and mechanically ventilated; in ICU for septic shock related to acute cholecystitis with gram-negative bacteremia Patient remains on IV antibiotics in form of Zosyn Vital signs are reviewed with temperature 98.7, pulse 110, respiration 31, blood pressure 154/93 Lab review shows WBC 0.4, hemoglobin 7.3 and platelet count of 11 Patient will be maintained on ventilator support; remains fluid resuscitated with normal saline at 75 mL an hour; currently on norepinephrine for blood pressure support Patient did receive another platelet transfusion but a platelet count of 11 Follow-up CAT scan of the brain is negative and the patient will be given a sedation holiday and the patient will be taken off the propofol and the purpose of the sedation holiday just to assess his mental status and assess his responsiveness Objective - Vital Signs Vital signs: Vital Signs Temp 98.7 F 08/27/21 04:00 Pulse 109 H 08/27/21 08:30 Resp 37 H 08/27/21 08:30 BP 154/93 08/27/21 06:30 Pulse Ox 97 08/27/21 08:30 Intake & Output 08/26/21 08/27/21 08/27/21 18:59 06:59 18:59 Intake Total 2451.679 1019.425 125 Output Total 1205 815 50 Balance 1246.679 204.425 75 Weight 118.9 kg Intake: IV 1580 690 75 Dextrose 5% in Water 1, 150 000 ml @ 150 mls/hr IV . Q7H40M [facility] with Sodium Bicarb (1 Meq/ml) 150 ml Rx#:[id number] Piperacillin-Tazobactam 3 300 .375 gm In Sodium Chloride 0.9% 100 ml @ 25 mls/hr IVPB Q8H [facility] Rx#: [id number] Sodium Chloride 0.9% 1, 1430 390 75 000 ml @ 130 mls/hr IV . Q7H42M [facility] Rx#:[id number] Intake, IV Titration 581.679 329.425 Amount EPINEPHrine 4 mg In 65.033 Dextrose 5% in Water 250 ml @ 0.01 MCG/KG/MIN 3. 487 mls/hr IV .Q24H [facility] Rx#:[id number] Insulin Regular 100 unit 30.939 In Sodium Chloride 0.9% 100 ml @ Per Protocol IV .Q0M [facility] Rx#:[id number] Norepinephrine 32 mg In 250 250 Sodium Chloride 0.9% 218 ml @ 0.05 MCG/KG/MIN 2. 599 mls/hr IV .Q24H [facility] Rx#:[id number] Sodium Chloride 0.9% 1, 130 000 ml @ 130 mls/hr IV . Q7H42M [facility] Rx#:[id number] propofoL 1,000 mg In 105.707 79.425 Empty Bag 1 bag @ Titrate IV .Q0M [facility] Rx#: [id number] Tube Feeding 20 Blood Product 290 Platelet Pheresis Pas 290 Psoralen Unit [id number] Other 30 Output: Drainage 120 Right Abdomen 120 Urine 1085 815 50 Other: Voiding Method Indwelling Catheter Indwelling Catheter Indwelling Catheter ABP, PAP, CO, CI - Last Documented Arterial Blood Pressure 117/57 - Exam GENERAL DESCRIPTION: Middle-aged male intubated on the [facility] HEENT: Shows Pallor , no scleral icterus. Oral mucous membrane is dry. NECK: Trachea central, no thyromegaly. LUNGS: Unlabored breathing. Decreased breath sound at the base. No wheeze or crackle. HEART: S1, S2, regular rate and rhythm. ABDOMEN: Soft, no tenderness , guarding or rigidity EXTREMITIES: No edema of feet. SKIN: No rash, no masses palpable. NEUROLOGICAL: The patient is sedated on the vent - Labs CBC & Chem 7: 08/27/21 05:55 08/27/21 05:55 Labs: Abnormal Lab Results - Last 24 Hours (Table) 08/26/21 08/26/21 08/26/21 Range/Units 18:10 19:56 22:32 WBC (3.8-10.6) k/uL RBC (4.30-5.90) m/uL Hgb (13.0-17.5) gm/dL Hct (39.0-53.0) % RDW (11.5-15.5) % Plt Count (150-450) k/uL ABG pH (7.35-7.45) ABG pCO2 (35-45) mmHg ABG pO2 (83-108) mmHg ABG HCO3 (21-25) mmol/L ABG Total CO2 (19-24) mmol/L ABG O2 Saturation (94-97) % Sodium (137-145) mmol/L Glucose (74-99) mg/dL POC Glucose (mg/dL) 116 H 119 H 122 H (75-99) mg/dL Calcium (8.4-10.2) mg/dL Ionized Calcium Rajiv (4.5-5.3) mg/dL Total Bilirubin (0.2-1.3) mg/dL Total Protein (6.3-8.2) g/dL Albumin (3.5-5.0) g/dL 08/27/21 08/27/21 08/27/21 Range/Units 00:34 02:40 05:54 WBC (3.8-10.6) k/uL RBC (4.30-5.90) m/uL Hgb (13.0-17.5) gm/dL Hct (39.0-53.0) % RDW (11.5-15.5) % Plt Count (150-450) k/uL ABG pH (7.35-7.45) ABG pCO2 (35-45) mmHg ABG pO2 (83-108) mmHg ABG HCO3 (21-25) mmol/L ABG Total CO2 (19-24) mmol/L ABG O2 Saturation (94-97) % Sodium (137-145) mmol/L Glucose (74-99) mg/dL POC Glucose (mg/dL) 130 H 132 H 155 H (75-99) mg/dL Calcium (8.4-10.2) mg/dL Ionized Calcium Rajiv (4.5-5.3) mg/dL Total Bilirubin (0.2-1.3) mg/dL Total Protein (6.3-8.2) g/dL Albumin (3.5-5.0) g/dL 08/27/21 08/27/21 08/27/21 Range/Units 05:55 05:55 05:55 WBC 0.4 L* (3.8-10.6) k/uL RBC 2.29 L (4.30-5.90) m/uL Hgb 7.3 L (13.0-17.5) gm/dL Hct 21.9 L (39.0-53.0) % RDW 15.6 H (11.5-15.5) % Plt Count 11 L* (150-450) k/uL ABG pH 7.53 H (7.35-7.45) ABG pCO2 31 L (35-45) mmHg ABG pO2 141 H (83-108) mmHg ABG HCO3 26 H (21-25) mmol/L ABG Total CO2 27 H (19-24) mmol/L ABG O2 Saturation 99.6 H (94-97) % Sodium 132 L (137-145) mmol/L Glucose 142 H (74-99) mg/dL POC Glucose (mg/dL) (75-99) mg/dL Calcium 6.3 L* (8.4-10.2) mg/dL Ionized Calcium Rajiv (4.5-5.3) mg/dL Total Bilirubin 2.8 H (0.2-1.3) mg/dL Total Protein 5.9 L (6.3-8.2) g/dL Albumin 1.8 L (3.5-5.0) g/dL 08/27/21 Range/Units 09:55 WBC (3.8-10.6) k/uL RBC (4.30-5.90) m/uL Hgb (13.0-17.5) gm/dL Hct (39.0-53.0) % RDW (11.5-15.5) % Plt Count (150-450) k/uL ABG pH (7.35-7.45) ABG pCO2 (35-45) mmHg ABG pO2 (83-108) mmHg ABG HCO3 (21-25) mmol/L ABG Total CO2 (19-24) mmol/L ABG O2 Saturation (94-97) % Sodium (137-145) mmol/L Glucose (74-99) mg/dL POC Glucose (mg/dL) (75-99) mg/dL Calcium (8.4-10.2) mg/dL Ionized Calcium Rajiv 3.8 L (4.5-5.3) mg/dL Total Bilirubin (0.2-1.3) mg/dL Total Protein (6.3-8.2) g/dL Albumin (3.5-5.0) g/dL Microbiology - Last 24 Hours (Table) 08/24/21 11:35 Blood Culture Gram Stain - Final Blood Blood Culture - Final Klebsiella pneumoniae 08/24/21 11:20 Blood Culture Gram Stain - Final Blood Blood Culture - Final Klebsiella pneumoniae 08/24/21 20:33 Gram Stain - Preliminary Aspirate Body Fluid Culture - Preliminary Gram Neg Bacilli Assessment and Plan Assessment: 1. Septic shock related to acute cholecystitis/pneumonia/gram-negative bacteremia--Klebsiella - Evidence of multisystem organ failure - Patient remains on IV antibiotics in form of Zosyn; IDs on board and will make further recommendations pending final culture and sensitivity results from blood cultures - Surgery on board for acute cholecystitis and patient is status post percut aneous cholecystostomy tube insertion 2. Profound hypotension related to septic shock; patient continues to be on pressor agents 3. Acute renal injury/metabolic acidosis; creatinine at 1.58 this morning patient continues to remain on IV fluids and has received a total of 8 L; continue with bicarb infusion urine output remains diminished; continue to monitor strict DALTON's and daily weights 4. Acute hypoxic respiratory failure possibly related to early ARDS; patient remains intubated and mechanically ventilated 5. New onset seizures/ tonic-clonic; questionable hemorrhagic focus in brain; neurology on board 6. Diabetes mellitus; patient remains on IV insulin infusion with straight adju stments according to clinical needs Patient remains unresponsive without any response to painful stimuli; according to intensive care patient is breathing above the vent; weak cough and gag refle; x and sluggish corneal reflex; EEG has been completed and further recommendations from neurology is pending
[2021-08-27] MEDS: VANCOMYCIN 1,750 MG in SODIUM CHLORIDE 0.9% 500 ML 500 ML IVPB SCH (21:54)
--- NOTE | 2021-08-28 00:12 | PN ---
PROGRESS NOTE DATE OF SERVICE: 08/27/2021 REASON FOR FOLLOWUP: 1. Klebsiella bacteremia secondary to acute cholecystitis. 2. Sacral pressure ulcer, stage II. INTERVAL HISTORY: The patient is afebrile. The patient is currently on low-dose pressor support compared to yesterday. The patient is hemodynamically stable. FiO2 is currently stable at 40%. No significant purulent secretions through the ET have been reported by the nursing staff. PHYSICAL EXAMINATION: Blood pressure 154/93 with a pulse of 115, temperature 97.6. He is 96% on 40% FiO2. General description is a middle-aged male intubated on the vent. Respiratory system: Unlabored breathing, decreased intensity of breath sounds. No wheeze. Heart S1, S2. Regular rate and rhythm. Abdomen soft, no tenderness. The patient does have a stage II sacral pressure ulcer with no evidence of any cellulitis, slough tissue. LABS: Hemoglobin 7.8, white count 0.4, creatinine 0.85. DIAGNOSTIC IMPRESSION AND PLAN: 1. Patient with Klebsiella pneumoniae bacteremia secondary to acute cholecystitis which is a sensitive pathogens. Also fluid aspirate is showing streptococcal. Antibiotic will be adjusted to Unasyn 3 grams q.6 hours. 2. Sacral pressure ulcer with no evidence of any cellulitis. Local wound care with Aquacel Silver dressing to be changed q.48 hours. Discussed with nursing staff. MMODL / IJN: [id number] /
[2021-08-28 01:06] LABS: ABG Base Excess 0.2 mmol/L; ABG HCO3 24 mmol/L (21-25); ABG PCO2 33 mmHg (35-45); ABG PH 7.46 (7.35-7.45); ABG PO2 86 mmHg (83-108); ABG TCO2 25 mmol/L (19-24)
[2021-08-28 01:18] LABS: Glucose,Whole Blood 176 mg/dL (75-99)
[2021-08-28] MEDS: AMPICILLIN-SULBACTAM 3 GM in SODIUM CHLORIDE 0.9% 100 ML IVPB SCH ×4 (01:18→17:11)
[2021-08-28] MEDS: NOREPINEPHRINE 32 MG in SODIUM CHLORIDE 0.9% 218 ML IV SCH ×4 (01:37→18:22)
[2021-08-28] MEDS: INSULIN ASPART (NovoLOG) 100 UNIT/ML VIAL SQ SCH ×4 (01:47→18:21)
[2021-08-28] MEDS: ACYCLOVIR SODIUM 950 MG in SODIUM CHLORIDE 0.9% 250 ML IV SCH ×3 (01:48→15:41)
[2021-08-28] MEDS: SODIUM CHLORIDE 0.9% 50 ML with VASOPRESSIN 20 UNIT IVPB SCH ×6 (04:24→14:40)
[2021-08-28] MEDS: SODIUM CHLORIDE 0.9% 1,000 ML IV SCH ×2 (04:26→14:41)
[2021-08-28 04:45] LABS: Anisocytosis Slight; HCT 22.8 % (39.0-53.0); HGB 7.7 gm/dL (13.0-17.5); MCH 32.5 pg (25.0-35.0); MCHC 33.7 g/dL (31.0-37.0); MCV 96.6 fL (80.0-100.0); Mean Platelet Volume 10.6; RBC 2.36 m/uL (4.30-5.90); RDW 16.4 % (11.5-15.5)
[2021-08-28 04:52] LABS: WBC 0.5 k/uL (3.8-10.6)
[2021-08-28 05:23] LABS: Rouleaux 1+
[2021-08-28 05:24] LABS: Platelet Count 20 k/uL (150-450)
[2021-08-28] MEDS: HYDROmorphone 1 MG/ML 1 ML SYRINGE IVP PRN (05:26)
[2021-08-28 05:27] LABS: ABG Base Excess -0.9 mmol/L; ABG HCO3 23 mmol/L (21-25); ABG Oxygen Saturation 93.6 % (94-97); ABG PCO2 36 mmHg (35-45); ABG PH 7.43 (7.35-7.45); ABG PO2 70 mmHg (83-108); ABG TCO2 25 mmol/L (19-24); Allen Test Performed? Yes
[2021-08-28 06:12] LABS: ALT 22 U/L (4-49); AST 28 U/L (17-59); African American GFR (CKD) >90 (>60 ml/min/1.73 sqM); Albumin 1.8 g/dL (3.5-5.0); Alkaline Phosphatase 86 U/L (38-126); Anion Gap 8 mmol/L; Blood Urea Nitrogen 26 mg/dL (9-20); Calcium 6.9 mg/dL (8.4-10.2); Carbon Dioxide 22 mmol/L (22-30); Chloride 107 mmol/L (98-107); Glucose 181 mg/dL (74-99); Non-African American GFR(CKD) >90 (>60 ml/min/1.73 sqM); Potassium 3.2 mmol/L (3.5-5.1); Sodium 137 mmol/L (137-145); Total Bilirubin 3.9 mg/dL (0.2-1.3); Total Protein 5.7 g/dL (6.3-8.2)
[2021-08-28 06:59] LABS: Glucose,Whole Blood 186 mg/dL (75-99)
[2021-08-28 08:49] VITALS: BMI 35.0
--- NOTE | 2021-08-28 09:08 | XR ---
EXAMINATION TYPE: XR chest 1V portable DATE OF EXAM: 08/28/2021 COMPARISON: 08/27/2021 HISTORY: Shortness of breath TECHNIQUE: Single frontal view of the chest is obtained. FINDINGS: ET and NG tube stable. Bilateral subsegmental consolidation. Mediport catheter noted. No s izable pneumothorax no sizable pleural effusion. Heart size normal. Hypertrophic change of the spine. Arthropathy of the shoulders. IMPRESSION: Bibasilar infiltrate
[2021-08-28] MEDS: VANCOMYCIN 1,750 MG in SODIUM CHLORIDE 0.9% 500 ML 500 ML IVPB SCH (09:42)
[2021-08-28] MEDS: CHLORHEXIDINE GLUCONATE 15 ML CUP MUCOUS MEM SCH ×2 (09:50→21:00)
[2021-08-28] MEDS: PANTOPRAZOLE 40 MG/10 ML VIAL IVP SCH (09:50)
[2021-08-28] MEDS: POTASSIUM CHLORIDE 20 MEQ in WATER FOR INJECTION 1 100ML.BAG IVPB SCH ×3 (09:50→21:00)
[2021-08-28] MEDS: levETIRAcetam IV 500 MG in SODIUM CHLORIDE 0.9% 100 ML IVPB SCH ×2 (09:51→21:00)
[2021-08-28] MEDS ORDERED: SODIUM CHLORIDE 0.9% 1,000 ML IV ONE ×3 (10:10→14:52)
--- NOTE | 2021-08-28 11:04 | P.PN ---
<Cheryl Doyle - Last Filed: 08/28/21 10:48> Subjective Progress Note Date: 08/28/21 CHIEF COMPLAINT: Abdominal pain HISTORY OF PRESENT ILLNESS: Patient remains in the ICU. Surgical service following in regards to acute cholecystitis. He does have a cholecystostomy tube orange, yellow in color. Per nursing staff patient is having 200-400 mL output per shift. Afebrile, Tachycardic and hypotensive. Patient does remain on vasopressors. WBC 0.5 Hgb 7.7 platelets 20 K3.2 PHYSICAL EXAM: VITAL SIGNS: Reviewed. GENERAL: Well-developed in no acute distress. HEENT: No sclera icterus. Extraocular movements grossly intact. Moist buccal mucosa. Head is atraumatic, normocephalic. ABDOMEN: Soft. Nondistended. Nontender. Cholecystostomy tube in place ASSESSMENT: 1. Acute cholecystitis 2. Bacteremia 3. Hypokalemia PLAN: -Keep cholecystostomy tube -Continue antibiotics per ID -Continue supportive care and ICU management -Potassium being replaced Physician [employer]obile [employer] note has been reviewed by physician. Signing provider agrees with the documented findings, assessment, and plan of care. Objective - Vital Signs Vital signs: Vital Signs Temp 96.5 F L 08/28/21 04:00 Pulse 117 H 08/28/21 07:00 Resp 28 H 08/28/21 07:00 BP 154/93 08/27/21 21:30 Pulse Ox 93 L 08/28/21 07:00 Intake & Output 08/27/21 08/28/21 08/28/21 18:59 06:59 18:59 Intake Total 6190.345 5430.911 175.153 Output Total 1105 940 975 Balance 718.004 8375.911 -799.847 Weight 123.7 kg 123.7 kg Intake: IV 825 2850 75 0.9 750 900 75 Acyclovir Sodium 950 mg 250 In Sodium Chloride 0.9% 250 ml @ 269 mls/hr IV Q8H [facility] Rx#:[id number] Ampicillin-Sulbactam 3 gm 100 In Sodium Chloride 0.9% 100 ml @ 200 mls/hr IVPB Q6HR [facility] Rx#:[id number] Piperacillin-Tazobactam 3 100 .375 gm In Sodium Chloride 0.9% 100 ml @ 25 mls/hr IVPB Q8H [facility] Rx#: [id number] Sodium Chloride 0.9% 1, 75 000 ml @ 130 mls/hr IV . Q7H42M [facility] Rx#:[id number] Sodium Chloride 0.9% 1, 1000 000 ml @ 999 mls/hr IV . Q1H1M [facility] Rx#:[id number] Vancomycin 1,750 mg In 500 Sodium Chloride 0.9% 500 ml 500 ml @ 167 mls/hr IVPB Q12H [facility] Rx#: [id number] Intake, IV Titration 270.575 417.911 100.153 Amount Norepinephrine 32 mg In 250 317.911 83.825 Sodium Chloride 0.9% 218 ml @ 0.05 MCG/KG/MIN 2. 599 mls/hr IV .Q24H [facility] Rx#:[id number] propofoL 1,000 mg In 20.575 100 16.328 Empty Bag 1 bag @ Titrate IV .Q0M [facility] Rx#: [id number] Tube Feeding 320 Blood Product 378 Platelet Pheresis Pas 378 Psoralen Unit [id number] Other 90 Output: Drainage 500 500 300 Right Abdomen 500 500 300 Urine 605 440 25 Stool 650 Other: Voiding Method Indwelling Catheter Indwelling Catheter # Bowel Movements 3 ABP, PAP, CO, CI - Last Documented Arterial Blood Pressure 96/49 - Labs CBC & Chem 7: 08/28/21 04:30 08/28/21 04:30 Labs: Abnormal Lab Results - Last 24 Hours (Table) 08/27/21 08/27/21 08/28/21 Range/Units 13:38 18:40 01:00 WBC (3.8-10.6) k/uL RBC (4.30-5.90) m/uL Hgb (13.0-17.5) gm/dL Hct (39.0-53.0) % RDW (11.5-15.5) % Plt Count (150-450) k/uL ABG pH 7.46 H (7.35-7.45) ABG pCO2 33 L (35-45) mmHg ABG pO2 (83-108) mmHg ABG Total CO2 25 H (19-24) mmol/L ABG O2 Saturation (94-97) % Potassium (3.5-5.1) mmol/L BUN (9-20) mg/dL Glucose (74-99) mg/dL POC Glucose (mg/dL) 152 H 158 H (75-99) mg/dL Calcium (8.4-10.2) mg/dL Total Bilirubin (0.2-1.3) mg/dL Total Protein (6.3-8.2) g/dL Albumin (3.5-5.0) g/dL 08/28/21 08/28/21 08/28/21 Range/Units 01:16 04:30 04:30 WBC 0.5 L* (3.8-10.6) k/uL RBC 2.36 L (4.30-5.90) m/uL Hgb 7.7 L (13.0-17.5) gm/dL Hct 22.8 L (39.0-53.0) % RDW 16.4 H (11.5-15.5) % Plt Count 20 L D (150-450) k/uL ABG pH (7.35-7.45) ABG pCO2 (35-45) mmHg ABG pO2 (83-108) mmHg ABG Total CO2 (19-24) mmol/L ABG O2 Saturation (94-97) % Potassium 3.2 L (3.5-5.1) mmol/L BUN 26 H (9-20) mg/dL Glucose 181 H (74-99) mg/dL POC Glucose (mg/dL) 176 H (75-99) mg/dL Calcium 6.9 L (8.4-10.2) mg/dL Total Bilirubin 3.9 H (0.2-1.3) mg/dL Total Protein 5.7 L (6.3-8.2) g/dL Albumin 1.8 L (3.5-5.0) g/dL 08/28/21 08/28/21 Range/Units 05:01 06:58 WBC (3.8-10.6) k/uL RBC (4.30-5.90) m/uL Hgb (13.0-17.5) gm/dL Hct (39.0-53.0) % RDW (11.5-15.5) % Plt Count (150-450) k/uL ABG pH (7.35-7.45) ABG pCO2 (35-45) mmHg ABG pO2 70 L (83-108) mmHg ABG Total CO2 25 H (19-24) mmol/L ABG O2 Saturation 93.6 L (94-97) % Potassium (3.5-5.1) mmol/L BUN (9-20) mg/dL Glucose (74-99) mg/dL POC Glucose (mg/dL) 186 H (75-99) mg/dL Calcium (8.4-10.2) mg/dL Total Bilirubin (0.2-1.3) mg/dL Total Protein (6.3-8.2) g/dL Albumin (3.5-5.0) g/dL Microbiology - Last 24 Hours (Table) 08/24/21 20:33 Gram Stain - Final Aspirate Body Fluid Culture - Final Klebsiella pneumoniae Alpha Hemolytic Streptococcus <Elton Headley - Last Filed: 08/28/21 14:34> Subjective As above. Clinically patient continues to improve slowly. Cholecystostomy tube with bilious fluid approximately 400 mL per shift. Continue supportive care. We'll follow. Objective - Vital Signs Vital signs: Vital Signs Temp 97.9 F 08/28/21 12:00 Pulse 131 H 08/28/21 14:00 Resp 36 H 08/28/21 14:00 BP 154/93 08/27/21 21:30 Pulse Ox 91 L 08/28/21 14:00 Intake & Output 08/27/21 08/28/21 08/28/21 18:59 06:59 18:59 Intake Total 4035.964 0501.911 4241.597 Output Total 1673 763 3106 Balance 899.454 5692.911 2731.597 Weight 123.7 kg 123.7 kg Intake: IV 825 2850 3848 0.9 750 900 75 Acyclovir Sodium 950 mg 250 250 In Sodium Chloride 0.9% 250 ml @ 269 mls/hr IV Q8H [facility] Rx#:[id number] Ampicillin-Sulbactam 3 gm 100 In Sodium Chloride 0.9% 100 ml @ 200 mls/hr IVPB Q6HR [facility] Rx#:[id number] Piperacillin-Tazobactam 3 100 .375 gm In Sodium Chloride 0.9% 100 ml @ 25 mls/hr IVPB Q8H [facility] Rx#: [id number] Potassium Chloride 20 meq 200 In Water For Injection 1 100ml.bag @ 50 mls/hr IVPB Q2H [facility] Rx#: [id number] Sodium Chloride 0.9% 1, 725 000 ml @ 125 mls/hr IV . Q8H [facility] Rx#:[id number] Sodium Chloride 0.9% 1, 75 000 ml @ 130 mls/hr IV . Q7H42M [facility] Rx#:[id number] Sodium Chloride 0.9% 1, 1000 1998 000 ml @ 999 mls/hr IV . Q1H1M [facility] Rx#:[id number] Vancomycin 1,750 mg In 500 500 Sodium Chloride 0.9% 500 ml 500 ml @ 167 mls/hr IVPB Q12H [facility] Rx#: [id number] levETIRAcetam IV 500 mg 100 In Sodium Chloride 0.9% 100 ml @ 400 mls/hr IVPB Q12HR [facility] Rx#:[id number] Intake, IV Titration 270.575 417.911 323.597 Amount Norepinephrine 32 mg In 250 317.911 307.269 Sodium Chloride 0.9% 218 ml @ 0.05 MCG/KG/MIN 2. 599 mls/hr IV .Q24H [facility] Rx#:[id number] propofoL 1,000 mg In 20.575 100 16.328 Empty Bag 1 bag @ Titrate IV .Q0M [facility] Rx#: [id number] Tube Feeding 320 40 Blood Product 378 Platelet Pheresis Pas 378 Psoralen Unit [id number] Other 90 30 Output: Drainage 500 500 600 Right Abdomen 500 500 600 Urine 605 440 260 Stool 650 Other: Voiding Method Indwelling Catheter Indwelling Catheter Indwelling Catheter # Bowel Movements 3 ABP, PAP, CO, CI - Last Documented Arterial Blood Pressure 85/44 - Labs CBC & Chem 7: 08/28/21 04:30 08/28/21 04:30 Labs: Abnormal Lab Results - Last 24 Hours (Table) 08/27/21 08/28/21 08/28/21 Range/Units 18:40 01:00 01:16 WBC (3.8-10.6) k/uL RBC (4.30-5.90) m/uL Hgb (13.0-17.5) gm/dL Hct (39.0-53.0) % RDW (11.5-15.5) % Plt Count (150-450) k/uL PT (9.0-12.0) sec INR (<1.2) APTT (22.0-30.0) sec ABG pH 7.46 H (7.35-7.45) ABG pCO2 33 L (35-45) mmHg ABG pO2 (83-108) mmHg ABG Total CO2 25 H (19-24) mmol/L ABG O2 Saturation (94-97) % Potassium (3.5-5.1) mmol/L BUN (9-20) mg/dL Glucose (74-99) mg/dL POC Glucose (mg/dL) 158 H 176 H (75-99) mg/dL Calcium (8.4-10.2) mg/dL Total Bilirubin (0.2-1.3) mg/dL Total Protein (6.3-8.2) g/dL Albumin (3.5-5.0) g/dL 08/28/21 08/28/21 08/28/21 Range/Units 04:30 04:30 05:01 WBC 0.5 L* (3.8-10.6) k/uL RBC 2.36 L (4.30-5.90) m/uL Hgb 7.7 L (13.0-17.5) gm/dL Hct 22.8 L (39.0-53.0) % RDW 16.4 H (11.5-15.5) % Plt Count 20 L D (150-450) k/uL PT (9.0-12.0) sec INR (<1.2) APTT (22.0-30.0) sec ABG pH (7.35-7.45) ABG pCO2 (35-45) mmHg ABG pO2 70 L (83-108) mmHg ABG Total CO2 25 H (19-24) mmol/L ABG O2 Saturation 93.6 L (94-97) % Potassium 3.2 L (3.5-5.1) mmol/L BUN 26 H (9-20) mg/dL Glucose 181 H (74-99) mg/dL POC Glucose (mg/dL) (75-99) mg/dL Calcium 6.9 L (8.4-10.2) mg/dL Total Bilirubin 3.9 H (0.2-1.3) mg/dL Total Protein 5.7 L (6.3-8.2) g/dL Albumin 1.8 L (3.5-5.0) g/dL 08/28/21 08/28/21 08/28/21 Range/Units 06:58 11:54 12:55 WBC (3.8-10.6) k/uL RBC (4.30-5.90) m/uL Hgb (13.0-17.5) gm/dL Hct (39.0-53.0) % RDW (11.5-15.5) % Plt Count (150-450) k/uL PT 15.1 H (9.0-12.0) sec INR 1.5 H (<1.2) APTT 31.6 H (22.0-30.0) sec ABG pH (7.35-7.45) ABG pCO2 (35-45) mmHg ABG pO2 (83-108) mmHg ABG Total CO2 (19-24) mmol/L ABG O2 Saturation (94-97) % Potassium (3.5-5.1) mmol/L BUN (9-20) mg/dL Glucose (74-99) mg/dL POC Glucose (mg/dL) 186 H 178 H (75-99) mg/dL Calcium (8.4-10.2) mg/dL Total Bilirubin (0.2-1.3) mg/dL Total Protein (6.3-8.2) g/dL Albumin (3.5-5.0) g/dL Microbiology - Last 24 Hours (Table) 08/24/21 20:33 Gram Stain - Final Aspirate Body Fluid Culture - Final Klebsiella pneumoniae Alpha Hemolytic Streptococcus Assessment and Plan (1) Acute cholecystitis Current Visit: Yes Status: Acute Priority: High Code(s): K81.0 - ACUTE CHOLECYSTITIS SNOMED Code(s): 16087360
[2021-08-28 11:55] LABS: Glucose,Whole Blood 178 mg/dL (75-99)
--- NOTE | 2021-08-28 12:05 | P.PN ---
Subjective Progress Note Date: 08/28/21 Principal diagnosis: Septic shock and multisystem organ failure secondary to acute cholecystitis 04/25/2021, the patient is being seen for a follow-up. He is a critically ill 60-year-old male patient with Hodgkin's lymphoma with septic shock and multisystem organ failure. He did vehicle return associate to have Klebsiella in his blood. In any rate, the patient remains on a mechanical ventilator. Yesterday, he became slightly more asynchronous with a mechanical ventilator and he was started on propofol which is currently running at 20 mcg/kg per minute. This was introduced to help him with a synchrony with the respirator. Things have improved since. Note that the patient does not show any signs of neurological recovery. His EEG showed diffuse encephalopathy without ongoing seizure activity. There is a punctate hemorrhagic area in his archie and for that reason a repeat CAT scan will need be will be needed at a later stage. Yesterday, the patient was very unstable to be taken down to CAT scan. On today's evaluation, he remains on a mechanical ventilator. His assist-control at the rate of 26 with a tidal volume of 580 with an FiO2 of 40% and PEEP of 5. His chest x-ray from today was noted and there is no major interval change. Tube is in a good location. The blood gas showed a pH of 7.53 with a pCO2 of 34 and pO2 of 67 and this was done and FiO2 of 40%. No significant orotracheal secretions. Hemodynamically, the patient continues to be on higher doses of pressors. The patient is on vasopressin physiologic dose, norepinephrine is running at a dose of 0.9 mg/kg per minute. His epinephrine infusion is running at 0.08 mcg/kg per minute. Also, the patient is on IV fluids and he is receiving 0.9 saline at the rate of 130s uses an hour. His overall fluid balance over the past 24 hours has been +7.1 L. Urine output is in order of 30-40 mL an hour. His creatinine is improved compared to yesterday and the patient's creatinine is down to 1.1. Potassium level is at 2.7 and this is to be replaced. His blood culture was positive for gram-negative bacillus. Subsequently this vehicle return associate to be positive for Klebsiella pneumonia. He has 2 sets of blood cultures are positive. He remains on IV Zosyn. Hematologically, his white cell count is still low at 0.5 and hemoglobin is at 7.4. Platelet count dropped down to 14. The patient remains on insulin drip for blood sugar control and currently is on 11 units an hour. The cholecystostomy tube is still in place and output is minimal at this point in time. The output is non-purulence. Abdomen is nondistended. Positive the lower extremities are diminished yet barely palpable. He is afebrile for to day, still tachycardic and the patient remains in sinus tachycardia. A limited echo cardiogram showed a preserved LV function with an ejection fraction of 50- 55%. Remains on Keppra. No seizure activity has been noted. 08/27/2021, the patient is being seen for a follow-up. He is a case of septic shock with pancytopenia. Systemic chemotherapy given for Hodgkin's lymphoma. This was related to an acute cholecystitis with gram-negative bacteremia as gram-negative bacillus is growing in the biliary fluids and Klebsiella pneumoniae is and the blood. The patient remains on broad-spectrum antibiotics and the patient is currently on IV Zosyn. Hemodynamically, the patient is being still supported with pressors. Norepinephrine infusion is still running at 0.7 mcg/kg per minute. Epinephrine has been discontinued. He remains on vasopressin physiologic dose. Fluid balance is no order of +1.3 L over the past 24 hours. Bicarb drip has been discontinued. Urine output is in order of 40-50 mL an hour. He remains on a mechanical ventilator. He remains gently sedated with propofol which is running at 20 mcg/kg per minute. I reviewed the CAT scan of the brain yesterday and the CAT scan showed no acute abnormalities. Neurologist on the case. No seizure activity has been noted and the patient remains on Keppra. Meanwhile, the patient remains on a mechanical ventilator. On today's evaluation, he remains on assist control rate of 26 with a tidal volume of 580 and FiO2 of 40% with a PEEP of 5. Peak airway pressures 21. Blood gas showed a pH of 7.53 with a pCO2 of 30 and pO2 of 141. Chest x-ray shows some atelectatic changes in lung bases. ET tube is in a good location. No acute pulmonary infiltrates. Hematologic profile was reviewed. The patient's white cell count is at 0.4 with a platelet count of 11. Note that he did receive a unit of platelets yesterday and the plated count is still low at 11. Hemoglobin is stable. The patient has no evidence of any bleeding. Awaiting on the [facility]. Output from the cholecystostomy tube is in the order of 1 80 mL over the past 24 hours. Meanwhile, the patient was started on enteral feeding for nutritional support and currently is receiving vitamin AF at the rate of 20 20 mL an hour. He is afebrile. No other significant events otherwise for now. General surgeries on the case. Neurologist on the case. Hematology oncology is also on the case. Patient was reevaluated today on 08/28/2021, remains in the ICU intubated and mechanically ventilated. Assist-control rate is 26 tidal volume is 500 FiO2 60% and PEEP of 5, ABG showed a pO2 of 70 pCO2 of 36 pH of 7.43. Patient remains on multiple pressors including norepinephrine at 0.85 mcg/kg/m, his also on vasopressin 0.04, he is on propofol at 35, and IV fluid at 75 mL per hour. Blood pressure remains marginal, patient will receive the fluid boluses at least 2 L will be given. PEEP was increased to 6 based on marginal ABG on FiO2 of 60% and PEEP of 5. Patient continues to receive antibiotics in the form of Unasyn, acyclovir, and is also on vancomycin, infectious disease consulted on this case. Patient had Klebsiella and alphahemolytic strep in the fluid from the gallbladder, and her blood cultures are positive for Klebsiella pneumoniae. WBC count is 0.5 hemoglobin is 7.7. Platelets are 20,000. Electrolytes are normal renal profile is normal chest x-ray shows minimal bibasilar infiltrates. Objective - Vital Signs Vital signs: Vital Signs Temp 97.3 F L 08/28/21 08:00 Pulse 120 H 08/28/21 11:30 Resp 43 H 08/28/21 11:30 BP 154/93 08/27/21 21:30 Pulse Ox 92 L 08/28/21 11:30 Intake & Output 08/27/21 08/28/21 08/28/21 18:59 06:59 18:59 Intake Total 0487.539 7532.911 2384.153 Output Total 2781 046 2775 Balance 714.139 5623.911 964.153 Weight 123.7 kg 123.7 kg Intake: IV 825 2850 2274 0.9 750 900 75 Acyclovir Sodium 950 mg 250 250 In Sodium Chloride 0.9% 250 ml @ 269 mls/hr IV Q8H [facility] Rx#:[id number] Ampicillin-Sulbactam 3 gm 100 In Sodium Chloride 0.9% 100 ml @ 200 mls/hr IVPB Q6HR [facility] Rx#:[id number] Piperacillin-Tazobactam 3 100 .375 gm In Sodium Chloride 0.9% 100 ml @ 25 mls/hr IVPB Q8H [facility] Rx#: [id number] Sodium Chloride 0.9% 1, 350 000 ml @ 125 mls/hr IV . Q8H [facility] Rx#:[id number] Sodium Chloride 0.9% 1, 75 000 ml @ 130 mls/hr IV . Q7H42M [facility] Rx#:[id number] Sodium Chloride 0.9% 1, 1000 999 000 ml @ 999 mls/hr IV . Q1H1M [facility] Rx#:[id number] Vancomycin 1,750 mg In 500 500 Sodium Chloride 0.9% 500 ml 500 ml @ 167 mls/hr IVPB Q12H [facility] Rx#: [id number] levETIRAcetam IV 500 mg 100 In Sodium Chloride 0.9% 100 ml @ 400 mls/hr IVPB Q12HR [facility] Rx#:[id number] Intake, IV Titration 270.575 417.911 100.153 Amount Norepinephrine 32 mg In 250 317.911 83.825 Sodium Chloride 0.9% 218 ml @ 0.05 MCG/KG/MIN 2. 599 mls/hr IV .Q24H [facility] Rx#:[id number] propofoL 1,000 mg In 20.575 100 16.328 Empty Bag 1 bag @ Titrate IV .Q0M [facility] Rx#: [id number] Tube Feeding 320 10 Blood Product 378 Platelet Pheresis Pas 378 Psoralen Unit [id number] Other 90 Output: Drainage 500 500 600 Right Abdomen 500 500 600 Urine 605 440 170 Stool 650 Other: Voiding Method Indwelling Catheter Indwelling Catheter # Bowel Movements 3 ABP, PAP, CO, CI - Last Documented Arterial Blood Pressure 107/55 - Exam Physical Exam: Revealed a 60-year-old white male, looks frail, chronically ill, on mechanical ventilation, intubated, sedated, unresponsive to any stimuli. Patient is unresponsive, HEENT: Positive jaundice noted. [Neck is supple.] [No neck masses.] [No thyromegaly.] [No JVD.] The tracheal tube and orogastric tubes are intact Chest: [Symmetrical chest expansion, crackles at the bases. No rhonchi and no wheezes..] Cardiac Exam: Normal S1 and S2, no S3 gallop. Abdomen: Abdominal exam revealed normal bowel sounds. The abdomen was soft, non- tender, and without masses, organomegaly, or appreciable enlargement of the abdominal aorta. No ascites. No direct tenderness. No rebound tenderness. No guarding. Bowel sounds are hypoactive nearly absent. patient has a percutaneous drain in his right upper quadrant for drainage of the gallbladder. Extremities: Trace of bipedal edema. Neurological Exam: Not assessed, patient is sedated, and unresponsive to any stimuli. Psychiatric: Could not assess. He is sedated. Unresponsive - Labs CBC & Chem 7: 08/28/21 04:30 08/28/21 04:30 Labs: Abnormal Lab Results - Last 24 Hours (Table) 08/27/21 08/27/21 08/28/21 Range/Units 13:38 18:40 01:00 WBC (3.8-10.6) k/uL RBC (4.30-5.90) m/uL Hgb (13.0-17.5) gm/dL Hct (39.0-53.0) % RDW (11.5-15.5) % Plt Count (150-450) k/uL ABG pH 7.46 H (7.35-7.45) ABG pCO2 33 L (35-45) mmHg ABG pO2 (83-108) mmHg ABG Total CO2 25 H (19-24) mmol/L ABG O2 Saturation (94-97) % Potassium (3.5-5.1) mmol/L BUN (9-20) mg/dL Glucose (74-99) mg/dL POC Glucose (mg/dL) 152 H 158 H (75-99) mg/dL Calcium (8.4-10.2) mg/dL Total Bilirubin (0.2-1.3) mg/dL Total Protein (6.3-8.2) g/dL Albumin (3.5-5.0) g/dL 08/28/21 08/28/21 08/28/21 Range/Units 01:16 04:30 04:30 WBC 0.5 L* (3.8-10.6) k/uL RBC 2.36 L (4.30-5.90) m/uL Hgb 7.7 L (13.0-17.5) gm/dL Hct 22.8 L (39.0-53.0) % RDW 16.4 H (11.5-15.5) % Plt Count 20 L D (150-450) k/uL ABG pH (7.35-7.45) ABG pCO2 (35-45) mmHg ABG pO2 (83-108) mmHg ABG Total CO2 (19-24) mmol/L ABG O2 Saturation (94-97) % Potassium 3.2 L (3.5-5.1) mmol/L BUN 26 H (9-20) mg/dL Glucose 181 H (74-99) mg/dL POC Glucose (mg/dL) 176 H (75-99) mg/dL Calcium 6.9 L (8.4-10.2) mg/dL Total Bilirubin 3.9 H (0.2-1.3) mg/dL Total Protein 5.7 L (6.3-8.2) g/dL Albumin 1.8 L (3.5-5.0) g/dL 08/28/21 08/28/21 Range/Units 05:01 06:58 WBC (3.8-10.6) k/uL RBC (4.30-5.90) m/uL Hgb (13.0-17.5) gm/dL Hct (39.0-53.0) % RDW (11.5-15.5) % Plt Count (150-450) k/uL ABG pH (7.35-7.45) ABG pCO2 (35-45) mmHg ABG pO2 70 L (83-108) mmHg ABG Total CO2 25 H (19-24) mmol/L ABG O2 Saturation 93.6 L (94-97) % Potassium (3.5-5.1) mmol/L BUN (9-20) mg/dL Glucose (74-99) mg/dL POC Glucose (mg/dL) 186 H (75-99) mg/dL Calcium (8.4-10.2) mg/dL Total Bilirubin (0.2-1.3) mg/dL Total Protein (6.3-8.2) g/dL Albumin (3.5-5.0) g/dL Microbiology - Last 24 Hours (Table) 08/24/21 20:33 Gram Stain - Final Aspirate Body Fluid Culture - Final Klebsiella pneumoniae Alpha Hemolytic Streptococcus Assessment and Plan Assessment: Impression: Acute hypoxic respiratory failure secondary to septic shock and multisystem organ failure Septic shock, most likely source is cholecystitis, with Klebsiella pneumonia b acteremia Hypotension secondary to above. Pancytopenia secondary to chemotherapy. History of Hodgkin's lymphoma and status post systemic chemotherapy. Acute kidney injury secondary to above. Severe lactic acidosis on presentation secondary to sepsis and septic shock. Status post percutaneous drainage of gallbladder. History of hypothyroidism. Treated with radioactive iodine. New onset seizure, being addressed by neurology. Type 2 diabetes. Patient is on insulin. Multiple comorbidities and poor performance and poor functional status. Recommendation: Continue ventilatory support, increase PEEP to 8. Continue pressors and patient will receive fluid boluses. Continue antibiotics as per infectious disease on the case. Transfuse blood products accordingly including platelets. Continue vasopressin and norepinephrine. Consider starting enteral feeding via nasogastric tube. Continue GI and DVT prophylaxis. Continue insulin. Continue Keppra. Overall prognosis remains extremely poor and guarded. Critical care time is over 30 minutes. Time with Patient: Greater than 30
[2021-08-28 13:52] LABS: INR 1.5 (<1.2); Partial Thromboplastin Time 31.6 sec (22.0-30.0); Prothrombin Time 15.1 sec (9.0-12.0)
[2021-08-28] MEDS ORDERED: HYDROCORTISONE SUCCINATE 100 MG/2 ML VIAL IV STA (16:59)
--- NOTE | 2021-08-28 17:07 | P.PN ---
Subjective Progress Note Date: 08/28/21 Principal diagnosis: Neutropenic sepsis Patient remains sedated and mechanically ventilated. Objective - Vital Signs Vital signs: Vital Signs Temp 97.9 F 08/28/21 16:00 Pulse 137 H 08/28/21 17:00 Resp 36 H 08/28/21 17:00 BP 154/93 08/27/21 21:30 Pulse Ox 93 L 08/28/21 17:00 Intake & Output 08/27/21 08/28/21 08/28/21 18:59 06:59 18:59 Intake Total 5806.149 8684.911 5842.472 Output Total 4468 160 0676 Balance 123.717 7442.911 3772.472 Weight 123.7 kg 123.7 kg Intake: IV 825 2850 5222 0.9 750 900 75 Acyclovir Sodium 950 mg 250 500 In Sodium Chloride 0.9% 250 ml @ 269 mls/hr IV Q8H [facility] Rx#:[id number] Ampicillin-Sulbactam 3 gm 100 In Sodium Chloride 0.9% 100 ml @ 200 mls/hr IVPB Q6HR [facility] Rx#:[id number] Piperacillin-Tazobactam 3 100 .375 gm In Sodium Chloride 0.9% 100 ml @ 25 mls/hr IVPB Q8H [facility] Rx#: [id number] Potassium Chloride 20 meq 200 In Water For Injection 1 100ml.bag @ 50 mls/hr IVPB Q2H [facility] Rx#: [id number] Sodium Chloride 0.9% 1, 850 000 ml @ 125 mls/hr IV . Q8H [facility] Rx#:[id number] Sodium Chloride 0.9% 1, 75 000 ml @ 130 mls/hr IV . Q7H42M [facility] Rx#:[id number] Sodium Chloride 0.9% 1, 1000 2997 000 ml @ 999 mls/hr IV . Q1H1M [facility] Rx#:[id number] Vancomycin 1,750 mg In 500 500 Sodium Chloride 0.9% 500 ml 500 ml @ 167 mls/hr IVPB Q12H [facility] Rx#: [id number] levETIRAcetam IV 500 mg 100 In Sodium Chloride 0.9% 100 ml @ 400 mls/hr IVPB Q12HR [facility] Rx#:[id number] Intake, IV Titration 270.575 417.911 530.472 Amount Norepinephrine 32 mg In 250 317.911 430.472 Sodium Chloride 0.9% 218 ml @ 0.05 MCG/KG/MIN 2. 599 mls/hr IV .Q24H [facility] Rx#:[id number] propofoL 1,000 mg In 20.575 100 100.000 Empty Bag 1 bag @ Titrate IV .Q0M [facility] Rx#: [id number] Tube Feeding 320 60 Blood Product 378 Platelet Pheresis Pas 378 Psoralen Unit [id number] Other 90 30 Output: Drainage 500 500 600 Right Abdomen 500 500 600 Urine 605 440 320 Stool 1150 Other: Voiding Method Indwelling Catheter Indwelling Catheter Indwelling Catheter # Bowel Movements 3 ABP, PAP, CO, CI - Last Documented Arterial Blood Pressure 75/41 - Exam Gen. anasarca noted, skin is warm and dry to the touch, no mottling. Pupils did react to light - Labs CBC & Chem 7: 08/28/21 04:30 08/28/21 04:30 Labs: Abnormal Lab Results - Last 24 Hours (Table) 08/27/21 08/28/21 08/28/21 Range/Units 18:40 01:00 01:16 WBC (3.8-10.6) k/uL RBC (4.30-5.90) m/uL Hgb (13.0-17.5) gm/dL Hct (39.0-53.0) % RDW (11.5-15.5) % Plt Count (150-450) k/uL PT (9.0-12.0) sec INR (<1.2) APTT (22.0-30.0) sec ABG pH 7.46 H (7.35-7.45) ABG pCO2 33 L (35-45) mmHg ABG pO2 (83-108) mmHg ABG Total CO2 25 H (19-24) mmol/L ABG O2 Saturation (94-97) % Potassium (3.5-5.1) mmol/L BUN (9-20) mg/dL Glucose (74-99) mg/dL POC Glucose (mg/dL) 158 H 176 H (75-99) mg/dL Calcium (8.4-10.2) mg/dL Total Bilirubin (0.2-1.3) mg/dL Total Protein (6.3-8.2) g/dL Albumin (3.5-5.0) g/dL 08/28/21 08/28/21 08/28/21 Range/Units 04:30 04:30 05:01 WBC 0.5 L* (3.8-10.6) k/uL RBC 2.36 L (4.30-5.90) m/uL Hgb 7.7 L (13.0-17.5) gm/dL Hct 22.8 L (39.0-53.0) % RDW 16.4 H (11.5-15.5) % Plt Count 20 L D (150-450) k/uL PT (9.0-12.0) sec INR (<1.2) APTT (22.0-30.0) sec ABG pH (7.35-7.45) ABG pCO2 (35-45) mmHg ABG pO2 70 L (83-108) mmHg ABG Total CO2 25 H (19-24) mmol/L ABG O2 Saturation 93.6 L (94-97) % Potassium 3.2 L (3.5-5.1) mmol/L BUN 26 H (9-20) mg/dL Glucose 181 H (74-99) mg/dL POC Glucose (mg/dL) (75-99) mg/dL Calcium 6.9 L (8.4-10.2) mg/dL Total Bilirubin 3.9 H (0.2-1.3) mg/dL Total Protein 5.7 L (6.3-8.2) g/dL Albumin 1.8 L (3.5-5.0) g/dL 08/28/21 08/28/21 08/28/21 Range/Units 06:58 11:54 12:55 WBC (3.8-10.6) k/uL RBC (4.30-5.90) m/uL Hgb (13.0-17.5) gm/dL Hct (39.0-53.0) % RDW (11.5-15.5) % Plt Count (150-450) k/uL PT 15.1 H (9.0-12.0) sec INR 1.5 H (<1.2) APTT 31.6 H (22.0-30.0) sec ABG pH (7.35-7.45) ABG pCO2 (35-45) mmHg ABG pO2 (83-108) mmHg ABG Total CO2 (19-24) mmol/L ABG O2 Saturation (94-97) % Potassium (3.5-5.1) mmol/L BUN (9-20) mg/dL Glucose (74-99) mg/dL POC Glucose (mg/dL) 186 H 178 H (75-99) mg/dL Calcium (8.4-10.2) mg/dL Total Bilirubin (0.2-1.3) mg/dL Total Protein (6.3-8.2) g/dL Albumin (3.5-5.0) g/dL Microbiology - Last 24 Hours (Table) 08/24/21 20:33 Gram Stain - Final Aspirate Body Fluid Culture - Final Klebsiella pneumoniae Alpha Hemolytic Streptococcus Assessment and Plan (1) Neutropenic fever Narrative/Plan: GCSF initiated for chemo induced neutropenia. Cont until ANC>10 CXR showing bilateral infiltrates. BC + for Kl pneu. ID following Current Visit: Yes Status: Acute Priority: High Code(s): D70.9 - NEUTROPENIA, UNSPECIFIED; R50.81 - FEVER PRESENTING WITH CONDITIONS CLASSIFIED ELSEWHERE SNOMED Code(s): 455187480 (2) Hodgkin lymphoma Narrative/Plan: Pt is s/p C1 D1 of BV AVD treatment on 08/15. He only received adriamycin, vincristine and adcetris (DTIC is on backorder). Treatment hold. Current Visit: Yes Status: Acute Priority: High Code(s): C81.90 - HODGKIN LYMPHOMA, UNSPECIFIED, UNSPECIFIED SITE SNOMED Code(s): 590998577 (3) Acute cholecystitis Narrative/Plan: PCT placed for drainage as pt not stable enough for procedure. Surgery following. Current Visit: Yes Status: Acute Priority: High Code(s): K81.0 - ACUTE CHOLECYSTITIS SNOMED Code(s): 91256043 (4) Antineoplastic chemotherapy induced pancytopenia Narrative/Plan: Transfuse to keep Hgb above 7, hemoglobin 7.7 today. Platelets 20,000 today, 1 unit single donor platelets ordered. Plan is to keep platelets above 30-40,000 with sepsis. Cont GCSF until ANC at least 10. Labs are ordered daily Current Visit: Yes Status: Acute Priority: High Code(s): D61.810 - A NTINEOPLASTIC CHEMOTHERAPY INDUCED PANCYTOPENIA; T45.1X5A - ADVERSE EFFECT OF ANTINEOPLASTIC AND IMMUNOSUP DRUGS, INIT SNOMED Code(s): 245851289817976 Plan: Answered pt questions. We discussed CPR and what no code means. She will make further decisions and report changes to Nursing. She states she is waiting to discuss case with Critical Care team.
[2021-08-28] MEDS: FILGRASTIM-SNDZ 480 MCG/0.8 ML SYRINGE SQ SCH (17:11)
--- NOTE | 2021-08-28 17:59 | PN ---
PROGRESS NOTE DATE OF SERVICE: 08/28/2021 This 60-year-old gentleman who was admitted with acute neutropenia and neutropenic sepsis is being closely monitored at this time. The cultures grew multiple organisms, including Klebsiella as well as alpha-hemolytic streptococci. The patient is on mechanical ventilation. Patient is hypotensive, on increasing doses of Levophed. Currently the patient is on Unasyn. Multiple consultants are following the patient, including Dr. Doyle and Dr. Dumont. Neurology is following the patient closely. Acute cholecystitis and drainage of the abscess also has been done. CT of the brain was reviewed personally by me and showed no acute abnormality. Patient is mechanically ventilated and sedated. Vent settings are noted. Past medical history reviewed. Review of systems could not be taken. CURRENT MEDICATIONS: Reviewed. They include Tylenol, Unasyn, acyclovir, Dilaudid, NovoLog. Doses and other medications are noted. PHYSICAL EXAMINATION: Patient is mechanically ventilated and sedated. Pulse is 131, blood pressure ntd respirations 36, temperature normal. Pulse ox is 91% on mechanical ventilation. HEENT: Conjunctivae normal. NECK: No jugular venous distention. CARDIOVASCULAR: S1, S2 muffled. RESPIRATION: Breath sounds diminished at the bases. A few scattered rhonchi. ABDOMEN: Soft, distended. LEGS: No edema. No swelling. NERVOUS SYSTEM: No focal deficit. LABS: WBC 0.5, hemoglobin 7.7, sodium 137, potassium 3.2. ASSESSMENT: 1. Acute neutropenic sepsis with hypotension with sepsis and septic shock secondary to acute cholecystitis. 2. Acute hypoxic respiratory failure, on mechanical ventilation. 3. Severe sepsis and severe hypotension and septic shock. 4. Acute metabolic acidosis. 5. Hyponatremia. 6. Hypokalemia. 7. Hodgkin's lymphoma, on chemotherapy. 8. Elevated alkaline phosphatase. 9. Diabetes mellitus, type 2. 10.History of degenerative joint disease. 11.History of constipation. 12.History of gout. 13.History of previous radiated iodine treatment. 14.History of nicotine dependence. 15.FULL CODE. RECOMMENDATIONS AND DISCUSSION: I recommend to continue current medications, continue with symptomatic treatment. The patient is still severely neutropenic. Multiple cultures are positive at this time. Guarded prognosis because of multiple complex medical issues. Further recommendations to follow. MMODL / IJN: [id number] / [facility]
--- NOTE | 2021-08-28 18:14 | PN ---
PROGRESS NOTE DATE OF SERVICE: 08/28/2021 REASON FOR FOLLOWUP: Klebsiella sepsis secondary to cholecystitis. INTERVAL HISTORY: The patient is afebrile. The patient remains on pressor support. FiO2 is currently at 60%. No significant purulent secretions in the ET or any other changes reported by the nursing staff. PHYSICAL EXAMINATION: Blood pressure is 89/45, pulse of 130, temperature 98. General description is a middle- aged male lying in bed in no distress. Respiratory system: Unlabored breathing, decreased breath sounds in the bases. No wheeze. Heart S1, S2. Regular rate and rhythm. Abdomen soft, no guarding or rigidity. LABS: Hemoglobin is 7. white count 0.5, creatinine 0.88. DIAGNOSTIC IMPRESSION AND PLAN: Patient with sepsis secondary to Klebsiella pneumoniae bacteremia from cholecystitis, status post IR drainage. Patient is covered with Unasyn ordered. No evidence of any Gram-positive infection. Vancomycin discontinued. MMODL / IJN: [id number] /
[2021-08-28 18:19] LABS: Glucose,Whole Blood 144 mg/dL (75-99)
[2021-08-29] MEDS: SODIUM CHLORIDE 0.9% 1,000 ML IV SCH ×2 (01:36→08:30)
[2021-08-29] MEDS: AMPICILLIN-SULBACTAM 3 GM in SODIUM CHLORIDE 0.9% 100 ML IVPB SCH ×2 (01:36→07:05)
[2021-08-29] MEDS: POTASSIUM CHLORIDE 20 MEQ in WATER FOR INJECTION 1 100ML.BAG IVPB SCH (01:36)
[2021-08-29 01:42] LABS: Glucose,Whole Blood 143 mg/dL (75-99)
[2021-08-29] MEDS: INSULIN ASPART (NovoLOG) 100 UNIT/ML VIAL SQ SCH ×2 (01:44→06:06)
[2021-08-29] MEDS: ACYCLOVIR SODIUM 950 MG in SODIUM CHLORIDE 0.9% 250 ML IV SCH ×2 (02:00→08:57)
[2021-08-29] MEDS: SODIUM CHLORIDE 0.9% 50 ML with VASOPRESSIN 20 UNIT IVPB SCH ×2 (02:19)
[2021-08-29 05:06] VITALS: TEMP 97.6
[2021-08-29 05:30] LABS: Glucose,Whole Blood 131 mg/dL (75-99)
[2021-08-29] MEDS ORDERED: LEVOTHYROXINE 88 MCG TAB PO SCH (06:30)
[2021-08-29 06:34] LABS: Albumin 1.6 g/dL (3.5-5.0); Potassium 4.2 mmol/L (3.5-5.1); Total Bilirubin 3.9 mg/dL (0.2-1.3); Total Protein 5.3 g/dL (6.3-8.2)
[2021-08-29 06:46] LABS: Calcium 6.2 mg/dL (8.4-10.2)
[2021-08-29 07:02] LABS: Anisocytosis Slight; HCT 23.6 % (39.0-53.0); HGB 7.8 gm/dL (13.0-17.5); MCH 32.5 pg (25.0-35.0); MCHC 33.2 g/dL (31.0-37.0); MCV 97.9 fL (80.0-100.0); Macrocytosis Slight; Mean Platelet Volume 10.5; RBC 2.41 m/uL (4.30-5.90); RDW 16.5 % (11.5-15.5)
[2021-08-29] MEDS: NOREPINEPHRINE 32 MG in SODIUM CHLORIDE 0.9% 218 ML IV SCH ×3 (07:04)
[2021-08-29 07:10] LABS: WBC 1.1 k/uL (3.8-10.6)
[2021-08-29 07:11] LABS: Platelet Count 37 k/uL (150-450)
[2021-08-29] MEDS: levETIRAcetam IV 500 MG in SODIUM CHLORIDE 0.9% 100 ML IVPB SCH (08:29)
[2021-08-29] MEDS: PANTOPRAZOLE 40 MG/10 ML VIAL IVP SCH (08:29)
[2021-08-29] MEDS: CHLORHEXIDINE GLUCONATE 15 ML CUP MUCOUS MEM SCH (08:29)
[2021-08-29 09:52] VITALS: RESP 25
[2021-08-29 10:04] LABS: Neutrophils % (M) 14 %
[2021-08-29 10:05] LABS: Band Neutrophils % 1 %; Lymphocytes # (M) 0.51 k/uL (1.0-4.8); Monocytes # (M) 0.43 k/uL (0-1.0)
[2021-08-29 10:06] LABS: Nucleated Red Blood Cells 0 /100 WBC (0-0); Total Cells Counted 100
[2021-08-29 10:15] LABS: Rouleaux Present
--- NOTE | 2021-08-29 10:15 | P.PN ---
Subjective Progress Note Date: 08/28/21 Patient was seen at bedside. Patient's was also present. No seizures reported by the patient's or the nurse. He continues to be intubated on vent, IV propofol. Objective - Vital Signs Vital signs: Vital Signs Temp 97.9 F 08/28/21 16:00 Pulse 133 H 08/28/21 16:15 Resp 34 H 08/28/21 16:15 BP 154/93 08/27/21 21:30 Pulse Ox 93 L 08/28/21 16:15 Intake & Output 08/27/21 08/28/21 08/28/21 18:59 06:59 18:59 Intake Total 3105.864 4699.911 5584.269 Output Total 1623 504 6713 Balance 638.993 8422.911 3544.269 Weight 123.7 kg 123.7 kg Intake: IV 825 2850 5097 0.9 750 900 75 Acyclovir Sodium 950 mg 250 500 In Sodium Chloride 0.9% 250 ml @ 269 mls/hr IV Q8H [facility] Rx#:[id number] Ampicillin-Sulbactam 3 gm 100 In Sodium Chloride 0.9% 100 ml @ 200 mls/hr IVPB Q6HR [facility] Rx#:[id number] Piperacillin-Tazobactam 3 100 .375 gm In Sodium Chloride 0.9% 100 ml @ 25 mls/hr IVPB Q8H [facility] Rx#: [id number] Potassium Chloride 20 meq 200 In Water For Injection 1 100ml.bag @ 50 mls/hr IVPB Q2H [facility] Rx#: [id number] Sodium Chloride 0.9% 1, 725 000 ml @ 125 mls/hr IV . Q8H [facility] Rx#:[id number] Sodium Chloride 0.9% 1, 75 000 ml @ 130 mls/hr IV . Q7H42M [facility] Rx#:[id number] Sodium Chloride 0.9% 1, 1000 2997 000 ml @ 999 mls/hr IV . Q1H1M [facility] Rx#:[id number] Vancomycin 1,750 mg In 500 500 Sodium Chloride 0.9% 500 ml 500 ml @ 167 mls/hr IVPB Q12H [facility] Rx#: [id number] levETIRAcetam IV 500 mg 100 In Sodium Chloride 0.9% 100 ml @ 400 mls/hr IVPB Q12HR [facility] Rx#:[id number] Intake, IV Titration 270.575 417.911 407.269 Amount Norepinephrine 32 mg In 250 317.911 307.269 Sodium Chloride 0.9% 218 ml @ 0.05 MCG/KG/MIN 2. 599 mls/hr IV .Q24H [facility] Rx#:[id number] propofoL 1,000 mg In 20.575 100 100.000 Empty Bag 1 bag @ Titrate IV .Q0M [facility] Rx#: [id number] Tube Feeding 320 50 Blood Product 378 Platelet Pheresis Pas 378 Psoralen Unit [id number] Other 90 30 Output: Drainage 500 500 600 Right Abdomen 500 500 600 Urine 605 440 290 Stool 1150 Other: Voiding Method Indwelling Catheter Indwelling Catheter Indwelling Catheter # Bowel Movements 3 ABP, PAP, CO, CI - Last Documented Arterial Blood Pressure 79/43 - Exam GENERAL: The patient is lying and does not seem in acute distress. LUNG: Intubated and on ventilator. NEUROLOGICAL: On IV Propofol. Higher mental function: The patient is comatose. GCS: 4 (E1, VT1, M2). Patient is not verbalizing or following commands or attempted to communicate. Detailed examination deferred because of severe neutropenia. - Labs CBC & Chem 7: 08/29/21 05:28 08/29/21 05:28 Labs: Abnormal Lab Results - Last 24 Hours (Table) 08/27/21 08/28/21 08/28/21 Range/Units 18:40 01:00 01:16 WBC (3.8-10.6) k/uL RBC (4.30-5.90) m/uL Hgb (13.0-17.5) gm/dL Hct (39.0-53.0) % RDW (11.5-15.5) % Plt Count (150-450) k/uL PT (9.0-12.0) sec INR (<1.2) APTT (22.0-30.0) sec ABG pH 7.46 H (7.35-7.45) ABG pCO2 33 L (35-45) mmHg ABG pO2 (83-108) mmHg ABG Total CO2 25 H (19-24) mmol/L ABG O2 Saturation (94-97) % Potassium (3.5-5.1) mmol/L BUN (9-20) mg/dL Glucose (74-99) mg/dL POC Glucose (mg/dL) 158 H 176 H (75-99) mg/dL Calcium (8.4-10.2) mg/dL Total Bilirubin (0.2-1.3) mg/dL Total Protein (6.3-8.2) g/dL Albumin (3.5-5.0) g/dL 08/28/21 08/28/21 08/28/21 Range/Units 04:30 04:30 05:01 WBC 0.5 L* (3.8-10.6) k/uL RBC 2.36 L (4.30-5.90) m/uL Hgb 7.7 L (13.0-17.5) gm/dL Hct 22.8 L (39.0-53.0) % RDW 16.4 H (11.5-15.5) % Plt Count 20 L D (150-450) k/uL PT (9.0-12.0) sec INR (<1.2) APTT (22.0-30.0) sec ABG pH (7.35-7.45) ABG pCO2 (35-45) mmHg ABG pO2 70 L (83-108) mmHg ABG Total CO2 25 H (19-24) mmol/L ABG O2 Saturation 93.6 L (94-97) % Potassium 3.2 L (3.5-5.1) mmol/L BUN 26 H (9-20) mg/dL Glucose 181 H (74-99) mg/dL POC Glucose (mg/dL) (75-99) mg/dL Calcium 6.9 L (8.4-10.2) mg/dL Total Bilirubin 3.9 H (0.2-1.3) mg/dL Total Protein 5.7 L (6.3-8.2) g/dL Albumin 1.8 L (3.5-5.0) g/dL 08/28/21 08/28/21 08/28/21 Range/Units 06:58 11:54 12:55 WBC (3.8-10.6) k/uL RBC (4.30-5.90) m/uL Hgb (13.0-17.5) gm/dL Hct (39.0-53.0) % RDW (11.5-15.5) % Plt Count (150-450) k/uL PT 15.1 H (9.0-12.0) sec INR 1.5 H (<1.2) APTT 31.6 H (22.0-30.0) sec ABG pH (7.35-7.45) ABG pCO2 (35-45) mmHg ABG pO2 (83-108) mmHg ABG Total CO2 (19-24) mmol/L ABG O2 Saturation (94-97) % Potassium (3.5-5.1) mmol/L BUN (9-20) mg/dL Glucose (74-99) mg/dL POC Glucose (mg/dL) 186 H 178 H (75-99) mg/dL Calcium (8.4-10.2) mg/dL Total Bilirubin (0.2-1.3) mg/dL Total Protein (6.3-8.2) g/dL Albumin (3.5-5.0) g/dL Microbiology - Last 24 Hours (Table) 08/24/21 20:33 Gram Stain - Final Aspirate Body Fluid Culture - Final Klebsiella pneumoniae Alpha Hemolytic Streptococcus Assessment and Plan Assessment: * New onset seizure (Per ED team had GTC). Likely provoke due to underlying in fection--no further seizure-like activity. * Altered mental status due septic encephalopathy and medication effect (Propofol) * Reported "Hyperintesity small in Wilfredo on CT and could not do exclude a tiny petechial hemorrhage". Had repeat CT head on 08/26/21 and its unchanged I feel unlikely bleed * Septic shock with multisystem organ failure and blood culture positive for Klebsiella pnemonia and is on 2 pressors. 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 Drake has ordered MRI of the brain with and without a stat (but cannot get it since intubated and is on ventilator). Continue every hour neuro checks On seizure precaution and pads. Infection disease specialist is on board Patient oncologist team is on board. We'll defer the rest of the medical management to the patient's the primary team as well as ICU team. Condition is very guarded. Plan was discussed with the patient's ICU nurse.
--- NOTE | 2021-08-29 11:20 | P.PN ---
<Cheryl Doyle - Last Filed: 08/29/21 11:16> Subjective Progress Note Date: 08/29/21 CHIEF COMPLAINT: Abdominal pain HISTORY OF PRESENT ILLNESS: Patient remains in the ICU. Surgical service following in regards to acute cholecystitis. He does have a cholecystostomy tube in place. Patient is now only having minimal output from the cholecystostomy tube. Patient has had decreased urine output. He is hypotensive. He is maxed out on Levophed and vasopressin. Afebrile. Tachycardic. Hypotensive WBC 1.1 Hgb 7.8 platelets 37 creatinine 1.35 Patient's is in the process of deciding of placing patient on hospice. CODE STATUS is no code. PHYSICAL EXAM: VITAL SIGNS: Reviewed. GENERAL: Well-developed in no acute distress. HEENT: No sclera icterus. Extraocular movements grossly intact. Moist buccal mucosa. Head is atraumatic, normocephalic. ABDOMEN: Soft. Nondistended. Nontender. Cholecystostomy tube in place ASSESSMENT: 1. Acute cholecystitis 2. Bacteremia PLAN: -Keep cholecystostomy tube -Continue antibiotics per ID -Continue supportive care and ICU management -Patient's overall prognosis is poor. Awaiting 's decision regarding hospice. Physician [employer] Applier note has been reviewed by physician. Signing provider agrees with the documented findings, assessment, and plan of care. Objective - Vital Signs Vital signs: Vital Signs Temp 97.6 F 08/29/21 04:00 Pulse 137 H 08/29/21 09:45 Resp 25 H 08/29/21 09:45 BP 102/58 08/29/21 09:45 Pulse Ox 94 L 08/29/21 09:45 Intake & Output 08/28/21 08/29/21 08/29/21 18:59 06:59 18:59 Intake Total 6175.845 2400 475 Output Total 2115 105 10 Balance 4060.845 2295 465 Weight 123.7 kg 126 kg Intake: IV 5447 1800 475 0.9 75 Acyclovir Sodium 950 mg 500 In Sodium Chloride 0.9% 250 ml @ 269 mls/hr IV Q8H [facility] Rx#:[id number] Ampicillin-Sulbactam 3 gm 100 200 In Sodium Chloride 0.9% 100 ml @ 200 mls/hr IVPB Q6HR [facility] Rx#:[id number] Potassium Chloride 20 meq 200 100 In Water For Injection 1 100ml.bag @ 50 mls/hr IVPB Q2H [facility] Rx#: [id number] Sodium Chloride 0.9% 1, 975 1500 375 000 ml @ 125 mls/hr IV . Q8H [facility] Rx#:[id number] Sodium Chloride 0.9% 1, 2997 000 ml @ 999 mls/hr IV . Q1H1M [facility] Rx#:[id number] Vancomycin 1,750 mg In 500 Sodium Chloride 0.9% 500 ml 500 ml @ 167 mls/hr IVPB Q12H [facility] Rx#: [id number] levETIRAcetam IV 500 mg 100 100 In Sodium Chloride 0.9% 100 ml @ 400 mls/hr IVPB Q12HR [facility] Rx#:[id number] Intake, IV Titration 618.845 600 Amount Norepinephrine 32 mg In 518.845 500 Sodium Chloride 0.9% 218 ml @ 0.05 MCG/KG/MIN 2. 599 mls/hr IV .Q24H [facility] Rx#:[id number] propofoL 1,000 mg In 100.000 100 Empty Bag 1 bag @ Titrate IV .Q0M [facility] Rx#: [id number] Tube Feeding 80 Other 30 Output: Drainage 600 Right Abdomen 600 Urine 365 105 10 Stool 1150 Other: Voiding Method Indwelling Catheter Indwelling Catheter ABP, PAP, CO, CI - Last Documented Arterial Blood Pressure 62/30 - Labs CBC & Chem 7: 08/29/21 05:28 08/29/21 05:28 Labs: Abnormal Lab Results - Last 24 Hours (Table) 08/28/21 08/28/21 08/28/21 Range/Units 11:54 12:55 18:17 WBC (3.8-10.6) k/uL RBC (4.30-5.90) m/uL Hgb (13.0-17.5) gm/dL Hct (39.0-53.0) % RDW (11.5-15.5) % Plt Count (150-450) k/uL Neutrophils # (Manual) (1.3-7.7) k/uL Lymphocytes # (Manual) (1.0-4.8) k/uL PT 15.1 H (9.0-12.0) sec INR 1.5 H (<1.2) APTT 31.6 H (22.0-30.0) sec Chloride (98-107) mmol/L Carbon Dioxide (22-30) mmol/L BUN (9-20) mg/dL Creatinine (0.66-1.25) mg/dL Glucose (74-99) mg/dL POC Glucose (mg/dL) 178 H 144 H (75-99) mg/dL Calcium (8.4-10.2) mg/dL Total Bilirubin (0.2-1.3) mg/dL Total Protein (6.3-8.2) g/dL Albumin (3.5-5.0) g/dL 08/29/21 08/29/21 08/29/21 Range/Units 01:40 05:27 05:28 WBC 1.1 L* (3.8-10.6) k/uL RBC 2.41 L (4.30-5.90) m/uL Hgb 7.8 L (13.0-17.5) gm/dL Hct 23.6 L (39.0-53.0) % RDW 16.5 H (11.5-15.5) % Plt Count 37 L D (150-450) k/uL Neutrophils # (Manual) 0.10 L* (1.3-7.7) k/uL Lymphocytes # (Manual) 0.51 L (1.0-4.8) k/uL PT (9.0-12.0) sec INR (<1.2) APTT (22.0-30.0) sec Chloride (98-107) mmol/L Carbon Dioxide (22-30) mmol/L BUN (9-20) mg/dL Creatinine (0.66-1.25) mg/dL Glucose (74-99) mg/dL POC Glucose (mg/dL) 143 H 131 H (75-99) mg/dL Calcium (8.4-10.2) mg/dL Total Bilirubin (0.2-1.3) mg/dL Total Protein (6.3-8.2) g/dL Albumin (3.5-5.0) g/dL 08/29/21 Range/Units 05:28 WBC (3.8-10.6) k/uL RBC (4.30-5.90) m/uL Hgb (13.0-17.5) gm/dL Hct (39.0-53.0) % RDW (11.5-15.5) % Plt Count (150-450) k/uL Neutrophils # (Manual) (1.3-7.7) k/uL Lymphocytes # (Manual) (1.0-4.8) k/uL PT (9.0-12.0) sec INR (<1.2) APTT (22.0-30.0) sec Chloride 112 H (98-107) mmol/L Carbon Dioxide 18 L (22-30) mmol/L BUN 39 H (9-20) mg/dL Creatinine 1.35 H (0.66-1.25) mg/dL Glucose 126 H (74-99) mg/dL POC Glucose (mg/dL) (75-99) mg/dL Calcium 6.2 L* (8.4-10.2) mg/dL Total Bilirubin 3.9 H (0.2-1.3) mg/dL Total Protein 5.3 L (6.3-8.2) g/dL Albumin 1.6 L (3.5-5.0) g/dL Microbiology - Last 24 Hours (Table) 08/27/21 20:35 Blood Culture Gram Stain - Preliminary Blood 08/27/21 20:35 Blood Culture - Final Blood 08/27/21 20:09 Blood Culture - Preliminary Blood No Growth after 24 hours <Elton Headley - Last Filed: 08/29/21 15:01> Subjective As above. Patient without significant improvement. Remains on high dose pressors. His urine output has decreased. Family has opted for comfort measures. Will sign off. Objective - Vital Signs Vital signs: Vital Signs Temp 97.6 F 08/29/21 04:00 Pulse 140 H 08/29/21 11:30 Resp 25 H 08/29/21 11:30 BP 107/51 08/29/21 11:30 Pulse Ox 94 L 08/29/21 11:30 Intake & Output 08/28/21 08/29/21 08/29/21 18:59 06:59 18:59 Intake Total 6175.845 2400 475 Output Total 2115 105 15 Balance 4060.845 2295 460 Weight 123.7 kg 126 kg Intake: IV 5447 1800 475 0.9 75 Acyclovir Sodium 950 mg 500 In Sodium Chloride 0.9% 250 ml @ 269 mls/hr IV Q8H [facility] Rx#:[id number] Ampicillin-Sulbactam 3 gm 100 200 In Sodium Chloride 0.9% 100 ml @ 200 mls/hr IVPB Q6HR [facility] Rx#:[id number] Potassium Chloride 20 meq 200 100 In Water For Injection 1 100ml.bag @ 50 mls/hr IVPB Q2H [facility] Rx#: [id number] Sodium Chloride 0.9% 1, 975 1500 375 000 ml @ 125 mls/hr IV . Q8H [facility] Rx#:[id number] Sodium Chloride 0.9% 1, 2997 000 ml @ 999 mls/hr IV . Q1H1M [facility] Rx#:[id number] Vancomycin 1,750 mg In 500 Sodium Chloride 0.9% 500 ml 500 ml @ 167 mls/hr IVPB Q12H [facility] Rx#: [id number] levETIRAcetam IV 500 mg 100 100 In Sodium Chloride 0.9% 100 ml @ 400 mls/hr IVPB Q12HR [facility] Rx#:[id number] Intake, IV Titration 618.845 600 Amount Norepinephrine 32 mg In 518.845 500 Sodium Chloride 0.9% 218 ml @ 0.05 MCG/KG/MIN 2. 599 mls/hr IV .Q24H [facility] Rx#:[id number] propofoL 1,000 mg In 100.000 100 Empty Bag 1 bag @ Titrate IV .Q0M [facility] Rx#: [id number] Tube Feeding 80 Other 30 Output: Drainage 600 Right Abdomen 600 Urine 365 105 15 Stool 1150 Other: Voiding Method Indwelling Catheter Indwelling Catheter Indwelling Catheter ABP, PAP, CO, CI - Last Documented Arterial Blood Pressure 58/29 - Labs CBC & Chem 7: 08/29/21 05:28 08/29/21 05:28 Labs: Abnormal Lab Results - Last 24 Hours (Table) 08/28/21 08/29/21 08/29/21 Range/Units 18:17 01:40 05:27 WBC (3.8-10.6) k/uL RBC (4.30-5.90) m/uL Hgb (13.0-17.5) gm/dL Hct (39.0-53.0) % RDW (11.5-15.5) % Plt Count (150-450) k/uL Neutrophils # (Manual) (1.3-7.7) k/uL Lymphocytes # (Manual) (1.0-4.8) k/uL Chloride (98-107) mmol/L Carbon Dioxide (22-30) mmol/L BUN (9-20) mg/dL Creatinine (0.66-1.25) mg/dL Glucose (74-99) mg/dL POC Glucose (mg/dL) 144 H 143 H 131 H (75-99) mg/dL Calcium (8.4-10.2) mg/dL Total Bilirubin (0.2-1.3) mg/dL Total Protein (6.3-8.2) g/dL Albumin (3.5-5.0) g/dL 08/29/21 08/29/21 Range/Units 05:28 05:28 WBC 1.1 L* (3.8-10.6) k/uL RBC 2.41 L (4.30-5.90) m/uL Hgb 7.8 L (13.0-17.5) gm/dL Hct 23.6 L (39.0-53.0) % RDW 16.5 H (11.5-15.5) % Plt Count 37 L D (150-450) k/uL Neutrophils # (Manual) 0.10 L* (1.3-7.7) k/uL Lymphocytes # (Manual) 0.51 L (1.0-4.8) k/uL Chloride 112 H (98-107) mmol/L Carbon Dioxide 18 L (22-30) mmol/L BUN 39 H (9-20) mg/dL Creatinine 1.35 H (0.66-1.25) mg/dL Glucose 126 H (74-99) mg/dL POC Glucose (mg/dL) (75-99) mg/dL Calcium 6.2 L* (8.4-10.2) mg/dL Total Bilirubin 3.9 H (0.2-1.3) mg/dL Total Protein 5.3 L (6.3-8.2) g/dL Albumin 1.6 L (3.5-5.0) g/dL Microbiology - Last 24 Hours (Table) 08/27/21 20:35 Blood Culture Gram Stain - Preliminary Blood 08/27/21 20:35 Blood Culture - Final Blood 08/27/21 20:09 Blood Culture - Preliminary Blood No Growth after 24 hours Assessment and Plan (1) Acute cholecystitis Current Visit: Yes Status: Acute Priority: High Code(s): K81.0 - ACUTE CHOLECYSTITIS SNOMED Code(s): 36185714
[2021-08-29 11:37] VITALS: BP 107/51; PULSE 140
--- NOTE | 2021-08-29 11:42 | P.PN ---
Subjective Progress Note Date: 08/29/21 Principal diagnosis: Septic shock and multisystem organ failure secondary to acute cholecystitis 04/25/2021, the patient is being seen for a follow-up. He is a critically ill 60-year-old male patient with Hodgkin's lymphoma with septic shock and multisystem organ failure. 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 In any rate, the patient remains on a mechanical ventilator. Yesterday, he became slightly more asynchronous with a mechanical ventilator and he was started on propofol which is currently running at 20 mcg/kg per minute. This was introduced to help him with a synchrony with the respirator. Things have improved since. Note that the patient does not show any signs of neurological recovery. His EEG showed diffuse encephalopathy without ongoing seizure activity. There is a punctate hemorrhagic area in his archie and for that reason a repeat CAT scan will need be will be needed at a later stage. Yesterday, the patient was very unstable to be taken down to CAT scan. On today's evaluation, he remains on a mechanical ventilator. His assist-control at the rate of 26 with a tidal volume of 580 with an FiO2 of 40% and PEEP of 5. His chest x-ray from today was noted and there is no major interval change. Tube is in a good location. The blood gas showed a pH of 7.53 with a pCO2 of 34 and pO2 of 67 and this was done and FiO2 of 40%. No significant orotracheal secretions. Hemodynamically, the patient continues to be on higher doses of pressors. The patient is on vasopressin physiologic dose, norepinephrine is running at a dose of 0.9 mg/kg per minute. His epinephrine infusion is running at 0.08 mcg/kg per minute. Also, the patient is on IV fluids and he is receiving 0.9 saline at the rate of 130s uses an hour. His overall fluid balance over the past 24 hours has been +7.1 L. Urine output is in order of 30-40 mL an hour. His creatinine is improved compared to yesterday and the patient's creatinine is down to 1.1. Potassium level is at 2.7 and this is to be replaced. His blood culture was positive for gram-negative bacillus. Subsequently this income tax return preparer to be positive for Klebsiella pneumonia. He has 2 sets of blood cultures are positive. He remains on IV Zosyn. Hematologically, his white cell count is still low at 0.5 and hemoglobin is at 7.4. Platelet count dropped down to 14. The patient remains on insulin drip for blood sugar control and currently is on 11 units an hour. The cholecystostomy tube is still in place and output is minimal at this point in time. The output is non-purulence. Abdomen is nondistended. Positive the lower extremities are diminished yet barely palpable. He is afebrile for to day, still tachycardic and the patient remains in sinus tachycardia. A limited echo cardiogram showed a preserved LV function with an ejection fraction of 50- 55%. Remains on Keppra. No seizure activity has been noted. 08/27/2021, the patient is being seen for a follow-up. He is a case of septic shock with pancytopenia. Systemic chemotherapy given for Hodgkin's lymphoma. This was related to an acute cholecystitis with gram-negative bacteremia as gram-negative bacillus is growing in the biliary fluids and Klebsiella pneumoniae is and the blood. The patient remains on broad-spectrum antibiotics and the patient is currently on IV Zosyn. Hemodynamically, the patient is being still supported with pressors. Norepinephrine infusion is still running at 0.7 mcg/kg per minute. Epinephrine has been discontinued. He remains on vasopressin physiologic dose. Fluid balance is no order of +1.3 L over the past 24 hours. Bicarb drip has been discontinued. Urine output is in order of 40-50 mL an hour. He remains on a mechanical ventilator. He remains gently sedated with propofol which is running at 20 mcg/kg per minute. I reviewed the CAT scan of the brain yesterday and the CAT scan showed no acute abnormalities. Neurologist on the case. No seizure activity has been noted and the patient remains on Keppra. Meanwhile, the patient remains on a mechanical ventilator. On today's evaluation, he remains on assist control rate of 26 with a tidal volume of 580 and FiO2 of 40% with a PEEP of 5. Peak airway pressures 21. Blood gas showed a pH of 7.53 with a pCO2 of 30 and pO2 of 141. Chest x-ray shows some atelectatic changes in lung bases. ET tube is in a good location. No acute pulmonary infiltrates. Hematologic profile was reviewed. The patient's white cell count is at 0.4 with a platelet count of 11. Note that he did receive a unit of platelets yesterday and the plated count is still low at 11. Hemoglobin is stable. The patient has no evidence of any bleeding. Awaiting on the CMP. Output from the cholecystostomy tube is in the order of 1 80 mL over the past 24 hours. Meanwhile, the patient was started on enteral feeding for nutritional support and currently is receiving vitamin AF at the rate of 20 20 mL an hour. He is afebrile. No other significant events otherwise for now. General surgeries on the case. Neurologist on the case. Hematology oncology is also on the case. Patient was reevaluated today on 08/28/2021, remains in the ICU intubated and mechanically ventilated. Assist-control rate is 26 tidal volume is 500 FiO2 60% and PEEP of 5, ABG showed a pO2 of 70 pCO2 of 36 pH of 7.43. Patient remains on multiple pressors including norepinephrine at 0.85 mcg/kg/m, his also on vasopressin 0.04, he is on propofol at 35, and IV fluid at 75 mL per hour. Blood pressure remains marginal, patient will receive the fluid boluses at least 2 L will be given. PEEP was increased to 6 based on marginal ABG on FiO2 of 60% and PEEP of 5. Patient continues to receive antibiotics in the form of Unasyn, acyclovir, and is also on vancomycin, infectious disease consulted on this case. Patient had Klebsiella and alphahemolytic strep in the fluid from the gallbladder, and her blood cultures are positive for Klebsiella pneumoniae. WBC count is 0.5 hemoglobin is 7.7. Platelets are 20,000. Electrolytes are normal renal profile is normal chest x-ray shows minimal bibasilar infiltrates. Reevaluated today on 08/29/2021, remains in the ICU, intubated and mechanically ventilated. He is on assist control rate of 26 tidal volume 500 FiO2 60% and PEEP of 5. CODE STATUS was changed yesterday to DO NOT RESUSCITATE. Patient has been doing very poorly over the last 24 hours, remains hypotensive requiring high doses of norepinephrine and vasopressin. Remains on propofol at a lower dose from yesterday, blood pressure is marginal actually it is relatively lower today compared to yesterday in spite of pressors. WBC count is 1.1 hemoglobin is 7.8. Electrolytes are normal bicarb is 18 BUN is 39 and creatinine 1.35. Patient received multiple fluid boluses yesterday for hypotension. is at bedside, and she is requesting comfort care measures. She is very well aware that his prognosis is extremely poor, and I discussed his condition yesterday and today with the . Hence considering the 's wishes and considering his poor prognosis, will proceed to comfort care measures on this patient. Objective - Vital Signs Vital signs: Vital Signs Temp 97.6 F 08/29/21 04:00 Pulse 140 H 08/29/21 11:30 Resp 25 H 08/29/21 11:30 BP 107/51 08/29/21 11:30 Pulse Ox 94 L 08/29/21 11:30 Intake & Output 08/28/21 08/29/21 08/29/21 18:59 06:59 18:59 Intake Total 6175.845 2400 475 Output Total 2115 105 15 Balance 4060.845 2295 460 Weight 123.7 kg 126 kg Intake: IV 5447 1800 475 0.9 75 Acyclovir Sodium 950 mg 500 In Sodium Chloride 0.9% 250 ml @ 269 mls/hr IV Q8H [facility] Rx#:[id number] Ampicillin-Sulbactam 3 gm 100 200 In Sodium Chloride 0.9% 100 ml @ 200 mls/hr IVPB Q6HR [facility] Rx#:[id number] Potassium Chloride 20 meq 200 100 In Water For Injection 1 100ml.bag @ 50 mls/hr IVPB Q2H [facility] Rx#: [id number] Sodium Chloride 0.9% 1, 975 1500 375 000 ml @ 125 mls/hr IV . Q8H [facility] Rx#:[id number] Sodium Chloride 0.9% 1, 2997 000 ml @ 999 mls/hr IV . Q1H1M [facility] Rx#:[id number] Vancomycin 1,750 mg In 500 Sodium Chloride 0.9% 500 ml 500 ml @ 167 mls/hr IVPB Q12H [facility] Rx#: [id number] levETIRAcetam IV 500 mg 100 100 In Sodium Chloride 0.9% 100 ml @ 400 mls/hr IVPB Q12HR [facility] Rx#:[id number] Intake, IV Titration 618.845 600 Amount Norepinephrine 32 mg In 518.845 500 Sodium Chloride 0.9% 218 ml @ 0.05 MCG/KG/MIN 2. 599 mls/hr IV .Q24H [facility] Rx#:[id number] propofoL 1,000 mg In 100.000 100 Empty Bag 1 bag @ Titrate IV .Q0M [facility] Rx#: [id number] Tube Feeding 80 Other 30 Output: Drainage 600 Right Abdomen 600 Urine 365 105 15 Stool 1150 Other: Voiding Method Indwelling Catheter Indwelling Catheter ABP, PAP, CO, CI - Last Documented Arterial Blood Pressure 58/29 - Exam Physical Exam: Revealed a 60-year-old white male, looks frail, chronically ill, on mechanical ventilation, intubated, sedated, unresponsive to any stimuli. Patient is unresponsive, HEENT: Positive jaundice noted. [Neck is supple.] [No neck masses.] [No thyromegaly.] [No JVD.] The tracheal tube and orogastric tubes are intact Chest: [Symmetrical chest expansion, crackles at the bases. No rhonchi and no wheezes..] Cardiac Exam: Normal S1 and S2, no S3 gallop. Abdomen: Abdominal exam revealed normal bowel sounds. The abdomen was soft, non- tender, and without masses, organomegaly, or appreciable enlargement of the abdominal aorta. No ascites. No direct tenderness. No rebound tenderness. No guarding. Bowel sounds are hypoactive nearly absent. patient has a percutaneous drain in his right upper quadrant for drainage of the gallbladder. Extremities: Trace of bipedal edema. Neurological Exam: Not assessed, patient is sedated, and unresponsive to any stimuli. Psychiatric: Could not assess. He is sedated. Unresponsive - Labs CBC & Chem 7: 08/29/21 05:28 08/29/21 05:28 Labs: Abnormal Lab Results - Last 24 Hours (Table) 08/28/21 08/28/21 08/28/21 Range/Units 11:54 12:55 18:17 WBC (3.8-10.6) k/uL RBC (4.30-5.90) m/uL Hgb (13.0-17.5) gm/dL Hct (39.0-53.0) % RDW (11.5-15.5) % Plt Count (150-450) k/uL Neutrophils # (Manual) (1.3-7.7) k/uL Lymphocytes # (Manual) (1.0-4.8) k/uL PT 15.1 H (9.0-12.0) sec INR 1.5 H (<1.2) APTT 31.6 H (22.0-30.0) sec Chloride (98-107) mmol/L Carbon Dioxide (22-30) mmol/L BUN (9-20) mg/dL Creatinine (0.66-1.25) mg/dL Glucose (74-99) mg/dL POC Glucose (mg/dL) 178 H 144 H (75-99) mg/dL Calcium (8.4-10.2) mg/dL Total Bilirubin (0.2-1.3) mg/dL Total Protein (6.3-8.2) g/dL Albumin (3.5-5.0) g/dL 08/29/21 08/29/21 08/29/21 Range/Units 01:40 05:27 05:28 WBC 1.1 L* (3.8-10.6) k/uL RBC 2.41 L (4.30-5.90) m/uL Hgb 7.8 L (13.0-17.5) gm/dL Hct 23.6 L (39.0-53.0) % RDW 16.5 H (11.5-15.5) % Plt Count 37 L D (150-450) k/uL Neutrophils # (Manual) 0.10 L* (1.3-7.7) k/uL Lymphocytes # (Manual) 0.51 L (1.0-4.8) k/uL PT (9.0-12.0) sec INR (<1.2) APTT (22.0-30.0) sec Chloride (98-107) mmol/L Carbon Dioxide (22-30) mmol/L BUN (9-20) mg/dL Creatinine (0.66-1.25) mg/dL Glucose (74-99) mg/dL POC Glucose (mg/dL) 143 H 131 H (75-99) mg/dL Calcium (8.4-10.2) mg/dL Total Bilirubin (0.2-1.3) mg/dL Total Protein (6.3-8.2) g/dL Albumin (3.5-5.0) g/dL 08/29/21 Range/Units 05:28 WBC (3.8-10.6) k/uL RBC (4.30-5.90) m/uL Hgb (13.0-17.5) gm/dL Hct (39.0-53.0) % RDW (11.5-15.5) % Plt Count (150-450) k/uL Neutrophils # (Manual) (1.3-7.7) k/uL Lymphocytes # (Manual) (1.0-4.8) k/uL PT (9.0-12.0) sec INR (<1.2) APTT (22.0-30.0) sec Chloride 112 H (98-107) mmol/L Carbon Dioxide 18 L (22-30) mmol/L BUN 39 H (9-20) mg/dL Creatinine 1.35 H (0.66-1.25) mg/dL Glucose 126 H (74-99) mg/dL POC Glucose (mg/dL) (75-99) mg/dL Calcium 6.2 L* (8.4-10.2) mg/dL Total Bilirubin 3.9 H (0.2-1.3) mg/dL Total Protein 5.3 L (6.3-8.2) g/dL Albumin 1.6 L (3.5-5.0) g/dL Microbiology - Last 24 Hours (Table) 08/27/21 20:35 Blood Culture Gram Stain - Preliminary Blood 08/27/21 20:35 Blood Culture - Final Blood 08/27/21 20:09 Blood Culture - Preliminary Blood No Growth after 24 hours Assessment and Plan Assessment: Impression: Acute hypoxic respiratory failure secondary to septic shock and multisystem organ failure Septic shock, most likely source is cholecystitis, with Klebsiella pneumonia sherman teremia Hypotension secondary to above. Pancytopenia secondary to chemotherapy. History of Hodgkin's lymphoma and status post systemic chemotherapy. Acute kidney injury secondary to above. Severe lactic acidosis on presentation secondary to sepsis and septic shock. Status post percutaneous drainage of gallbladder. History of hypothyroidism. Treated with radioactive iodine. New onset seizure, being addressed by neurology. Type 2 diabetes. Patient is on insulin. Multiple comorbidities and poor performance and poor functional status. Recommendation: After discussing the patient's condition with the , and the requested comfort care measures, will proceed to comfort care on this patient, and will discontinue all pressors and extubate patient to a nonrebreather mask. In the meantime would also place the patient on morphine drip. Overall prognosis remains extremely poor and guarded. Critical care time is over 30 minutes. Time with Patient: Greater than 30
[2021-08-29] MEDS ORDERED: MORPHINE SULFATE 4 MG/ML SYRINGE IV PRN (11:53)
[2021-08-29] MEDS ORDERED: LORazepam 2 MG/ML INJ IV PRN (11:53)
[2021-08-29] MEDS ORDERED: ATROPINE OPHTH SOLN 1% 5ML BTL SUBLINGUAL PRN (11:53)
[2021-08-29] MEDS ORDERED: MORPHINE SULFATE 2 MG/ML SYRINGE IV PRN (11:53)
[2021-08-29] MEDS ORDERED: MORPHINE SULFATE (100 MG/2 ML) 100 MG in SODIUM CHLORIDE 0.9% 100 ML IV SCH (12:00)
[2021-08-29] MEDS ORDERED: SCOPOLAMINE 1.5MG/72HR PATCH TRANSDERM SCH (12:00)
--- NOTE | 2021-08-29 18:06 | PN ---
PROGRESS NOTE DATE OF SERVICE: 08/29/2021 This 60-year-old gentleman admitted with acute neutropenic sepsis is being closely monitored. The patient is max-dosed on vasopressors, Levophed as well as oxytocin. The patient's white count is also 1.1 at this time. The patient is also developing renal failure and, because of lack of improvement, hospice and comfort care measures are being considered at this time. Multiple consultants are following the patient closely. Past medical history reviewed. Review of systems could not be taken; the patient is mechanically ventilated and sedated. CURRENT MEDICATIONS: Reviewed. They include Tylenol, Unasyn, Dilaudid, Keppra, Ativan. Doses are reviewed. PHYSICAL EXAMINATION: Patient is mechanically ventilated and sedated. Pulse 140, blood pressure is 107/51, respiration 24, temperature normal, pulse ox 94% on 60% FiO2. HEENT: Conjunctivae normal. NECK: No jugular venous distention. CARDIOVASCULAR: S1, S2 muffled. RESPIRATION: Breath sounds diminished at the bases. A few scattered rhonchi and crackles. ABDOMEN: Soft, nontender. LEGS: No edema. No swelling. NERVOUS SYSTEM: Diffusely weak. LABORATORY INVESTIGATIONS: WBC 1.1, hemoglobin 7.8, and platelets are 37. Creatinine is 1.35. ASSESSMENT: 1. Acute neutropenic sepsis with hypotension and sepsis and septic shock secondary to acute cholecystitis. 2. Acute hypoxic respiratory failure, on mechanical ventilation. 3. Severe sepsis and severe hypotension, intractable, with septic shock. 4. Severe pancytopenia secondary to chemotherapy. 5. Acute metabolic acidosis. 6. Acute renal failure, acute tubular necrosis. 7. Hyponatremia. 8. Hypokalemia. 9. Hodgkin's lymphoma, on chemotherapy. 10.Elevated alkaline phosphatase. 11.Diabetes mellitus, type 2. 12.History of degenerative joint disease. 13.History of constipation. 14.History of gout. 15.History of previous radioactive iodine treatment. 16.History of nicotine dependence. 17.NO CODE. RECOMMENDATIONS AND DISCUSSION: This 60-year-old gentleman presented with multiple complex medical issues. The patient is on max dose of vasopressors. We will follow the patient closely. Discussed with the patient's at length, who would like to transition to comfort measures. The cortisol level is noted to be high. Will closely follow and hospice will be consulted. The prognosis is guarded because of multiple complex medical issues. Further recommendations to follow. MMODL / IJN: [id number] / OSEAS
--- NOTE | 2021-08-30 19:07 | DS ---
DISCHARGE SUMMARY PRIMARY CAUSE OF : 1. Acute neutropenic sepsis secondary to possibly acute cholecystitis. OTHER DIAGNOSES: 1. Acute neutropenic sepsis with hypotension with sepsis septic shock secondary to acute cholecystitis. 2. Acute hypoxic respiratory failure on mechanical ventilation. 3. Klebsiella pneumoniae sepsis. 4. Severe sepsis and severe hypotension, intractable, with septic shock. 5. Severe pancytopenia secondary to chemotherapy. 6. Acute metabolic acidosis. 7. Acute renal failure with acute tubular necrosis. 8. Hyponatremia. 9. Hypokalemia. 10.Hodgkin's lymphoma, on chemotherapy. 11.Elevated alkaline phosphatase. 12.Diabetes mellitus type 2. 13.History of degenerative joint disease. 14.History of constipation. 15.History of gout. 16.History of previous radioactive iodine treatment. 17.History of nicotine dependence. 18.NO CODE, NO CPR. NO VENT. 19.Comfort measures. HISTORY OF PRESENT ILLNESS: This 60-year-old gentleman with a past medical history of multiple medical problems being followed by Dr. Boykin and Hematology Oncology team was admitted with severe acute neutropenia and sepsis. The patient has severe hypotension also. Patient treated with IV antibiotics. Patient also had acute respiratory failure. Patient monitored and mechanically ventilated, and monitored in ICU at this time. Multiple consultants followed the patient closely. Please refer to the multiple prognosis and consultations for further details. In short, the patient had multiple organisms grown from the culture including micrococcus and Klebsiella pneumonia. The patient was treated with broad-spectrum IV antibiotics and the rest of the measures. The patient was maxed on pressor support including the Levophed and oxytocin and case discussed at length with the and the family. They would like to proceed with comfort measures, comfort measures were continued and the patient because of above mentioned medical issues. The prognosis remained extremely guarded throughout the hospital stay, which was conveyed to the family on multiple occasions. Once again, please refer to the multiple progress notes and discharge notes and consultations and staff notes for further details. MMODL / IJN: [id number] /
--- NOTE | 2021-09-01 11:12 | CDI ---
Documentation Clarification Form Date: 09/01/2021 10:48:00 AM From: Dianne Johnson RN, CCDS Admit Date: 08/24/2021 01:56:00 PM Patient Name: Benjy Marley Visit Number: [id number] Discharge Date: 08/29/2021 04:04:00 PM ATTENTION: The Clinical Documentation Specialists (CDI) and [facility] Coding Staff appreciate your assistance in clarifying documentation. Please respond to the clarification below the line at the bottom and electronically sign. The CDI & [facility] Coding staff will review the response and follow-up if needed. Please note: Queries are made part of the Legal Health Record. If you have any questions, please contact the author of this message via ITS. Dr. Malvin Laurent Malnourishment is documented in the 08/24 Surgical Consult. Additional clarification regarding the severity of malnutrition is requested. History/Risk Factors: DM2, Hodkins Lymphoma diagnosis recently with completion of 1st round of chemo Patient admitted with sepsis, acute cholecystitis, acute hypoxic respiratory failure on MV, septic shock on multiple vasopressors, pancytopenia 2nd chemotherapy, ARF with ATN, Hyponatremia, Hypokalemia, metabolic acidosis Clinical Indicators: 08/24 Surgical Consult: "Intubated on ventilator, appears somewhat malnourished." 08/24-08/27 Pulmonary consult and progress notes: "Patient looks quite pale, looks cachectic and emaciated." Admission BMI: 26.3 Insufficient energy intake: patient was NPO since admission, multiple hypermetabolic conditions as noted above Weight Loss: 08/25 Oncology consult: 200 Lb. over last 3 yrs., unintentional Loss of subcutaneous fat & Loss of muscle mass: 08/27 Wound care consult: "Sacral pressure ulcer, stage II." Fluid accumulation:08/26-08/28 Oncology Progress Notes; "Gen. anasarca noted, not pending, skin is warm and dry to the touch, stroke in the bottom of the patient's foot he does withdraw his leg." Decreased hand exhaust tender strength: generalized weakness RD Consult Assessment: completed 08/26 & 08/28 with tube feeding recommendations Treatment: Supplements: Tube feeding via OGT: Vital AF 1.2 45 ml/hr. with 30 ml free water flush every 4 hrs. Lab monitoring: Am Daily Please clarify the type of malnutrition, if known: [ ] Mild Protein-Calorie Malnutrition [ ] Moderate Protein-Calorie Malnutrition [ ] Severe Protein-Calorie Malnutrition [ ] Other condition, please specify [ ] Unable to Determine (Template Last Revised: December 2020) Mild Protein-Calorie Malnutrition MTDD
== END 2021-08-29 16:04 | disposition expired | DRG 870 ==
LOC: EC 09:38 → 2SICU 13:56
PROVIDERS: ADMIT Internal Medicine; ATTEND Internal Medicine
PROC: 5A1955Z Respiratory Ventilation, Greater than 96 Consecutive Hours (ICD-10-PCS; principal; 2021-08-24)
PROC: 3E043XZ Introduction of Vasopressor into Central Vein, Percutaneous Approach (ICD-10-PCS; 2021-08-24)
PROC: 02HV33Z Insertion of Infusion Device into Superior Vena Cava, Percutaneous Approach (ICD-10-PCS; 2021-08-24)
PROC: 0BH17EZ Insertion of Endotracheal Airway into Trachea, Via Natural or Artificial Opening (ICD-10-PCS; 2021-08-24)
PROC: 0F9430Z Drainage of Gallbladder with Drainage Device, Percutaneous Approach (ICD-10-PCS; 2021-08-24)
PROC: 06HY33Z Insertion of Infusion Device into Lower Vein, Percutaneous Approach (ICD-10-PCS; 2021-08-24)
PROC: 4A00X4Z Measurement of Central Nervous Electrical Activity, External Approach (ICD-10-PCS; 2021-08-25)
PROC: 30233R1 Transfusion of Nonautologous Platelets into Peripheral Vein, Percutaneous Approach (ICD-10-PCS; 2021-08-27)
DX: A41.59 Other Gram-negative sepsis (principal); D61.810 Antineoplastic chemotherapy induced pancytopenia; G93.41 Metabolic encephalopathy; N17.0 Acute kidney failure with tubular necrosis; J96.01 Acute respiratory failure with hypoxia; J15.0 Pneumonia due to Klebsiella pneumoniae; R65.21 Severe sepsis with septic shock; C81.10 Nodular sclerosis Hodgkin lymphoma, unspecified site; E87.1 Hypo-osmolality and hyponatremia; E87.2 Acidosis; K80.00 Calculus of gallbladder with acute cholecystitis without obstruction; J44.0 Chronic obstructive pulmonary disease with (acute) lower respiratory infection; E44.1 Mild protein-calorie malnutrition; T82.524A Displacement of infusion catheter, initial encounter; Z20.822 Contact with and (suspected) exposure to COVID-19; D70.1 Agranulocytosis secondary to cancer chemotherapy; L89.152 Pressure ulcer of sacral region, stage 2; E03.9 Hypothyroidism, unspecified; E11.9 Type 2 diabetes mellitus without complications; E87.6 Hypokalemia; Z66 Do not resuscitate; Z51.5 Encounter for palliative care; F17.200 Nicotine dependence, unspecified, uncomplicated; M19.90 Unspecified osteoarthritis, unspecified site; K29.70 Gastritis, unspecified, without bleeding; K64.8 Other hemorrhoids; R50.81 Fever presenting with conditions classified elsewhere; R74.8 Abnormal levels of other serum enzymes; Z79.84 Long term (current) use of oral hypoglycemic drugs; Z79.890 Hormone replacement therapy; Z79.899 Other long term (current) drug therapy; T45.1X5A Adverse effect of antineoplastic and immunosuppressive drugs, initial encounter; Z68.26 Body mass index [BMI] 26.0-26.9, adult
CPT/HCPCS: 31500; 36415; 36556; 36600; 70450; 71045; 74177; 75989; 80053; 81001; 82330; 82533; 82784; 82805; 83605; 83735; 84132; 84443; 85025; 85379; 85384; 85610; 85730; 86850; 86900; 86901; 87040; 87070; 87077; 87186; 87205; 87636; 93005; 93308; 94002; 94003; 95822; 96365; 96367; 99291